=== PATIENT | male | born 1945 | race Caucasian/White ===

== ENCOUNTER 2025-08-22 07:22 | Outpatient (REF) | payer SELFPAY ==
--- OUTSIDE RECORDS SUMMARY | 2025-08-13 17:17 | XMS_ITS | Encounter Summary ---
Author Organization [facility] Address [address] [place] [id number] Care Team Providers Care Qualifications Examiner Name Role Phone Unknown Primary Care Provider [phone] Dat Vargas MD Primary Care Provider [phone] Reason for Visit * Reason Comments Hip Pain Abnormal Test Result * Auth/Cert (Routine) Specialty Diagnoses / Procedures Referred By Luz Elena t Referred To Contact Diagnoses Closed right hip fracture, initial encounter (HCC) Trauma Procedures N/A Referral ID Status Reason Start Date Expiration Date Visits Re quested Visits Authorized [id number] 1 1 Encounter Details Date Type Department Care Team (Latest Contact Info) Description 08/13/2025 5:17 PM EST - 08/21/2025 4:01 PM EST Hospital Encounter [facility] [address] [place] [address] Ivonne Terry DO [address] [place] [address] Mariann Pérez MD [address] [place] [id number] Ryan Valdes MD [address] [place] [address] Jess Garza MD [address] [place] [address] Marcio Amin MD [address] [place] [id number] 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 Never 08/14/2025 Q2: How many drinks containi ng alcohol do you have on a typical day when you are drinking? Patient does not drink Q3: How often do you have si x or more drinks on one occasion? Never 08/14/2025 Overall Financial Resource Strain (CARDIA) Answe r Date Recorded How hard is it for you to pa y for the very basics like food, housing, medical care, and heating? Patient unable to answer 08/15/2025 Hunger Vital Sign Answer Date Recorded Within the past 12 months, y ou worried that your food would run out before you got the money to buy more. Never true 08/16/20 25 Within the past 12 months, t he food you bought just didn't last and you didn't have money to get more. Never true 08/16/2025 PRAPARE - Transportation Answer Date Re corded In the past 12 months, has l ack of transportation kept you from medical appointments or from getting medications? No 08/04 In the past 12 months, has l ack of transportation kept you from meetings, work, or from getting things needed for daily living? No 08/16/2025 Housing Stability Vital Sign Answer Gian e Recorded In the last 12 months, was t here a time when you were not able to pay the mortgage or rent on time? No 08/16/2025 In the past 12 months, how m any times have you moved where you were living? 0 08/16/2025 At any time in the past 12 m [place], were you homeless or living in a mcc (including now)? No 08/16/2025 [facility] Utilities Answer Date Recorded In the past 12 months has th e electric, gas, oil, or water company threatened to shut off services in your home? No 08/16/2025 Sex and Gender Information Value Date Recorded Sex Assigned at Male 08/13/2025 5:24 PM EST Legal Sex Male 2:39 PM EST Gender Identity Male 08/13/2025 5:24 PM EST Sexual Orientation Heterosexual (straight) 08/13 8:31 PM EST documented as of this encounter Last Filed Vital Signs Vital Sign Reading Time Taken Comments Blood Pressure 122/56 08/21/2025 1:28 PM EST Pulse 95 08/21/2025 1:28 PM EST Temperature 37.5 C (99.5 F) 08/21/2025 1:28 PM EST Respiratory Rate 16 08/21/2025 1:28 PM EST Oxygen Saturation 94% 08/21/2025 1:28 PM EST Inhaled Oxygen Concentration - - Weight 87.5 kg (192 lb 14.4 oz) 08/14/2025 6:28 PM EST Height 177.8 cm (5' 10 ) 08/14/2025 6:28 PM EST Body Mass Index 27.68 08/14/2025 6:28 PM EST documented in this encounter Functional Status * AUDIT-C Score Answer Date of Assessment Author 0 08/14/2025 6:32 PM EST Kash William RN * Question Answer Date of Assessment Author AUDIT-C Total Score - Male 0 08/14/2025 6:32 PM Kash Rich RN Q1: How often do you have a drink containing alcohol? Never 08/14/2025 6:32 PM Kash Rich RN Q2: How many drinks containing alcohol do you have on a typical day when you are drinking? Patient does not drink 08/14/2025 6:32 PM Kash Rich RN Q3: How often do you have six or more drinks on one occasion? 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 Allergies[1] Admission Date: 08/13/2025 Admitting Provider: Mariann Pérez MD Discharge Provider: Marcio Amin MD Discharge Date: 08/20/2025 Primary Care Physician at Discharge: Dat Vargas MD OUTPATIENT TEAM Patient Care Team: Dat Vargas MD as PCP - General (Family Medicine) PRIMARY DISCHARGE DIAGNOSIS Primary Discharge Diagnosis Principal Problem: 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) (POA: Yes) Active Problems: Atrial fibrillation POA: Yes DISCHARGE DISPOSITION SNF Code Status Procedures Full code . MEDICATIONS AT TIME OF ADMISSION Current Outpatient Medications Medication Instructions ALPRAZolam (XANAX) 1 mg, Oral, 2 times daily PRN amitriptyline (ELAVIL) 25 mg, Oral, Nightly amphetamine-dextroamphetamine (ADDERALL) 20 MG tablet 20 mg, Oral, 3 times daily PRN atorvastatin (LIPITOR) 40 mg, Oral, Daily B Complex-C (vitamin b complex-vitamin C) tablet 1 tablet, Daily cholecalciferol (CHOLECALCIFEROL) 1,000 Units, Daily fentaNYL (DURAGESIC) 75 mcg/hr patch Place 1 patch on the skin every third day (72 hrs). oxyCODONE (ROXICODONE) 30 mg, Oral, Every 4 hours PRN Xarelto 20 mg, Daily with dinner DISCHARGE MEDICATIONS ( Includes Changes Made During Current Admission) Discharge Medications New Medications Sig methocarbamol 500 MG tablet Commonly known as: ROBAXIN Take 1 tablet (500 mg total) by mouth nightly as needed for muscle spasms. multivitamin with minerals Tabs tablet Start taking on: August 21, 2025 Take 1 tablet by mouth daily. polyethylene glycol 17 g packet Commonly known as: miraLAx Take 1 packet (17 g total) by mouth daily. senna-docusate 8.6-50 MG Commonly known as: SENNA-S Take 2 tablets by mouth nightly. Xarelto 20 MG tablet Generic drug: rivaroxaban Take 1 tablet (20 mg total) by mouth every evening with dinner. Modified Medications Sig cholecalciferol 25 MCG (1000 UT) tablet Commonly known as: CHOLECALCIFEROL Start taking on: August 21, 2025 What changed: how much to take Take 2 tablets (2,000 Units total) by mouth daily. Medications To Continue Sig ALPRAZolam 1 MG tablet Commonly known as: XANAX Take 1 tablet (1 mg total) by mouth 2 (two) times a day as needed for anxiety. amitriptyline 25 MG tablet Commonly known as: ELAVIL Take 1 tablet (25 mg total) by mouth nightly. amphetamine-dextroamphetamine 20 MG tablet Commonly known as: ADDERALL Take 1 tablet (20 mg total) by mouth 3 (three) times a day as needed. atorvastatin 40 MG tablet Commonly known as: LIPITOR Take 1 tablet (40 mg total) by mouth daily. fentaNYL 75 mcg/hr patch Commonly known as: DURAGESIC Place 1 patch on the skin every third day (72 hrs). oxyCODONE 30 MG immediate release tablet Commonly known as: ROXICODONE Take 1 tablet (30 mg total) by mouth every 4 (four) hours as needed (pain). vitamin b complex-vitamin C tablet Take 1 tablet by mouth daily. DISCHARGE INSTRUCTIONS No discharge procedures on file. FOLLOW UP No future appointments. ACTIVE ISSUES FOR FOLLOW UP Outpatient follow-up with orthopedics in 2 weeks PENDING TEST RESULTS Pending Labs Order Current Status Fungal Culture (non-blood) Preliminary result Mycobacteria Culture (includes Acid Fast Smear) Preliminary result Tissue Culture (aerobic, anaerobic + Gram stain) Preliminary result DISCHARGE DAY NOTE Patient was seen and examined by me on the date of discharge. Discharge day Exam Physical Exam Vitals reviewed. Constitutional: Appearance: Normal appearance. HENT: Head: Normocephalic and atraumatic. Cardiovascular: Rate and Rhythm: Normal rate and regular rhythm. Heart sounds: No murmur heard. Pulmonary: Effort: Pulmonary effort is normal. No respiratory distress. Breath sounds: Normal breath sounds. No wheezing or rales. Abdominal: Palpations: Abdomen is soft. Skin: General: Skin is warm and dry. Neurological: General: No focal deficit present. Mental Status: She is alert and oriented to person, place, and time. I spoke with the patient regarding the discharge plan. The discharge plan was discussed with the case management and the nursing staff. Patient verbalized understanding of the discharge and was agreeable for the discharge plan. 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 He is also supposedly on Xarelto 20 mg daily for afib but apparently last took it few months ago. Also has anxiety on Amitryptiline, Xanax. Also has ADD on Adderall and hyperlipidemia on Atorvastatin. Also has h/o aortic aneurysm, MGUS. He was sent from [facility] after he presented there due to falls. The exact circumstances ofthe fall are unclear but pt denies any chest pain, dizziness, syncope, palpitations, dyspnea prior to or after the fall. While at [facility] CT head and neck were negative. He reported significant right hip pain for which he had xray which showed right periprosthetic subtrochanteric hip fracture. He was transferred to . During my evaluation, Courtney reports pain in right hip 06/13. No other symptoms reported. He smokes half pack per day. Denies alcohol or drug use. Hospital Course Mr. Shipman is a 80 y.o. male with PMH of chronic neuropathic pain bilateral lower extremity on chronic fentanyl patch/oxycodone, anxiety, A-fib, ADD, HLD, aortic aneurysm, MGUS presented as a transfer from [facility] for periprosthetic right hip fracture after sustaining a fall. He underwentrevision right [facility] on 08/15. He tolerated procedure with no issues. He was started on Xarelto for DVT prophylaxis and for his history of A-fib. He was started on a multimodal pain medication regimen to help control his symptoms. He was seen by PT and OT who recommended discharge to SNF facility. Discharged stable condition with pain regimen, bowel regimen, home dose of Eliquis for DVT prophylaxis. Outpatient follow-up with orthopedics Dr. Phan in 2 weeks Consults: Orthopedics Procedures: Surgical/Procedural Cases on this Admission Case IDs Date Procedure Surgeon Location Status [id number] 08/15/25 REVISION TOTAL HIP WITH ORIF FEMUR FRACTURE Harpreet Phan MD [facility] OR Comp Diagnostic Studies: XR Chest 1 view-Portable Result Date: 08/14/2025 EXAMINATION: XR CHEST CLINICAL INFORMATION: Preoperative evaluation. COMPARISON: None available. TECHNIQUE: Frontal view of the chest was obtained. FINDINGS: No focal airspace consolidation. No pleural effusion or pneumothorax. No cardiomegaly. Mild posterior curvature of the thoracic spine which may be positional. No acute osseous abnormality. No acute cardiopulmonary findings. CT Femur w/o contrast-Right Result Date: 08/13/2025 EXAMINATION: CT FEMUR WITHOUT IV CONTRAST RIGHT CLINICAL INFORMATION: Right periprosthetic femur fracture COMPARISON: None. TECHNIQUE: Multidetector volumetric imaging of the right lower extremity without the use of contrast. Coronal and sagittal reformats were completed at the independent technologist workstation. DLP: 3406.29 mGy-cm FINDINGS: Status post total right hip arthroplasty, with anatomic alignment of the femoral and acetabular components of the prosthesis. Old fracture of the right acetabulum with periosteal reaction, without surrounding soft tissue edema. Comminuted and displacedacute fracture of the right proximal femur around the prosthesis. 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 Large intramuscular hematoma in the right proximal thigh. No pelvic mass is identified 1. Comminuted and displaced acute periprosthetic fracture of the right proximal femur with large intramuscular hematoma. 2. 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 Superimposed acute fracture cannot be excluded though periosteal reaction is noted in association with nearly the entirety of the visualized pelvic fractures suggesting that findings are subacute-chronic. The fractures involve the anterior and posterior columns of the right hip and superior margin of the acetabulum. This critical result was discussed with Mariann Pérez MD by [Epic chat at 08/13/2025 10:36 PM and it was ascertained that the content and urgency of the report was understood at the time of direct communication. Interpreted by: Torrey Pimentel MD Vegetable Loader Machine Operator I personally reviewed the images and the resident's preliminary report and AGREE with the report as it is now presented (RADPAL1). CT Spine Archive for Reference Only Result Date: 08/13/2025 This study has been auto finalized and does not contain a result. CT Head Archive for Reference Only Result Date: 08/13/2025 This study has been auto finalized and does not contain a result. CR Extremity Right Archive for Reference only Result Date: 08/13/2025 This study has been auto finalized and does not contain a result. Results from last 7 days Lab Units 08/19/25 0522 08/18/25 0634 08/17/25 0546 08/13/25 2312 08/13/25 1743 WHITE BLOOD CELL COUNT Thou/uL 7.5 7.8 9.1 < > 9.0 HEMOGLOBIN g/dL 8.2* 8.2* 8.8* < > 11.5* HEMATOCRIT % 26.3* 25.4* 27.1* < > 36.0* PLATELET COUNT Thou/uL 210 178 173 < > 184 NEUTROS PCT % -- -- -- -- 79.6 LYMPHS PCT % -- -- -- -- 12.0 MONOS PCT % -- -- -- -- 8.0 EOS PCT % -- -- -- -- 0.1 BASOS PCT % -- -- -- -- 0.1 < > = values in this interval not displayed. Results from last 7 days Lab Units 08/18/25 0634 08/17/25 0546 08/16/25 0942 08/14/25 0929 08/14/25 0712 SODIUM mmol/L 135* 137 135* < > 140 POTASSIUM mmol/L 4.3 3.8 4.2 < > 4.5 CHLORIDE mmol/L 102 100 101 < > 106 CO2 mmol/L 26 27 24 < > 25 BUN mg/dL 23* 24* 23* < > 27* CREATININE mg/dL 0.89 0.86 0.85 < > 1.05 CALCIUM mg/dL 8.1* 8.1* 8.2* < > 8.7 GLUCOSE mg/dL 103* 114* 168* < > 88 GLUCOSE, POC -- -- -- < > -- EGFR 87 88 88 < > 72 ALBUMIN g/dL -- -- -- -- 3.5 < > = values in this interval not displayed. No results found for: ALT , AST , GGT , ALKPHOS , BILITOT Results from last 7 days Lab Units 08/15/25 0452 PROTHROMBIN TIME (PT) seconds 13.2 INR 1.1 No results found for: CK , SELMA , TNI , BNP , PROBNP Blood Cultures: Lab Results Component Value Date CULTURE Negative after 4 days 08/15/2025 CULTURE 08/15/2025 No fungi isolated. Culture will be held for two weeks. CULTURE PENDING 08/15/2025 Urine Cultures: No results found for: CRYSUA , HYALNCSTUA , UROBILINOGEN , BILIUA , BLOODUA , CLARITYUA , COLORUA , UACOMMENT , GLUCU , KETONESUA , LEUKOCYTESUA , NITRITEUA , PHUA , PROTEINUA , RBCUA , SPECIMEN , SPECGRAVUA , SQEPIUA , WBCUA C. Difficile: No results found for: CDIFFTOX , NAP1 TIME SPENT FOR DISCHARGE Total time spent for discharge 40 minutes Time was spent in educating the patient, making a comprehensive discharge plan and discussion with the staff regarding the discharge plan, medication reconciliation and discharge summary. Marcio Amin MD 08/20/2025 12:10 PM [1] Allergies Allergen Reactions Prednisone Delirium/Confusion/Psychosis Nsaids GI Intolerance/Nausea/Vomiting documented in this encounter Discharge Instructions * Discharge Instr - Other Orders* Zach Martin MD - 08/15/2025 7:15 PM EST Follow up office appointment: -Follow-up withDr. Harpreet Phan ([phone]) in 10-14 days Call to schedule/verify your appointment date and time. -Follow-up with primary care physician within 2 weeks of discharge Nurse Navigator: -Nurse Navigators are Registered Nurses who provide consistent support through- out your surgical journey. -Nurse Navigator Team is available Monday to Monday from 8am-5pm and can be reached for 3 months after surgery -Call and/or Text: Rina: Cheryl: Lynette Call your surgeon's office if you experience: -Increased pain, redness, or drainage from the incision -Tightness, swelling and pain in calf -Temperature over 101?? F -A fall Call 911 if you experience: -Unusual chest pain -Shortness of breath Activity: -Follow your weight bearing precautions: toe touch weight bearing to RLE, posterior hip precautions -Follow activity recommendations from physical therapy for mobility and your assisted devices (walker, cane, crutches) -Elevate the affected extremity to help with pain and swelling. -Use the incentive spirometer every 2 hours while awake. Wound care/Showering: -Keep splint/bandages clean and dry until your first postoperative/follow-up visit. Do not get bandage or dressings wet. Replace dressings with dry sterile bandages if they become dirty or wet. -Sponge bathing is preferred but you may begin showering 3 days after your surgery. Cover dressing with 2 plastic bags and/or saran wrap when showering, to protect your dressing from getting wet. Good hygiene is very important. -NO baths, hot tubs, or swimming pools until cleared to use them by your surgeon. Medications: -To decrease chance of blood clots, take xarelto until seen by your doctor -Take pain medication as it was prescribed. Call the office between 9am and 3pm during regular business hours for questions/refills. -No driving while taking narcotic pain medications. -To help prevent constipation while taking pain medication; -Take a stool softener and/or laxative -Drink water -Eat a high fiber diet Patient Reported Outcomes: -At specific points in your care plan, you may receive Patient Reported Outcome forms to fill outvia [employer]. These forms help your care team understand your surgical experience and recovery. The better your care team can understand your experience, the better care they can provide to you. -These forms are standardized, which means that patients similar to you are being asked the same questions. -You will receive notifications from [employer] when new forms are available for you to complete. -Expect to see reminders to complete your forms for up to a year after your injury. -This information also helps to improve the quality of care for other patients, who are going through a similar journey. -Your entire care team appreciates your feedback. documented in this encounter Medications at Time of Discharge ALPRAZolam (XANAX) 1 MG tablet Take 1 tablet (1 mg total) by mouth 2 (two) times a day as needed for anxiety. amitriptyline (ELAVIL) 25 MG tablet Take 1 tablet (25 mg total) by mouth nightly. amphetamine-dextr oamphetamine (ADDERALL) 20 MG tablet Take 1 tablet (20 mg total) by mouth 3 (three) times a day as needed. 07/31/2025 08/30/2025 atorvastatin (LIPITOR) 40 MG tablet Take 1 tablet (40 mg total) by mouth daily. 09/30/2024 B Complex-C (vitamin b complex-vitamin C) tablet Take 1 tablet by mouth daily. cholecalciferol (CHOLECALCIFEROL) 25 MCG (1000 UT) tabletIndications :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) Take 2 tablets (2,000 Units total) by mouth daily. 08/21/2025 09/20/2025 fentaNYL (DURAGESIC) 75 mcg/hr patch Place 1 patch on the skin every third day (72 hrs). 07/30/2025 methocarbamol (ROBAXIN) 500 MG tabletIndications :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) Take 1 tablet (500 mg total) by mouth nightly as needed for muscle spasms. 08/20/2025 09/19/2025 multivitamin with minerals Tab tabletIndications :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) Take 1 tablet by mouth daily. 08/21/2025 09/19/2025 oxyCODONE (ROXICODONE) 30 MG immediate release tablet Take 1 tablet (30 mg total) by mouth every 4 (four) hours as needed (pain). 07/30/2025 polyethylene glycol (miraLAx) 17 g packetIndications :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) Take 1 packet (17 g total) by mouth daily. 08/20/2025 09/19/2025 senna-docusate (SENNA-S) 8.6-50 MGIndications:Per iprosthetic fracture 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) Take 2 tablets by mouth nightly. 08/20/2025 09/19/2025 Xarelto 20 MG tablet Take 1 tablet (20 mg total) by mouth every evening with dinner. 12/04/2024 documented as of this encounter Progress Notes * Barb Murry, LINDA - 08/21/2025 4:01 PM EST Images from the original note were not included. Health Social Work Progress Note Date: 08/21/2025 Follow-Up Reason: Adjustment to Diagnosis Support around transition planning, advance care planning Previous Social Work Encounters: See note dated: 08/19/2025 Courtney Shipman is a 80 y.o. male currently admitted for: Closed right hip fracture, initial encounter ([facility]) Procedure(s) (LRB): 08/15/2025 REVISION TOTAL HIP WITH ORIF FEMUR FRACTURE (Right) Assessment & Plan Summary Health Social Work (SW) completed follow-up re: Adjustment to Diagnosis/ support with transition planning and advance care planning. . Courtney was engaged in conversation and good rapport was maintained; he appeared welcoming to visit. Pt appealed his discharge yesterday and discharge upheld. [facility] [place] for STR. Pt expressed being grateful for having provided him a cell phone auto glass worker which he indicates successfully charged his phone. Pt had indicated last visit 08/19 that once phone charged he would be open to providing his family contact information. Today pt declined to provide this information and hedid not recall having indicated he would provide the information. He declines to provide his adult childrens contact information for fear they will be contacted and he is concerned about burden that would put on them as they have their own lives . He is guarded around his housing situation as well. He has been noted to having been residing in a hotel in [place]. He is also guarded around financial info ie source of income. He initially indicated having a healthcare proxy in place and was vague around this. He declined tocomplete a [place] Healthcare Proxy today. Sw wished him well in his transition to SNF in [place]. 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 Pt also has 4 other adult children who are also legal next of kin. He declines to provide further information. Plan 1.Advance Care Planning: Offered opportunity to complete a [place] Healthcare Proxy form- he declined. He declined to provide legal next of kin contact info. Plan: Pt discharged to SNF today, no further intervention indicated by this investigative writer. Plan of Care Reviewed with: Patient Total time spent: 30 min on the date of service reviewing patient records and advance care planning. Objective Objective Mental Status/Cognition Current Mental Status/Cognitive Functioning: Able to Comprehend, Affect Appropriate to Mood, and Alert, Oriented to Person, Place, and Time Affect: Mood-congruent Mood: Congruent to Situation Behaviors: Guarded Judgment/Insight: Judgment/insight appropriate to age and situation Verbal Skills: No Deficits Noted Health Literacy Screen: BRIEF Health Literacy Screen: Adequate (Score= 17-20): Will be able to read and comprehend most patient education materials Reaction to Health Status: Frustrated Understanding of Condition/Tx: Adequate Understanding of Medical Condition Additional Considerations: N/A Suicidal/Homicidal Assessment: Denied Sign: Barb Murry LCSW * Cici Bolanos CM - 08/21/2025 1:08 PM EST 08/21/25 1308 Plan Patient/Family in Agreement with Plan yes Final Discharge Disposition Code 03 - nursing home facility (SNF) Final Case Management Care Plan Note Final Destination: SNF/STR Summary: Patient is medically stable for transition from hospital to [facility]. Patient appealed his discharge yesterday, and case coordination notified by Su patient lost his appeal. [facility] 12 explained/reviewed with the patient, and a signed copy placed in the chart. Patient was offered SNF beds at [facility] & [facility] in [place], [place] & [facility] in [place], [place]. Patient accepts the bed offer at [facility], and patient verbalized (+) okay with his transition from hospital today. Final discharge Transportation and time: Ambulance - booked for 1500 * Luba Cagle, PT - 08/21/2025 11:50 AM EST Physical Therapy Progress Note Precautions/Restrictions: fall, weight bearing, hip arthroplasty: posterior Assessment Summary: Pt met supine in bed. Difficulty making progress with PT. Self limiting behavior, pain, and WB status are limiting his mobility. He was able to stand at the EOB and take 1-2 small steps by the EOB, but unable to transfer. Practiced some therapeutic exercises, however he is able to perform very little AROM on RLE due to weakness. Therapist assistance given to help take him through exercises. He was left supine in bed with bed alarm on and call shelley within reach. RN updated. Patient requires ongoing skilled PT due to deviation from baseline mobility status as a result of acute illness and impairments. The goal of therapy will be to optimize function to minimize risk for future falls and hospital readmissions. Patient is a good rehab candidate and with ability to make functional gains and maximize independence with daily multidisciplinary therapy in conjunction with nursing home services at next level of care. Progress Towards Goals: progress toward functional goals is gradual Outcome Measures: The Activity Measure for Post-Acute Care (AM-PAC) Basic Mobility Inpatient Short Form (6-clicks) margaret standardized measure used to quantify functional deficits in mobility. The total score of the measure ranges from 6-24. A higher score indicates a higher level of independence with functional mobility. Current [facility] Basic Mobility Score: 9 Rehab Plan of Care Continue strengthening, balance, transfer training, gait training, stair training, and motor control activities, to decrease pt's risk of falling and return them to their PLOF. PT Recommendations for Staff: Ax2 stand at EOB with RW, P THP, TTWB RLE PT Frequency during Hospitalization: daily Plan of Care Reviewed With: patient Objective Data/Intervention Bed Mobility Assessment/Intervention: Max/mod Ax2 supine to sit EOB with HOB elevated. OBSTETRIC ANAESTHETIST given tohelp mobilize trunk and assist given at trunk and BLE. VC's for sequencing. Transfers Assessment/Intervention: Mod/ min Ax2 STS from EOB (elevated bed height) with RW. Uses BUE for assistance. VC's for sequencing. VC's to bring RLE underneath COG, good carryover. X3 STS performed. Pt able to take x 1 step to the left and right at EOB. Poor balance. Assist needed to maintain upright standing. Difficulty maintaining TTWB status. Mod Ax2 for this. Max VC's for sequencing and to use BUE with RW to offload weight on RLE Therapeutic Exercise: therapist assistance at RLE for the following; (x10 LAQ BLE, x10 seated hip marches BLE, x10 seated heel slides BLE) Neuromuscular Re-Education Assessment/Intervention: Practiced lifting RLE off of floor, pt unable to execute meaningfully. Poor dynamic standing balance with RW. Activity Tolerance/Endurance Assessment/Intervention: fair tolerance to activity. Agitated to participate in his care Vitals: no signs of VSD Education: Rehab POC, importance of PT, role of PT Subjective Its not going to work I can't do that Flowsheet Data 08/21/25 1150 Physical Therapy Time and Intention PT Follow-Up Visit follow up treatment Mode of Treatment individual therapy;physical therapy Patient Effort fair Symptoms Noted During/After Treatment increased pain General Information Patient Profile Reviewed yes Existing Precautions/Restrictions fall;weight bearing;hip arthroplasty: posterior Pain Additional Documentation Pain Scale: Word Pre/Post-Treatment (Group) Pretreatment Pain Rating (Number Scale) 1/10 Pain Scale: Numbers, During Treatment 7/10 Posttreatment Pain Rating(Number Scale) 3/10 Pain Location- Side Right Pain Location - Orientation generalized Pain Location hip Mobility Extremity Weight-bearing Status right lower extremity Right Lower Extremity (Weight-bearing Status) toe touch weight-bearing (TTWB) Health Promotion Additional Documentation Coping (Group);Plan of Care Review (Group) Coping Observed Emotional State cooperative Verbalized Emotional State acceptance Plan of Care Review Plan of Care Reviewed With patient Safety Safety WDL WDL Safety Factors bed in low position All Alarms alarm(s) activated and audible Progressive Mobility Progressive Mobility Level Achieved Standing [facility] Basic Mobility Turning from your back to your side while in a flat bed without using bedrails? 2 Moving from lying on your back to sitting on the side of a flat bed without using bedrails? 2 Moving to and from a bed to a chair (including wheelchair)? 1 Standing up from a chair using your arms? 2 To walk in a hospital room? 1 Climbing 3-5 steps with a railing? 1 [facility] Basic Mobility Score 9 Therapy Assessment/Plan (PT) PT Recommendations for Staff Ax2 stand at EOB with RW, P THP, TTWB RLE Progress Summary (PT) Progress Toward Functional Goals (PT) progress toward functional goals is gradual Therapy Plan Review/Discharge Plan (PT) Therapy Plan Review (PT) risks/benefits reviewed;care plan/treatment goals reviewed;evaluation/treatment results reviewed;current/potential barriers reviewed;participants voiced agreement with care plan;participants included;patient Sign: Luba Cagle, PT * Aditi Love MD - 08/21/2025 5:26 AM EST Orthopaedic Progress Note Patient Name: Courtney Shipman : 1945 Admit Date: 08/13/2025 Date of Service: 08/21/2025 Hospital Day: 8 A/P 80 y.o. male POD6 R YOKO for ppx fracture. Patient continues to recover well, stood with PT yesterday. Plans for dispo to SNF per primary team. Plan: -Weight bearing status: Flat foot touch down WB RLE, posterior hip precautions -DVT prophylaxis: home Xarelto, PAS/TEDs -PT/OT/OOB -Pain control as needed -Diet: regular -OR cx: NGTD -Appreciate continued care per primary team -Dispo planning S No overnight events, pain is well controlled, no fevers/chills, no chest pain/sob. O Blood pressure 133/67, pulse 62, temperature 99.3 ??F (37.4 ??C), temperature source Tympanic, resp. rate 16, height 1.778 m (5' 10 ), weight 87.5 kg (192 lb 14.4 oz), SpO2 100%. Intake/Output Summary (Last 24 hours) at 08/21/2025 0526 Last data filed at 08/21/2025 0400 Gross per 24 hour Intake 246 ml Output 1150 ml Net -904 ml Exam: GEN: NAD RESP: Non-labored breathing RLE: Dressing clean dry and intact SILT deep peroneal, superficial peroneal, saphenous, and tibial nerves Fires EHL/FHL/TA/GS Toes WWP/BCR Labs: Recent Labs 08/18/25 0634 08/19/25 0522 HCT 25.4* 26.3* HGB 8.2* 8.2* CREAT 0.89 -- Aditi Love 08/21/2025 5:26 AM * Jonas Caldera OT - 08/20/2025 2:26 PM EST 08/20/25 1426 OT Time and Intention OT Visit Type patient declined OT Follow-Up Visit patient declined Mode of Treatment occupational therapy Session Not Performed deferral Comment, Session Not Performed Chart reviewed prior to OT treatment session. Pt met supine in bed reporting 10/10 pain discussing need for rehab. Pt edu on role of OT in acute care setting and importance of participation in therapy to promote progress and healing. Pt reports he has already gotten up and has just got settled. Pt discusses difficulty with being able to move his RLE, edu pt that therapy staff can assist him. Pt deferring session, all needs at bed side and RN updated. * Luba Cagle, PT - 08/20/2025 12:20 PM EST Physical Therapy Progress Note Precautions/Restrictions: fall, hip arthroplasty: posterior, weight bearing Assessment Summary: Pt unable to show significant progress today with PT, possibly due to elevated pain. He was unable to perform SPT with use of RW. Attempted karlee stedy transfer to chair however this was unsuccessful as patient was in too much pain getting down to the height of the chair. Attempts were madeto increase the height of the chair without success. He was left supine in bed with bed alarm on and call shelley within reach. RN updated. Patient requires ongoing skilled PT due to deviation from baseline mobility status as a result of acute illness and impairments. The goal of therapy will be to optimize function to minimize risk for future falls and hospital readmissions. Patient is a good rehab candidate and with ability to make functional gains and maximize independence with daily multidisciplinary therapy in conjunction with nursing home services at next level of care. Progress Towards Goals: progress toward functional goals is fair Outcome Measures: The Activity Measure for Post-Acute Care (AM-PAC) Basic Mobility Inpatient Short Form (6-clicks) margaret standardized measure used to quantify functional deficits in mobility. The total score of the measure ranges from 6-24. A higher score indicates a higher level of independence with functional mobility. Current [facility] Basic Mobility Score: 9 Rehab Plan of Care Continue strengthening, balance, transfer training, gait training, stair training, and motor control activities, to decrease pt's risk of falling and return them to their PLOF. PT Recommendations for Staff: Ax2 stand at EOB, TTWB RLE, P THP PT Frequency during Hospitalization: daily Plan of Care Reviewed With: patient Objective Data/Intervention Bed Mobility Assessment/Intervention: Max Ax2 supine to sit EOB with HOB elevated. VC's for sequencing and for proper hand placement on railing. Transfers Assessment/Intervention: min Ax2 STS from elevated EOB with RW. VC's for BUE placement and to get RLE underneath him up in standing. Fair carryover. Unable to take steps at EOB with max VC's. Able to shower enclosure installer karlee Stedy with min Ax2. However unable to sit into chair due to height of the chair causing increased hip pain in patient. Therapeutic Exercise: x10 LAQ RLE Neuromuscular Re-Education Assessment/Intervention: poor standing balance with RW. Activity Tolerance/Endurance Assessment/Intervention: fair/poor tolerance to activity. Vitals: no signs of VSD Education: importance of mobility. Subjective Its too low Flowsheet Data 08/20/25 1220 Physical Therapy Time and Intention PT Follow-Up Visit follow up treatment Mode of Treatment individual therapy;physical therapy Patient Effort fair Symptoms Noted During/After Treatment increased pain General Information Patient Profile Reviewed yes Existing Precautions/Restrictions fall;hip arthroplasty: posterior;weight bearing Pain Additional Documentation Pain Scale: Word Pre/Post-Treatment (Group) Pretreatment Pain Rating (Number Scale) 2/10 Pain Scale: Numbers, During Treatment 7/10 Posttreatment Pain Rating(Number Scale) 5/10 Pain Location- Side Right Pain Location - Orientation generalized Pain Location hip Mobility Extremity Weight-bearing Status right lower extremity Right Lower Extremity (Weight-bearing Status) toe touch weight-bearing (TTWB) Health Promotion Additional Documentation Coping (Group);Plan of Care Review (Group) Coping Observed Emotional State cooperative Verbalized Emotional State acceptance Plan of Care Review Plan of Care Reviewed With patient Safety Safety WDL WDL Safety Factors bed in low position All Alarms alarm(s) activated and audible Progressive Mobility Progressive Mobility Level Achieved Standing [facility] Basic Mobility Turning from your back to your side while in a flat bed without using bedrails? 2 Moving from lying on your back to sitting on the side of a flat bed without using bedrails? 2 Moving to and from a bed to a chair (including wheelchair)? 1 Standing up from a chair using your arms? 2 To walk in a hospital room? 1 Climbing 3-5 steps with a railing? 1 [facility] Basic Mobility Score 9 Therapy Assessment/Plan (PT) PT Recommendations for Staff Ax2 stand at EOB, TTWB RLE, P THP Progress Summary (PT) Progress Toward Functional Goals (PT) progress toward functional goals is fair Therapy Plan Review/Discharge Plan (PT) Therapy Plan Review (PT) evaluation/treatment results reviewed;care plan/treatment goals reviewed;risks/benefits reviewed;current/potential barriers reviewed;participants voiced agreement with care plan;participants included;patient Sign: Luba Cagle, PT * Aditi Love MD - 08/20/2025 5:49 AM EST Orthopaedic Progress Note Patient Name: Courtney Shipman : 1945 Admit Date: 08/13/2025 Date of Service: 08/20/2025 Hospital Day: 7 A/P 80 y.o. male POD5 from revision R YOKO for ppx fracture. Patient continues to recover well from surgery. Able to stand with OT using walker yesterday. Ongoing dispo planning per case management and primary team due to complex social history. Plan: -Weight bearing status: Flat foot touch down WB RLE, posterior hip precautions -DVT prophylaxis: home Xarelto, PAS/TEDs -PT/OT/OOB -Pain control as needed -Diet: regular -OR cx: NGTD -Appreciate continued care per primary team -Dispo planning S No overnight events, pain is well controlled, no fevers/chills, no chest pain/sob. O Blood pressure 128/69, pulse 60, temperature 97.6 ??F (36.4 ??C), temperature source Tympanic, resp. rate 16, height 1.778 m (5' 10 ), weight 87.5 kg (192 lb 14.4 oz), SpO2 100%. Intake/Output Summary (Last 24 hours) at 08/20/2025 0535 Last data filed at 08/20/2025 0124 Gross per 24 hour Intake 130 ml Output 300 ml Net -170 ml Exam: GEN: NAD RESP: Non-labored breathing RLE: Dressing clean dry and intact SILT deep peroneal, superficial peroneal, saphenous, and tibial nerves Fires EHL/FHL/TA/GS Toes WWP/BCR Labs: Recent Labs 08/18/25 0634 08/19/25 0522 HCT 25.4* 26.3* HGB 8.2* 8.2* CREAT 0.89 -- Aditi Love 08/20/2025 5:51 AM * Harpreet Phan MD - 08/19/2025 6:25 PM EST Postoperative day 4 after complex revision right total hip arthroplasty for periprosthetic fracture. He is seen at [facility] in his room 424. He was pleasant comfortable with minimal pain complaints. He complained that his leg is weak and he is unable to walk. His vitals are stable. He is alert but somewhat disoriented. He has tangential thinking and difficulty keeping his story line. Dressings are clean and dry of the right thigh. He was able to dorsi andplantarflex his foot and ankle. Imaging postoperative x-rays were reviewed. They identified the reconstruction to remain in good position and alignment. Assessment: Postoperative day 4 following revision and ORIF of the right proximal periprosthetic femur fracture. I attempted to review his history with him again today. He has tangential stories and I cannot keepup with his history. He notes that he lives in [place] but then elsewhere. He is in [place] for no understandable reason. I cannot determine who he has local and why he is in this area. He states he has 5 sons but I cannot understand where they are located. He seems to be a placement problem as he does not seem to have a defined home. Plan: Flatfoot touchdown weightbearing right lower extremity. Protect from hip abduction. He would likely require rehab placement. Follow-up in the office in 2 weeks for standard checkup. * Jess Garza MD - 08/19/2025 5:00 PM EST Progress Note Hospital Day: 7, Admit Date: 08/13/2025 Assessment and plan: Ms. Shipman is a 80 y.o. male with PMH of chronic neuropathic pain bilateral lower extremity on chronic fentanyl patch/oxycodone, anxiety, A-fib, ADD, HLD, aortic aneurysm, MGUS presented as a transfer from [facility] for periprosthetic right hip fracture after sustaining a fall. Assessment & Plan Closed right hip fracture, initial encounter ([facility]) Periprosthetic fracture around internal prosthetic right hip joint ([facility]) S/p right YOKO on 08/15. He tolerated procedure with no issues. Orthopedic surgery team following Continue Xarelto for DVT prophylaxis PT/OT continue Dilaudid 0.3 mg every 4 hours as needed for pain Continue oxycodone 30 mg every 4 hours as needed for pain Continue Robaxin as needed for muscle spasms. Continue fentanyl patch every 72 hours. Will follow-up with Ortho as outpatient. Chronic disease A-fib: Heart rate have been controlled. Per chart review, he reports that he has been off anticoagulation. Per the last note from PCP, he should be on anticoagulation. Continue Xarelto 20 mg nightly anxiety: Continue Xanax and amitriptyline Hyperlipidemia: Continue atorvastatin Peripheral neuropathy Continue fentanyl patch Continue amitriptyline 25 mg nightly I have updated the Patient and addressed their concerns. Barriers to patient transition/ medical necessity requiring for disposition planning. Patient is medically ready for discharge. I contacted [facility] and requested initiating the process to transfer patient back to [facility]. Quality metrics: # Telemetry: Active Telemetry Order Indication - Other, Please Specify Nerve Block Continue Telemetry?: Yes Cardiac (Non-Rhythm Related) # Diet: Diet Regular # Code status: Full Code # Kay catheter: No Active Urethral Catheter (Kay) Order # Central lines: # Expected Date of Discharge: 08/19/2025 {Click to update NATALIIA: [id number]} VTE Time Out IMPROVE SCORE: 2 (08/13/2025 6:48 PM) Interpretation - High Risk Chemical Prophylaxis rivaroxaban (XARELTO) tablet 20 mg Oral Daily with dinner Chemical VTE prophylaxis NOT ordered. Click here to order if appropriate Chemical Prophylaxis Contraindication: None - I will place appropriate order Heparin Sodium (Porcine), Heparin Sodium (Porcine), Rivaroxaban 20 mg Last dose 08/18/2025 5:12 PM Mechanical Prophylaxis Subjective: Chief complaint Chief Complaint Patient presents with Hip Pain Abnormal Test Result Patient is being seen for acute medical problems and follow-up for chronic medical issues as mentioned in the assessment and plan above. # Event overnight: No acute events reported Ms. Shipman was seen earlier today. He had had an uneventful night. He is saying that he does not feel ready to be discharged because he is not able to ambulate. I did extremity him that he has to goto rehab in order to receive intensive PT and improve his mobility. He was insistent about staying in the hospital to receive further care. Objective: Last 3 Filed Values 08/18/25 2325 08/19/25 0650 08/19/25 1357 BP: (!) 125/58 124/59 113/65 Pulse: 70 90 (!) 59 Resp: 16 16 Temp: 97.8 ??F (36.6 ??C) (!) 96.1 ??F (35.6 ??C) 97.2 ??F (36.2 ??C) TempSrc: Tympanic Tympanic Tympanic SpO2: 97% 97% 97% SOFA Scores 08/18/25 0600 08/18/25 1800 08/19/25 0600 SOFA Score : 0 0 3 SpO2 Min: 97 % Max: 97 % O2 Device: room air (none) Flow (L/min) (Oxygen Therapy): 2 Weight: on admission: 87.5 kg (192 lb 14.4 oz), (08/14/2025 6:28 PM) Recent: 87.5 kg (192 lb 14.4 oz), (08/14/2025 6:28 PM) Last Documented Bowel Movement - 08/19/25 (08/19/25 1017) Intake/Output Summary (Last 24 hours) at 08/19/2025 1700 Last data filed at 08/19/2025 1344 Gross per 24 hour Intake 120 ml Output 300 ml Net -180 ml Physical Exam Constitutional - alert. Head - normocephalic. Eyes - PERRL. Nose - appears normal. Neck - supple. Cardiovascular - normal rate. normal heart sounds. Pulmonary - breath sounds present bilaterally. no wheezing and no crackles. Abdominal - soft. Musculoskeletal - Joint tenderness (right hip). Skin - warm. Neurological - alert and oriented x 4. Scheduled medications 08/19/2025 5:00 PM As needed medications: amitriptyline, 25 mg, Oral, Nightly atorvastatin, 40 mg, Oral, Daily calcium citrate, 950 mg, Oral, BID with meals cholecalciferol, 2,000 Units, Oral, Daily fentaNYL, 1 patch, Transdermal, Q72H rivaroxaban, 20 mg, Oral, Daily with dinner senna-docusate, 2 tablet, Oral, Nightly ALPRAZolam amphetamine-dextroamphetamine bisacodyl HYDROmorphone methocarbamol naloxone oxyCODONE polyethylene glycol Current infusions: lactated ringers, 100 mL/hr Diagnostic studies: I have reviewed the labs and ordered new labs if needed. Recent Labs 08/17/25 0546 08/18/25 0634 08/19/25 0522 WBC 9.1 7.8 7.5 HGB 8.8* 8.2* 8.2* HCT 27.1* 25.4* 26.3* PLT 173 178 210 Recent Labs 08/17/25 0546 08/18/25 0634 NA 137 135* K 3.8 4.3 CO2 27 26 CL 100 102 BUN 24* 23* CREAT 0.86 0.89 CALCIUM 8.1* 8.1* No results for input(s): PT , PTT , INR in the last 72 hours. No results for input(s): SARSCOV2 , INFLAV , INFLBV in the last 72 hours. Blood Culture Results Since Admission No results found for this visit on 08/13/25. Urine Culture Results Since Admission No results found for this visit on 08/13/25. Imaging Studies: No images to review. Jess Garza MD * Surendra Paulino RN - 08/19/2025 3:49 PM EST 08/19/25 1549 Discharge Coordination/Tasks Status PASRR Completed Yes ([id number]) Level of Care Completed No Follow Up Needed? Cert box 2 * Luba Cagle, PT - 08/19/2025 1:32 PM EST Physical Therapy Progress Note Precautions/Restrictions: fall, hip arthroplasty: posterior, weight bearing Assessment Summary: Pt shows gradual progress with PT as demonstrated by ability to take 1- 2 side steps at EOB. He was unable to perform a transfer to chair due to impaired balance, strength, and tolerance to activity. He is able to maintain his TTWB on RLE. He would benefit from attempting a karlee stedy transfer to chair. Attempted to perform therapeutic exercises and more transfer attempts, however patientdeclined, due to reasons that were difficult to understand. He was left supine in bed with bed alarm on and call shelley within reach. RN updated. Progress Towards Goals: progress toward functional goals is fair Outcome Measures: The Activity Measure for Post-Acute Care (AM-PAC) Basic Mobility Inpatient Short Form (6-clicks) margaret standardized measure used to quantify functional deficits in mobility. The total score of the measure ranges from 6-24. A higher score indicates a higher level of independence with functional mobility. Current [facility] Basic Mobility Score: 9 Rehab Plan of Care Continue strengthening, balance, transfer training, gait training, stair training, and motor control activities, to decrease pt's risk of falling and return them to their PLOF. PT Recommendations for Staff: Ax2 to stand at EOB with RW, TTWB RLE, P THP PT Frequency during Hospitalization: daily Plan of Care Reviewed With: patient Objective Data/Intervention Bed Mobility Assessment/Intervention: Max Ax2 supine to sit EOB with HOB elevated. VC's for sequencing with fair carryover. Assist given at trunk and BLE. Transfers Assessment/Intervention: Mod Ax2 STS from EOB with RW. Uses BUE for assistance. VC's for hand placement and sequencing. X3 STS performed. Able to take 1 side step to left and right. Unable to pursue transfer to chair with RW due to inability to pivot. Max VC's given with poor carryover. Attempted x 2. Neuromuscular Re-Education Assessment/Intervention: able to stand at EOB for about 2 minutes while being cleaned for hygiene purposes. Activity Tolerance/Endurance Assessment/Intervention: fair/poor tolerance to activity. Vitals: no signs of VSD Education: rehab POC, TTWB on RLE, P THP, importance of mobilizing, role of PT/OT Subjective That's it. I am done. Flowsheet Data 08/19/25 1332 Physical Therapy Time and Intention PT Follow-Up Visit follow up treatment Mode of Treatment co-treatment;physical therapy Patient Effort fair Symptoms Noted During/After Treatment increased pain General Information Patient Profile Reviewed yes Existing Precautions/Restrictions fall;hip arthroplasty: posterior;weight bearing Pain Additional Documentation Pain Scale: Word Pre/Post-Treatment (Group) Pretreatment Pain Rating (Number Scale) 5/10 Pain Scale: Numbers, During Treatment 9/10 Posttreatment Pain Rating(Number Scale) 6/10 Pain Location- Side Right Pain Location - Orientation generalized Pain Location hip Cognition Cognitive Status WFL Affect/Mental Status (Cognition) agitated Mobility Extremity Weight-bearing Status right lower extremity Right Lower Extremity (Weight-bearing Status) toe touch weight-bearing (TTWB) Health Promotion Additional Documentation Coping (Group);Plan of Care Review (Group) Coping Observed Emotional State cooperative Verbalized Emotional State acceptance Plan of Care Review Plan of Care Reviewed With patient Safety Safety WDL WDL Safety Factors bed in low position All Alarms alarm(s) activated and audible Progressive Mobility Progressive Mobility Level Achieved Standing [facility] Basic Mobility Turning from your back to your side while in a flat bed without using bedrails? 2 Moving from lying on your back to sitting on the side of a flat bed without using bedrails? 2 Moving to and from a bed to a chair (including wheelchair)? 1 Standing up from a chair using your arms? 2 To walk in a hospital room? 1 Climbing 3-5 steps with a railing? 1 [facility] Basic Mobility Score 9 Therapy Assessment/Plan (PT) PT Recommendations for Staff Ax2 to stand at EOB with RW, TTWB RLE, P THP Progress Summary (PT) Progress Toward Functional Goals (PT) progress toward functional goals is fair Therapy Plan Review/Discharge Plan (PT) Therapy Plan Review (PT) evaluation/treatment results reviewed;care plan/treatment goals reviewed;risks/benefits reviewed;current/potential barriers reviewed;participants voiced agreement with care plan;participants included;patient Sign: Luba Cagle, PT * Jonas Caldera OT - 08/19/2025 1:23 PM EST Occupational Therapy Progress Note Assessment & Progress Summary: Pt met supine in bed agreeable to participate in OT treatment session. Pt continues to function below baseline with presence of TTWB RLE and posterior THPs resulting in decreased functional independence with ADLs, IADLs and functional mobility. Pt was edu on 3/3 posterior THPs and weight bearing status. Pt adamantly against progressing therapy past standing during today's session. Pt declines all ADLs seated EOB. Therapist utilized therapeutic use of self in order to improve motivationto participate in skilled services and address coping strategies for daily functioning in ADLs and IADL tasks. During session pt participated in bed mobility and STS transfers with assist of 2 and RW. At end of session pt left resting comfortably supine in bed with lunch set up all needs met, bed alarm set, call shelley within reach and RN updated. Progress Towards Goals: progress toward functional goals is gradual Outcome Measures: The Activity Measure for Post-Acute Care (AM-PAC) Daily Activity Inpatient Short Form (6-clicks) margaret standardized measure used to quantify deficits in self- care. The total score of the measure ranges from 6-24. A higher score indicates a higher level of independence with self-care tasks. Current [facility] Daily Activity Score: 17 Precautions/Restrictions: fall, weight bearing, hip arthroplasty: posterior (WBAT RLE) Rehab Plan of Care OT will continue to follow while inpatient in order to maximize independence via ADL engagement, & functional mobility. Encouraged mobilization with rehab and nursing teams daily. Progress towards OOB to chair for all meals and continued edu on precautions/address AE needs. Pt is currently below baseline and would benefit from continued skilled occupational therapy services during hospital admission. Patient is a good rehab candidate, with ability to make functional gains and maximize independence with daily multidisciplinary therapy in conjunction with nursing home services at next level of care. -OT Recommendations for Staff: A x 2 standing with RW, TTWB RLE, posterior THPs -OT Frequency during Hospitalization: 2-3 times/wk -Progressive Mobility Level: Level 3 -Plan of Care Reviewed With: evaluation/treatment results reviewed, participants voiced agreement with care plan, participants included, patient, current/potential barriers reviewed, risks/benefits reviewed, care plan/treatment goals reviewed Education: OT role, POC, and recommendations Treatment Interventions/Objective Data Interventions to Optimize ADL Performance Toileting: urinal at bed side, in standing position pt requires maxA for toilet hygiene unable to coordinate standing balance with self-hygiene maintaining TTWB Transfers and Functional Mobility: STS modA x 2 with RW, height of bed elevated and cues for safe positioning Cognition: WFL, increased time for processing thoughts/carryover demands, quickly frustrated Neuromuscular Re-education: sitting EOB pt requires cues for safe hand placement of BUE and BLE to optimize sitting balance, pt benefits from holding of bed rail. Pt provided with cues for upright posture and deep breathing while sitting EOB. STS modA x 2 with RW, cues provided for safe upright posture and distribution of weight to maintain balance and TTWB RLE. Pt able to stand with RW maintaining balance for under a minute with A x 2, despite encouragement pt quickly requesting to sit. Pt demonstrates decreased standing balance tolerance over the next two standing attempts. Endurance/Activity Tolerance: Limited by pain/fatigue. Pt participates in session on RA. Subjective That's it. I am done. Flowsheet Data 08/19/25 1323 OT Time and Intention OT Follow-Up Visit follow up treatment Mode of Treatment occupational therapy Patient Effort good Symptoms Noted During/After Treatment increased pain;fatigue General Information Patient Profile Reviewed yes Onset of Illness/Injury or Date of Surgery 08/13/25 Referring Physician Kayla Patient/Family/Caregiver Comments/Observations That's it. I am done. General Observations of Patient Pt met supine in bed, agreeable to participate in OT treatment session Pertinent History of Current Functional Problem POD4 rev R YOKO for ppx fracture Existing Precautions/Restrictions fall;weight bearing;hip arthroplasty: posterior (WBAT RLE) Pain Additional Documentation Pain Scale: FACES Pre/Post-Treatment (Group) Pain: FACES Scale, Pretreatment 2-->hurts little bit Pain: FACES Scale, During-Treatment 6-->hurts even more Posttreatment Pain Rating (FACES Scale) 6-->hurts even more Pain Location hip Cognition Cognitive Status WFL Comment, Cognition difficulty with explaining details of his circumstances Activity Tolerance / Endurance Activity Tolerance / Endurance pt denies dizziness. Fatigue noted Coping Observed Emotional State cooperative Verbalized Emotional State acceptance Trust Relationship/Rapport care explained;empathic listening provided;questions answered;reassurance provided;thoughts/feelings acknowledged;questions encouraged;emotional support provided;choices provided Family/Support Persons patient Involvement in Care supportive of patient;participating in care Family/Support System Care self-care encouraged;support provided Safety Safety Factors bed in low position;call light in reach;ID band on;wheels locked All Alarms alarm(s) activated and audible Safety Precautions limb precautions maintained Enhanced Safety Measures bed alarm set Infection Prevention environmental surveillance performed;equipment surfaces disinfected;hand hygiene promoted;personal protective equipment utilized;single patient room provided;rest/sleep promoted Progressive Mobility Progressive Mobility Level Achieved Standing [facility] Daily Activity Putting on and taking off Lower Body Clothing? 1 Bathing (including washing/rinsing/drying)? 2 Toileting (includes using toilet, bedpan, or urinal)? 2 Putting on and taking off upper body clothing? 4 Taking care of personal grooming such as brushing teeth? 4 Eating meals? 4 [facility] Daily Activity Score 17 Progress Summary (OT) Progress Toward Functional Goals (OT) progress toward functional goals is gradual Barriers to Overall Progress (OT) pain, activity tolerance, strength, posterior THPs Therapy Plan Review/Discharge Plan (OT) Therapy Plan Review (OT) evaluation/treatment results reviewed;participants voiced agreement with care plan;participants included;patient;current/potential barriers reviewed;risks/benefits reviewed;care plan/treatment goals reviewed OT Recommendations for Staff A x 2 standing with RW, TTWB RLE, posterior THPs Sign: Jonas Caldera OT * Aditi Love MD - 08/19/2025 5:33 AM EST Orthopaedic Progress Note Patient Name: Courtney Shipman : 1945 Admit Date: 08/13/2025 Date of Service: 08/19/2025 Hospital Day: 6 A/P 80 y.o. male POD4 rev R YOKO for ppx fracture. He is recovering well, pending dispo to SNF per primary team. Pain is well controlled. He continues to require PT/OT for ongoing mobilization work. Plan: -Weight bearing status: TTWB RLE, posterior hip precautions -DVT prophylaxis: home Xarelto, PAS/TEDs -PT/OT/OOB -Pain control as needed -Diet: regular -OR cx: NGTD -Appreciate continued care per primary team S No overnight events, pain is well controlled, no fevers/chills, no chest pain/sob. O Blood pressure (!) 125/58, pulse 70, temperature 97.8 ??F (36.6 ??C), temperature source Tympanic, resp. rate 16, height 1.778 m (5' 10 ), weight 87.5 kg (192 lb 14.4 oz), SpO2 97%. Intake/Output Summary (Last 24 hours) at 08/19/2025 0533 Last data filed at 08/19/2025 0026 Gross per 24 hour Intake 363 ml Output 725 ml Net -362 ml Exam: GEN: NAD RESP: Non-labored breathing RLE: Dressing clean dry and intact SILT deep peroneal, superficial peroneal, saphenous, and tibial nerves Fires EHL/FHL/TA/GS Toes WWP/BCR Labs: Recent Labs 08/18/25 0634 HCT 25.4* HGB 8.2* CREAT 0.89 Aditi Love 08/19/2025 5:33 AM * Luba Cagle, PT - 08/18/2025 5:34 PM EST Attempted to see patient for PT, he deferred due to wanting to have dinner first. * Luba Cagle, PT - 08/18/2025 11:43 AM EST Pt declined PT at this time citing that he just worked with OT and it was terrible due to pain. Would like some time before he tries again. * Jess Garza MD - 08/18/2025 11:37 AM EST Progress Note Hospital Day: 6, Admit Date: 08/13/2025 Assessment and plan: Ms. Shipman is a 80 y.o. male with PMH of chronic neuropathic pain bilateral lower extremity on chronic fentanyl patch/oxycodone, anxiety, A-fib, ADD, HLD, aortic aneurysm, MGUS presented as a transfer from [facility] for periprosthetic right hip fracture after sustaining a fall. Assessment & Plan Closed right hip fracture, initial encounter ([facility]) 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) S/p right YOKO on 08/15. He tolerated procedure with no issues. Orthopedic surgery team following Continue Xarelto for DVT prophylaxis PT/OT continue Dilaudid 0.3 mg every 4 hours as needed for pain Continue oxycodone 30 mg every 4 hours as needed for pain Continue Robaxin as needed for muscle spasms. Continue fentanyl patch every 72 hours. Will follow-up with Ortho as outpatient. Chronic disease A-fib: Heart rate have been controlled. Per chart review, he reports that he has been off anticoagulation. Per the last note from PCP, he should be on anticoagulation. Continue Xarelto 20 mg nightly anxiety: Continue Xanax and amitriptyline Hyperlipidemia: Continue atorvastatin Peripheral neuropathy Continue fentanyl patch Continue amitriptyline 25 mg nightly I have updated the Patient and addressed their concerns. Barriers to patient transition/ medical necessity requiring for symptomatic management and disposition planning. Quality metrics: # Telemetry: Active Telemetry Order Indication - Other, Please Specify Nerve Block Continue Telemetry?: Yes Cardiac (Non-Rhythm Related) # Diet: Diet Regular # Code status: Full Code # Kay catheter: No Active Urethral Catheter (Kay) Order # Central lines: # Expected Date of Discharge: 08/19/2025 {Click to update NATALIIA: [id number]} VTE Time Out IMPROVE SCORE: 2 (08/13/2025 6:48 PM) Interpretation - High Risk Chemical Prophylaxis rivaroxaban (XARELTO) tablet 20 mg Oral Daily with dinner Chemical VTE prophylaxis NOT ordered. Click here to order if appropriate Chemical Prophylaxis Contraindication: None - I will place appropriate order Heparin Sodium (Porcine), Heparin Sodium (Porcine), Heparin Sodium (Porcine) 5000 Units Last dose 08/16/2025 9:59 AM Rivaroxaban 20 mg Last dose 08/17/2025 6:20 PM Mechanical Prophylaxis Subjective: Chief complaint Chief Complaint Patient presents with Hip Pain Abnormal Test Result Patient is being seen for acute medical problems and follow-up for chronic medical issues as mentioned in the assessment and plan above. # Event overnight: No acute events reported Ms. Shipman was seen earlier today. He had an uneventful night. He is concerned about his mobility and ability to maintain balance. He does complain of bilateral lower extremity pain and surgical site discomfort. Objective: Last 3 Filed Values 08/17/25 1310 08/17/25 2300 08/18/25 0544 BP: 133/71 120/65 128/70 Pulse: 82 81 60 Resp: Temp: 99.8 ??F (37.7 ??C) 98.8 ??F (37.1 ??C) 97.6 ??F (36.4 ??C) TempSrc: Tympanic Tympanic Tympanic SpO2: 95% 97% 98% SOFA Scores 08/17/25 0601 08/17/25 1800 08/18/25 0600 SOFA Score : 0 0 0 SpO2 Min: 95 % Max: 98 % O2 Device: room air (none) Flow (L/min) (Oxygen Therapy): 2 Weight: on admission: 87.5 kg (192 lb 14.4 oz), (08/14/2025 6:28 PM) Recent: 87.5 kg (192 lb 14.4 oz), (08/14/2025 6:28 PM) Last Documented Bowel Movement - 08/13/25 (08/18/25 0817) Intake/Output Summary (Last 24 hours) at 08/18/2025 1138 Last data filed at 08/18/2025 0817 Gross per 24 hour Intake 366 ml Output 1225 ml Net -859 ml Physical Exam Constitutional - alert. Head - normocephalic. Eyes - PERRL. Nose - appears normal. Neck - supple. Cardiovascular - normal rate. normal heart sounds. Pulmonary - breath sounds present bilaterally. no wheezing and no crackles. Abdominal - soft. Musculoskeletal - Joint tenderness (right hip). Skin - warm. Neurological - alert and oriented x 4. Scheduled medications 08/18/2025 11:38 AM As needed medications: amitriptyline, 25 mg, Oral, Nightly calcium citrate, 950 mg, Oral, BID with meals cholecalciferol, 2,000 Units, Oral, Daily fentaNYL, 1 patch, Transdermal, Q72H lactulose, 10 g, Oral, Once rivaroxaban, 20 mg, Oral, Daily with dinner senna-docusate, 2 tablet, Oral, Nightly ALPRAZolam amphetamine-dextroamphetamine bisacodyl HYDROmorphone methocarbamol naloxone oxyCODONE polyethylene glycol Current infusions: lactated ringers, 100 mL/hr Diagnostic studies: I have reviewed the labs and ordered new labs if needed. Recent Labs 08/15/25 1912 08/16/25 0942 08/17/25 0546 08/18/25 0634 WBC -- 8.3 9.1 7.8 HGB 10.6* 8.7* 8.8* 8.2* HCT 33.2* 27.2* 27.1* 25.4* PLT -- 167 173 178 Recent Labs 08/16/25 0942 08/17/25 0546 08/18/25 0634 NA 135* 137 135* K 4.2 3.8 4.3 CO2 24 27 26 CL 101 100 102 BUN 23* 24* 23* CREAT 0.85 0.86 0.89 CALCIUM 8.2* 8.1* 8.1* MG 2.0 -- -- No results for input(s): PT , PTT , INR in the last 72 hours. No results for input(s): SARSCOV2 , INFLAV , INFLBV in the last 72 hours. Blood Culture Results Since Admission No results found for this visit on 08/13/25. Urine Culture Results Since Admission No results found for this visit on 08/13/25. Imaging Studies: No images to review. Jess Garza MD * ARCHANA Ceron - 08/18/2025 10:30 AM EST Occupational Therapy Progress Note Assessment & Progress Summary: pt continues to report (B) LE pain due to long standing neuropathy, as well as c/o acute pain from (R)YOKO revision. Pt requiring (A)x2 with bed mobility with increased time and effort. Able to recall 1/3 THP and was able to recall WB'ing status. Attempts made for sit<>stand to RW however unable to fully stand upright due to pain and decreased ability to maintain TTWB'ing (R)LE. Patient is a good rehab candidate, with ability to make functional gains and maximize independence with daily multidisciplinary therapy in conjunction with nursing home services at next level of care. Progress Towards Goals: progress toward functional goals is gradual Outcome Measures: The Activity Measure for Post-Acute Care (AM-PAC) Daily Activity Inpatient Short Form (6-clicks) margaret standardized measure used to quantify deficits in self- care. The total score of the measure ranges from 6-24. A higher score indicates a higher level of independence with self-care tasks. Current [facility] Daily Activity Score: 16 Precautions/Restrictions: fall, hip arthroplasty: posterior (TTWB'ing) Rehab Plan of Care Continue with skilled OT services while in house to maximize pt's best ability to function. Provide opportunities for participation in self care tasks. Encourage sitting EOB with staff 2-3x per day to assist in increasing sitting tolerance and activity tolerance. Offer ice pack for pain mgmt Pt to mobilize with nursing staff outside of OT treatment times to improve activity tolerance and functional mobility. Specifically, transfers to commode and/or chair multiple times/day to avoid deconditioning due to hospitalization. -OT Recommendations for Staff: TTWB'ing/posterior THP (R)LE. (A)x2 to EOB/standing RW level. -OT Frequency during Hospitalization: 2-3 times/wk -Progressive Mobility Level: Level 3 -Plan of Care Reviewed With: care plan/treatment goals reviewed, risks/benefits reviewed, current/potential barriers reviewed, participants voiced agreement with care plan, participants included, patient Education: OT role, POC, and recommendations Treatment Interventions/Objective Data Interventions to Optimize ADL Performance Grooming: set up seated Toileting: max(A)x2 bed level. Transfers and Functional Mobility: max(A)x2 supine to sit with HOB elevated, use of bed rails and increased time and effort. Mod(A)x2 sit to supine. Min(A)x1 laterally scooting to (R) while seated EOB with assist to manage (R)LE to maintain WB'ing restrictions. Sit<>stand to RW with mod(A)x2 however pt unable to fully stand upright and maintain TTWBing on (R)LE. Therapeutic Activity: dynamic sitting balance while EOB to increase activity tolerance. Neuromuscular Re-education: Fair dynamic sitting balance. Fair+ static sitting balance. Poor attempts at static standing balance. Endurance/Activity Tolerance: fair Subjective I know what I need to do and I don't want to argue with anyone about my pain mgmt but I know what has helped me in the past Flowsheet Data 08/18/25 1030 OT Time and Intention OT Follow-Up Visit follow up treatment Mode of Treatment occupational therapy Patient Effort adequate Symptoms Noted During/After Treatment increased pain General Information Patient Profile Reviewed yes Patient/Family/Caregiver Comments/Observations I know what I need to do and I don't want to argue with anyone about my pain mgmt but I know what has helped me in the past General Observations of Patient pt met supine in bed Pertinent History of Current Functional Problem POD#3 revision (R)YOKO Existing Precautions/Restrictions fall;hip arthroplasty: posterior (TTWB'ing) Pain Pretreatment Pain Rating (Number Scale) 5/10 Pain Scale: Numbers, During Treatment 9/10 Posttreatment Pain Rating(Number Scale) 6/10 Pain Location- Side Right Pain Location hip Cognition Cognitive Status intact Coping Observed Emotional State pleasant Safety Safety WDL WDL Safety Factors call light in reach;ID band on;wheels locked All Alarms alarm(s) activated and audible Progressive Mobility Progressive Mobility Level Achieved Standing [facility] Daily Activity Putting on and taking off Lower Body Clothing? 1 Bathing (including washing/rinsing/drying)? 2 Toileting (includes using toilet, bedpan, or urinal)? 2 Putting on and taking off upper body clothing? 4 Taking care of personal grooming such as brushing teeth? 3 Eating meals? 4 [facility] Daily Activity Score 16 Progress Summary (OT) Progress Toward Functional Goals (OT) progress toward functional goals is gradual Barriers to Overall Progress (OT) pain mgmt, balance, activity tolerance, strength Therapy Plan Review/Discharge Plan (OT) Therapy Plan Review (OT) care plan/treatment goals reviewed;risks/benefits reviewed;current/potential barriers reviewed;participants voiced agreement with care plan;participants included;patient OT Recommendations for Staff TTWB'ing/posterior THP (R)LE. (A)x2 to EOB/standing RW level. Sign: ARCHANA Ceron * Suzan Guerrero RN - 08/18/2025 10:10 AM ESTSumismaely: Nurse Navigator note Total Joint Nurse Navigator Rounding Note Met with patient post operatively practicing social distancing. Introduced self to patient and explained Elective Nurse Navigator role and transition of care from Trauma Nurse Navigator. Patient's interaction with nurse navigator today: Receptive Assessment Pain: Patient reports pain is Fair . Patient's Experience: Patient reports a good experience. Mobilization: Patient reports working with physical therapy Plan of Care Plan of care reviewed with patient at 1010. Patient plans to transition once cleared by care team. Interventions Reviewed importance of abidance of mobility precautions provided to patient by PT/OT. Education:Discussed with patient, multimodal pain management, importance of hydration and nutritionin recovery, ways to prevent constipation, and use of incentive spirometer (with teach back by patient) with stated understanding by patient. Patient reminded to call surgeon???s office to schedule post-operative apt if not already completed. Advised patient surgeon???s contact information will also print out on AVS. If transitioning HOME: Patient informed to be expecting a call from nurse navigator within 24-72 hours after transitioning from hospital to discuss progress and/or any concerns. Patient's questions and concerns addressed. Anything needing further assistance was brought to the attention of patient's care team, none at this time. Patient provided with Nurse Navigator Stop Light Handout with direct contact information. Advised Nurse Navigators contact information will also print out on AVS. Informed nurse navigator can be contacted with any questions or concerns throughout inpatient stay and during the recovery process. * Aditi Love MD - 08/18/2025 5:14 AM EST Orthopaedic Progress Note Patient Name: Courtney Shipman : 1945 Admit Date: 08/13/2025 Date of Service: 08/18/2025 Hospital Day: 5 A/P 80 y.o. male POD3 from revision R YOKO, recovering well from surgery. Has been to EOB with PT, continues to progress with TTWB and posterior precautions. Dispo planning ongoing per primary team. Plan: -Weight bearing status: TTWB RLE, posterior hip precautions -DVT prophylaxis: Resume home Xarelto, PAS/TEDs -PT/OT/OOB -Pain control as needed -Diet: regular -OR cx: NGTD -Appreciate continued care per primary team S No overnight events, pain is well controlled, no fevers/chills, no chest pain/sob. O Blood pressure 120/65, pulse 81, temperature 98.8 ??F (37.1 ??C), temperature source Tympanic, resp. rate 18, height 1.778 m (5' 10 ), weight 87.5 kg (192 lb 14.4 oz), SpO2 97%. Intake/Output Summary (Last 24 hours) at 08/18/2025 0514 Last data filed at 08/17/2025 2300 Gross per 24 hour Intake 246 ml Output 1200 ml Net -954 ml Exam: GEN: NAD RESP: Non-labored breathing RLE: Dressing clean dry and intact SILT deep peroneal, superficial peroneal, saphenous, and tibial nerves Fires EHL/FHL/TA/GS Toes WWP/BCR Labs: Recent Labs 08/17/25 0546 HCT 27.1* HGB 8.8* CREAT 0.86 Aditi Love 08/18/2025 5:14 AM * Jess Garza MD - 08/17/2025 11:30 AM EST Progress Note Hospital Day: 5, Admit Date: 08/13/2025 Assessment and plan: Ms. Shipman is a 80 y.o. male with PMH of chronic neuropathic pain bilateral lower extremity on chronic fentanyl patch/oxycodone, anxiety, A-fib, ADD, HLD, aortic aneurysm, MGUS presented as a transfer from [facility] for periprosthetic right hip fracture after sustaining a fall. Assessment & Plan Closed right hip fracture, initial encounter (HCC) 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) S/p right YOKO on 08/15. He tolerated procedure with no issues. Orthopedic surgery team following Continue Xarelto for DVT prophylaxis PT/OT continue Dilaudid 0.3 mg every 4 hours as needed for pain Continue oxycodone 30 mg every 4 hours as needed for pain Continue Robaxin as needed for muscle spasms. Chronic disease A-fib: Heart rate have been controlled. Per chart review, he reports that he has been off anticoagulation. Per the last note from PCP, he should be on anticoagulation. Continue Xarelto 20 mg nightly anxiety: Continue Xanax and amitriptyline Peripheral neuropathy Continue fentanyl patch Continue amitriptyline 25 mg nightly I have updated the Patient and addressed their concerns. Barriers to patient transition/ medical necessity requiring continued inpatient stay for right YOKO Quality metrics: # Telemetry: Active Telemetry Order Indication - Other, Please Specify Nerve Block Continue Telemetry?: Yes Cardiac (Non-Rhythm Related) # Diet: Diet Regular # Code status: Full Code # Kay catheter: No Active Urethral Catheter (Kay) Order # Central lines: # Expected Date of Discharge: 08/18/2025 {Click to update NATALIIA: [id number]} VTE Time Out IMPROVE SCORE: 2 (08/13/2025 6:48 PM) Interpretation - High Risk Chemical Prophylaxis rivaroxaban (XARELTO) tablet 20 mg Oral Daily with dinner Chemical VTE prophylaxis NOT ordered. Click here to order if appropriate Chemical Prophylaxis Contraindication: None - I will place appropriate order Heparin Sodium (Porcine), Heparin Sodium (Porcine) 5000 Units Last dose 08/14/2025 11:04 PM Heparin Sodium (Porcine) 5000 Units Last dose 08/16/2025 9:59 AM Rivaroxaban 20 mg Last dose 08/16/2025 5:49 PM Mechanical Prophylaxis Subjective: Chief complaint Chief Complaint Patient presents with Hip Pain Abnormal Test Result Patient is being seen for acute medical problems and follow-up for chronic medical issues as mentioned in the assessment and plan above. # Event overnight: No acute events reported Ms. Shipman was seen earlier today. Continues to experience bilateral lower extremity pain secondary to his neuropathy. He also reports occasions of left hip pain. When being asked what pain is bothering him more, he could not really tell. He denies any chest pain or shortness of breath, abdominal pain, diarrhea or constipation or symptoms. Objective: Last 3 Filed Values 08/16/25 1006 08/16/25 1428 08/17/25 0545 BP: 114/61 124/69 (!) 127/56 Pulse: 90 67 (!) 50 Resp: 16 16 16 Temp: 97.3 ??F (36.3 ??C) 97.6 ??F (36.4 ??C) 99.8 ??F (37.7 ??C) TempSrc: Tympanic Tympanic Tympanic SpO2: 98% 100% 94% SOFA Scores 08/16/25 0601 08/16/25 1800 08/17/25 0601 SOFA Score : 0 0 0 SpO2 Min: 94 % Max: 100 % O2 Device: room air (none) Flow (L/min) (Oxygen Therapy): 2 Weight: on admission: 87.5 kg (192 lb 14.4 oz), (08/14/2025 6:28 PM) Recent: 87.5 kg (192 lb 14.4 oz), (08/14/2025 6:28 PM) Last Documented Bowel Movement - 08/13/25 (08/16/25 2115) Intake/Output Summary (Last 24 hours) at 08/17/2025 1130 Last data filed at 08/17/2025 1035 Gross per 24 hour Intake 2123 ml Output 900 ml Net 1223 ml Physical Exam Constitutional - alert. Head - normocephalic. Eyes - PERRL. Nose - appears normal. Neck - supple. Cardiovascular - normal rate. normal heart sounds. Pulmonary - breath sounds present bilaterally. no wheezing and no crackles. Abdominal - soft. Musculoskeletal - Joint tenderness (right hip). Skin - warm. Neurological - alert and oriented x 4. Scheduled medications 08/17/2025 11:30 AM As needed medications: amitriptyline, 25 mg, Oral, Nightly calcium citrate, 950 mg, Oral, BID with meals cholecalciferol, 2,000 Units, Oral, Daily fentaNYL, 1 patch, Transdermal, Q72H rivaroxaban, 20 mg, Oral, Daily with dinner senna-docusate, 2 tablet, Oral, Nightly ALPRAZolam amphetamine-dextroamphetamine HYDROmorphone methocarbamol naloxone oxyCODONE polyethylene glycol Current infusions: lactated ringers, 100 mL/hr Diagnostic studies: I have reviewed the labs and ordered new labs if needed. Recent Labs 08/15/25 0452 08/15/25 1912 08/16/25 0942 08/17/25 0546 WBC 6.9 -- 8.3 9.1 HGB 10.1* 10.6* 8.7* 8.8* HCT 31.2* 33.2* 27.2* 27.1* PLT 162 -- 167 173 Recent Labs 08/15/25 0452 08/16/25 0942 08/17/25 0546 NA 138 135* 137 K 3.7 4.2 3.8 CO2 24 27 CL 103 101 100 BUN 25* 23* 24* CREAT 1.02 0.85 0.86 CALCIUM 8.3* 8.2* 8.1* MG -- 2.0 -- Recent Labs 08/15/25 0452 INR 1.1 No results for input(s): SARSCOV2 , INFLAV , INFLBV in the last 72 hours. Blood Culture Results Since Admission No results found for this visit on 08/13/25. Urine Culture Results Since Admission No results found for this visit on 08/13/25. Imaging Studies: No images to review. Jess Garza MD * Zach Martin MD - 08/17/2025 1:06 AM EST Orthopaedic Progress Note Patient: Courtney Shipman Age: 80 y.o. Sex: male Assessment & Plan Umberto is a 80 y.o. male POD# 2 s/p revision right total hip arthroplasty. Doing well. Plan for patient to continue mobilizing with PT and dispo planning. -weight bearing status: TTWB RLE, posterior hip precautions -DVT prophylaxis: Resume home Xarelto, PAS/TEDs -PT/OT/OOB -Pain control as needed -Diet: regular -elevate right lower extremity -Appreciate continued care per primary team Subjective No acute events overnight. Pain is moderately controlled on current regimen. Denies fevers, chills,shortness of breath, or chest pain. Objective Vitals: 08/16/25 1428 BP: 124/69 Pulse: 67 Resp: 16 Temp: 97.6 ??F (36.4 ??C) SpO2: 100% Weight: Height: Intake/Output Summary (Last 24 hours) at 08/17/2025 0106 Last data filed at 08/16/2025 2115 Gross per 24 hour Intake 2253 ml Output 600 ml Net 1653 ml Physical Exam: Gen: well appearing, no acute distress Pulm: breathing comfortably, no increased work of breathing RLE: Dressing clean dry and intact SILT deep peroneal, superficial peroneal, saphenous and tibial nerves Grossly fires GS/Soleus, FHL, EHL, TA Toes WWP, good cap refill Labs: Recent Labs 08/15/25 0452 08/15/25 1912 08/16/25 0942 HCT 31.2* < > 27.2* HGB 10.1* < > 8.7* INR 1.1 -- -- CREAT 1.02 -- 0.85 < > = values in this interval not displayed. Signed: Zach Martin MD 1:06 AM * Jess Garza MD - 08/16/2025 1:35 PM EST Progress Note Hospital Day: 4, Admit Date: 08/13/2025 Assessment and plan: Ms. Shipman is a 80 y.o. male with PMH of chronic neuropathic pain bilateral lower extremity on chronic fentanyl patch/oxycodone, anxiety, A-fib, ADD, HLD, aortic aneurysm, MGUS presented as a transfer from [facility] for periprosthetic right hip fracture after sustaining a fall. Assessment & Plan Closed right hip fracture, initial encounter ([facility]) 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) S/p right YOKO on 08/15. He tolerated procedure with no issues. Orthopedic surgery team following He received subcutaneous heparin x 1 this morning. Will start Xarelto tonight PT/OT Chronic disease A-fib: Heart rate have been controlled. Per chart review, he reports that he has been off anticoagulation. Per the last note from PCP, he should be on anticoagulation. Will resume Xarelto 20 mg nightly. Anxiety: Continue Xanax and amitriptyline I have updated the Patient and addressed their concerns. Barriers to patient transition/ medical necessity requiring continued inpatient stay for right YOKO Quality metrics: # Telemetry: Active Telemetry Order Indication - Other, Please Specify Nerve Block Continue Telemetry?: Yes Cardiac (Non-Rhythm Related) # Diet: Diet Regular # Code status: Full Code # Kay catheter: No Active Urethral Catheter (Kay) Order # Central lines: # Expected Date of Discharge: 08/18/2025 {Click to update NATALIIA: [id number]} VTE Time Out IMPROVE SCORE: 2 (08/13/2025 6:48 PM) Interpretation - High Risk Chemical Prophylaxis rivaroxaban (XARELTO) tablet 20 mg Oral Daily with dinner Chemical VTE prophylaxis NOT ordered. Click here to order if appropriate Chemical Prophylaxis Contraindication: None - I will place appropriate order Heparin Sodium (Porcine) 5000 Units Last dose 08/13/2025 10:52 PM Heparin Sodium (Porcine) 5000 Units Last dose 08/14/2025 11:04 PM Heparin Sodium (Porcine) 5000 Units Last dose 08/16/2025 9:59 AM Mechanical Prophylaxis Subjective: Chief complaint Chief Complaint Patient presents with Hip Pain Abnormal Test Result Patient is being seen for acute medical problems and follow-up for chronic medical issues as mentioned in the assessment and plan above. # Event overnight: No acute events reported Ms. Shipman was seen earlier today. He had an uneventful night. He reports bilateral lower extremity pain secondary to neuropathy. He also reports surgical site pain. Objective: Last 3 Filed Values 08/16/25 0100 08/16/25 0500 08/16/25 1006 BP: 132/68 (!) 140/72 114/61 Pulse: 68 60 90 Resp: 15 16 16 Temp: (!) 95.1 ??F (35.1 ??C) (!) 96.3 ??F (35.7 ??C) 97.3 ??F (36.3 ??C) TempSrc: Tympanic Tympanic Tympanic SpO2: 97% 92% 98% SOFA Scores 08/15/25 0600 08/15/25 1800 08/16/25 0601 SOFA Score : 0 0 0 SpO2 Min: 63 % Max: 100 % O2 Device: room air (none) Flow (L/min) (Oxygen Therapy): 2 Weight: on admission: 87.5 kg (192 lb 14.4 oz), (08/14/2025 6:28 PM) Recent: 87.5 kg (192 lb 14.4 oz), (08/14/2025 6:28 PM) Last Documented Bowel Movement - 08/13/25 (08/16/25 0810) Intake/Output Summary (Last 24 hours) at 08/16/2025 1335 Last data filed at 08/16/2025 1006 Gross per 24 hour Intake 2520 ml Output 950 ml Net 1570 ml Physical Exam Constitutional - alert. Head - normocephalic. Eyes - PERRL. Nose - appears normal. Neck - supple. Cardiovascular - normal rate. normal heart sounds. Pulmonary - breath sounds present bilaterally. no wheezing and no crackles. Abdominal - soft. Musculoskeletal - Joint tenderness (right hip). Skin - warm. Neurological - alert and oriented x 4. Scheduled medications 08/16/2025 1:35 PM As needed medications: amitriptyline, 25 mg, Oral, Nightly calcium citrate, 950 mg, Oral, BID with meals cholecalciferol, 2,000 Units, Oral, Daily fentaNYL, 1 patch, Transdermal, Q72H rivaroxaban, 20 mg, Oral, Daily with dinner senna-docusate, 2 tablet, Oral, Nightly ALPRAZolam amphetamine-dextroamphetamine naloxone oxyCODONE polyethylene glycol Current infusions: lactated ringers, 100 mL/hr Diagnostic studies: I have reviewed the labs and ordered new labs if needed. Recent Labs 08/13/25 1743 08/13/25 2312 08/14/25 0712 08/15/25 0452 08/15/25 1912 08/16/25 0942 WBC 9.0 -- 8.2 6.9 -- 8.3 HGB 11.5* 10.8* 10.4* 10.1* 10.6* 8.7* HCT 36.0* 33.1* 32.2* 31.2* 33.2* 27.2* PLT 184 -- 166 162 -- 167 Recent Labs 08/13/25 1743 08/14/25 0712 08/15/25 0452 08/16/25 0942 NA 139 140 138 135* K 4.5 4.5 3.7 4.2 CO2 23 25 25 24 CL 105 106 103 101 BUN 24* 27* 25* 23* CREAT 0.87 1.05 1.02 0.85 CALCIUM 8.7 8.7 8.3* 8.2* MG -- 2.2 -- 2.0 PHOS -- 3.1 -- -- ALBUMIN -- 3.5 -- -- Recent Labs 08/13/25 1743 08/14/25 0712 08/15/25 0452 INR 1.2 1.3 1.1 No results for input(s): SARSCOV2 , INFLAV , INFLBV in the last 72 hours. Blood Culture Results Since Admission No results found for this visit on 08/13/25. Urine Culture Results Since Admission No results found for this visit on 08/13/25. Imaging Studies: No images to review. 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 Sex: male Assessment & Plan Umberto is a 80 y.o. male POD# 1 s/p a revision right total hip arthroplasty. Doing well. Plan to work with PT/OT regarding mobilization --Weight Bearing: TTWB RLE, posterior hip precautions --DVT prophylaxis: SQH POD1 vs restart home Xarelto per primary team, SCDs ordered --Kay placed in OR, remove Post op Day 1 --Pain/Nausea control --Advance diet as tolerated --Ancef for 24 hours post op (q8 hours) -- PT/OT POD#1 []OR cultures --HV drain x1 removed incidentally upon arrival to PACU Subjective No acute events overnight. Pain is well controlled on current regimen. Denies fevers, chills, shortness of breath, or chest pain. Objective Vitals: 08/16/25 0500 BP: (!) 140/72 Pulse: 60 Resp: 16 Temp: (!) 96.3 ??F (35.7 ??C) SpO2: 92% Weight: Height: Intake/Output Summary (Last 24 hours) at 08/16/2025 0958 Last data filed at 08/16/2025 0051 Gross per 24 hour Intake 1910 ml Output 1200 ml Net 710 ml Physical Exam: Gen: well appearing, no acute distress Pulm: breathing comfortably, no increased work of breathing RLE: Appearance: Dressing clean/dry/intact. SILT SP, DP, tibial, saphenous nerves Intact EHL/FHL/TA/GS Toes warm and well perfused; brisk capillary refill toes Labs: Recent Labs 08/15/25 0452 08/15/25 1912 HCT 31.2* 33.2* HGB 10.1* 10.6* INR 1.1 -- CREAT 1.02 -- Signed: Marcelino Romero MD 9:58 AM * Aditi Love MD - 08/15/2025 7:02 PM EST Orthopedic Surgery Post-Op Check Patient: Courtney Shipman Age: 80 y.o. Sex: male Surgery Date: 08/13/2025 - 08/15/2025 Surgeon: Harpreet Phan MD Procedure(s): Procedure(s): REVISION TOTAL HIP WITH ORIF FEMUR FRACTURE Assessment & Plan Assessment: Patient is a 80 y.o. male * Day of Surgery * s/p revision right total hip arthroplasty. Patient is recovering well from surgery. Plan(s): --Weight Bearing: TTWB RLE, posterior hip precautions --DVT prophylaxis: SQH POD1 vs restart home Xarelto per primary team, SCDs ordered --Kay placed in OR, remove Post op Day 1 --Pain/Nausea control --Advance diet as tolerated --Ancef for 24 hours post op (q8 hours) --PACU x-rays -- PT/OT POD#1 []OR cultures --HV drain x1 removed incidentally upon arrival to PACU -- IV tranexamic acid 4 hours post op ordered x 1 dose Subjective Recovery from anesthesia was uneventful. Since surgery, pain is well controlled under current regimen. Denies fever, chills, chest pain, or shortness of breath. Objective Last Vitals: Temp Last 24 hrs: Temp Min: 97.1 ??F (36.2 ??C) Max: 97.9 ??F (36.6 ??C), Last temp: 97.5 ??F (36.4??C) (Tympanic) Pulse:92, BP:120/63, Resp:18, SpO2:96 % Diet: Diet NPO; Meds I/O: I/O last 3 completed shifts: In: 1406 [I.V.:1406] Out: 1525 [Urine:1275; Blood:250] Physical Exam: General: NAD, resting comfortably in bed Lungs: unlabored breathing Extremities: Right Lower Extremity: Dressing: Clean dry and intact Grossly fires EHL, FHL, TA, GS Sensation intact light touch over SP, DP, tibial nerve distribution Brisk capillary refill Perioperative Labs: No results found for this or any previous visit (from the past 12 hours). Imaging: PACU XR AP pelvis pending Other Diagnostic Data: none Signed: Aditi Love MD 08/15/2025 7:02 PM * Harpreet Phan MD - 08/15/2025 6:17 PM EST I was asked to consult and help treat this patient for right periprosthetic fracture around a totalhip arthroplasty. He is an 80-year-old male. He is a poor historian and has difficulty with explaining details of hiscircumstances. He seems to live alone with no family around. He states that he has had frequent falls recently due to bilateral neuropathy. He has a history of right total hip arthroplasty approximately 2018 performed at the [facility] [place]. Otherwise no data is available. It is not clear when he fell but he states he had a number of falls and most recently was having difficulty with mobility and therefore was brought to the hospital. He was identified to have a periprosthetic fracture around a right total hip arthroplasty. He was admitted to the hospital under the medicine service and we are asked to consult and treat. He has pain around the thigh. He has pain with attempted mobility. He was unable to walk and mobilize. However he then states that he had pain and now has no pain. However with examination he does have pain. He has a flight of ideas and has difficulty completing the history. His past medical history medications allergies surgical history social history been reviewed recordin the chart. Examination: Vitals: 08/15/25 1430 BP: 120/63 Pulse: 92 Resp: 18 Temp: SpO2: 96% Weight: Height: He is fairly alert oriented and appeared comfortable. He was in no apparent distress. He was alert and oriented to person place and time but not exactly the reason of his admission. Right thigh exhibits mild ecchymosis. He has tenderness about the thigh. He has pain with attempted range of motion. Otherwise intact distal motor sensorivascular exam. He has a disheveled appearance. Imaging: X-rays of the right hip performed in the emergency department identified a periprosthetic fracture of the right proximal femur around a total hip arthroplasty with displacement of the greater and lesser trochanters and subsidence of the femoral stem. There is notable osteopenia and a Enloe C femur with thin femoral cortices. A CT scan echoed the above-noted findings with displaced fracture fragments of the proximal femur around the total hip arthroplasty and subsidence of the implant. Assessment: [place] B2 fracture of the right proximal femur around a total hip arthroplasty with loosening and subsidence of the implant. We discussed the fact that he has a periprosthetic fracture. Although he was alert and oriented he had some difficulty understanding the extent of the injury. We discussed treatment options includingoperative versus nonoperative. He is unable to walk. Therefore we felt that proceeding with surgical intervention would be appropriate. I discussed the procedure which would involve revision of the femoral component and open reduction internal fixation of the proximal femur fracture fragments. The procedure and risks were reviewed with the patient in detail including but not limited to development of infection, neurologic or vascular injury, DVT, PE, heart attack, stroke, , leg length discrepancies, periprosthetic fractures, dislocations, need for further surgery. He confirmed he understood and wished to proceed and completed consent form to proceed with the surgery. Plan: He was prepared and optimized to proceed with open reduction internal fixation of right proximal femur fracture with revision of the right femoral component of the total hip arthroplasty. * Jonas Alejandra RN - 08/15/2025 5:25 PM EST 08/15/25 1700 General Information Admission Type inpatient Reason for Consult discharge planning Initial Information Source of Information health record Stated Reason for Admission femur fx Designated Caregiver for Discharge Coordination Do You Have a Designated Caregiver for Discharge? 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 Current Living Arrangements home;hotel/motel Primary Care Provided by self Family Caregiver if Needed child(starla), adult Relationship/Environment Primary Source of Support/Comfort child(starla) Primary Roles/Responsibilities retired Resource/Environmental Concerns Resource/Environmental Concerns none Transportation Concerns none Disability/Function Difficulty Concentrating, Remembering or Making Decisions no Communication Difficulty no Eating/Swallowing Difficulty no Walking or Climbing Stairs Difficulty yes Mobility Management amb w/ RW Dressing/Bathing Difficulty no Difficulty Managing Errands Independently no Equipment Currently Used at Home walker, rolling Functional Status, IADL Medications independent Meal Preparation independent Housekeeping independent Laundry independent Shopping independent Financial Resource Strain How hard is it for you to pay for the very basics like food, housing, medical care, and heating? PtUnable Do you have any concerns about your current source of income or benefits No Living Arrangement Living arrangement: Alone;Children Type of residence: Private residence (vs Hotel) Housing Stability In the last 12 months, was there a time when you were not able to pay the mortgage or rent on time?Pt Unable At any time in the past 12 months, were you homeless or living in a mcc (including now)? Pt Unable Food Insecurity Within the past 12 months, you worried that your food would run out before you got the money to buymore. Pt Unable Within the past 12 months, the food you bought just didn't last and you didn't have money to get more. Pt Unable Transportation Needs In the past 12 months, has lack of transportation kept you from medical appointments or from getting medications? Pt Unable In the past 12 months, has lack of transportation kept you from meetings, work, or from getting things needed for daily living? Pt Unable Utilities In the past 12 months has the electric, gas, oil, or water [email or web address] threatened to shut off services in your home? Pt Unable Interpersonal Safety Within the last year, have you been humiliated or emotionally abused in other ways by anyone? Patient unable to answer Within the last year, have you been kicked, hit, slapped, or otherwise physically hurt by anyone? 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 Shipman is a 80 y.o. male with PMH of chronic neuropathic pain bilateral lower extremity on chronic fentanyl patch/oxycodone, anxiety, A-fib, ADD, HLD, aortic aneurysm, MGUS presented as a transfer from [facility] for periprosthetic right hip fracture after sustaining a fall. Assessment & Plan Closed right hip fracture, initial encounter (HCC) 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) Orthopedic surgery team following Plan for right YOKO today Will keep patient n.p.o. Perioperative Risk Scores ? Global - METS 4 or more. ASA Class: 2, Clinical Frailty Scale (CFS): (!) 5 (!) mildly frail ? Cardiac - RCRI: 0, RCRI risk: 0.5 %, Pérez RUDOLPH risk (%): 0.4 ? Pulmonary - ELEVATED Pulmonary Risk STOPBANG - 2 ? MISC - AUDIT-C Total Score - Male: 0 Chronic disease A-fib: Rates have been controlled. He is off anticoagulation. Anxiety: Continue Xanax and amitriptyline I have updated the Patient and addressed their concerns. Barriers to patient transition/ medical necessity requiring continued inpatient stay for right YOKO Quality metrics: # Telemetry: Active Telemetry Order Indication - Other, Please Specify Nerve Block Continue Telemetry?: Yes Cardiac (Non-Rhythm Related) # Diet: Diet NPO; Meds # Code status: Full Code # Kay catheter: No Active Urethral Catheter (Kay) Order # Central lines: # Expected Date of Discharge: 08/18/2025 {Click to update NATALIIA: [id number]} VTE Time Out IMPROVE SCORE: 2 (08/13/2025 6:48 PM) Interpretation - High Risk Chemical Prophylaxis Chemical VTE prophylaxis NOT ordered. Click here to order if appropriate Chemical Prophylaxis Contraindication: None - I will place appropriate order Heparin Sodium (Porcine) 5000 Units Last dose 08/13/2025 10:52 PM Heparin Sodium (Porcine) 5000 Units Last dose 08/14/2025 11:04 PM Mechanical Prophylaxis SCDs are ordered - Bilateral (Knee High) Anti-infectives (From admission, onward) Start Dose/Rate Route Frequency Ordered Stop 08/15/25 1230 ceFAZolin (ANCEF) 2 g in 20 mL SWFI syringe (premix) 2 g over 3 Minutes Intravenous Once 08/15/25 1216 08/16/25 0029 08/15/25 1230 ceFAZolin (ANCEF) 2 g in 20 mL SWFI syringe (premix) 2 g over 3 Minutes Intravenous Once 08/15/25 1216 08/16/25 0029 08/15/25 1230 vancomycin (VANCOCIN) 1.5 g in sodium chloride (NS) 0.9 % 250 mL IVPB-WTD 1.5 g 166.7 mL/hr over 90 Minutes Intravenous Once 08/15/25 1216 08/16/25 0029 Subjective: Chief complaint Chief Complaint Patient presents with Hip Pain Abnormal Test Result Patient is being seen for acute medical problems and follow-up for chronic medical issues as mentioned in the assessment and plan above. # Event overnight: No acute events reported Ms. Shipman was seen earlier today. she continues to experience right hip pain. She denies any chest pain, shortness of breath, abdominal pain, diarrhea or constipation or symptoms. Objective: Last 3 Filed Values 08/14/25 2316 08/15/25 0600 08/15/25 1214 BP: 127/74 135/66 131/60 Pulse: 62 79 66 Resp: 14 16 18 Temp: 97.9 ??F (36.6 ??C) 97.1 ??F (36.2 ??C) 97.5 ??F (36.4 ??C) TempSrc: Tympanic Tympanic Tympanic SpO2: 100% 98% 100% SOFA Scores 08/14/25 0600 08/14/25 1800 08/15/25 06 SOFA Score : 0 0 0 SpO2 Min: 96 % Max: 100 % O2 Device: room air (none) Weight: on admission: 87.5 kg (192 lb 14.4 oz), (08/14/2025 6:28 PM) Recent: 87.5 kg (192 lb 14.4 oz), (08/14/2025 6:28 PM) Last Documented Bowel Movement - 08/13/25 (08/15/25 0741) Intake/Output Summary (Last 24 hours) at 08/15/2025 1240 Last data filed at 08/15/2025 1213 Gross per 24 hour Intake 3 ml Output 775 ml Net -772 ml Physical Exam Constitutional - alert. Head - normocephalic. Eyes - PERRL. Nose - appears normal. Neck - supple. Cardiovascular - normal rate. normal heart sounds. Pulmonary - breath sounds present bilaterally. no wheezing and no crackles. Abdominal - soft. Musculoskeletal - Joint tenderness (right hip). Skin - warm. Neurological - alert and oriented x 4. Scheduled medications 08/15/2025 12:40 PM As needed medications: [Transfer Hold] amitriptyline, 25 mg, Oral, Nightly ceFAZolin pre-operative dosing, 2 g, Intravenous, Once ceFAZolin pre-operative dosing, 2 g, Intravenous, Once chlorhexidine, 15 mL, Mouth/Throat, Once [Transfer Hold] fentaNYL, 1 patch, Transdermal, Q72H povidone-iodine, , Nasal, Once vancomycin, 1.5 g, Intravenous, Once ALPRAZolam [Transfer Hold] amphetamine-dextroamphetamine [Transfer Hold] oxyCODONE Current infusions: Diagnostic studies: I have reviewed the labs and ordered new labs if needed. Recent Labs 08/13/25 1743 08/13/25 2312 08/14/25 0712 08/15/25 0452 WBC 9.0 -- 8.2 6.9 HGB 11.5* 10.8* 10.4* 10.1* HCT 36.0* 33.1* 32.2* 31.2* PLT 184 -- 166 162 Recent Labs 08/13/25 1743 08/14/25 0712 08/15/25 0452 NA 139 140 138 K 4.5 4.5 3.7 CO2 23 25 25 CL 105 106 103 BUN 24* 27* 25* CREAT 0.87 1.05 1.02 CALCIUM 8.7 8.7 8.3* MG -- 2.2 -- PHOS -- 3.1 -- ALBUMIN -- 3.5 -- Recent Labs 08/13/25 1743 08/14/25 0712 08/15/25 0452 INR 1.2 1.3 1.1 No results for input(s): SARSCOV2 , INFLAV , INFLBV in the last 72 hours. Blood Culture Results Since Admission No results found for this visit on 08/13/25. Urine Culture Results Since Admission No results found for this visit on 08/13/25. Imaging Studies: No images to review. Jess Garza MD * Lynette Youssef RN - 08/15/2025 11:45 AM ESTSummary: Nurse Navigator note Initial Ortho Trauma Nurse Navigator Rounding Note Met with patient. Introduced self and explained nurse navigator role. Patient is alert and oriented. Patient's interaction with nurse navigator today: Gave feedback appropriately, Accepted feedback appropriately, Able to relate, Receptive, and Demonstrated understanding Assessment Pain: Patient reports pain is Fair and Additional comments: Courtney wanted to make sure we knew about his neuropathy at baseline which causes a considerable amount of pain and that he's adapted to pain meds over the last decade or so. Patient Experience/Hospitality Screening: Patient reports no concerns with his care. Patient's concerns validated and emotional support provided Demographic Screening: Medical insurance - Medicare Global Compensation Manager involvement - No. Worker's compensation - No Disposition planning - TBD Plan of Care Plan of care reviewed with patient at 1145. Phase of Care: Patient is scheduled for surgery today. Confirmed patient has remained NPO. Preoperative patient teaching provided, including: Information about the perioperative environment. Advising patient anesthesiologist will meet with patient in pre op area for further education and consent. Patient advised if nerve block is administered, upon return to their room from the PACU, it is important to inform floor nurse when they start to get sensation back (pins and needles) in orderto prevent severe pain. Importance of deep breathing and coughing post operatively with incentive spirometer. Mobility and weightbearing restrictions will be provided and reviewed with patient upon return to their room from the PACU Periop staff will identify along with patient a contact center representative to provide updates. Interventions Discussed the importance of using the incentive spirometer to keep lungs expanded and prevent post-op pneumonia. Patient informed to be expecting a call from nurse navigator [facility] 24-[facility] to discuss progress and/or any concerns. Confirmed patient contact information. Patient's questions and concerns addressed. * Zach Martin MD - 08/15/2025 5:37 AM EST Orthopaedic Progress Note Patient: Courtney Shipman Age: 80 y.o. Sex: male Assessment & Plan Umberto is a 80 y.o. male who presented with right periprosthetic hip fracture. Plan to take patient to operating room today with Dr. Phan. Please keep NPO. -weight bearing status: NWB RLE -DVT prophylaxis: DVT ppx held for OR -PT/OOB -pain control prn -Diet: NPO - Appreciate ongoing care per primary See preoperative checklist from Mckenzie Mcgrath Subjective No acute events overnight. Pain is well controlled on current regimen. Denies fevers, chills, shortness of breath, or chest pain. Objective Vitals: 08/14/25 2316 BP: 127/74 Pulse: 62 Resp: 14 Temp: 97.9 ??F (36.6 ??C) SpO2: 100% Weight: Height: Intake/Output Summary (Last 24 hours) at 08/15/2025 0617 Last data filed at 08/15/2025 0400 Gross per 24 hour Intake 3 ml Output 525 ml Net -522 ml Physical Exam: Gen: well appearing, no acute distress Pulm: breathing comfortably, no increased work of breathing RLE: SILT deep peroneal, superficial peroneal, saphenous and tibial nerves Grossly fires GS/Soleus, FHL, EHL, TA Toes WWP, good cap refill Labs: Recent Labs 08/15/25 0452 HCT 31.2* HGB 10.1* INR 1.1 CREAT 1.02 Signed: Zach Martin MD 6:17 AM * Ryan Medel MD - 08/14/2025 4:43 PM EST Progress Note Hospital Day: 2, Admit Date: 08/13/2025 Assessment and plan: Ms. Shipman is a 80 y.o. male with PMH of chronic neuropathic pain bilateral lower extremity on chronic fentanyl patch/oxycodone, anxiety, A-fib, ADD, HLD, aortic aneurysm, MGUS presented as a transfer from [facility] for periprosthetic right hip fracture after sustaining a fall. Assessment & Plan Closed right hip fracture, initial encounter (HCC) 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) Management as per orthopedics. Plan for right YOKO on 08/15. N.p.o. past midnight. Continue pain management with fentanyl patch, home dose oxycodone as needed. Chronic disease A-fib: Patient stopped taking Xarelto 5 months back. Rate controlled. Consider adding rate control prior to discharge. Anxiety: Continue amitriptyline, Xanax. I have updated the Patient and addressed their concerns. Barriers to patient transition/ medical necessity requiring continued inpatient stay: Pending or on08/15. Quality metrics: # Telemetry: No Active Telemetry Order # Diet: Diet Regular Diet NPO; Meds # Code status: Full Code # Kay catheter: No Active Urethral Catheter (Kay) Order # Central lines: # Expected Date of Discharge: 08/18/2025 {Click to update NATALIIA: [id number]} VTE Time Out IMPROVE SCORE: 2 (08/13/2025 6:48 PM) Interpretation - High Risk Chemical Prophylaxis heparin (porcine) 5000 unit/mL injection 5,000 Units Subcutaneous Every 8 hours scheduled Heparin Sodium (Porcine) 5000 Units Last dose 08/13/2025 10:52 PM Heparin Sodium (Porcine) 5000 Units Last dose 08/14/2025 4:04 PM Mechanical Prophylaxis SCDs are ordered - Bilateral (Knee High) Subjective: Chief complaint Chief Complaint Patient presents with Hip Pain Abnormal Test Result Patient is being seen for acute medical problems and follow-up for chronic medical issues as mentioned in the assessment and plan above. # Event overnight: No acute events reported Ms. Shipman was seen earlier today. she reported feeling right hip pain. Objective: Last 3 Filed Values 08/14/25 0942 08/14/25 1145 08/14/25 1420 BP: 127/76 132/64 116/60 Pulse: (!) 107 95 87 Resp: 20 20 20 Temp: 98.6 ??F (37 ??C) 97.6 ??F (36.4 ??C) 98.1 ??F (36.7 ??C) TempSrc: Tympanic Tympanic Tympanic SpO2: 97% 96% 99% SOFA Scores 08/14/25 0600 SOFA Score : 0 SpO2 Min: 95 % Max: 99 % O2 Device: room air (none) Weight: on admission: Recent: Last Documented Bowel Movement - No intake or output data in the 24 hours ending 08/14/25 1643 Physical Exam Constitutional - alert. ill appearing. Nose - appears normal. Cardiovascular - normal rate. Pulmonary - breath sounds present bilaterally. no wheezing and no crackles. Abdominal - soft. Musculoskeletal - Joint tenderness. Skin - warm. Scheduled medications 08/14/2025 4:43 PM As needed medications: amitriptyline, 25 mg, Oral, Nightly fentaNYL, 1 patch, Transdermal, Q72H heparin (porcine), 5,000 Units, Subcutaneous, Q8H YEISON ALPRAZolam amphetamine-dextroamphetamine oxyCODONE Current infusions: Diagnostic studies: I have reviewed the labs and ordered new labs if needed. Recent Labs 08/13/25 1743 08/13/25 2312 08/14/25 0712 WBC 9.0 -- 8.2 HGB 11.5* 10.8* 10.4* HCT 36.0* 33.1* 32.2* PLT 184 -- 166 Recent Labs 08/13/25 1743 08/14/25 0712 NA 139 140 K 4.5 4.5 CO2 23 25 CL 105 106 BUN 24* 27* CREAT 0.87 1.05 CALCIUM 8.7 8.7 MG -- 2.2 PHOS -- 3.1 ALBUMIN -- 3.5 Recent Labs 08/13/25 1743 08/14/25 0712 INR 1.2 1.3 No results for input(s): SARSCOV2 , INFLAV , INFLBV in the last 72 hours. Blood Culture Results Since Admission No results found for this visit on 08/13/25. Urine Culture Results Since Admission No results found for this visit on 08/13/25. Imaging Studies: No images to review. Ryan Medel MD * Meaghan Kate PA-C - 08/14/2025 12:41 PM EST Pre-op Checklist: Procedure: Revision L YOKO Date of Surgery: 08/14/25 [x]NPO at midnight/IV fluids while NPO [x]Anticoagulation: had one dose if SubQ Heparin on 08/13/25 /PAS [x]Morning labs ordered (4AM CBC, BMP,INR) complete [x]Type & screen/ 2 units RBC on hold [x]Nutrition labs (Prealbumin, albumin, transferrin, Vit D): resulted [x]OR booked: case request and [facility] OR lockstitch front maker notified [x]Abx production supervisor trainee to OR (2g ancef) [x]Pre-Op Noes to Toes: ordered [x]Imaging Complete: Yes [x]CXR: complete [x]EKG: complete [x]MRSA: negative [x]Pre op Block recommendation: ordered [x]Consent: signed and in office [x]Clearance Status: Yes [x] VTE risk assessment complete: Yes, High risk. * Jessie Wilson PT - 08/14/2025 8:00 AM EST Physical Therapy Contact Note Chart reviewed prior to attempted PT IE. Patient is inappropriate for PT eval, Tentative OR 08/14 for revision R YOKO. Will follow up post op. Sign: Jessie Wilson PT * Fran Lehman MD - 08/14/2025 5:09 AM EST Orthopaedic Progress Note Patient: Courtney Shipman Age: 80 y.o. Sex: male Assessment & Plan Umebrto is a 80 y.o. male s/p ground-level fall with a right periprosthetic fracture. He states thetotal hip was performed in [address] Bright at [facility] in [place], direct anterior approach. He has been vitally stable with normal heart rates. Seen by medicine overnight, he is elevated risk but no further cardiac workup is needed. Is unclear when he last took Xarelto, patient states that it was many months ago from his most recent hospitalization less than a month ago, he was discharged on Xarelto. Will presume that his most recent Xarelto dose was 12/9 PM given his presentation tothe ER on 12/10 AM. He is alert, oriented x4 in ER, consented for likley surgery today vs. Tomorrow. Implants: Bucklin Trident 62 mm shell, 36mm poly, Accolade II SO size 11 stem, 36 head. Will discuss with joint team regarding best time for fixation -weight bearing status: Nonweightbearing right lower extremity -DVT prophylaxis: Subcu heparin held after 2 AM -PT/OOB -Diet: Diet NPO; Meds Subjective No acute events overnight. Objective Vitals: 08/14/25 0308 BP: 139/69 Pulse: 94 Resp: 18 Temp: 97.2 ??F (36.2 ??C) SpO2: 99% No intake or output data in the 24 hours ending 08/14/25 0510 Physical Exam: Gen: well appearing, no acute distress Pulm: breathing comfortably, no increased work of breathing RLE: SILT deep peroneal, superficial peroneal, saphenous and tibial nerves Grossly fires GS/Soleus, FHL, EHL, TA Toes WWP, good cap refill Labs: Recent Labs 08/13/25 1743 08/13/25 2312 HCT 36.0* 33.1* HGB 11.5* 10.8* INR 1.2 -- CREAT 0.87 -- Signed: Fran Lehman MD 5:10 AM * Shi Holman RN - 08/14/2025 12:35 AM EST *Star documented in this encounter H&P Notes * Mariann Pérez MD - 08/13/2025 6:53 PM EST HOSPITAL MEDICINE ADMISSION HISTORY & PHYSICAL Admit Date: 08/13/2025 5:17 PM Patient's Primary Care Physician: No primary care provider on file. Principal Problem: Closed right hip fracture, initial encounter ([facility]) (POA: Yes) Resolved Problems: ASSESSMENT & PLAN Assessment/Plan by Problem: Right periprosthetic subtrochanteric hip fracture: Orthopedics consulted. Suspect pt will need surgery. I have ordered Fentanyl patch and Oxycodone at his home dose of 30 mg every 6 hours prn. 2. Afib: Pt is supposedly on Xarelto but stated that he last took it 5 months ago. We will obviously hold any anticoagulation for now in anticipation for OR. EKG is showing mildly elevated HR which Isuspect is related to pt being in pain from fracture. Will try to optimize pain control but if HR remains elevated despite pain control then will likely need to add rate control therapy. 3. Anxiety: Pt is supposedly on Amitryptiline, Xanax which I will order. Telemetry: IMPROVE SCORE: Immobilization: 1--> Immobilization Age > 60 yrs: 1--> Age > 60 years IMPROVE SCORE: 2 DVT PPX: SCDs Courtney denies any h/o heart disease. Denies ever having had any cardiac events or interventions. I do see he has afib. I also do not see any records from any Content Editor. Courtney denies any active cardiac symptoms including chest pain, palpitations, dizziness. He is a smoker and denies any dyspnea, cough, wheezing. Perioperative Risk Scores ? Global - METS 4 or more. ASA Class: 2, Clinical Frailty Scale (CFS): (!) 5 (!) mildly frail ? Cardiac - RCRI: 0, RCRI risk: 0.5 %, Pérez RUDOLPH risk (%): 0.4 ? Pulmonary - ELEVATED Pulmonary Risk STOPBANG - 2 SUBJECTIVE Chief Complaint: Right hip pain after fall History of Present Illness: Courtney is an 80 y/o male with h/o chronic neuropathic pain in lower extremities on chronic fentanyl patch and prn Oxycodone. He is also supposedly on Xarelto 20 mg daily for afib but apparently last took it few months ago. Also has anxiety on Amitryptiline, Xanax. Also has ADD on Adderall and hyperlipidemia on Atorvastatin. Also has h/o aortic aneurysm, MGUS. He was sent from [facility] after he presented there due to falls. The exact circumstances ofthe fall are unclear but pt denies any chest pain, dizziness, syncope, palpitations, dyspnea prior to or after the fall. While at [facility] CT head and neck were negative. He reported significant right hip pain for which he had xray which showed right periprosthetic subtrochanteric hip fracture. He was transferred to . During my evaluation, Courtney reports pain in right hip 06/13. No other symptoms reported. He smokes half pack per day. Denies alcohol or drug use. Review of Systems Constitutional: Negative for fever. Cardiovascular: Negative for chest pain and leg swelling. Respiratory: Negative for cough and shortness of breath. Musculoskeletal: Positive for falls and joint pain. Right hip pain Gastrointestinal: Negative for bloating, abdominal pain, nausea and vomiting. Neurological: Positive for paresthesias. Chronic neuropathic pain in b/l LE Psychiatric/Behavioral: Negative for altered mental status. OBJECTIVE Past History No past medical history on file. No past surgical history on file. No family history on file. Social History Tobacco Use Smoking status: Not on file Smokeless tobacco: Not on file Substance Use Topics Alcohol use: Not on file Allergies Allergies[1] Prior to Admission medications Not on File Physical Exam Patient Vitals for the past 8 hrs: BP Temp Temp src Pulse Resp SpO2 08/13/25 1715 120/80 97 ??F (36.1 ??C) Tympanic 88 18 95 % No intake or output data in the 24 hours ending 08/13/25 1853 Physical Exam Constitutional: General: He is not in acute distress. Comments: Pleasant male in no distress, does appear in discomfort from right hip pain HENT: Head: Normocephalic. Cardiovascular: Rate and Rhythm: Normal rate and regular rhythm. Heart sounds: No murmur heard. Pulmonary: Effort: No respiratory distress. Breath sounds: No rales. Abdominal: General: Bowel sounds are normal. There is no distension. Palpations: Abdomen is soft. Tenderness: There is no abdominal tenderness. Musculoskeletal: Cervical back: Neck supple. Right lower leg: No edema. Left lower leg: No edema. Comments: Right LE: extended and externally rotated Neurological: General: No focal deficit present. Mental Status: He is alert and oriented to person, place, and time. Mental status is at baseline. Cranial Nerves: No cranial nerve deficit. Psychiatric: Mood and Affect: Mood normal. ECG: afib with RVR Relevant data reviewed No results found for this or any previous visit (from the past 24 hours). Imaging Studies CT Spine Archive for Reference Only Result Date: 08/13/2025 This study has been auto finalized and does not contain a result. CT Head Archive for Reference Only Result Date: 08/13/2025 This study has been auto finalized and does not contain a result. CR Extremity Right Archive for Reference only Result Date: 08/13/2025 This study has been auto finalized and does not contain a result. Sign Mariann Pérez MD 08/13/2025 6:53 PM [1] No Known Allergies documented in this encounter Consult Notes * Kalpana Coronel RD - 08/19/2025 6:49 PM ESTAssociated Order(s): IP CONSULT TO NUTRITION SERVICES [facility] Nutrition Note Visit Type: initial assessment Reason for Dietitian Visit: consult. Reason for Admission: Closed right hip fracture, initial encounter ([facility]) Pertinent Medical History: History reviewed. No pertinent past medical history. Past Surgical History: Procedure Laterality Date REVISION TOTAL HIP Right 08/15/2025 Procedure: REVISION TOTAL HIP WITH ORIF FEMUR FRACTURE; Surgeon: Harpreet Phan MD; Location: [facility]; Service: Joint; Laterality: Right; Social History[1] Nutrition Diagnosis: Intake: Increased nutrient needs (specify) (energy/protein) related to increasedm etabolic demand for healing as evidenced by periprosthetic right hip fracture after sustaining a fall. S/p YOKO on 08/15. Diagnosis Status: New Interventions/Recommendations: Food & Nutrient Delivery: 1. Continue Regular diet 2. Add ONS: Ensure Max protein BID 3. Monitor PO intake, document in flowsheets 4. Trend weight 5. Provide daily MVI w/ minerals 6. Continue vitamin D supplement. > per ASPEN guidelines Vitamin D deficiency is typically treated with 50,000 units vitamin D once per week for 8 weeks. > dose is then lowered to ~1000 units/day for several months. Nutrition Education/Counseling: N/A Coordination of Nutrition Care: ONS ordered MVI w/ minerals pended Nutrition Plan for Discharge/Transfer: To be determined. Nutrition Assessment: An 80 yo male admitted with periprosthetic right hip fracture after sustaining a fall. S/p YOKO on 08/15. Attempted to meet with pt twice but unsuccessfully, pt receiving care. Per EMR PO intake 25-100% since admission when documented. Recommend adding ONS to promote PO intake and help with healing. Typical Food & Fluid Intake: Unable to obtain. Factors Affecting Nutritional Intake: appetite Food Related Allergies: NKFA Cultural/Ethnic Preferences: None noted/reported. Food Insecurity Concerns: Never true Weight: Wt Readings from Last 5 Encounters: 08/14/25 87.5 kg (192 lb 14.4 oz) Weights (last 10 days) Date/Time Weight 08/14/25 1828 87.5 kg (192 lb 14.4 oz) Body mass index is 27.68 kg/m??. Nutrition Physical Findings: Physical Appearance: (room air) Muscle Wasting: Unable to assess Adipose Wasting: Unable to assess Gastrointestinal: (Lbm 08/19) Skin: edema (Incision to R hip, abrasion to R knee; 1+ to R hip) Wound Documentation Reviewed: yes Labs: 08/18/25 06:34 Sodium: 135 (L) Potassium: 4.3 Chloride: 102 CO2, POC: 26 Anion Gap: 7 BUN: 23(H) Creatinine: 0.89 Bun / Creat Ratio: 26 (H) Glucose: 103 (H) Calcium: 8.1 (L) eGFR: 87, vit D 19(L) Diagnostics: reviewed Medications: cholecalciferol 2000 units/day Estimated Daily Energy and Protein Needs: Energy Needs: 2188 Kcals/day (25 Kcals/kg) based on 87.5 kg (192 lb 14.4 oz) Protein Needs: 105 - 131 gm, (1.2 - 1.5g/kg) based on 87.5 kg (192 lb 14.4 oz) Fluids: 2188ml based on NOZZLE OPERATOR Method (or per MD) Current Diet: Diet Regular Intake Compared to Estimated Needs: Energy Intake: not meeting needs (PO intake 25-100%) x 6 days Protein Intake: not meeting needs x 6 days Fluid Intake: (refer to I/Os) Educational Needs Assessment: Assessed patient's learning needs. Barriers to Education: None noted at this time. Monitoring & Evaluation: Goals to be Achieved by Next Assessment: PO intake greater than 75% of meals, snacks and ONS Monitoring/Evaluation: RD/DTR will monitor and evaluate nutrition plan of care and provide additional interventions and recommendations based on nutrition/clinical status. Sign: Kalpana Coronel RD 08/19/2025 7:04 PM [1] Social History Tobacco Use Smoking status: Every Day Current packs/day: 0.25 Types: Cigarettes Passive exposure: Current Substance Use Topics Alcohol use: Never * Barb Murry LCSW - 08/19/2025 2:44 PM ESTAssociated Order(s): IP CONSULT TO SOCIAL WORK Images from the original note were not included. Health Social Work Biopsychosocial Assessment Date: 08/19/2025 Referred by: Case Coordination Reason for Referral: Adjustment to Diagnosis/ concern about social issues/ support around transition planning.. Previous Social Work Encounters: see note 08/13/2025 Courtney Shipman is a 80 y.o. male currently admitted for: Closed right hip fracture, initial encounter (HCC) Procedure(s) (LRB): 08/15/2025 REVISION TOTAL HIP WITH ORIF FEMUR FRACTURE (Right) Assessment & Plan Summary son Tobin's number [phone] does not work Courtney Shipman was referred to Social Work (SW) for Adjustment to Diagnosis/ concern about social issues, support around transition planning. Pt was transferred to [facility] for Ortho care from [facility] in [place]. . Courtney was engaged in conversation and appeared welcoming, open, and receptive to intervention.He shared having sustained his hip fracture due to his walker breaking causing him to fall. He shared making sure to protect his head when he fell and was unable to avoid the hip injury. He respondedwell to support and education on transition planning process. Pt shared that having 2 falls and b eing transferred from [place] to [place] has been overwhelming. He voiced feeling satisfied with the care in [facility]. He voiced being agreeable to SNF referrals for STR. He voiced top choice for a rehab is [facility] and Social Services Analyst aware. He shared some of his psychosocial history-. 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 He shared having grown up in [place], an has lived in [place] and also [place] in past. He states he is currentlysingle An opportunity for clarifying questions was provided where she denied any at this time.He was encouraged to seek this investigative writer out should additional questions/concerns arise during continuum of care. Interventions/Plan 1.Adjustment to Diagnosis: Processed adjustment reactions Provided brief supportive therapy Provided validation of feelings and experience.. Provided non anxious presence. 2.Advance Care Planning: Assessed patients current understanding of Advance Directives and purpose of documents LAR - Tobin Shipman Legal next of kin are his 5 children who live out [place], [place], [place] and [place]. SW provided him a auto glass worker for his iphone as he needs to phone charged to provide his adultchildren's contact info. 3.Pt needed support around transition planning. : Provided support and education around transition planning process and explored his understanding and concerns. SW collaboration with Case Coordination. Plan: SW will continue to remain available as needed along continuum of care Frequency of Visits: Routine follow-up Plan of Care Reviewed with: Patient Total time spent: 90 min on the date of service reviewing patient records, advance care planning, counseling , collaborating with other providers, documenting said information in electronic medical record, and [id number] visit. Subjective Individual Goals: Process psychosocial stressors and health related distress Worries/Concerns: health issue, physical recovery. Strengths: Expressive of Emotions, Expressive of Needs, Humor, and Self-Reliant Objective Objective Mental Status Exam: Current Mental Status/Cognitive Functioning: Able to Comprehend, Affect Appropriate to Mood, Alert,Oriented to Person, Place, and Time, Immediate, Recent and Remote Memory Intact, and Normal Mood, Behavior, Speech, Dress, Motor activity, and Thought Processes Affect: Mood-congruent Mood: Congruent to Situation Behaviors: Appropriate to Situation, cooperative Thought Content/Process: Organized Judgment/Insight: Judgment/insight appropriate to age and situation Verbal Skills: No Deficits Noted Health Literacy Assessment: BRIEF Health Literacy Screen: Adequate (Score= 17-20): Will be able to read and comprehend most patient education materials Reaction to Health Status: Adjusting Understanding of Condition/Tx: Adequate Understanding of Medical Condition Additional Considerations: N/A Suicidal/Homicidal Assessment: Denied Medical History Principal Problem: Closed right hip fracture, initial encounter (HCC) (POA: Yes) Active Problems: 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 Psychosocial History Subjective Demographic Information Preferred Language: Malawian Service Providers/Agencies None noted Advance Directive Advance Directives:Advance Directives Does Patient Have Advance Directives?: no Patient Has No Advance Directives: (pt has not yet decided to complete advance directives. 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 Pt also has 4 other adult children. 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 Social History Relationship status:Single Children: Yes (5 adult children) Living Arrangements: hotel Does the patient have any environmental/safety concerns?: No [facility] Quality of support systems?: pt has adult children who live in [place], [place] and [place]. He indicates staying in contact with his children - he is hesitant to ask them for any assistance as theyhave their own lives . Patient provides care for: Self Employment/Finances/Insurance Financial Source: pt guarded around this topic Employment: Retired History: No Financial Concerns: none voiced. He is guarded around finances. Is FMLA an available benefit for the patient/family?: Not Applicable Insurance Source: [place] and [place] [employer] Mental Health History Mental Health Conditions: Per Chart Review pt has history of ADD/ Anxiety. Mental Health Symptoms: None Current Mental Health Treatment: Medication Substance Use History Substances Used: distant history of alcohol use A note to patients: The above note is a summary used to inform our assessment and treatment recommendations. For reasons of privacy and briefness, this note does not attempt to highlight all topics discussed during the visit. In documenting, we may use certain medical or psychiatric terms or abbreviations that have been agreed upon by the medical community. These terms/abbreviations may have different meanings when used here than how you may be used to seeing them. Some information is being carried over from prior records for informational purposes only, and is only being cited to ensure the safety and quality of your care is not compromised. If you have any questions or concerns about thisnote, please discuss with me. Sign: Barb Murry LCSW * Meaghan Mansfield LCSW - 08/13/2025 9:26 PM ESTAssociated Order(s): IP CONSULT TO SOCIAL WORK Images from the original note were not included. Health Social Work Brief Note Date: 08/13/2025 Referred by: Provider/RUCHI Reason for Referral: next of kin Courtney Shipman is a 80 y.o. male currently admitted for: Closed right hip fracture, initial encounter (HCC) Assessment & Plan Social Work Interventions Introduced self and services Summary Courtney Shipman was referred to Health Social Work (SW) by for need to get the information of legal next of kin, veronika Rudd's number [phone] does not work . SW introduced self and role. Uponassessment, Courtney presented irritable and dismissive. SW attempted to ask patient how he was feeling and he endorsed not feeling well and is requesting to get out of the hallway and into a room. SW validated patient's feelings and concerns. SW explained purpose for visit as his son Tobin's number is out of service. Patient stated his son is currently moving from [place] to [place] and he does not have his phone to get his number.SW attempted to inquire about any other family or emergency contacts he would like to add and patient refused to answer and did not wish to engage in further conversation with SW at this time. Given this, SW will follow-up when they are able to meaningfully participate in assessment. Sign: Meaghan Mansfield LCSW * Mckenzie Mcgrath PA-C - 08/13/2025 7:04 PM ESTAssociated Order(s): IP CONSULT TO ORTHOPEDIC SURGERY Orthopedic Surgery Consult Note Date of Consult: 08/13/2025 Physician Requesting Consult: Dr. Terry Consulting Orthopedic Physician: Dr. Grewal Reason for Consultation: Right periprosthetic femur fracture *Patient evaluated at 1845* [place] Classification: B2 Assessment & Plan Assessment 80 y.o. male with R [place] B periprosthetic femur fracture s/p fall yesterday Plan -CT R femur pending -Bedrest for now; NWB RLE -Multimodal pain control -VTE ppx: SQH (hold after 0200); PAS -Tentative OR 08/14 for revision R YOKO pending discussion with arthroplasty team Subjective Chief Complaint Right hip pain History of Present Illness Courtney is an 80-year-old male with past medical history of atrial fibrillation not currently on anticoagulation, chronic pain on fentanyl patch and oxycodone, peripheral neuropathy, and osteoarthritiswho presents to the ED as a transfer from [facility] for periprosthetic right hipfracture after sustaining a fall yesterday. Patient is a poor historian and is unable to provide details surrounding the fall. At outside hospital he was found to have the above-mentioned injury and was subsequently transferred for further orthopedic management. He currently reports severe right hip pain that is exacerbated by movement. Denies pain elsewhere. Denies paresthesias aside from baseline peripheral neuropathy. He states that he ambulates with the occasional use of a walker. He reports a history of taking Xarelto however he has not taken it in several months. 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 He states the total hip was performed in [address] Bright at [facility] in [place]. He states his total knee replacementwas done over 60 years ago (question accuracy). Review of Systems 10-point review of systems obtained and is negative unless otherwise mentioned in HPI. Objective No past medical history on file. No past surgical history on file. Allergies[1] No family history on file. Social History[2] Medications Please refer to electronic medication list Prior to Admission Medications: Prescriptions Prior to Admission[3] Medication/MAR Report: Medications Scheduled Medication Ordered Dose/Rate, Route, Frequency Last Action fentaNYL (DURAGESIC) 75 mcg/hr patch 1 patch 1 patch, TD, Q72H Ordered PRN Medication Ordered Dose/Rate, Route, Frequency Last Action oxyCODONE (ROXICODONE) immediate release tablet 30 mg 30 mg, PO, Q6H PRN Ordered Physical Exam Vitals: 08/13/25 1715 BP: 120/80 BP Location: Left arm Patient Position: Sitting Pulse: 88 Resp: 18 Temp: 97 ??F (36.1 ??C) TempSrc: Tympanic SpO2: 95% General: Nontoxic-appearing elderly male lying in hospital stretcher in no acute distress. A/Ox3 however he appears intermittently confused with certain aspects of medical history. Neck: Supple. Chest: Equal chest excursion bilaterally. Unlabored breathing. Musculoskeletal: RLE- No significant shortening or rotation as compared to contralateral lower extremity. Pain with any movement of the hip. No tenderness to palpation of the distal femur, knee, tibia/fibula, or ankle. Intact EHL/FHL/GS/TA. SILT DP/SP/T. Compartments soft and compressible. Neurologic: CN II-XII grossly intact. No focal deficits. Vascular: Extremities warm and well-perfused. Calves soft and nontender. DP/PT pulses 1+. Skin: Warm and dry throughout. No lesions, lacerations, or abrasions about the right lower extremity. No rash. Relevant data reviewed: White Blood Cell Count Date Value Ref Range Status 08/13/2025 9.0 4.0 - 11.0 Thou/uL Final Hemoglobin Date Value Ref Range Status 08/13/2025 11.5 (L) 13.0 - 17.7 g/dL Final Hematocrit Date Value Ref Range Status 08/13/2025 36.0 (L) 39.0 - 54.0 % Final Platelet Count Date Value Ref Range Status 08/13/2025 184 150 - 450 Thou/uL Final No results found for: NA , K , CL , CO2 , BUN , CREAT , GLUC Lab Results Component Value Date LABPROT 13.4 08/13/2025 INR 1.2 08/13/2025 Imaging Studies: X-rays of the pelvis and right femur from outside hospital reveal displaced right [place] B periprosthetic proximal femur fracture about the stem of total hip arthroplasty. No obvious hardware loosening or subsidence. No dislocation. Sign: Mckenzie Mcgrath PA-C 08/13/2025 7:04 PM [1] No Known Allergies [2] [3] (Not in a hospital admission) Cosigned by Ed Grewal MD at 08/14/2025 11:28 AM EST documented in this encounter ED Notes * Brittany Collier RN - 08/14/2025 5:17 PM EST Patient is resting comfortably on the HB. Appears in NAD. Breathing with ease on RA. Denies acute complaints att. Plan for OR tomorrow. Brittany Collier RN 08/14/25 [id number] * Brittany Collier RN - 08/14/2025 5:15 PM EST S Situation Courtney Shipman is a 80 y.o. male with a chief complaint of Hip Pain and Abnormal Test Result Courtney Shipman is being admitted with an admitting diagnosis of: 1. 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 Fall . B Background Stated Reason for Visit: Patient presents as xfer from [facility] - Had 2 recent ground-level trip and falls. +HS, -LOC. @ OSH found to have R periprostetic sub-torchanteric hip fracture. CT head and neck negative. + CMS. GCS 15. No acute distress. A Assessment Neuro/Cognitive Assessment: Cognitive/Neuro/Behavioral WDL: WDL Level of Consciousness: alert Arousal Level: opens eyes spontaneously Orientation: oriented x 4 Speech: clear, spontaneous, logical Mood/Behavior: calm, cooperative, behavior appropriate to situation Skin Assessment: Skin WDL: .WDL except Skin Color/Characteristics: pale Skin Moisture: dry, flaky Cardiac Rhythm: Focused Assessment:To HHED post fall. Found to have hip fx. Patient is resting comfortably on the HB. Appears in NAD. A&Ox4. Breathing with ease on RA. RR even and unlabored. Denies CP, SOB, PATRICIA, N/V, N/T, abd pain att. C/o 10/14 R hip pain. Denies need for intervention att. Plan for OR. Isolation: No active isolations Critical labs: n/a Recent Labs 08/14/25 0929 GLUC 101* Type of Diabetes:N/A Insulin Pump:N/A Insulin Therapy (fast-acting):N/A Insulin Therapy (long-acting):N/A Interventions performed: pain control R Recommendation Special Needs or Precautions: fall risk Pending tests or interventions: n/a Brittany Collier RN 08/14/2025 5:15 PM Phone number: [phone] Brittany Collier RN 08/14/25 1716 * Brittany Collier RN - 08/14/2025 3:22 PM EST Patient is resting comfortably on the HB. Appears in NAD. Breathing with ease on RA. Denies acute complaints att. Plan for OR tomorrow. Brittany Collier RN 08/14/25 1522 * Brittany Collire RN - 08/14/2025 1:42 PM EST Patient is resting comfortably on the HB. Appears in NAD. Breathing with ease on RA. C/o 8/10 R hippain, see recent MAR admin. Plan for OR today. Brittany Collier RN 08/14/25 1342 * Brittany Collier RN - 08/14/2025 10:32 AM EST Patient is resting comfortably on the HB. Appears in NAD. Breathing with ease on RA. Denies acute complaints att. Plan for OR today. Brittany Collier RN 08/14/25 1032 * Brittany Collier RN - 08/14/2025 8:20 AM EST Patient is resting comfortably on the HB. Appears in NAD. A&Ox4. Breathing with ease on RA. RR even and unlabored. Denies CP, SOB, PATRICIA, N/V, N/T, abd pain att. C/o 2/10 R hip pain. Denies need forintervention att. Plan for OR. Brittany Collier RN 08/14/25 0822 * Brittany Collier RN - 08/14/2025 7:11 AM EST I have acknowledged/accepted the hand off of care for this patient. Brittany Collier RN 08/14/25 0739 * Myriam Mclean RN - 08/14/2025 7:10 AM EST Report given to Brittany YAN and care transferred at this time. Myriam Mclean RN 08/14/25 0710 * Myriam Mclean RN - 08/14/2025 6:08 AM EST Pt resting on bed in NAD. VS as documented. Respirations even and unlabored on room air. MRSA swab sent to lab. Endorsing right hip pain. Plan for admit, OR today. Bed low and locked, safety maintained, care ongoing. Myriam Mclean RN 08/14/25 0609 * Myriam Mclean RN - 08/14/2025 3:11 AM EST Pt resting on bed in NAD. VS as documented. Medicated per MAR for pain. Respirations even and unlabored on room air. Plan for admit, OR. Bed low and locked, safety maintained, care ongoing. Myriam Mclean RN 08/14/25 0312 * Myriam Mclean RN - 08/14/2025 2:40 AM EST I have acknowledged/accepted the hand off of care for this patient. Myriam Mclean RN 08/14/25 0240 * Suzan Nam RN - 08/13/2025 10:17 PM EST Report given to Shi YAN and care transferred at this time. Suzan Nam RN 08/13/25 2217 * Ivonne Terry DO - 08/13/2025 5:47 PM EST Patient Name: Courtney Shipman Arrival time: 08/13/2025 5:17 PM Chief Complaint: Chief Complaint Patient presents with Hip Pain Abnormal Test Result HPI: Courtney Shipman is a 80 y.o. male with no significant past medical history who presents today for right hip pain. Patient has reportedly had multiple falls at home. He was seen at [facility] with a recent fall yesterday with positive head strike without LOC. He had a negative CT of thehead and cervical spine but found to have a right periprosthetic subtrochanteric hip fracture. He was sent to [facility] for further evaluation. Patient has no other complaints at this time besides right hip pain. He denies recent fever, chest pain, shortness of breath, syncope, abdominal pain. Past Medical History: has no past medical history on file. Surgical History: has no past surgical history on file. Family History: No family history on file. Allergies has no known allergies. Medications: Prior to Admission medications Not on File Review of Systems - Negative except pertinent positives listed in in HPI. BP 120/80 (BP Location: Left arm, Patient Position: Sitting) Pulse 88 Temp 97 ??F (36.1 ??C) (Tympanic) Resp 18 SpO2 95% Vital signs reviewed. Physical Exam Constitutional: General: He is not in acute distress. Appearance: Normal appearance. HENT: Head: Normocephalic and atraumatic. Nose: Nose normal. Eyes: Pupils: Pupils are equal, round, and reactive to light. Cardiovascular: Rate and Rhythm: Normal rate and regular rhythm. Pulmonary: Effort: Pulmonary effort is normal. No respiratory distress. Breath sounds: Normal breath sounds. Abdominal: General: There is no distension. Palpations: Abdomen is soft. Musculoskeletal: General: No swelling. Cervical back: Normal range of motion. Right hip: Deformity, tenderness and bony tenderness present. Decreased range of motion. Decreased strength. Right lower leg: No edema. Left lower leg: No edema. Skin: General: Skin is warm and dry. Neurological: General: No focal deficit present. Mental Status: He is alert and oriented to person, place, and time. Mental status is at baseline. Psychiatric: Mood and Affect: Mood normal. MDM: Courtney Shipman is a 80 y.o. male with no significant past medical history who presents today for right hip pain. Patient has reportedly had multiple falls at home. He was seen at [facility] with a recent fall yesterday with positive head strike without LOC. He had a negative CT of thehead and cervical spine but found to have a right periprosthetic subtrochanteric hip fracture. He was sent to [facility] for further evaluation. Patient has no other complaints at this time besides right hip pain. He denies recent fever, chest pain, shortness of breath, syncope, abdominal pain. Vital signs stable, he is afebrile and chronically ill but nontoxic-appearing. He is unable to lifthis right leg secondary to pain. He is of tenderness along the right hip. Is alert and oriented andhas no neurologic deficits. Consulted orthopedics for evaluation for operative management. Will plan for medicine admission for restratification prior to operative repair. Patient stable for admission. Differential diagnosis can include but is not limited to hip fracture, hip dislocation, intracranial hemorrhage, skull fracture, electrolyte abnormality -I reviewed any nursing notes, vital signs, available home medication lists, and other history or pertinent diagnostic tests available. -Specific return precautions were verbally given to the patient/caregiver. Consideration was given as to whether patient would require admission or observation post ED visit. ED Updates: Course in the ED:Tolerating PO fluids, No Sxs, Physical Exam Normal Interventions listed above in 'ED Updates'. Procedures Work up: I independently reviewed all of the patient's EKG's, labs, and imaging. Interpretations of pertinent results are below: Medications - No data to display Labs Reviewed COMPLETE BLOOD COUNT, WITH DIFFERENTIAL BASIC METABOLIC PANEL PROTIME-INR TYPE AND SCREEN ABO CONFIRMATION [facility] Archive for reference only (Results Pending) Clinical Impressions: 1. 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 Fall Disposition: Admitted Ivonne Terry DO Emergency Medicine Attending [facility] Ivonne Terry DO 08/13/25 1749 * MALENA Marquez - 08/13/2025 5:17 PM EST History Courtney Shipman is a 80 y.o. male transfer from [facility]. Fall yesterday onto right side complaining of right hip discomfort. Imaging at [facility] shows a right periprosthetic subtrochanteric hip fracture. CT head cervical spine without contrast unremarkable. I have reviewed the patients medications, allergies, past medical history, social history and family history as documented. No past medical history on file. No past surgical history on file. Social History[1] No family history on file. Review of Systems: Otherwise negative unless noted in HPI Physical Vitals: 08/13/25 1715 BP: 120/80 Pulse: 88 Resp: 18 Temp: 97 ??F (36.1 ??C) SpO2: 95% Vital signs reviewed. Constitutional: Well-appearing, in no apparent distress. Non toxic appearing. Head: Atraumatic Eyes: Conjunctivae Clear, No Icterus. Ear, Nose, Mouth, Throat: Grossly normal inspection. Normal voice, handling secretions normally. Neck: Supple, no meningismus, No cervical lymphadenopathy. Cardiovascular: Normal S1, S2. No MRG. Respiratory: Breath sounds clear and equal bilaterally, no wheezes, rales, or rhonchi. Gastrointestinal: Soft,non tender and non distended. No rebound or guarding Back: No CVAT. No midline tenderness Musculoskeletal: Right hip tender to palpation. Right DP pulse intact. Distal sensation cap refill intact. Skin: Normal for age and race, grossly normal temperature and turgor. No acute rash. Neurologic: Alert and appropriate, no apparent acute deficits. Normal gait Psychiatric: Mood and manner are appropriate. Grooming and personal hygiene are appropriate. ED Course Medical Decision Making: Patient transferred for right periprosthetic hip fracture. Disc brought [facility] library to be uploaded. Orthopedics texted for consult. 5:57 PM Medicine TT for admission. 6:52 PM Bed request placed. MDM: Number and Complexity of Problems Addressed Co-Morbidities Present Affecting Care During Encounter: Hypercholesterolemia and Arrythmia Amount and Complexity of Data Records reviewed from external provider, facility, or healthcare organization: Paperwork reviewed from [facility] History obtained from other source -see HPI for details: Medical Records Independent Interpretation of Diagnostic study by ED clinician: Radiology and Laboratory Test Discussion with Other Healthcare Provider: Orthopedics, Medicine Risk of Complications and/or Morbidity or Mortality of Patient Management Critical Care 1. 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 Fall Labs Reviewed COMPLETE BLOOD COUNT, WITH DIFFERENTIAL BASIC METABOLIC PANEL PROTIME-INR TYPE AND SCREEN ABO CONFIRMATION [facility] Archive for reference only (Results Pending) 08/13/2025 [1] MALENA Marquez 08/13/251851 Cosigned by Ivonne Terry DO at 08/13/2025 7:03 PM EST Associated attestation - Ivonne Terry DO - 08/13/2025 7:03 PM EST I personally saw the patient and performed a substantive portion of the visit including all aspectsof the medical decision-making. I reviewed the AP's or resident's findings, supervised the management of the patient, made/approved the management plan and take responsibility for the patient management. Further, I agree with the controlled substance prescriptions(s) and/or order(s) as written by the AP, if any. My note reflects my personal findings on my history and exam. documented in this encounter Miscellaneous Notes * Plan of Care - Santos Bourgeois RN - 08/21/2025 4:01 PM EST Problem: Adult Inpatient Plan of Care Goal: Plan of Care Review 08/21/20251952 by Santos Bourgeois RN Outcome: Progressing Flowsheets (Taken 08/21/20251952) Plan of Care Reviewed With: patient Progress: improving Outcome Evaluation: pt's pain managed well today, VSS, voiding with no issues, pt discharged to SNF, IV removed, report called in, pt left unit at 15:55 via ambulance * Plan of Care - Sandie Ugalde RN - 08/21/2025 12:55 AM EST Problem: Adult Inpatient Plan of Care Goal: Plan of Care Review Outcome: Progressing Flowsheets (Taken 08/21/20253) Plan of Care Reviewed With: patient Progress: no change Outcome Evaluation: Pt is AOx4, forgetful. Dilaudid for pain. Ax2 RW to stand EOB, FFTDWB RLE. Pt is voiding without difficulty. LBM 08/20/25. See flowsheet for assessment. Plan of care is ongoing. * Plan of Care - Miroslava Feldman RN - 08/20/2025 4:29 PM EST Alert and oriented x 4, vitals stable, on room air. Tolerating diet. Denies cp/sob/nvd. Pain controlled with current regimen. Patient appealed discharge; appeal process in progress. See flowsheets and MAR for additional information. Questions answered, Plan for care ongoing Miroslava Feldman 08/20/2025 4:29 PM * Plan of Care - Cici Bolanos CM - 08/20/2025 1:02 PM EST Problem: Adult Inpatient Plan of Care Goal: Readiness for Transition of Care Intervention: Mutually Develop Transition Plan Flowsheets Taken 08/16/2025 1102 by Justo Orlando PT Equipment Currently Used at Home: walker, rolling Taken 08/15/2025 1700 by Jonas Alejandra RN Anticipated Changes Related to Illness: inability to care for self Outpatient/Agency/Support Group Needs: nursing home facility Discharge Facility/Level of Care Needs: nursing facility, skilled Readmission Within the Last 30 Days: current reason for admission unrelated to previous admission Transportation Anticipated: health plan transportation Transportation Concerns: none Concerns to be Addressed: discharge planning Patient/Family Anticipates Transition to: (TBD) -- Offered/Gave Vendor List: yes Patient is POD#5 s/p revision R-YOKO for [facility]. Patient is medically ready for transition from hospital. Plan is for the patient to transition to SNF for ANGELA. CC met with the patient this morning. Patient notified he has no bed offers from facilities in [place], but he does have bed offersfrom various SNFs in [place]. Patient has Medicare and [place] Medicaid. There is a concern for OOP expenses if/when patient reaches his co pay days. Patient is medically ready for transition from hospital to SNF for ANGELA. Patient [facility]. Patient declines to select a bed at this time. No additional choice to [facility] facilities provided. Patient inquiring about returning to a hotel in [place] with 27/03 care. CC discussed barriers to a safe transition from hospital to a hotel with patient. Patient cannot afford OOP help, and CC explained insurance will cover intermittent skilled servicesonly. Patient reports [place], and he alternates staying with his sons. Patient reports he was in [place] with one son for approximately the last year. Patient returned to [place] to see his medical providers, and he had planned a short visit only. Patient stated he does not feel medically ready to discharge from hospital. Patient was presented with the [facility] yesterday. Patient called [facility] & appealed his discharge this afternoon. Detailed Notice of Discharge provided to the patient. Patient re-referred to [facility]. Cici Bolanos 08/20/2025 1:02 PM * Plan of Care - Vicky Padron RN - 08/20/2025 5:17 AM EST Outcome Evaluation: Patient alert and oriented x4, denies CP/SOB. Patient's incision dressing clean/dry and intact. Pain controlled with scheduled medications (see MAR). Patient assist x 2. Patient tolerating a regular diet. Patient voiding without issue. Fall prevention interventions maintained. Call shelley within reach. All questions encouraged and answered, Patient verbalized understanding. Patient ordered for PO xarelto DVT prophylaxis. Vicky Padron 08/20/2025 5:17 AM * Plan of Care - Senait Serna RN - 08/19/2025 6:45 PM EST Problem: Adult Inpatient Plan of Care Goal: Plan of Care Review Outcome: Progressing Flowsheets (Taken 08/19/2025 1843) Plan of Care Reviewed With: patient Progress: no change Outcome Evaluation: Pt alert and oriented( forgetfull at times), denies cp ,sob, VSS, hip dressing CDI, mike Po, voiding in urinal, BM after suppository, pain controled with current pain med regiment,plan for Dc to SNF- placement pending. Plan of Care Reviewed With: patient Progress: no change Outcome Evaluation: Pt alert and oriented( forgetfull at times), denies cp ,sob, VSS, hip dressing CDI, mike Po, voiding in urinal, BM after suppository, pain controled with current pain med regiment,plan for Dc to SNF- placement pending. Senait Serna 08/19/2025 6:45 PM * Hospital Course - Jess Garza MD - 08/19/2025 5:05 PM EST Ms. Shipman is a 80 y.o. male with PMH of chronic neuropathic pain bilateral lower extremity on chronic fentanyl patch/oxycodone, anxiety, A-fib, ADD, HLD, aortic aneurysm, MGUS presented as a transfer from [facility] for periprosthetic right hip fracture after sustaining a fall. He underwentright YOKO on 08/15. He tolerated procedure with no issues. He was started on Xarelto for DVT prophylaxis and for his history of A-fib. He was started on a multimodal pain medication regimen to help control his symptoms. Patient continued bilateral lower extremity pain to experience which is chronicto him given history of neuropathy. He was deemed stable for discharge on 08/19 but the patient wasinsisting that he is not medically ready because he was unable to ambulate. * Assessment & Plan Note - Jess Garza MD - 08/19/2025 5:02 PM EST Associated Problem(s): Closed right hip fracture, initial encounter (HCC) S/p right YOKO on 08/15. He tolerated procedure with no issues. Orthopedic surgery team following Continue Xarelto for DVT prophylaxis PT/OT continue Dilaudid 0.3 mg every 4 hours as needed for pain Continue oxycodone 30 mg every 4 hours as needed for pain Continue Robaxin as needed for muscle spasms. Continue fentanyl patch every 72 hours. Will follow-up with Ortho as outpatient. 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 He tolerated procedure with no issues. Orthopedic surgery team following Continue Xarelto for DVT prophylaxis PT/OT continue Dilaudid 0.3 mg every 4 hours as needed for pain Continue oxycodone 30 mg every 4 hours as needed for pain Continue Robaxin as needed for muscle spasms. Continue fentanyl patch every 72 hours. Will follow-up with Ortho as outpatient. * Assessment & Plan Note - Jess Garza MD - 08/19/2025 5:02 PM EST Associated Problem(s): Chronic disease A-fib: Heart rate have been controlled. Per chart review, he reports that he has been off anticoagulation. Per the last note from PCP, he should be on anticoagulation. Continue Xarelto 20 mg nightly anxiety: Continue Xanax and amitriptyline Hyperlipidemia: Continue atorvastatin * Assessment & Plan Note - Jess Garza MD - 08/19/2025 5:02 PM EST Associated Problem(s): Peripheral neuropathy Continue fentanyl patch Continue amitriptyline 25 mg nightly * Plan of Care - Katrin Engel RN - 08/19/2025 3:16 PM EST Ongoing Case Management Care Plan Note Summary: Met with patient multiple times though out the day to discuss d'c planning[place] [place] [facility] [place]. Patient was refusing to provide additional facility preferences, presented him with IMM and explained appeal process, but he kept changing conversation to different topics, copy of IMM left with patient, but he did not sign. SW consult placed. Patient came from [facility], and he would like to return to [facility], provider made aware he can call #[phone] option 1 to intiate transfer back to [facility]. SW into see patient and he was more agreeable to placing SNF referrals. [facility] wide referrals placed and all SNF's within 25 miles of [place] to see if able to obtain bed offer, patient agreed. Left VM for admissions at [facility] in [facility] to see if able to accept, awaiting response. Patient declined to let this investigative writer call family to discuss d'c planning and he has no contacts on file. Reports his adult children live out [place]. Informed patient that coordinator will f/u to discuss any bed offers. At this time plan if for rtn to [facility] vs. SNF. Case Coordination will continue to follow. Katrin Engel 08/19/2025 3:16 PM * Plan of Care - Jayda Solano RN - 08/19/2025 2:20 AM EST Progress: no change Outcome Evaluation: Patient sleepy is easily aroused. Right hip dressing intact. TruVie boots on for protection. Patient taking oxy 30 for pain with good effect. He voids in urinal without issues. Cotinue to monitor. Jayda Solano 08/19/2025 2:20 AM * Plan of Care - Dm Tiwari RN - 08/18/2025 4:53 PM EST Problem: Adult Inpatient Plan of Care Goal: Plan of Care Review 08/18/20251652 by Dm Tiwari RN Outcome: Progressing Pt A&Ox4. Denies chest pain, SOB, N/V. VSS. Dressing CDI. Medicated PO analgesics and scheduledmeds. Ax2 standing w/ RW. Voiding no issues. Last BM 08/13, lactulose given per MD, pending effect.Safety maintained. Plan of care ongoing. Dm Tiwari 08/18/2025 * Plan of Care - Mary Carmen Yen RN - 08/18/2025 3:28 PM EST Initial Osteoporosis Nurse Navigator Rounding Note Met with patient. Introduced self to patient and explained nurse navigator role. Reviewed Osteoporosis education with patient. Pamphlet was provided with more information for reference. Patient verbalized understanding. Patient resides out of [facility], in [place]. Recommended patient to follow up with PCP for OP eval/management. Patient's questions and concerns addressed. Patient provided with NN business card with direct contact information and informed nurse navigatorcan be contacted with any questions or concerns throughout inpatient stay and during the recovery process. Mary Carmen Yen 08/18/2025 3:28 PM * Assessment & Plan Note - Jess Garza MD - 08/18/2025 11:40 AM EST Associated Problem(s): Closed right hip fracture, initial encounter ([facility]) S/p right YOKO on 08/15. He tolerated procedure with no issues. Orthopedic surgery team following Continue Xarelto for DVT prophylaxis PT/OT continue Dilaudid 0.3 mg every 4 hours as needed for pain Continue oxycodone 30 mg every 4 hours as needed for pain Continue Robaxin as needed for muscle spasms. Continue fentanyl patch every 72 hours. Will follow-up with Ortho as outpatient. 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 He tolerated procedure with no issues. Orthopedic surgery team following Continue Xarelto for DVT prophylaxis PT/OT continue Dilaudid 0.3 mg every 4 hours as needed for pain Continue oxycodone 30 mg every 4 hours as needed for pain Continue Robaxin as needed for muscle spasms. Continue fentanyl patch every 72 hours. Will follow-up with Ortho as outpatient. * Assessment & Plan Note - Jess Garza MD - 08/18/2025 11:40 AM EST Associated Problem(s): Chronic disease A-fib: Heart rate have been controlled. Per chart review, he reports that he has been off anticoagulation. Per the last note from PCP, he should be on anticoagulation. Continue Xarelto 20 mg nightly anxiety: Continue Xanax and amitriptyline Hyperlipidemia: Continue atorvastatin * Assessment & Plan Note - Jess Garza MD - 08/18/2025 11:40 AM EST Associated Problem(s): Peripheral neuropathy Continue fentanyl patch Continue amitriptyline 25 mg nightly * Plan of Care - Meenakshi Vasquez RN - 08/18/2025 1:46 AM EST Problem: Adult Inpatient Plan of Care Goal: Plan of Care Review Outcome: Progressing Flowsheets (Taken 08/18/2025 0146) Progress: improving Outcome Evaluation: A/O, pain control with oxycodone. Right hip dsg is c/d/i, +pedal. OOB with walker and 1 assist. Tolerating diet, pt voiding, incontinence at times. Denies sob and cp, VSS. Plan ongoing Meenakshi Vasquez 08/18/2025 1:46 AM * Plan of Care - Kathleen Kevin RN - 08/17/2025 6:37 PM EST Problem: Adult Inpatient Plan of Care Goal: Plan of Care Review Outcome: Progressing Flowsheets (Taken 08/17/2025 1837) Plan of Care Reviewed With: patient Progress: improving Outcome Evaluation: Pt Aox4. POD #2 revision R total hip. Denies n/v, Chest pain/SOB. Baseline neuropathy present. Dsg cdi. Pain controlled with prn oxy and breakthrough IV dilaudid. Tolerating regular diet. Voiding no issues using urinal. VSS on RA. Ax2 turning in bed, TTWB RLE. Safety precautionsmaintained, call shelley within reach, plan of care ongoing. Kathleen Kevin 08/17/2025 6:37 PM * Assessment & Plan Note - Jess Garza MD - 08/17/2025 11:34 AM EST Associated Problem(s): Closed right hip fracture, initial encounter (HCC) S/p right YOKO on 08/15. He tolerated procedure with no issues. Orthopedic surgery team following Continue Xarelto for DVT prophylaxis PT/OT continue Dilaudid 0.3 mg every 4 hours as needed for pain Continue oxycodone 30 mg every 4 hours as needed for pain Continue Robaxin as needed for muscle spasms. * Assessment & Plan Note - Jess Garza MD - 08/17/2025 11:34 AM EST Associated Problem(s): 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) S/p right YOKO on 08/15. He tolerated procedure with no issues. Orthopedic surgery team following Continue Xarelto for DVT prophylaxis PT/OT continue Dilaudid 0.3 mg every 4 hours as needed for pain Continue oxycodone 30 mg every 4 hours as needed for pain Continue Robaxin as needed for muscle spasms. * Assessment & Plan Note - Jess Garza MD - 08/17/2025 11:34 AM EST Associated Problem(s): Chronic disease A-fib: Heart rate have been controlled. Per chart review, he reports that he has been off anticoagulation. Per the last note from PCP, he should be on anticoagulation. Continue Xarelto 20 mg nightly anxiety: Continue Xanax and amitriptyline * Assessment & Plan Note - Jess Garza MD - 08/17/2025 11:34 AM EST Associated Problem(s): Peripheral neuropathy Continue fentanyl patch Continue amitriptyline 25 mg nightly * Plan of Care - Meenakshi Vasquez RN - 08/17/2025 3:42 AM EST Plan of Care Reviewed With: patient Progress: improving Outcome Evaluation: A/O but forgetful at times. Pain control with PO oxycodone and IV dilaudid for breakthrough. Right hip dsg is c/d/i, +pedal. Repositions with 2 assist. Tolerating diet, pt voiding, incontinent at times. Denies sob and cp, VSS. Meenakshi Vasquez 08/17/2025 3:42 AM * Plan of Care - Kathleen Kevin RN - 08/16/2025 7:02 PM EST Problem: Adult Inpatient Plan of Care Goal: Plan of Care Review Outcome: Progressing Flowsheets (Taken 08/16/2025 1901) Plan of Care Reviewed With: patient Progress: improving Outcome Evaluation: Pt Aox4, can be forgetful. POD #1 revision R total hip. Denies n/v, Chest pain/SOB. Baseline neuropathy present. Silver dsg reinforced with tape. Pt stated that oxy 30 was not helping 10/10 hip pain, IV dilaudid given with good effect. Tolerating regular diet. Voiding no issues,PVRs completed. VSS on RA. Ax2 EOB with PT. Safety precautions maintained, call shelley within reach, plan of care ongoing. Kathleen Kevin 08/16/2025 7:02 PM * Assessment & Plan Note - Jess Garza MD - 08/16/2025 1:38 PM EST Associated Problem(s): Closed right hip fracture, initial encounter (HCC) S/p right YOKO on 08/15. He tolerated procedure with no issues. Orthopedic surgery team following He received subcutaneous heparin x 1 this morning. Will start Xarelto tonight PT/OT * Assessment & Plan Note - Jess Garza MD - 08/16/2025 1:38 PM EST Associated Problem(s): 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) S/p right YOKO on 08/15. He tolerated procedure with no issues. Orthopedic surgery team following He received subcutaneous heparin x 1 this morning. Will start Xarelto tonight PT/OT * Assessment & Plan Note - Jess Garza MD - 08/16/2025 1:38 PM EST Associated Problem(s): Chronic disease A-fib: Heart rate have been controlled. Per chart review, he reports that he has been off anticoagulation. Per the last note from PCP, he should be on anticoagulation. Will resume Xarelto 20 mg nightly. Anxiety: Continue Xanax and amitriptyline * Plan of Care - Yandel Madsen CM - 08/16/2025 1:13 PM EST Problem: Adult Inpatient Plan of Care Goal: Readiness for Transition of Care Outcome: Progressing Ongoing Case Management Care Plan Note Summary: 80 yo s/p repair of hip fx. Plan d/c to SNF once stable. SNF referral made as per flowsheet. CC to follow. Recommendation: SNF once stable. Bed offer pending. Yandel Madsen 08/16/2025 1:13 PM * Rehab Therapy Consults - Justo Orlando PT - 08/16/2025 11:02 AM EST Physical Therapy Initial Evaluation Current Diagnosis and Pertinent Medical History: Courtney Shipman is a 80 y.o. male admitted with REVISION TOTAL HIP WITH ORIF FEMUR FRACTURE (Right: Hip) Precautions/Restrictions: fall, weight bearing, hip arthroplasty: posterior Previous Level Of Function/Home Environment Home Environment: Living Arrangements: hotel/motel People In Home: alone Prior Level Of Function: Household Mobility: independent, uses device or equipment Community Mobility: independent, uses device or equipment Equipment Used at Home: walker, rolling Assessment & Plan Assessment: Pt received supine in bed and agreeable to PT eval session. Pt tolerated skilled PT session without adverse effect. Pt was educated on TTWB on R LE and R hip posterior precautions. Pt hasdifficulty maintaining TTWB on R LE and requires cues to maintain hip precautions. Pt requires redirections as pt get easily distracted and has has disorganized thoughts. Per PT assessment performed today pt exhibits difficulty in bed mobility, transfers, ambulation and stair negotiation with dec standing balance. Pt requires Ax2 to stand up on EOB. Unable to ambulate as of this time d/t weaknessand unable to maintain WB restriction on R LE. Pt will benefit from skilled inpatient PT to address mentioned functional impairments to meet maximum functional potential and independence to improve mobility. Pt was transferred back to bed at end of session with phone and call shelley within reach, bedalarm, and SCD in place and all needs met. RN updated. If transitioning to home, patient will require 24/7 assistance, Ax2 to stand up on EOB. Bed level mobility, ambulance transport and home services. Rehab Plan of Care: Cont skilled PT interventions daily to address the impairments mentioned above. Patient requires ongoing skilled PT due to deviation from baseline mobility status as a result of acute illness and impairments. The goal of therapy will be to optimize function to minimize risk for future falls and hospital readmissions. Patient is a good rehab candidate and with ability to make functional gains and maximize independence with daily multidisciplinary therapy in conjunction with nursing home services at next level of care. 1. PT Recommendations for Staff: Ax2 to stand up using RW. TTWB R LE. R hip posterior precautions. 2. PT Frequency during Hospitalization: daily 3. Plan of Care Reviewed With: patient Outcome Measures The Activity Measure for Post-Acute Care (AM-PAC) Basic Mobility Inpatient Short Form (6-clicks) margaret standardized measure used to quantify functional deficits in mobility. The total score of the measure ranges from 6-24. A higher score indicates a higher level of independence with functional mobility. Baseline [facility] Basic Mobility Score: 24 Current [facility] Basic Mobility Score: 9 Objective Data ROM: R LE ROM are limited d/t pain. Hip precautions maintained. L LE ROM are WFL MMT: R LE MMT grossly graded as 3/5 . Hip precautions were maintained. L LE MMT grossly graded as 4+ to 5/5. Sensation: B LE sensation are intact to light touch. Bed Mobility: Supine<>sit: mod A x2. Pt was educated on proper hand placement and body mechanics to inc level of independence. Dec carry over noted. Pt will benefit for continuous training to show 100% carry over and to inc level of independence. Transfers: Sit<>stand: mod A x2 using RW. Pt has difficulty maintaining TTWB on R LE even with constant verbal and tactile cues. Pt will benefit for continuous training to show 100% carry over and to inc level of independence. Gait/Stairs: Unable of this time. Balance: static sitting- Good dynamic sitting- Good static standing;- Fair- with RW and Ax2 dynamic standing- Unable Activity Tolerance: Good for eval. Patient performed all activity on room air. Education: Role of PT, purpose of evaluation, POC, current presentation and discharge plan Subjective I have 5 sons, in 5 [place] states on the [facility]. Past Medical/Surgery History No past medical history on file. No past surgical history on file. Flowsheet Data 08/16/25 1102 Physical Therapy Time and Intention PT Visit Type initial evaluation Mode of Treatment co-treatment;physical therapy;occupational therapy Patient Effort good Symptoms Noted During/After Treatment increased pain General Information Patient Profile Reviewed yes Onset of Illness/Injury or Date of Surgery 08/13/25 Referring Physician Kayla General Observations of Patient (Ptmet supine in bed) Pertinent History of Current Functional Problem REVISION TOTAL HIP WITH ORIF FEMUR FRACTURE (Right:Hip) Existing Precautions/Restrictions fall;weight bearing;hip arthroplasty: posterior Previous Level of Function/Home Environm Bed Mobility, Previous Functional Level independent Transfers, Previous Functional Level independent;uses device or equipment Household Ambulation, Previous Functional Level independent;uses device or equipment Community Ambulation, Previous Functional Level independent;uses device or equipment Living Environment Current Living Arrangements hotel/motel People in Home alone Primary Care Provided by self Home Use of Assistive/Adaptive Equipment Equipment Currently Used at Home walker, rolling Pain Additional Documentation Pain Scale: Numbers Pre/Post-Treatment (Group) Pretreatment Pain Rating (Number Scale) 10/10 Pain Scale: Numbers, During Treatment 10/10 Posttreatment Pain Rating(Number Scale) 10/10 Pre/Posttreatment Pain Comment (Numbers Scale) R LE Cognition Affect/Mental Status (Cognition) WFL Orientation Status (Cognition) oriented x 3 Follows Commands (Cognition) WFL Cognitive Function (Cognition) WFL Comment, Cognition Disorganized thoughts, requires redirections. Mobility Right Lower Extremity (Weight-bearing Status) toe touch weight-bearing (TTWB) Coping Observed Emotional State cooperative;anxious Verbalized Emotional State acceptance;hopefulness Trust Relationship/Rapport care explained;choices provided Family/Support Persons patient Involvement in Care participating in care Family/Support System Care self-care encouraged Safety Safety WDL WDL Safety Factors wheels locked;upper side rails raised x 2;ID band on;call light in reach;bed in low position All Alarms alarm(s) activated and audible Safety Precautions limb precautions maintained Enhanced Safety Measures bed alarm set Progressive Mobility Progressive Mobility Level Achieved Standing [facility] Basic Mobility Turning from your back to your side while in a flat bed without using bedrails? 2 Moving from lying on your back to sitting on the side of a flat bed without using bedrails? 2 Moving to and from a bed to a chair (including wheelchair)? 1 Standing up from a chair using your arms? 2 To walk in a hospital room? 1 Climbing 3-5 steps with a railing? 1 [facility] Basic Mobility Score 9 Therapy Assessment/Plan (PT) Patient/Family Therapy Goals Statement (PT) To go home Functional Level at Time of Evaluation (PT) Standing PT Diagnosis (PT) Difficulty in bed mob, transfers, ambulation and stair negotiation. Rehab Potential (PT) good Criteria for Skilled Interventions Met (PT) yes;meets criteria;skilled treatment is necessary Therapy Frequency (PT) daily PT Recommendations for Staff Ax2 to stand up using RW. TTWB R LE. R hip posterior precautions. Predicted Duration of Therapy Intervention (PT) LOS Planned Therapy Interventions (PT) balance training;bed mobility training;gait training;stair training;strengthening;transfer training Problem List (PT) problems related to;mobility Activity Limitations Related to Problem List (PT) unable to ambulate safely;unable to transfer safely PT Evaluation Complexity Clinical Presentation (PT Evaluation Complexity) stable Overall Complexity (PT Evaluation Complexity) moderate complexity Therapy Plan Review/Discharge Plan (PT) Therapy Plan Review (PT) evaluation/treatment results reviewed;care plan/treatment goals reviewed;risks/benefits reviewed;current/potential barriers reviewed;participants voiced agreement with care plan;participants included;patient Anticipated Equipment Needs at Discharge (PT) (Pt owns RW) Physical Therapy Goals Bed Mobility Goal Selection (PT) bed mobility, PT goal 1 Transfer Goal Selection (PT) transfer, PT goal 1 Gait Training Goal Selection (PT) gait training, PT goal 1 Bed Mobility Goal 1 (PT) Activity/Assistive Device (Bed Mobility Goal 1, PT) bed mobility activities, all;rolling to left;rolling to right;sit to supine;supine to sit Monroe Level/Cues Needed (Bed Mobility Goal 1, PT) supervision required Time Frame (Bed Mobility Goal 1, PT) 1 week Progress/Outcomes (Bed Mobility Goal 1, PT) good progress toward goal Transfer Goal 1 (PT) Activity/Assistive Device (Transfer Goal 1, PT) transfers, all;iao-xf-jmkyi/fiuok-sz-hcn;wyx-sk-keuyp/lblxb-ji-yih;walker, rolling [place] Level/Cues Needed (Transfer Goal 1, PT) supervision required Time Frame (Transfer Goal 1, PT) 1 week Progress/Outcome (Transfer Goal 1, PT) good progress toward goal Gait Training Goal 1 (PT) Activity/Assistive Device (Gait Training Goal 1, PT) gait (walking locomotion);assistive device use;walker, rolling Monroe Level (Gait Training Goal 1, PT) supervision required Distance (Gait Training Goal 1, PT) 100 Time Frame (Gait Training Goal 1, PT) 1 week Progress/Outcome (Gait Training Goal 1, PT) good progress toward goal Sign: Justo Orlando, PT * Rehab Therapy Consults - Jonas Caldera OT - 08/16/2025 10:59 AM EST Occupational Therapy Initial Evaluation Current Diagnosis and Pertinent Medical History: Courtney Shipman is a 80 y.o. male admitted s/p revision right total hip arthroplasty. Precautions/Restrictions: fall, weight bearing, hip arthroplasty: posterior Occupational Profile/Previous Level Of Function Occupational History/Life Experiences: retired, independent with ADLs with use of RW Environmental Supports and Barriers: pt reports having 5 sons, not available for assistance Equipment Currently Used at Home: walker, rolling Patient Goals: to go home BADL: independent IADL: independent Transfers: independent, uses device or equipment Household Mobility: independent, uses device or equipment Assessment & Plan Assessment: Pt met supine in bed agreeable to participate in OT initial evaluation. During evaluation pt appears to be poor historian and has difficulty with explaining details of his circumstances. Pt requires increased processing time required. Pt states 10/10 pain throughout evaluation, able to communicate appearing comfortable. Pt noted with mangled incision bandage - edu on to pick at surgical incision - RN updated. Pt is currently functioning below baseline with impaired activity tolerance, presence of posterior hip precautions resulting in decreased functional independence with ADLs, IADLs and functional mobility. Pt was edu on 3/3 posterior THPs and TTWB RLE status. During session, pt completed LB dressing with AE, functional mobility and bed mobility. Recommending use of hip kit.Pt left supine in bed resting comfortably with all needs met, bed alarm set, call shelley within reachand RN updated. Handout provided for review. Rehab Plan of Care: OT will continue to follow while inpatient in order to maximize independence via ADL engagement, & functional mobility. Encouraged mobilization with rehab and nursing teams daily. OOB to chair for all meals and continued edu on precautions/address AE needs. Pt is currently below baseline and would benefit from continued skilled occupational therapy services during hospitaladmission. Patient is a good rehab candidate, with ability to make functional gains and maximize independence with daily multidisciplinary therapy in conjunction with nursing home services at next level of care. -OT Recommendations for Staff: A x 2 standing with RW, TTWB RLE, posterior THPs -OT Frequency during Hospitalization: 2-3 times/wk -Plan of Care Reviewed With: evaluation/treatment results reviewed, current/potential barriers reviewed, participants voiced agreement with care plan, participants included, patient, risks/benefits reviewed, care plan/treatment goals reviewed Outcome Measures The Activity Measure for Post-Acute Care (AM-PAC) Daily Activity Inpatient Short Form (6-clicks) margaret standardized measure used to quantify deficits in self- care. The total score of the measure ranges from 6-24. A higher score indicates a higher level of independence with self-care tasks. Baseline [facility] Daily Activity Score: 23 Current [facility] Daily Activity Score: 18 Objective Data Cognitive Status: Affect: cooperative, frustrated Orientation: oriented x 4 Command Following: pt requires increased processing time and simple commands Communication: pt able to communicate needs, difficulty explaining at time at times rambling on tangents - cues to redirect to specific question asked Cognitive Function: Memory/recall: pt edu on 3/3 posterior THPs and TTWB - no carryover Safety Awareness: fair participating in bed mobility Insight: impaired insight into condition Activities of Daily Living: Feeding: set up assistance Bathing: Pt was edu to complete a seated sponge bath until cleared by MD to shower. Pt was also eduon benefit of long handled sponge and use of shower chair to increase ease of task completion/functional independence. UB Dressing: pt requires Suman for don/doff of hospital gown LB Dressing: pt requires maxA for LB dressing, edu on use of hip kit to complete LB dressing maintaining hip precautions Toileting: urinal at bed side, recommending bed level toileting at this time Functional Mobility: Bed Mobility: supine to/from EOB modA x 2 with HOB elevated, use of bed rail and increased time Transfers: STS modA x 2 with use of RW and height of bed elevated Functional Ambulation: unable Sensory Systems: Vision: pt wears glasses Hearing: appears WFL Somatosensory: pt notes N/T in RLE ROM: BUE WFL Strength: BUE WFL Coordination: poor sitting EOB to complete LB dressing with assistance Balance: good sitting EOB, poor standing with RW Activity Tolerance: Good; Patient performed all activity on RA. Education: Role of OT, safety with functional mobility, ADLs, AE, TTWB RLE, posterior THPs, purposeof evaluation and POC. Subjective I have 5 sons, in 5 [place] states on the [facility]. Past Medical/Surgery History No past medical history on file. No past surgical history on file. Flowsheet Data 08/16/25 1059 OT Time and Intention OT Visit Type initial evaluation Mode of Treatment occupational therapy Patient Effort good Symptoms Noted During/After Treatment increased pain General Information Patient Profile Reviewed yes Onset of Illness/Injury or Date of Surgery 08/13/25 Referring Physician Kayla Patient/Family/Caregiver Comments/Observations I have 5 sons, in 5 different states on the [facility]. General Observations of Patient Pt met supine in bed, agreeable to participate in OT initial evaluation Pertinent History of Current Functional Problem s/p revision right total hip arthroplasty. Existing Precautions/Restrictions fall;weight bearing;hip arthroplasty: posterior (posterior THPs) Previous Level of Function/Home Environm Bathing, Previous Functional Level independent Grooming, Previous Functional Level independent Dressing, Previous Functional Level independent Eating/Feeding, Previous Functional Level independent Toileting, Previous Functional Level independent BADLs, Previous Functional Level independent IADLs, Previous Functional Level independent Bed Mobility, Previous Functional Level independent Transfers, Previous Functional Level uses device or equipment Household Ambulation, Previous Functional Level uses device or equipment Stairs, Previous Functional Level uses device or equipment Community Ambulation, Previous Functional Level uses device or equipment Living Environment Current Living Arrangements home;hotel/motel People in Home alone Primary Care Provided by self Home Use of Assistive/Adaptive Equipment Equipment Currently Used at Home walker, rolling Occupational Profile Reason for Services/Referral (Occupational Profile) s/p RLE surgery Occupational History/Life Experiences (Occupational Profile) retired, independent with ADLs with use of RW Performance Patterns (Occupational Profile) pt enjoys traveling Environmental Supports and Barriers (Occupational Profile) pt reports having 5 sons, not available for assistance Patient Goals (Occupational Profile) to go home Pain Additional Documentation Pain Scale: Numbers Pre/Post-Treatment (Group) Pretreatment Pain Rating (Number Scale) 10/10 Pain Scale: Numbers, During Treatment 10/10 Pain Location- Side Right Pain Location hip Cognition Cognitive Status WFL Comment, Cognition difficulty with explaining details of his circumstances Activity Tolerance / Endurance Activity Tolerance / Endurance pt denies dizziness, SOB, fatigue Coping Observed Emotional State frustrated;cooperative Verbalized Emotional State acceptance Trust Relationship/Rapport care explained;choices provided;questions answered;questions encouraged;reassurance provided;thoughts/feelings acknowledged;empathic listening provided;emotional support provided Family/Support Persons patient Involvement in Care supportive of patient;participating in care Family/Support System Care self-care encouraged;support provided Safety Safety Factors bed in low position;call light in reach;ID band on;wheels locked All Alarms alarm(s) activated and audible Safety Precautions limb precautions maintained Enhanced Safety Measures bed alarm set Infection Prevention environmental surveillance performed;equipment surfaces disinfected;hand hygiene promoted;rest/sleep promoted;personal protective equipment utilized;single patient room provided Progressive Mobility Progressive Mobility Level Achieved Standing [facility] Daily Activity Putting on and taking off Lower Body Clothing? 2 Bathing (including washing/rinsing/drying)? 2 Toileting (includes using toilet, bedpan, or urinal)? 2 Putting on and taking off upper body clothing? 4 Taking care of personal grooming such as brushing teeth? 4 Eating meals? 4 [facility] Daily Activity Score 18 Therapy Assessment/Plan (OT) Patient/Family Therapy Goal Statement (OT) to increase independence Rehab Potential (OT) good Criteria for Skilled Therapeutic Interventions Met (OT) yes Therapy Frequency (OT) 2-3 times/wk Predicted Duration of Therapy Intervention (OT) LOS Planned Therapy Interventions (OT) adaptive equipment training;activity tolerance training;BADL retraining;functional balance retraining;manual therapy/joint mobilization;IADL retraining;neuromuscular control/coordination retraining;occupation/activity based interventions;passive ROM/stretching;radha ent/caregiver education/training;ROM/therapeutic exercise;strengthening exercise;transfer/mobility retraining Evaluation Complexity (OT) Review Occupational Profile/Medical/Therapy History Complexity brief/low complexity Assessment, Occupational Performance/Identification of Deficit Complexity 1-3 performance deficits Clinical Decision Making Complexity (OT) problem focused assessment/low complexity Overall Complexity of Evaluation (OT) low complexity Therapy Plan Review/Discharge Plan (OT) Therapy Plan Review (OT) evaluation/treatment results reviewed;current/potential barriers reviewed;participants voiced agreement with care plan;participants included;patient;risks/benefits reviewed;care plan/treatment goals reviewed OT Recommendations for Staff A x 2 standing with RW, TTWB RLE, posterior THPs OT Goals Bed Mobility Goal Selection (OT) bed mobility, OT goal 1 Bathing Goal Selection (OT) bathing, OT goal 1 Dressing Goal Selection (OT) dressing, OT goal 1 Bed Mobility Goal 1 (OT) Activity/Assistive Device (Bed Mobility Goal 1, OT) bed mobility activities, all [place] Level/Cues Needed (Bed Mobility Goal 1, OT) minimum assist (75% or more patient effort) Time Frame (Bed Mobility Goal 1, OT) 2 weeks Bathing Goal 1 (OT) Activity/Device (Bathing Goal 1, OT) bathing skills, all Monroe Level/Cues Needed (Bathing Goal 1, OT) minimum assist (75% or more patient effort) Time Frame (Bathing Goal 1, OT) 2 weeks Dressing Goal 1 (OT) Activity/Device (Dressing Goal 1, OT) lower body dressing Monroe/Cues Needed (Dressing Goal 1, OT) modified independence Time Frame (Dressing Goal 1, OT) 2 weeks Sign: Jonas Caldera OT * Plan of Care - Meenakshi Vasquez RN - 08/16/2025 3:44 AM EST Plan of Care Reviewed With: patient Progress: improving Outcome Evaluation: A/O, forgetful at times. Pain control with 30mg oxycodone, this is a home dose for pt. Right hip dsg is c/d/i, +pedal. Repostions with assistance. Tolerating diet. Kay removed at 22:00 per order, DTV. Denies sob and cp, VSS. Plan ongoing Meenakshi Vasquez 08/16/2025 3:44 AM * Plan of Care - Jonas Alejandra RN - 08/15/2025 5:25 PM EST Problem: Adult Inpatient Plan of Care Goal: Readiness for Transition of Care Outcome: Progressing Intervention: Mutually Develop Transition Plan Flowsheets (Taken 08/15/2025 1700) Anticipated Changes Related to Illness: inability to care for self Equipment Currently Used at Home: walker, rolling Outpatient/Agency/Support Group Needs: nursing home facility Discharge Facility/Level of Care Needs: nursing facility, skilled Readmission Within the Last 30 Days: current reason for admission unrelated to previous admission Transportation Anticipated: health plan transportation Transportation Concerns: none Concerns to be Addressed: discharge planning Patient/Family Anticipates Transition to: (TBD) -- Offered/Gave Vendor List: yes Initial Case Management Care Plan Note Assessment completed with patient and/or patient's premium service representative, medical record review and discussion with clinical team. CC met with the patient using social distancing. Provided a Case Coordination packet with contact information, CC pamphlet and Your Next Step: Care Outside the Hospital brochure to the patient and/or patient premium service representative. Initial CC documentation completed via chart review- patient off unit to OR Summary: 80yo male admitted as a transfer from [facility] with a right periprosthetic fracture. Per chart, patient admitted to [facility] 07/12 with a nondisplaced right acetabular fracture. Patient transitioned home but needed to go back to ED for impaired mobility and pain. He transitioned again from [facility] this time to SNF- [facility] Per chart, appears as though patient has discharged from SNF and returned to community. Patients home address found to be [address] [place] [address]. Also noted that patient is staying at [facility] [place] as he is selling his home in [place]. Also noted that patient stays with his 5 sons . Chart review also indicated patient ambulates MOD I with a rolling walker baseline. Patient off unit to OR today for surgical fixation. Discharge TBD pending post-op clinical clearance, post-op mobility and needs. SNF placement Anticipated transition plan: SNF likely Caregiver/responsible person supports: sons? PCP: radha Vargas MD Anticipated transportation: tbd Referrals made: None Barriers to discharge: OR, post-op clinical clearance, post-op mobility, placement Expected Date of Discharge 08/18/2025 Jonas Alejandra RN 08/15/2025 5:25 PM * Op Note - Harpreet Phan MD - 08/15/2025 3:50 PM EST Images from the original note were not included. [facility] AT [address] [id number] OPERATIVE REPORT Patient Name: Courtney Shipman Date of : 1945 Date of Procedure: 08/15/2025 Surgeons and Role: * Harpreet Phan MD - Primary * Aditi Love MD - Resident - Assisting * Kris Lema PA-C - Physician Display Coordinator Pre-op Diagnosis: Osteoarthritis Right hip Post-op Diagnosis: Osteoarthritis Right hip Details of Procedure Procedure(s) (LRB): REVISION TOTAL HIP WITH ORIF FEMUR FRACTURE (Right) Surgeon: Harpreet Phan MD Display Coordinator: Surgeons and Role: * Harpreet Phan MD - Primary * Aditi Love MD - Resident - Assisting * Kris Lema PA-C - Physician Display Coordinator, Anesthesia: Anesthesiologist: Prateek Gutierrez MD; Danny Heard MD FORENSIC TECHNICIAN: Elio Reyes CRNA - general Implants: * No implants in log * Indications: The patient presents with frequent falls and right hip pain with inability to walk. X-rays identified a periprosthetic fracture of the proximal right femur around a total hip arthroplasty with subsidence and fracture fragment displacement. Open reduction internal fixation with revision of the femoral component was proposed for treatment of this [place] B2 fracture. The procedure and risks reviewed the patient in detail including but not limited to development of infection, neurologic or vascular injury, DVT, PE, heart attack, stroke, , likely discrepancies, dislocations, periprostheticfractures, need for further surgery, failure loosening or subsidence. He understood their inherent risks. He completed the consent forms to proceed. He was admitted to the hospital, optimized for surgery and prepared for surgery the following day. I was asked to assist in treatment of this fracture. The procedure and postoperative recovery expectations were reviewed with the patient in the office.The procedure was explained including that an artificial joint would be implanted to replace their arthritic joint. The joint replacement components would be made of artificial parts composed of metallic material such as titanium, cobalt chrome, and or Oxinium, as well as ceramic and/or cross-linked polyethylene plastics. Implants would be attached via cementless or cemented technique based on the patient's bone quality and would be modified intraoperatively as needed. Description of Procedure: The patient was received in the Pre-operative holding area prior to the procedure. The correct side was identified, confirmed with the patient, and marked for surgery accordingly. The patient confirmed that they wished to proceed with the operation. The patient received a SHANE regional anesthetic block by the block team. The patient was brought to the operating room and prepared for surgery. general anesthesia was induced by the anesthesiologist. The patient was positioned lateral decubitus, bony prominences confirmed well padded and protected.a thorough trauma scrub was performed of the left leg and then the leg sterilly prepped and draped free. A time out was called and correct site confirmed based on WHO protocols. Intravenous Ancef antibiotic was administered with tranexamic acid. A posterior lateral approach was performed and carried down through skin, adipose, and fascia. Hematoma was encountered and he had edematous and hemorrhagic tissues from contusion around the thigh. The short external rotators and piriformis were identified and released off the greater trochanteric i nsertion. A posterior capsulotomy was performed. The tendons and capsule were tagged with #2 Ethibond and Vicryl suture for retraction and later repair. The hip joint was entered and the implants were identified. Although there was hemosiderin laden tissues the amount of hematoma in the hip joint was underwhelming. The incision was extended distally to facilitate exposure of the lateral femoral bone and fracture. The posterior lateral edge of vastus lateralis fascia was incised and the vastus lateralis muscles were swept anteriorly. The perforators were identified and coagulated. The lateral femoral bone was exposed. The fracture was identified. It was a comminuted fracture with 1 large proximal segment which was in a malunited position with a number of small comminuted fragments around the fracture site. Although there was movement between the implant and bone it was somewhat difficultto manipulate and the fracture seem to have occurred a few weeks ago with interval healing. It healed in a malunited position. The amount of movement of fracture fragments gave the impression that this may have been a fracture that was sustained a number of weeks ago and then repeat falls resulted in him coming to the hospital and identified to have the fracture at a delayed state. The femoral component was subsided and malpositioned. There was movement between the proximal trochanteric fragment and the implant although there was still some bony ingrowth into the implant ingrowth surface. Thehip was dislocated and the implant evaluated further. It is felt to be subsided, malpositioned, andpartially loose and therefore it was extracted. The Lisandra extractor was required to remove it as it had maintained some areas of bony ingrowth. Once the implant was removed the fracture was reevaluated. He could be manipulated and we manipulated with a Ritchie elevator to attempt to move and better reduce the fracture fragment positioning. 2 Accord cerclage cables were positioned around the distal segment as proximal and to act as prophylactic cables to avoid propagation of the fracture along the femur. With the cerclage cables also holding some of the fracture fragments together revision of the femoral component was initiated. The Meredith revision system was used. The femoral canal was reamed sequentially up until a 21 mm reamer. Hehad thin cortices but good distal initial press-fit stability with the reamer was achieved. A trialimplant was inserted with the 70 mm body. The hip was reduced. Intraoperative x-rays were performedto confirm fit fill and positioning. Satisfied with the provisional construct the hip was dislocated. The trial implants were removed. The 21 mm x 190 stem was inserted and rested in the distal femurwith good initial press-fit stability. The 70 mm body was selected, inserted on the Matute taper andlocking screw inserted and torqued. The various head lengths were trialed and the -6 was felt to beoptimal as he was likely short for some time and the hip was overall tight to reduce. Satisfied with the -6 the head was applied to the cleaned and dried trunnion. The hip was reduced and taken through stability check. Remained fairly tight and stable and flexion internal rotation and extension external rotation. Reduction of fixation of the fracture fragments was improved with a claw plate. The 8 hole Accord trochanteric claw plate was selected. It was applied to posterolateral femur. Additional cerclage cables were passed around femur and through the cable plate. This allowed for further reduction of the fracture fragments to the plate and improvement of the overall reduction. However there remained comminution at the fracture sites. The initial provisional cables were removed to allow for better application of the cable plate. Numerous cables were passed proximal and distal to the fracture fragmentto entrap the trochanter and affixed to the distal femur. Excellent stability was appreciated. Satisfied with the construct with thorough lavage with dilute Betadine solution and sterile saline solution was performed. The short external rotators were repaired to the trochanteric insertion through the hardware. The vastus lateralis fascia was repaired with Vicryl suture and closing over top of the plate. The fascia gianna repaired with Vicryl and STRATAFIX suture. A Hemovac drain was placed to the thigh. The skin was closed in layers with Vicryl Monocryl and Dermabond. Sterile Mepilex dressing complete the procedure. The patient was brought to the Post-Anesthetic Recovery Unit. They will be toe- touch weight-bearingand placed on individualized DVT prophylaxis. Operative Findings: Eburnated [id number] osteoarthritis of the hip. Acute on chronic fracture issuspected as he had some degree of bony healing of the malunited fracture fragments yet did have hematoma around the thigh and hemosiderin to suggest that he had fractured likely within the past number of weeks failing to come in for treatment and then continued to have repeat falls and identified to have this injury during this admission. The PA as Bread Dumper was intrinsically and medically necessary throughout this procedure, specifically assisting with at least the following: the surgical exposure, positioning and holding the extremity or other tools required for safe visualization of the anatomic field, assisting with surgical instruments or other devices indispensable to the accomplishment of the procedure, facilitating the necessary efficiencies to provide optimal surgical care throughout the procedure, and assisting with wound closure, bandaging, and patient transition from the operating room to the PACU. These various services cannot be performed by the orthopedic attending surgeon alone. The PA service assistant plays a vital role in the safe performance of this surgical procedure, without whom this procedure would not have been as safe nor as efficient . Total Fluids: See anesthesia records Estimated Blood Loss: * No values recorded between 08/15/2025 3:50 PM and 08/15/2025 6:24 PM * Blood Transfusion: None Specimens: Order Name Source Comment Collection Info Order Time TISSUE CULTURE (AEROBIC, ANAEROBIC + GRAM STAIN) Hip, right Collected By: Harpreet Phan MD 08/15/2025 6:18 PM Release to Patient Immediate FUNGAL CULTURE (NON-BLOOD) Hip, right Collected By: Harpreet Phan MD 08/15/2025 6:18 PM Release to Patient Immediate MYCOBACTERIA CULTURE (INCLUDES ACID FAST SMEAR) Hip, right Collected By: Harpreet Phan MD 08/15/2025 6:18 PM Release to Patient Immediate Disposition: Stable to PACU Signed: Harpreet Phan MD Date: 08/15/2025 Cc: MD Mariposa Black MD * Brief Op Note - Aditi Love MD - 08/15/2025 3:50 PM EST Patient Name: Courtney Shipman Date of : 1945 Date of Service: 08/15/2025 Time: 6:59 PM Attending: Sylvester Combs Op Note Patient: Courtney Shipman Date: 08/13/2025 - 08/15/2025 Pre-op Diagnosis: 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) [M97.01XA] Post-op Diagnosis: Same Procedure: Revision R YOKO Attending: Sylvester Fluids: See anesthesia report Estimated Blood Loss: 250 mL Drains: Hvx1 not sewn Anesthesia: general Findings: Please see dictated operative report. Specimens: Order Name Source Comment Collection Info Order Time TISSUE CULTURE (AEROBIC, ANAEROBIC + GRAM STAIN) Hip, right Collected By: Harpreet Phan MD 08/15/2025 6:18 PM Release to Patient Immediate FUNGAL CULTURE (NON-BLOOD) Hip, right Collected By: Harpreet Phan MD 08/15/2025 6:18 PM Release to Patient Immediate MYCOBACTERIA CULTURE (INCLUDES ACID FAST SMEAR) Hip, right Collected By: Harpreet Phan MD 08/15/2025 6:18 PM Release to Patient Immediate HEMOGLOBIN AND HEMATOCRIT Blood 08/15/2025 6:28 PM Release to Patient Immediate Patient's condition: Stable to PACU Complications: * No complications entered in OR log * Implants: Implant Name Type Inv. Item Serial No. Hand Straightener Lot No. [id number] No. Used Action [id number] CABLE ORTHOPEDIC COCR 2MM 75MM TROCH CLAMP ACCORD - [id number] Wire [id number] CABLE ORTHOPEDIC COCR 2MM 75MM TROCH CLAMP ACCORD [employer] - DIV S [id number] Right 1 Implanted [id number] CABLE ORTHOPEDIC COCR 2MM 75MM TROCH CLAMP ACCORD - [id number] Wire [id number] CABLE ORTHOPEDIC COCR 2MM 75MM TROCH CLAMP ACCORD [employer] - DIV S [id number] Right 1 Implanted [id number] CABLE ORTHOPEDIC COCR 2MM 75MM TROCH CLAMP ACCORD - [id number] Wire [id number] CABLE ORTHOPEDIC COCR 2MM 75MM TROCH CLAMP ACCORD [employer] - DIV S [id number] Right 1 Implanted [id number] STEM FEMORAL 190MM 21MM REVISION MDLR MEREDITH STS TI TAPER HIP - [id number] Joint Prosthesis [id number] STEM FEMORAL 190MM 21MM REVISION MDLR MEREDITH STS TI TAPER HIP DIDI BIOMET SPINE - DIV OF Z [id number] Right 1 Implanted [id number] BODY CONE 70MM MEREDITH A HIGH OFFSET HIP FEMORAL TI MDLR - [id number] Joint Prosthesis [id number] BODY CONE 70MM MEREDITH A HIGH OFFSET HIP FEMORAL TI MDLR DIDI BIOMET SPINE - DIV OF Z [id number] 1 Implanted 650-1057 HEAD FEMORAL 36MM HIP BLX D OPTION G7 STERL - [id number] Joint Prosthesis 650-1057 HEAD FEMORAL 36MM HIP BLX D OPTION G7 STERL DIDI BIOMET SPINE - DIV OF Z [id number] Right 1 Implanted 650-1064 SLEEVE CENTERING G7 -6MM OFFSET TAPER HIP TI TYPE 1 BLX D - [id number] Joint Prosthesis 650-1064 SLEEVE CENTERING G7 -6MM OFFSET TAPER HIP TI TYPE 1 BLX D IDDI BIOMET SPINE - DIV OF Z [id number] Right 1 Implanted [id number] CABLE ORTHOPEDIC COCR 2MM 75MM HIP CLAMP ACCORD - [id number] Wire [id number] CABLE ORTHOPEDIC COCR 2MM 75MM HIP CLAMP ACCORD [employer] - DIV S [id number] Right 1 Implanted [id number] CABLE ORTHOPEDIC COCR 2MM 75MM HIP CLAMP ACCORD - [id number] Wire [id number] CABLE ORTHOPEDIC COCR 2MM 75MM HIP CLAMP ACCORD [employer] - DIV S [id number] Right 1 Implanted [id number] CABLE ORTHOPEDIC COCR 2MM 75MM HIP CLAMP ACCORD - [id number] Wire [id number] CABLE ORTHOPEDIC COCR 2MM 75MM HIP CLAMP ACCORD [employer] DIV S [id number] Right 1 Implanted [id number] CONDITIONING MACHINE OPERATOR CABLE 195MM ACCORD STD TROCH COCR 8 CABLE - [id number] Wire [id number] CONDITIONING MACHINE OPERATOR CABLE 195MMACCORD STD TROCH COCR 8 CABLE [employer] DIV S [id number] Right 1 Implanted [id number] CABLE ORTHOPEDIC COCR 2MM 75MM HIP CLAMP ACCORD - [id number] Wire [id number] CABLE ORTHOPEDIC COCR 2MM 75MM HIP CLAMP ACCORD [employer] - DIV S [id number] Right 1 Implanted [id number] CABLE ORTHOPEDIC COCR 2MM 75MM HIP CLAMP ACCORD - [id number] Wire [id number] CABLE ORTHOPEDIC COCR 2MM 75MM HIP CLAMP ACCORD [employer] - DIV S [id number] Right 1 Implanted [id number] CABLE ORTHOPEDIC COCR 2MM 75MM HIP CLAMP ACCORD - [id number] Wire [id number] CABLE ORTHOPEDIC COCR 2MM 75MM HIP CLAMP ALBA [employer] - DIV S [id number] Right 1 Implanted Post-Operative Plan --Weight Bearing: TTWB RLE --DVT prophylaxis: Restart home Xarelto POD1, SCDs ordered --Kay placed in OR, remove Post op Day 1 --Pain/Nausea control --Advance diet as tolerated --Ancef for 24 hours post op (q8 hours) --PACU x-rays - PT/OT POD#1 - IV tranexamic acid 4 hours post op ordered x 1 dose Electronically Signed: Aditi Love MD 08/15/2025 6:59 PM Cosigned by Harpreet Phan MD at 08/19/2025 5:39 PM EST * Plan of Care - Kash William RN - 08/15/2025 1:15 PM EST Plan of Care Reviewed With: patient Progress: improving Outcome Evaluation: Pt A&Ox4, denies any CP, SOB, N/V, dizziness. Limb elevated per pt tolerance. Pain well managed with oxycodone 30mg. Voiding well, LBM 1210. Bedrest until surgery. NPO since midnight, CHG bath completed. Truvue boots in place. Limb, fall, skin precautions maintained. Alarmsset, call shelley within reach, bed in lowest position. Pt transported to the OR for surgery. See flowsheet for full assessment. POC ongoing Kash William 08/15/2025 1:15 PM * Assessment & Plan Note - Jess Garza MD - 08/15/2025 12:43 PM EST Associated Problem(s): Closed right hip fracture, initial encounter (HCC) Orthopedic surgery team following Plan for right YOKO today Will keep patient n.p.o. Perioperative Risk Scores ? Global - METS 4 or more. ASA Class: 2, Clinical Frailty Scale (CFS): (!) 5 (!) mildly frail ? Cardiac - RCRI: 0, RCRI risk: 0.5 %, Pérez RUDOLPH risk (%): 0.4 ? Pulmonary - ELEVATED Pulmonary Risk STOPBANG - 2 ? 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 Perioperative Risk Scores ? Global - METS 4 or more. ASA Class: 2, Clinical Frailty Scale (CFS): (!) 5 (!) mildly frail ? Cardiac - RCRI: 0, RCRI risk: 0.5 %, Pérez RUDOLPH risk (%): 0.4 ? Pulmonary - ELEVATED Pulmonary Risk STOPBANG - 2 ? [facility] [place] AUDIT-C Total Score - Male: 0 * Assessment & Plan Note - Jess Garza MD - 08/15/2025 12:43 PM EST Associated Problem(s): Chronic disease A-fib: Rates have been controlled. He is off anticoagulation. Anxiety: Continue Xanax and amitriptyline * Plan of Care - Nadine Keller RN - 08/15/2025 4:43 AM EST Plan of Care Reviewed With: patient Progress: improving Outcome Evaluation: Pt alert/oriented X4. Afebrile VSS NPO maintained for OR. Pain managed with current regimen. Voiding in urinal. Incontinent at times. Fall/skin/safety precautions maintained. Planof care ongoing. See flowsheet for assessment. Nadine Keller 08/15/2025 4:43 AM * Plan of Care - Kash Wililam RN - 08/14/2025 9:18 PM EST Plan of Care Reviewed With: patient Progress: improving Outcome Evaluation: Pt A&Ox4, denies any CP, SOB, N/V, dizziness. Limb elevated per pt tolerance. Pain well managed. Pt incontinent in bed when arrived to unit, all linens changed, CHG bath completed, SCD's applied, truvue boots applied. LBM 08/13. Tolerating regular diet well. All admission questions completed. Nutrition consult ordered. Limb, fall precautions maintained. Alarms set, call shelley within reach, bed in lowest position. See flowsheet for full assessment. POC ongoing Kash William 08/14/2025 9:18 PM * Assessment & Plan Note - Ryan Medel MD - 08/14/2025 4:55 PM EST Associated Problem(s): Closed right hip fracture, initial encounter (HCC) Management as per orthopedics. Plan for right YOKO on 08/15. N.p.o. past midnight. Continue pain management with fentanyl patch, home dose oxycodone as needed. 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 Plan for right YOKO on 08/15. N.p.o. past midnight. Continue pain management with fentanyl patch, home dose oxycodone as needed. * Assessment & Plan Note - Ryan Medel MD - 08/14/2025 4:55 PM EST Associated Problem(s): Chronic disease A-fib: Patient stopped taking Xarelto 5 months back. Rate controlled. Consider adding rate control prior to discharge. Anxiety: Continue amitriptyline, Xanax. * Plan of Care - Mckenzie Mcgrath PA-C - 08/14/2025 2:11 PM EST Orthopedic Surgery Surgery postponed to tomorrow 08/15 due to high OR case volume. Primary team and RN updated. Diet and SQH ordered. 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) [x]Pre-Op Noes to Toes: ordered [x]Imaging Complete: yes [x]CXR: complete [x]EKG: complete [x]MRSA: negative on 08/14/25 [x]Pre op Block recommendation: yes, consult to anesthesia ordered [x]Consent: signed and in office [x]Clearance Status: medicine preoperative risk stratification obtained [x]TXA screening negative; OK for tranexamic acid preop Mckenzie Mcgrath PA-C documented in this encounter Plan of Treatment Pending Results Name Type Priority Associated Diagnoses Date /Time Fungal Culture (non-blood) Microbiology Routine 08/15/2025 4:00 PM EST Mycobacteria Culture (includes Acid Fast Smear) Microbiology Routine 08/15/2025 4:00 PM EST Scheduled Orders Name Type Priority Associated Diagnoses Orde r Schedule US Guided Anesthesia Procedure Imaging Routine One time imaging One time imaging for 1 Occurrences starting 08/15/2025 until 08/15/2025 US Guided Anesthesia Procedure Imaging Routine One time imaging One time imaging for 1 Occurrences starting 08/15/2025 until 08/15/2025 documented as of this encounter Procedures Procedure Name Priority Date/Time Associated Diagnosis Comments COMPLETE BLOOD COUNT, WITHOUT DIFFERENTIAL Routine 08/19/2025 5:22 AM EST COMPLETE BLOOD COUNT, WITHOUT DIFFERENTIAL Routine 08/18/2025 6:34 AM EST BASIC METABOLIC PANEL Routine 08/18/2025 6:34 AM EST COMPLETE BLOOD COUNT, WITHOUT DIFFERENTIAL Routine 08/17/2025 5:46 AM EST BASIC METABOLIC PANEL Routine 08/17/2025 5:46 AM EST COMPLETE BLOOD COUNT, WITHOUT DIFFERENTIAL Routine 08/16/2025 9:42 AM EST MAGNESIUM Routine 08/16/2025 9:42 AM EST BASIC METABOLIC PANEL Routine 08/16/2025 9:42 AM EST XR HIP W PELVIS 2 OR 3 VIEWS-RIGHT STAT 08/15/2025 8:03 PM EST HEMOGLOBIN AND HEMATOCRIT Routine 08/15/2025 7:12 PM EST XR FEMUR 1 VIEW-RIGHT Routine 08/15/2025 5:07 PM EST MYCOBACTERIA CULTURE (INCLUDES ACID FAST SMEAR) Routine 08/15/2025 4:00 PM EST FUNGAL CULTURE (NON-BLOOD) Routine 08/15/2025 4:00 PM EST TISSUE CULTURE (AEROBIC, ANAEROBIC + GRAM STAIN) Routine 08/15/2025 4:00 PM EST REVISION TOTAL HIP 08/15/2025 2: 33 PM EST 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) Special Needs DIDI MEREDITH PROTIME-INR Routine 08/15/2025 4:52 AM EST COMPLETE BLOOD COUNT, WITHOUT DIFFERENTIAL Routine 08/15/2025 4:52 AM EST BASIC METABOLIC PANEL Routine 08/15/2025 4:52 AM EST TYPE AND SCREEN Routine 08/15/2025 4:44 AM EST PREPARE RBC'S Routine 08/14/2025 12:46 PM EST POCT GLUCOSE, FINGERSTICK (CHARGE) Routine 08/14/2025 9:29 AM EST VITAMIN D, 25-HYDROXY STAT 08/14/2025 7:12 AM EST ERYTHROCYTE SEDIMENTATION RATE (ESR) STAT 08/14/2025 7:12 AM EST PROTIME-INR STAT 08/14/2025 7:12 AM EST COMPLETE BLOOD COUNT, WITHOUT DIFFERENTIAL STAT 08/14/2025 7:12 AM EST C-REACTIVE PROTEIN STAT 08/14/2025 7: 12 AM EST TRANSFERRIN STAT 08/14/2025 7:12 AM EST PREALBUMIN STAT 08/14/2025 7:12 AM EST PHOSPHORUS STAT 08/14/2025 7:12 AM EST PTH, INTACT STAT 08/14/2025 7:12 AM EST MAGNESIUM STAT 08/14/2025 7:12 AM EST ALBUMIN STAT 08/14/2025 7:12 AM EST BASIC METABOLIC PANEL STAT 08/14/2025 7:12 AM EST NASAL MRSA SCREEN, PCR STAT 08/14/2025 5:10 AM EST HEMOGLOBIN AND HEMATOCRIT STAT 08/13/2025 11:12 PM EST NASAL MRSA SCREEN, PCR STAT 08/13/2025 11:[address] FEMUR W/O CONTRAST-RIGHT STAT 08/13/2025 10:05 PM EST XR CHEST 1 VIEW-PORTABLE Routine 08/13/2025 8:01 PM EST ECG 12-LEAD STAT 08/13/2025 7:01 PM EST IRON AND TOTAL IRON BINDING CAPACITY STAT 08/13/2025 5:43 PM EST COMPLETE BLOOD COUNT, WITH DIFFERENTIAL STAT 08/13/2025 5:43 PM EST PROTIME-INR STAT 08/13/2025 5:43 PM EST TYPE AND SCREEN STAT 08/13/2025 5:43 PM EST TSH, HIGHLY SENSITIVE STAT 08/13/2025 5:43 PM EST FERRITIN STAT 08/13/2025 5:43 PM EST VITAMIN B12 STAT 08/13/2025 5:43 PM EST BASIC METABOLIC PANEL STAT 08/13/2025 5:43 PM EST documented in this encounter Results * (ABNORMAL) COMPLETE BLOOD COUNT, WITHOUT DIFFERENTIAL (08/19/2025 5:22 AM EST) [facility] White Blood Cell Count 7.5 4.0 - 11.0 Thou/uL 08/19/2025 6:31 AM [facility] Platelet Count 210 150 - 450 Thou/uL 08/19/2025 6:31 AM [facility] Hemoglobin 8.2(L) 13.0 - 17.7 g/dL 08/19/2025 6:31 AM [facility] Hematocrit 26.3(L) 39.0 - 54.0 % 08/19/2025 6:31 AM [facility] Red Blood Cell Count 2.66(L) 4.50 - 6.20 Mil/uL 08/19/2025 6:31 AM [facility] MCV 99 80 - 100 fL 08/19/2025 6:31 AM [facility] MCH 30.8 27.0 - 31.0 pg 08/19/2025 6:31 AM [facility] MCHC 31.2 30.0 - 36.0 g/dL 08/19/2025 6:31 AM [facility] RDW 12.4 11.5 - 14.5 % 08/19/2025 6:31 AM [facility] MPV 11.9 7.5 - 12.5 fL 08/19/2025 6:31 AM [facility] Blood Blood specimen / Unknown 08/19/2025 5:22 AM EST 08/19/2025 6:18 AM EST Jess Garza MD LAB BLOOD ORDERABLES Final Re sult Performing Organization Address City/[facility]/[place] [address], [place] [address] * (ABNORMAL) COMPLETE BLOOD COUNT, WITHOUT DIFFERENTIAL (08/18/2025 6:34 AM EST) White Blood Cell Count 7.8 4.0 - 11.0 Thou/uL 08/18/2025 6:56 AM [facility] Platelet Count 178 150 - 450 Thou/uL 08/18/2025 6:56 AM [facility] Hemoglobin 8.2(L) 13.0 - 17.7 g/dL 08/18/2025 6:56 AM [facility] Hematocrit 25.4(L) 39.0 - 54.0 % 08/18/2025 6:56 AM [facility] Red Blood Cell Count 2.60(L) 4.50 - 6.20 Mil/uL 08/18/2025 6:56 AM [facility] MCV 98 80 - 100 fL 08/18/2025 6:56 AM [facility] MCH 31.5(H) 27.0 - 31.0 pg 08/18/2025 6:56 AM [facility] MCHC 32.3 30.0 - 36.0 g/dL 08/18/2025 6:56 AM [facility] RDW 12.3 11.5 - 14.5 % 08/18/2025 6:56 AM [facility] MPV 11.2 7.5 - 12.5 fL 08/18/2025 6:56 AM [facility] Blood Blood specimen / Unknown 08/18/2025 6:34 AM EST 08/18/2025 6:48 AM EST Jess Garza MD LAB BLOOD [place]AB[place] [address], [address] [address] * (ABNORMAL) Basic Metabolic Panel (08/18/2025 6:34 AM EST) Glucose 103(H) 65 - 99 mg/dL 08/18/2025 7:13 AM [facility] Comment:Fasting: <100 mg/dL, Non-Fasting: <200 mg/dL (ADA 2004) Blood Urea Nitrogen (BUN) 23(H) 8 - 21 mg/dL 08/18/2025 7:13 AM [facility] Creatinine 0.89 0.50 - 1.30 mg/dL 08/18/2025 7:13 AM [facility] eGFR 87 >59 08/18/2025 7:13 AM [facility] Comment:CKD-EPI (2020) in mL /min/1.73 sq meters. Sodium 135(L) 136 - 145 mmol/L 08/18/2025 7:13 AM [facility] Potassium 4.3 3.4 - 5.3 mmol/L 08/18/2025 7:13 AM [facility] Chloride 102 98 - 107 mmol/L 08/18/2025 7:13 AM [facility] CO2 26 22 - 33 mmol/L 08/18/2025 7:13 AM [facility] Anion Gap 7 7 - 17 08/18/2025 7:13 AM [facility] Calcium 8.1(L) 8.7 - 10.5 mg/dL 08/18/2025 7:13 AM [facility] BUN/Creatinine Ratio 26(H) 10.0 - 25.0 Ratio 08/18/2025 7:13 AM [facility] Blood Blood specimen / Unknown 08/18/2025 6:34 AM EST 08/18/2025 6:48 AM EST Jess Garza MD LAB BLOOD ORDERABLES Final Re sult [address] [address], [address] [address] * (ABNORMAL) COMPLETE BLOOD COUNT, WITHOUT DIFFERENTIAL (08/17/2025 5:46 AM EST) Pathologist [facility] White Blood Cell Count 9.1 4.0 - 11.0 Thou/uL 08/17/2025 7:31 AM [facility] Platelet Count 173 150 - 450 Thou/uL 08/17/2025 7:31 AM [facility] Hemoglobin 8.8(L) 13.0 - 17.7 g/dL 08/17/2025 7:31 AM [facility] Hematocrit 27.1(L) 39.0 - 54.0 % 08/17/2025 7:31 AM [facility] Red Blood Cell Count 2.80(L) 4.50 - 6.20 Mil/uL 08/17/2025 7:31 AM [facility] MCV 97 80 - 100 fL 08/17/2025 7:31 AM [facility] MCH 31.4(H) 27.0 - 31.0 pg 08/17/2025 7:31 AM [facility] MCHC 32.5 30.0 - 36.0 g/dL 08/17/2025 7:31 AM [facility] RDW 12.4 11.5 - 14.5 % 08/17/2025 7:31 AM [facility] MPV 12.1 7.5 - 12.5 fL 08/17/2025 7:31 AM [facility] Blood Blood specimen / Unknown 08/17/2025 5:46 AM EST 08/17/2025 7:16 AM EST Jess Garza MD LAB BLOOD ORDERABLES [place] [address], [place] [address] * (ABNORMAL) Basic Metabolic Panel (08/17/2025 5:46 AM EST) [facility] Glucose 114(H) 65 - 99 mg/dL 08/17/2025 8:06 AM [facility] Comment:Fasting: <100 mg/dL, Non-Fasting: <200 mg/dL (ADA 2005) Blood Urea Nitrogen (BUN) 24(H) 8 - 21 mg/dL 08/17/2025 8:06 AM [facility] Creatinine 0.86 0.50 - 1.30 mg/dL 08/17/2025 8:06 AM [facility] eGFR 88 >59 08/17/2025 8:06 AM [facility] Comment:CKD-EPI (2020) in mL /min/1.73 sq meters. Sodium 137 136 - 145 mmol/L 08/17/2025 8:06 AM [facility] Potassium 3.8 3.4 - 5.3 mmol/L 08/17/2025 8:06 AM [facility] Chloride 100 98 - 107 mmol/L 08/17/2025 8:06 AM [facility] CO2 27 22 - 33 mmol/L 08/17/2025 8:06 AM [facility] Anion Gap 10 7 - 17 08/17/2025 8:06 AM [facility] Calcium 8.1(L) 8.7 - 10.5 mg/dL 08/17/2025 8:06 AM [facility] BUN/Creatinine Ratio 28(H) 10.0 - 25.0 Ratio 08/17/2025 8:06 AM [facility] Blood Blood specimen / Unknown 08/17/2025 5:46 AM EST 08/17/2025 7:16 AM EST us Jess Garza MD LAB BLOOD ORDERABLES Final Re sult Performing Organization Address [facility]/ZIP Co de Phone Number [address] [address], [address] [address] * Magnesium (08/16/2025 9:42 AM EST) Magnesium 2.0 1.6 - 2.7 mg/dL 08/16/2025 10:39 AM [facility] Blood Blood specimen / Unknown 08/16/2025 9:42 AM EST 08/16/2025 10:05 AM EST us Jess Garza MD LAB BLOOD ORDERABLES Final Re sult [address] [address], [facility] [address] [place] [address] * (ABNORMAL) COMPLETE BLOOD COUNT, WITHOUT DIFFERENTIAL (08/16/2025 9:42 AM EST) White Blood Cell Count 8.3 4.0 - 11.0 Thou/uL 08/16/2025 10:24 AM [facility] Platelet Count 167 150 - 450 Thou/uL 08/16/2025 10:24 AM [facility] Hemoglobin 8.7(L) 13.0 - 17.7 g/dL 08/16/2025 10:24 AM [facility] Hematocrit 27.2(L) 39.0 - 54.0 % 08/16/2025 10:24 AM [facility] Red Blood Cell Count 2.83(L) 4.50 - 6.20 Mil/uL 08/16/2025 10:24 AM [facility] MCV 96 80 - 100 fL 08/16/2025 10:24 AM [facility] MCH 30.7 27.0 - 31.0 pg 08/16/2025 10:24 AM [facility] MCHC 32.0 30.0 - 36.0 g/dL 08/16/2025 10:24 AM [facility] RDW 12.0 11.5 - 14.5 % 08/16/2025 10:24 AM [facility] MPV 12.3 7.5 - 12.5 fL 08/16/2025 10:24 AM [facility] Blood Blood specimen / Unknown 08/16/2025 9:42 AM EST 08/16/2025 10:05 AM EST us Jess Garza MD LAB BLOOD ORDERABLES Final Re sult [address] [address], [address] [address] * (ABNORMAL) Basic Metabolic Panel (08/16/2025 9:42 AM EST) Pathologist [facility] Glucose 168(H) 65 - 99 mg/dL 08/16/2025 10:39 AM [facility] Comment:Fasting: <100 mg/dL, Non-Fasting: <200 mg/dL (ADA 2005) Blood Urea Nitrogen (BUN) 23(H) 8 - 21 mg/dL 08/16/2025 10:39 AM [facility] Creatinine 0.85 0.50 - 1.30 mg/dL 08/16/2025 10:39 AM [facility] eGFR 88 >59 08/16/2025 10:39 AM [facility] Comment:CKD-EPI (2020) in mL /min/1.73 sq meters. Sodium 135(L) 136 - 145 mmol/L 08/16/2025 10:39 AM [facility] Potassium 4.2 3.4 - 5.3 mmol/L 08/16/2025 10:39 AM [facility] Chloride 101 98 - 107 mmol/L 08/16/2025 10:39 AM [facility] CO2 24 22 - 33 mmol/L 08/16/2025 10:39 AM [facility] Anion Gap 10 7 - 17 08/16/2025 10:39 AM [facility] Calcium 8.2(L) 8.7 - 10.5 mg/dL 08/16/2025 10:39 AM [facility] BUN/Creatinine Ratio 27(H) 10.0 - 25.0 Ratio 08/16/2025 10:39 AM [facility] Blood Blood specimen / Unknown 08/16/2025 9:42 AM EST 08/16/2025 10:05 AM EST us Jess Garza MD LAB BLOOD ORDERABLES Final Re sult [address] [address], [address] [address] * XR Hip w pelvis 2 or 3 views-Right (08/15/2025 8:03 PM EST) Anatomical Region Laterality Modality Hip Right Computed Radiogr aphy 08/15/2025 7:41 PM EST Impressions 08/15/2025 10:47 PM EST 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 Interpreted by: Oma Montesinos MD Vegetable Loader Machine Operator I personally reviewed the images and the resident's preliminary report and AGREE with the report as it is now presented ([id number]). Narrative 08/15/2025 10:47 PM EST Examination: XR PELVIS XR HIP, RIGHT CLINICAL HISTORY: post op revision total hip, please include entire prosthesis COMPARISON: CT femur radiograph 08/13/2025 TECHNIQUE: An AP portable view of the lower pelvis was obtained. FINDINGS: Revision total right hip arthroplasty without acute hardware or osseous fracture. Redemonstrated subacute/chronic fracture of the right acetabulum. No perihardware lucency. Air within the joint and subcutaneous tissues, consistent with recent surgery. No abnormal soft tissue calcification. Procedure Note Ba Farfan MD - 08/15/2025 Examination: XR PELVIS XR HIP, RIGHT CLINICAL HISTORY: post op revision total hip, please include entire prosthesis COMPARISON: CT femur radiograph 08/13/2025 TECHNIQUE: An AP portable view of the lower pelvis was obtained. FINDINGS: Revision total right hip arthroplasty without acute hardware or osseous fracture. Redemonstrated subacute/chronic fracture of the right acetabulum. No perihardware lucency. Air within the joint and subcutaneous tissues, consistent with recent surgery. No abnormal soft tissue calcification. 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 Interpreted by: Oma Montesinos MD [employer] I personally reviewed the images and the resident's preliminary report and AGREE with the report as it is now presented ([id number]). Harpreet Phan MD IMG DIAGNOSTIC IMAGING ORDERABL ES Final Result * (ABNORMAL) HEMOGLOBIN AND HEMATOCRIT - Post op (08/15/2025 7:12 PM EST) Hematocrit 33.2(L) 39.0 - 54.0 % 08/15/2025 7:37 PM EST [facility] Hemoglobin 10.6(L) 13.0 - 17.7 g/dL 08/15/2025 7:37 PM EST [facility] Blood Blood specimen / Unknown 08/15/2025 7:12 PM EST 08/15/2025 7:27 PM EST Danny Heard MD LAB BLOOD ORDERABLES Final R esult Performing Organization Address City/[facility]/ZIP Co de Phone Number [address] [address], [address] [address] * XR Femur 1 view-Right (08/15/2025 5:07 PM EST) Anatomical Region Laterality Modality Leg Right Computed Radiogr aphy 08/15/2025 4:37 PM EST Impressions 08/18/2025 9:14 AM EST Images performed during operative procedure. Narrative 08/18/2025 9:14 AM EST EXAMINATION: XR FEMUR, RIGHT CLINICAL INFORMATION: RIGHT HIP REVISION COMPARISON: None available. TECHNIQUE: 2 intraoperative x-rays were performed showing a femoral prosthesis present. Acetabular cup is also noted. The positioning appears good. Wires are seen overlying the greater trochanter region. Procedure Note Danny Bonilla MD - 08/18/2025 EXAMINATION: XR FEMUR, RIGHT CLINICAL INFORMATION: RIGHT HIP REVISION COMPARISON: None available. TECHNIQUE: 2 intraoperative x-rays were performed showing a femoral prosthesis present. Acetabular cup is also noted. The positioning appears good. Wires are seen overlying the greater trochanter region. IMPRESSION: Images performed during operative procedure. Jess Garza MD IMG DIAGNOSTIC IMAGING ORDERA BLES Final Result * Tissue Culture (aerobic, anaerobic + Gram stain) (08/15/2025 4:00 PM EST) Gram stain suggestive of Few neutrophils Red blood cells No organisms seen 08/16/2025 7:49 AM EST [facility] Culture No aerobes and anaerobes isolated after 5 days 08/21/2025 9:06 AM EST [facility] Bone with Tissue Excisional biopsy of joint structure of hip / Unknown 08/15/2025 4:00 PM EST Harpreet Phan MD MICROBIOLOGY - GENERAL ORDERABL ES Final Result [facility] [address] [place] [address], [place] * Protime-INR (Routine) (08/15/2025 4:52 AM EST) Anticoagulant NO ANTI COAGULANT MEDS 08/14/2025 8:00 PM [facility] Prothrombin Time (PT) 13.2 10.0 - 13.5 seconds 08/15/2025 5:27 AM [facility] INR 1.1 08/15/2025 5:27 AM [facility] Comment:INR Therapeutic Rang es: Standard dose anticoagulant 2.0 to 3.0, High dose anticoagulant 2.5-3.5. Blood Blood specimen / Unknown 08/15/2025 4:52 AM EST 08/15/2025 5:08 AM EST Mckenzie Mcgrath PA-C LAB BLOOD [place]AB[place] [address], [place] [address] * (ABNORMAL) Basic Metabolic Panel (STAT) (08/15/2025 4:52 AM EST) Glucose 101(H) 65 - 99 mg/dL 08/15/2025 5:27 AM [facility] Comment:Fasting: <100 mg/dL, Non-Fasting: <200 mg/dL (ADA 2005) Blood Urea Nitrogen (BUN) 25(H) 8 - 21 mg/dL 08/15/2025 5:27 AM [facility] Creatinine 1.02 0.50 - 1.30 mg/dL 08/15/2025 5:27 AM [facility] eGFR 74 >59 08/15/2025 5:27 AM [facility] Comment:CKD-EPI (2020) in mL /min/1.73 sq meters. Sodium 138 136 - 145 mmol/L 08/15/2025 5:27 AM [facility] Potassium 3.7 3.4 - 5.3 mmol/L 08/15/2025 5:27 AM [facility] Chloride 103 98 - 107 mmol/L 08/15/2025 5:27 AM [facility] CO2 25 22 - 33 mmol/L 08/15/2025 5:27 AM [facility] Anion Gap 10 7 - 17 08/15/2025 5:27 AM [facility] Calcium 8.3(L) 8.7 - 10.5 mg/dL 08/15/2025 5:27 AM [facility] BUN/Creatinine Ratio 25 10.0 - 25.0 Ratio 08/15/2025 5:27 AM [facility] Blood Blood specimen / Unknown 08/15/2025 4:52 AM EST 08/15/2025 5:08 AM EST us Mckenzie Mcgrath PA-C LAB BLOOD [place] [address], [place] [address] * (ABNORMAL) Complete Blood Count WITHOUT Differential - STAT (08/15/2025 4:52 AM EST) White Blood Cell Count 6.9 4.0 - 11.0 Thou/uL 08/15/2025 5:13 AM [facility] Platelet Count 162 150 - 450 Thou/uL 08/15/2025 5:13 AM [facility] Hemoglobin 10.1(L) 13.0 - 17.7 g/dL 08/15/2025 5:13 AM [facility] Hematocrit 31.2(L) 39.0 - 54.0 % 08/15/2025 5:13 AM [facility] Red Blood Cell Count 3.28(L) 4.50 - 6.20 Mil/uL 08/15/2025 5:13 AM [facility] MCV 95 80 - 100 fL 08/15/2025 5:13 AM [facility] MCH 30.8 27.0 - 31.0 pg 08/15/2025 5:13 AM [facility] MCHC 32.4 30.0 - 36.0 g/dL 08/15/2025 5:13 AM [facility] RDW 12.1 11.5 - 14.5 % 08/15/2025 5:13 AM [facility] MPV 11.2 7.5 - 12.5 fL 08/15/2025 5:13 AM [facility] Blood Blood specimen / Unknown 08/15/2025 4:52 AM EST 08/15/2025 5:08 AM EST Mckenzie Mcgrath PA-C LAB BLOOD ORDERABLES Final R esult Performing Organization Address [facility] [place] [address], [place] [address] * Type and Screen (08/15/2025 4:44 AM EST) ABO/Rh A POSITIVE 08/15/2025 6:11 AM [facility] Antibody Screen NEGATIVE 6:11 AM [facility] Specimen Expiration 08/18/2025 08/15/2025 6:11 AM [facility] Blood Blood specimen / Unknown 08/15/2025 4:44 AM EST 08/15/2025 5:15 AM EST Richard Stewart MD BLOOD BANK TEST ORDERABLES Fin al Result Performing Organization Address [facility] [place] [address], [place] [address] * Prepare RBC's:Prepare in: Units; Number of Units: 2; Transfusion Indications: Hemoglobin greater than 7 gm/dl or HCT greater than 21% but Acute blood loss greater than 500 ml and symptoms not corrected by volume (08/14/2025 12:46 PM EST) Units Ordered 2 08/14/2025 12:46 PM [facility] 08/14/2025 12:4 6 PM EST 08/14/2025 1:11 PM EST Meaghan GYU-C BLOOD BANK PRODUCT ORDERABLES Fi nal Result Performing Organization Address [facility] Co de Phone Number [address] [place] [address], [facility] [address] [place] [address] * (ABNORMAL) POCT Glucose, Fingerstick (08/14/2025 9:29 AM EST) POC Glucose 101(H) 65 - 99 mg/dL 08/14/2025 9:30 AM EST Blood specimen / Unknown 08/14/2025 9:29 AM EST 08/14/2025 9:30 AM EST Ivonne Terry DO POINT OF CARE TEST ORDERABLES Final Result HOSPITAL LAB See Below * (ABNORMAL) PROTIME-INR (08/14/2025 7:12 AM EST) Pathologist [facility] Anticoagulant OTHER AGENT OR UNKNOWN 08/14/2025 5:10 AM [facility] Prothrombin Time (PT) 14.7(H) 10.0 - 13.5 seconds 08/14/2025 8:09 AM [facility] INR 1.3 08/14/2025 8:09 AM [facility] Comment:INR Therapeutic Rang es: Standard dose anticoagulant 2.0 to 3.0, High dose anticoagulant 2.5-3.5. Blood Blood specimen / Unknown 08/14/2025 7:12 AM EST 08/14/2025 7:44 AM EST Richard Stewart MD LAB BLOOD ORDERABLES Final Res ult [address] [address], [address] [address] * Phosphorus (Routine) (08/14/2025 7:12 AM EST) Pathologist [facility] Phosphorus 3.1 2.7 - 4.5 mg/dL 08/14/2025 8:23 AM [facility] Blood Blood specimen / Unknown 08/14/2025 7:12 AM EST 08/14/2025 7:44 AM EST us Mckenzie Mcgrath PA-C LAB BLOOD ORDERABLES Final R esult Performing Organization Address City/[facility]/[place] [address], [place] [address] * Magnesium (AM) (08/14/2025 7:12 AM EST) Magnesium 2.2 1.6 - 2.7 mg/dL 08/14/2025 8:23 AM [facility] Blood Blood specimen / Unknown 08/14/2025 7:12 AM EST 08/14/2025 7:44 AM EST us Mckenzie Mcgrath PA-C LAB BLOOD ORDERABLES Final R esult Performing Organization Address [facility] [place] [address], [place] [address] * PTH, Intact (08/14/2025 7:12 AM EST) PTH, Intact 45 15 - 65 pg/mL 08/14/2025 8:25 AM [facility] Comment:Please note the lowe r report range has changed from <2 pg/mL to <6 pg/mL. Blood Blood specimen / Unknown 08/14/2025 7:12 AM EST 08/14/2025 7:43 AM EST us Mckenzie Mcgrath PA-C LAB BLOOD ORDERABLES Final R esult Performing Organization Address City/[facility] Co de Phone Number [address] [address], [address] [address] * (ABNORMAL) TRANSFERRIN (08/14/2025 7:12 AM EST) Transferrin 173(L) 200 - 360 mg/dL 08/14/2025 8:23 AM [facility] Blood Blood specimen / Unknown 08/14/2025 7:12 AM EST 08/14/2025 7:44 AM EST us Mckenzie Mcgrath PA-C LAB BLOOD ORDERABLES Final R esult Performing Organization Address City/[facility]/[place] [address], [address] [address] * (ABNORMAL) Prealbumin (08/14/2025 7:12 AM EST) Prealbumin 13(L) 20 - 40 mg/dL 08/14/2025 8:23 AM EST [facility] Blood Blood specimen / Unknown 08/14/2025 7:12 AM EST 08/14/2025 7:44 AM EST us Mckenzie Mcgrath PA-C LAB BLOOD ORDERABLES Final R esult Performing Organization Address City/[facility] [place] [address], [address] [address] * Albumin (08/14/2025 7:12 AM EST) Albumin 3.5 3.4 - 4.8 g/dL 08/14/2025 8:23 AM EST [facility] Blood Blood specimen / Unknown 08/14/2025 7:12 AM EST 08/14/2025 7:44 AM EST us Mckenzie Mcgrath PA-C LAB BLOOD ORDERABLES Final R esult Performing Organization Address City/[facility]/[place] [address], [address] [address] * (ABNORMAL) VITAMIN D, 25-HYDROXY (08/14/2025 7:12 AM EST) Vitamin D, 25-Hydroxy 19(L) 30 - 100 ng/mL 08/14/2025 8:37 AM [facility] Blood Blood specimen / Unknown 08/14/2025 7:12 AM EST 08/14/2025 7:43 AM EST us Mckenzie Mcgrath PA-C LAB BLOOD ORDERABLES Final R esult Performing Organization Address City/[facility]/[place] [address], [address] [address] * (ABNORMAL) C-Reactive Protein (08/14/2025 7:12 AM EST) C-Reactive Protein 3.00(H) 0 - 0.49 mg/dL 08/14/2025 8:23 AM EST [facility] Blood Blood specimen / Unknown 08/14/2025 7:12 AM EST 08/14/2025 7:44 AM EST us Mckenzie Mcgrath PA-C LAB BLOOD ORDERABLES Final R esult Performing Organization Address [facility]/[place] [address], [address] [address] * Erythrocyte Sedimentation Rate (ESR) (08/14/2025 7:12 AM EST) Erythrocyte Sediment Rate (ESR) 7 <20 MM/HR 08/14/2025 8:08 AM [facility] Blood Blood specimen / Unknown 08/14/2025 7:12 AM EST 08/14/2025 7:44 AM EST us Mckenzie Mcgrath PA-C LAB BLOOD ORDERABLES Final R esult Performing Organization Address City/[facility]/[place] [address], [address] [address] * (ABNORMAL) Basic Metabolic Panel (STAT) (08/14/2025 7:12 AM EST) Glucose 88 65 - 99 mg/dL 08/14/2025 8:23 AM EST [facility] Comment:Fasting: <100 mg/dL, Non-Fasting: <200 mg/dL (ADA 2005) Blood Urea Nitrogen (BUN) 27(H) 8 - 21 mg/dL 08/14/2025 8:23 AM [facility] Creatinine 1.05 0.50 - 1.30 mg/dL 08/14/2025 8:23 AM [facility] eGFR 72 >59 08/14/2025 8:23 AM [facility] Comment:CKD-EPI (2020) in mL /min/1.73 sq meters. Sodium 140 136 - 145 mmol/L 08/14/2025 8:23 AM [facility] Potassium 4.5 3.4 - 5.3 mmol/L 08/14/2025 8:23 AM [facility] Chloride 106 98 - 107 mmol/L 08/14/2025 8:23 AM [facility] CO2 25 22 - 33 mmol/L 08/14/2025 8:23 AM [facility] Anion Gap 9 7 - 17 08/14/2025 8:23 AM [facility] Calcium 8.7 8.7 - 10.5 mg/dL 08/14/2025 8:23 AM [facility] BUN/Creatinine Ratio 26(H) 10.0 - 25.0 Ratio 08/14/2025 8:23 AM [facility] Blood Blood specimen / Unknown 08/14/2025 7:12 AM EST 08/14/2025 7:44 AM EST us Mckenzie Mcgrath PA-C LAB BLOOD [place] [address], [place] [address] * (ABNORMAL) Complete Blood Count WITHOUT Differential - STAT (08/14/2025 7:12 AM EST) White Blood Cell Count 8.2 4.0 - 11.0 Thou/uL 08/14/2025 7:59 AM [facility] Platelet Count 166 150 - 450 Thou/uL 08/14/2025 7:59 AM [facility] Hemoglobin 10.4(L) 13.0 - 17.7 g/dL 08/14/2025 7:59 AM [facility] Hematocrit 32.2(L) 39.0 - 54.0 % 08/14/2025 7:59 AM [facility] Red Blood Cell Count 3.36(L) 4.50 - 6.20 Mil/uL 08/14/2025 7:59 AM [facility] MCV 96 80 - 100 fL 08/14/2025 7:59 AM [facility] MCH 31.0 27.0 - 31.0 pg 08/14/2025 7:59 AM [facility] MCHC 32.3 30.0 - 36.0 g/dL 08/14/2025 7:59 AM [facility] RDW 12.1 11.5 - 14.5 % 08/14/2025 7:59 AM [facility] MPV 11.8 7.5 - 12.5 fL 08/14/2025 7:59 AM [facility] Blood Blood specimen / Unknown 08/14/2025 7:12 AM EST 08/14/2025 7:44 AM EST Mckenzie Mcgrath PA-C LAB BLOOD ORDERABLES Final R esult Performing Organization Address City/[facility]/[place] [address], [place] [address] * Nasal MRSA Screen, PCR (08/14/2025 5:10 AM EST) MRSA Result Not Detected Not Detected 7:55 AM [facility] Comment:Performed by the Xpe rt MRSA NxG Assay Swab, Anterior Nares Specimen from nose / Unknown 08/14/2025 5:10 AM EST 08/14/2025 5:34 AM EST Richard Stewart MD MICROBIOLOGY - GENERAL ORDERAB LES Final Result Performing Organization Address City/[facility] [place] [address], [place] [address] * (ABNORMAL) Hemoglobin and Hematocrit (08/13/2025 11:12 PM EST) Pathologist [facility] Hematocrit 33.1(L) 39.0 - 54.0 % 08/13/2025 11:41 PM EST [facility] Hemoglobin 10.8(L) 13.0 - 17.7 g/dL 08/13/2025 11:41 PM EST [facility] Blood Blood specimen / Unknown 08/13/2025 11:12 PM EST 08/13/2025 11:32 PM EST Mariann Pérez MD LAB BLOOD ORDERABLES Final Resul t Performing Organization Address City/[facility]/[place] [address], [place] [address] * Nasal MRSA Screen, PCR (08/13/2025 11:01 PM EST) Pathologist [facility] MRSA Result Not Detected Not Detected 12:53 AM [facility] Comment:Performed by the Xpe rt MRSA NxG Assay Swab, Anterior Nares Specimen from nose / Unknown 08/13/2025 11:01 PM EST 08/13/2025 11:35 PM EST Mckenzie Mcgrath PA-C MICROBIOLOGY - GENERAL ORDER KATIE Final Result Performing Organization Address City/[facility] [place] [address], [place] [address] * CT Femur w/o contrast-Right (08/13/2025 10:05 PM EST) Anatomical Region Laterality Modality Leg Right Computed Tomogra phy 08/13/2025 9:36 PM EST Impressions 08/13/2025 11:11 PM EST 1. Comminuted and displaced acute periprosthetic fracture of the right proximal femur with large intramuscular hematoma. 2. 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 Superimposed acute fracture cannot be excluded though periosteal reaction is noted in association with nearly the entirety of the visualized pelvic fractures suggesting that findings are subacute-chronic. The fractures involve the anterior and posterior columns of the right hip and superior margin of the acetabulum. This critical result was discussed with Mariann Pérez MD by [Epic chat at 08/13/2025 10:36 PM and it was ascertained that the content and urgency of the report was understood at the time of direct communication. Interpreted by: Torrey Pimentel MD Vegetable Loader Machine Operator I personally reviewed the images and the resident's preliminary report and AGREE with the report as it is now presented ([id number]). Narrative 08/13/2025 11:11 PM EST EXAMINATION: CT FEMUR WITHOUT IV CONTRAST RIGHT CLINICAL INFORMATION: Right periprosthetic femur fracture COMPARISON: None. TECHNIQUE: Multidetector volumetric imaging of the right lower extremity without the use of contrast. Coronal and sagittal reformats were completed at the independent technologist workstation. DLP: 3406.29 mGy-cm FINDINGS: Status post total right hip arthroplasty, with anatomic alignment of the femoral and acetabular components of the prosthesis. Old fracture of the right acetabulum with periosteal reaction, without surrounding soft tissue edema. Comminuted and displaced acute fracture of the right proximal femur around the prosthesis. 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 Large intramuscular hematoma in the right proximal thigh. No pelvic mass is identified Procedure Note Ba Farfan MD - 08/13/2025 EXAMINATION: CT FEMUR WITHOUT IV CONTRAST RIGHT CLINICAL INFORMATION: Right periprosthetic femur fracture COMPARISON: None. TECHNIQUE: Multidetector volumetric imaging of the right lower extremity without the use of contrast. Coronal and sagittal reformats were completed at the independent technologist workstation. DLP: 3406.29 mGy-cm FINDINGS: Status post total right hip arthroplasty, with anatomic alignment of the femoral and acetabular components of the prosthesis. Old fracture of the right acetabulum with periosteal reaction, without surrounding soft tissue edema. Comminuted and displaced acute fracture of the right proximal femur around the prosthesis. 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 Large intramuscular hematoma in the right proximal thigh. No pelvic mass is identified IMPRESSION: 1. Comminuted and displaced acute periprosthetic fracture of the right proximal femur with large intramuscular hematoma. 2. 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 Superimposed acute fracture cannot be excluded though periosteal reaction is noted in association with nearly the entirety of the visualized pelvic fractures suggesting that findings are subacute-chronic. The fractures involve the anterior and posterior columns of the right hip and superior margin of the acetabulum. This critical result was discussed with Mariann Pérez MD by [Epic chat at 08/13/2025 10:36 PM and it was ascertained that the content and urgency of the report was understood at the time of direct communication. Interpreted by: Torrey Pimentel MD Vegetable Loader Machine Operator I personally reviewed the images and the resident's preliminary report and AGREE with the report as it is now presented ([email or web address]). us Mckenzie Mcgrath PA-C IMBasilio CT ORDERABLES Final Resu lt * XR Chest 1 view-Portable (08/13/2025 8:01 PM EST) Anatomical Region Laterality Modality Chest Computed Radiogr aphy 08/13/2025 7:51 PM EST Impressions 08/14/2025 10:14 AM EST No acute cardiopulmonary findings. Narrative 08/14/2025 10:14 AM EST EXAMINATION: XR CHEST CLINICAL INFORMATION: Preoperative evaluation. COMPARISON: None available. TECHNIQUE: Frontal view of the chest was obtained. FINDINGS: No focal airspace consolidation. No pleural effusion or pneumothorax. No cardiomegaly. Mild posterior curvature of the thoracic spine which may be positional. No acute osseous abnormality. Procedure Note Jose Barrett MD - 08/14/2025 EXAMINATION: XR CHEST CLINICAL INFORMATION: Preoperative evaluation. COMPARISON: None available. TECHNIQUE: Frontal view of the chest was obtained. FINDINGS: No focal airspace consolidation. No pleural effusion or pneumothorax. No cardiomegaly. Mild posterior curvature of the thoracic spine which may be positional. No acute osseous abnormality. IMPRESSION: No acute cardiopulmonary findings. us Mckenzie Mcgrath PA-C [employer] DIAGNOSTIC IMAGING ORDER KATIE Final Result * ECG 12 lead (STAT) (08/13/2025 7:01 PM EST) Ventricular rate 104 BPM EKG [facility] QRS duration 88 ms EKG [facility] Q-T interval 364 ms EKG [facility] QTC calculation (Bazett) 479 ms EKG [facility] R axis 2 degrees EKG [facility] T axis -29 degrees EKG [facility] 08/13/2025 7:01 PM EST Narrative EKG [facility] - 08/13/2025 7:26 PM EST Atrial fibrillation with rapid ventricular response Nonspecific ST and T wave abnormality Abnormal ECG No previous ECGs available Confirmed by MD Whipple Ahmed ([id number]) on 08/13/2025 7:26:13 PM Procedure Note Elisha Whipple MD - 08/13/2025 Atrial fibrillation with rapid ventricular response Nonspecific ST and T wave abnormality Abnormal ECG No previous ECGs available Confirmed by MD Whipple Ahmed ([id number]) on 08/13/2025 7:26:13 PM Mariann Pérez MD ECG ORDERABLES Final Result Performing Organization Address City/[facility]/ZIP Co de Phone Number [facility] * VITAMIN B12 (08/13/2025 5:43 PM EST) Vitamin B12 752 243 - 894 pg/mL 08/13/2025 8:26 PM EST [facility] 08/13/2025 5:43 PM EST 08/13/2025 7:01 PM EST Jose GUY LAB BLOOD ORDERABLES Final Re sult [address] [address], [place] [address] [address] * TSH, HIGHLY SENSITIVE (08/13/2025 5:43 PM EST) TSH, Highly Sensitive 2.40 0.27 - 4.20 mIU/L 08/13/2025 8:18 PM EST [facility] 08/13/2025 5:43 PM EST 08/13/2025 7:01 PM EST Jose GUY LAB BLOOD ORDERABLES Final Re sult [address] [address], [address] [address] * (ABNORMAL) Iron and Total Iron Binding Capacity (08/13/2025 5:43 PM EST) Iron 29(L) 53 - 167 ug/dL 08/13/2025 8:18 PM [facility] UIBC 179 112 - 346 ug/dL 08/13/2025 8:18 PM [facility] Total Iron Binding Capacity 208 100 - 400 ug/dL 08/13/2025 8:18 PM [facility] Iron Sat 14(L) 20 - 50 % 08/13/2025 8:18 PM EST [facility] 08/13/2025 5:43 PM EST 08/13/2025 7:01 PM EST Jose GUY LAB BLOOD ORDERABLES Final Re sult [address] [address], [address] [address] * FERRITIN (08/13/2025 5:43 PM EST) Ferritin 253 30 - 400 ug/L 08/13/2025 8:18 PM [facility] 08/13/2025 5:43 PM EST 08/13/2025 7:01 PM EST Jose GUY LAB BLOOD ORDERABLES Final Re sult [address] [address], [address] [address] * Protime-INR (08/13/2025 5:43 PM EST) Anticoagulant NO ANTI COAGULANT MEDS 08/13/2025 5:27 PM [facility] Prothrombin Time (PT) 13.4 10.0 - 13.5 seconds 08/13/2025 7:23 PM [facility] INR 1.2 08/13/2025 7:23 PM [facility] Comment:INR Therapeutic Rang es: Standard dose anticoagulant 2.0 to 3.0, High dose anticoagulant 2.5-3.5. Blood Blood specimen / Unknown 08/13/2025 5:43 PM EST 08/13/2025 7:01 PM EST Jose GUY LAB BLOOD ORDERABLES [place] [address], [place] [address] * Type and Screen (08/13/2025 5:43 PM EST) ABO/Rh A POSITIVE 08/13/2025 8:59 PM [facility] Antibody Screen NEGATIVE 8:59 PM [facility] Specimen Expiration 08/16/2025 08/13/2025 8:59 PM [facility] Unit Number [id number] 08/14/2025 1:08 PM [facility] Blood Component Type LEUKOREDUCED RED CELLS 08/14/2025 1:08 PM [facility] Unit Division 00 08/14/2025 1:08 PM [facility] Unit Status REL FROM ALLOC 8:56 PM [facility] Transfusion Status OK TO TRANSFUSE 08/14/2025 1:08 PM [facility] Crossmatch Result COMPATIBLE 08/14/2025 1:08 PM [facility] Unit Number [id number] 08/14/2025 1:08 PM [facility] Blood Component Type LEUKOREDUCED RED CELLS 08/14/2025 1:08 PM [facility] Unit Division 00 08/14/2025 1:08 PM [facility] Unit Status REL FROM ALLOC 8:56 PM [facility] Transfusion Status OK TO TRANSFUSE 08/14/2025 1:08 PM [facility] Crossmatch Result COMPATIBLE 08/14/2025 1:08 PM [facility] Blood Blood specimen / Unknown 08/13/2025 5:43 PM EST 08/13/2025 7:48 PM EST Comment:Blood us Jose GUY BLOOD BANK TEST ORDERABLES Fi nal Result HOSPITAL LAB See Below [facility] [address] [place] [address] * (ABNORMAL) Basic Metabolic Panel (08/13/2025 5:43 PM EST) Glucose 113(H) 65 - 99 mg/dL 08/13/2025 7:37 PM [facility] Comment:Fasting: <100 mg/dL, Non-Fasting: <200 mg/dL (ADA 2004) Blood Urea Nitrogen (BUN) 24(H) 8 - 21 mg/dL 08/13/2025 7:37 PM [facility] Creatinine 0.87 0.50 - 1.30 mg/dL 08/13/2025 7:37 PM [facility] eGFR 87 >59 08/13/2025 7:37 PM [facility] Comment:CKD-EPI (2020) in mL /min/1.73 sq meters. Sodium 139 136 - 145 mmol/L 08/13/2025 7:37 PM [facility] Potassium 4.5 3.4 - 5.3 mmol/L 08/13/2025 7:37 PM [facility] Chloride 105 98 - 107 mmol/L 08/13/2025 7:37 PM [facility] CO2 23 22 - 33 mmol/L 08/13/2025 7:37 PM [facility] Anion Gap 11 7 - 17 08/13/2025 7:37 PM [facility] Calcium 8.7 8.7 - 10.5 mg/dL 08/13/2025 7:37 PM [facility] BUN/Creatinine Ratio 28(H) 10.0 - 25.0 Ratio 08/13/2025 7:37 PM [facility] Blood Blood specimen / Unknown 08/13/2025 5:43 PM EST 08/13/2025 7:01 PM EST us Jose GUY LAB BLOOD ORDERABLES Final Re sult [facility] [address] [place] [address], [facility] [address] [place] [address] * (ABNORMAL) Complete Blood Count, with Differential (08/13/2025 5:43 PM EST) White Blood Cell Count 9.0 4.0 - 11.0 Thou/uL 08/13/2025 7:12 PM [facility] Platelet Count 184 150 - 450 Thou/uL 08/13/2025 7:12 PM [facility] Hemoglobin 11.5(L) 13.0 - 17.7 g/dL 08/13/2025 7:12 PM [facility] Hematocrit 36.0(L) 39.0 - 54.0 % 08/13/2025 7:12 PM [facility] Red Blood Cell Count 3.68(L) 4.50 - 6.20 Mil/uL 08/13/2025 7:12 PM [facility] MCV 98 80 - 100 fL 08/13/2025 7:12 PM [facility] MCH 31.3(H) 27.0 - 31.0 pg 08/13/2025 7:12 PM [facility] MCHC 31.9 30.0 - 36.0 g/dL 08/13/2025 7:12 PM [facility] RDW 12.0 11.5 - 14.5 % 08/13/2025 7:12 PM [facility] MPV 11.5 7.5 - 12.5 fL 08/13/2025 7:12 PM [facility] Neutrophils Auto 79.6 % 08/13/20 7:12 PM [facility] Immature Granulocytes 0.2 % 08/13/2025 7:12 PM [facility] Lymphocytes Auto 12.0 % 08/13/20 7:12 PM [facility] Monocytes Auto 8.0 % 08/13/2025 7:12 PM [facility] Eosinophils Auto 0.1 % 08/13/20 7:12 PM [facility] Basophils Auto 0.1 % 08/13/2025 7:12 PM [facility] Abs Neutrophils Auto 7.13 2.00 - 7.50 Thou/uL 08/13/2025 7:12 PM [facility] Abs Immature Granulocytes 0.02 0.00 - 0.10 Thou/uL 08/13/2025 7:12 PM [facility] Abs Lymphocytes Auto 1.08(L) 1.50 - 4.50 Thou/uL 08/13/2025 7:12 PM [facility] Abs Monocytes Auto 0.72 0.20 - 1.50 Thou/uL 08/13/2025 7:12 PM [facility] Abs Eosinophils Auto 0.01 0.00 - 0.70 Thou/uL 08/13/2025 7:12 PM [facility] Abs Basophils Auto 0.01 0.00 - 0.20 Thou/uL 08/13/2025 7:12 PM [facility] Blood Blood specimen / Unknown 08/13/2025 5:43 PM EST 08/13/2025 7:01 PM EST Jose GUY LAB BLOOD ORDERABLES [place] [address], [place] [address] documented in this encounter Visit Diagnoses Diagnosis Closed right hip fracture, initial encounter (HCC)- Primary 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) Fall Unspecified fall 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) Chronic disease Other ill-defined conditions Peripheral neuropathy Unspecified hereditary and idiopathic peripheral neuropathy documented in this encounter Admitting Diagnoses Diagnosis Closed right hip fracture, initial encounter (HCC) 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) documented in this encounter Administered Medications Inactive Administered Medications - up to 1 most recent administrations Medication Order MAR Action Action Date Dose Rate Site ALPRAZolam (XANAX) tablet 1 mg 1 mg, Oral, Every 12 hours PRN, anxiety, Starting on Mon08/13/25 at 1913 Given 08/21/2025 1:02 PM EST 1 mg amitriptyline (ELAVIL) tablet 25 mg 25 mg, Oral, Nightly, First dose on Mon08/13/25 at 2152 Given 08/20/2025 7:52 PM EST 25 mg atorvastatin (LIPITOR) tablet 40 mg 40 mg, Oral, Daily, First dose on Mon08/18/25 at 1200 Given 08/21/2025 9:00 AM EST 40 mg bisacodyl (DULCOLAX) suppository 10 mg 10 mg, Rectal, Daily PRN, constipation, Starting on Mon08/18/25 at 1137 Given 08/19/2025 8:56 AM EST 10 mg calcium citrate (CALCITRATE) tablet 950 mg 950 mg, Oral, 2 times daily with meals, First dose on Mon08/16/25 at 0800, Calcium Citrate 950 mg = Elemental Calcium 200 mg Given 08/21/2025 8:59 AM EST 950 mg ceFAZolin (ANCEF) 1 g in sodium chloride-MBP (NS) 100 mL IVPB 1 g, Intravenous, Administer over 30 Minutes, Every 8 hours, First dose on Mon08/15/25 at 2030, For 2 doses, All antimicrobials used at [facility] require an indication. Please complete the following documentation. Surgical Prophylaxis New Bag 08/16/2025 8:26 AM EST 1 g 200 mL/hr chlorhexidine (PERIDEX) 0.12 % oral solution 15 mL 15 mL, Mouth/Throat, Once, On Mon08/15/25 at 1230, For 1 dose, Pre-op, Rinse and brush Given 08/15/2025 12:28 PM EST 15 mL chlorhexidine gluconate 2 % wipes Topical, Once, On Mon08/14/25 at 1900, For 1 dose, Pre-op, Apply to torso (front, back, sides), neck, arms, legs, and buttocks Given 08/14/2025 6:47 PM EST 1 each chlorhexidine gluconate 2 % wipes Topical, Once, On Mon08/14/25 at 2100, For 1 dose, Pre-op, Apply to torso (front, back, sides), neck, arms, legs, and buttocks Given 08/14/2025 6:30 PM EST 1 each cholecalciferol tablet 2,000 Units 2,000 Units, Oral, Daily, First dose on Mon08/15/25 at 2030, Note: Cholecalciferol 1,000 units = 25 mcg Given 08/21/2025 9:00 AM EST 2,000 Units fentaNYL (DURAGESIC) 75 mcg/hr patch 1 patch 1 patch, Transdermal, Administer over 72 Hours, Every 72 hours, First dose on Mon08/13/25 at 1856, For 7 days, At each handoff, use MAR action Handoff and document the Patch Integrity Check together followed by dual signature per [facility] policy. Higher temperatures may increase medication absorption. Do not use damaged, cut or leaking patches. Apply to nonirritated and nonirradiated skin, such as chest, back, flank, or upper arm. Do not shave skin; hair at application site should be clipped., All potent long acting opioid patients require type of therapy. Continuation of therapy Patch Applied 08/19/2025 11:40 PM EST 1 patch Left Shoulder heparin (porcine) 5000 unit/mL injection 5,000 Units 5,000 Units, Subcutaneous, Once, On Mon08/13/25 at 2138, For 1 dose, For subcutaneous use the injection sites should be rotated (usually left and right portions of the abdomen, above iliac crest). Given 08/13/2025 10:52 PM EST 5,000 Units Abdominal Tissue heparin (porcine) 5000 unit/mL injection 5,000 Units 5,000 Units, Subcutaneous, Every 8 hours scheduled, First dose on Lesley 08/14/25 at 1459, For 2 doses, For subcutaneous use the injection sites should be rotated (usually left and right portions of the abdomen, above iliac crest). Given 08/14/2025 11:04 PM EST 5,000 Units Abdominal Tissue heparin (porcine) 5000 unit/mL injection 5,000 Units 5,000 Units, Subcutaneous, Once, On 08/16/25 at 0900, For 1 dose, For subcutaneous use the injection sites should be rotated (usually left and right portions of the abdomen, above iliac crest). Given 08/16/2025 9:59 AM EST 5,000 Units Abdominal Tissue HYDROmorphone (DILAUDID) injection 0.3 mg 0.3 mg, Intravenous, Every 4 hours PRN, severe to excruciating pain 7-10, Starting on 08/16/25 at 1507, For 7 days, Breakthrough pain For IV Push, administer over 2 to 3 minutes. Given 08/17/2025 3:17 PM EST 0.3 mg HYDROmorphone (DILAUDID) tablet 2 mg 2 mg, Oral, Every 4 hours PRN, moderate to moderately severe pain 4-6, severe to excruciating pain 7-10, Starting on Mon08/20/25 at 0810, For 7 days Given 08/20/2025 11:24 AM EST 2 mg HYDROmorphone (DILAUDID) tablet 4 mg 4 mg, Oral, Every 4 hours PRN, moderate to moderately severe pain 4-6, Starting on Mon08/20/25 at 1515, For 7 days HYDROmorphone (DILAUDID) tablet 6 mg 6 mg, Oral, Every 6 hours PRN, severe to excruciating pain 7-10, Starting on Mon08/20/25 at 1515, For 7 days Given 08/21/2025 3:14 PM EST 6 mg lactulose (ENULOSE) 10 gm/15 mL solution 10 g 10 g, Oral, Once, On Mon08/18/25 at 1200, For 1 dose Given 08/18/2025 12:00 PM EST 10 g methocarbamol (ROBAXIN) tablet 500 mg 500 mg, Oral, Once, On Mon08/16/25 at 0000, For 1 dose Given 08/15/2025 11:44 PM EST 500 mg methocarbamol (ROBAXIN) tablet 500 mg 500 mg, Oral, Nightly PRN, muscle spasms, Starting on Mon08/16/25 at 2103 Given 08/20/2025 7:52 PM EST 500 mg methocarbamol (ROBAXIN) tablet 500 mg 500 mg, Oral, Once, On Mon08/18/25 at 1500, For 1 dose Given 08/18/2025 3:18 PM EST 500 mg multivitamin with minerals tablet 1 tablet 1 tablet, Oral, Daily, First dose on Mon08/20/25 at 0900, For 30 days Given 08/21/2025 9:00 AM EST 1 tablet naloxone (NARCAN) 0.4 mg/mL injection 0.4 mg 0.4 mg, Intravenous, Every 5 min PRN, opioid reversal, respiratory depression, Starting on Mon08/15/25 at 2026, If respiratory rate is less than 8 breaths/minute or patient is difficult to arouse. Stop all narcotics and contact provider. oxyCODONE (ROXICODONE) immediate release tablet 30 mg 30 mg, Oral, Every 4 hours PRN, severe to excruciating pain 7-10, moderate to moderately severe pain 4-6, Starting on Mon08/13/25 at 2150, For 7 days Given 08/19/2025 11:44 PM EST 30 mg oxyCODONE (ROXICODONE) immediate release tablet 5 mg 5 mg, Oral, Every 3 hours PRN, moderate to moderately severe pain 4-6, Starting on Mon08/15/25 at 1848, For 7 days, PACU (only), Use when patient is tolerating PO Given 08/15/2025 7:58 PM EST 5 mg polyethylene glycol (miraLAx) packet 17 g 17 g, Oral, Daily PRN, constipation, Starting on Mon08/15/25 at 2057, Stir and dissolve in 4-8 oz of fluids. Given 08/17/2025 1:38 PM EST 17 g povidone-iodine (BETADINE) 5 % nasal swab kit Nasal, Once, On Mon08/15/25 at 1230, For 1 dose, Pre-op, Two swabs per nostril, 15 seconds each Given 08/15/2025 12:29 PM EST 4 mL rivaroxaban (XARELTO) tablet 20 mg 20 mg, Oral, Daily with dinner, First dose on Mon08/16/25 at 1700, Administer doses greater than or equal to 15 mg/day with food. Tablets may be crushed and mixed with applesauce. Tablets may be crushed and suspended in 50 mL of water and administered via an NG tube or gastric feeding tube. Doses of 15 mg or 20 mg should immediately be followed by enteral feeding. Avoid administering rivaroxaban post-pyloric., Indication for Anticoagulation: Atrial Fibrillation, VTE prophylaxis Given 08/20/2025 6:21 PM EST 20 mg senna-docusate (SENNA-S) 8.6-50 MG tablet 2 tablet 2 tablet, Oral, Nightly, First dose on Mon08/15/25 at 2100 Given 08/19/2025 11:44 PM EST 2 tablets sodium chloride (NS) 0.9 % infusion - ADS Override Pull Starting on Mon08/16/25 at 0044, For 1 dose, Meenakshi Vasquez: [email or web address] override New Bag 08/16/2025 12:55 AM EST 250 mL tranexamic acid (CYKLOKAPRON) 1,000 mg in sodium chloride-MBP (NS) 100 mL IVPB-MBP 1,000 mg, Intravenous, at 600 mL/hr, Once, On Lesley 08/14/25 at 1414, For 1 dose Given 08/14/2025 2:47 PM EST 1,000 mg 600 mL/hr tranexamic acid (CYLKAPRON) IVPB 1000 mg in 100 mL NaCl PREMIX 1,000 mg, Intravenous, Once, On Mon08/15/25 at 1930, For 1 dose, PACU to Post-Op, Administer 4 hours after Intra-Op dose New Bag 08/15/2025 7:59 PM EST 1,000 mg vancomycin (VANCOCIN) 1.5 g in sodium chloride (NS) 0.9 % 250 mL IVPB-WTD 1.5 g, Intravenous, Administer over 90 Minutes, Once, On Mon08/15/25 at 1230, For 1 dose, Pre-op, All antimicrobials used at [facility] require an indication. Please complete the following documentation. Surgical Prophylaxis New Bag 08/15/2025 12:29 PM EST 1.5 g 166.7 mL/hr documented in this encounter Active and Recently Administered Medications Times are shown in EST. Scheduled Medication Order 08/19/2025 08/20/2025 08/21/2025 amitriptyline (ELAVIL) tablet 25 mg 25 mg, Oral, Nightly, First dose on Mon08/13/25 at 2152 2343 (Given - Provider: Vicky Padron RN) 1952 (Given - Provider: Sandie Ugalde RN) atorvastatin (LIPITOR) tablet 40 mg 40 mg, Oral, Daily, First dose on 08/18/25 at 1200 0856 (Given - Provider: Senait Serna RN) 0938 (Given - Provider: Miroslava Feldman RN) 0900 (Given - Provider: Santos Bourgeois RN) calcium citrate (CALCITRATE) tablet 950 mg 950 mg, Oral, 2 times daily with meals, First dose on 08/16/25 at 0800, Calcium Citrate 950 mg = Elemental Calcium 200 mg 0856 (Given - Provider: Senait Serna RN)1725 (Given - Provider: Senait Serna RN) 0938 (Given - Provider: Miroslava Feldman, YURIY)1821 (Given - Provider: Miroslava Feldman, YURIY) 0859 (Given - Provider: Santos Bourgeois, YURIY) cholecalciferol tablet 2,000 Units 2,000 Units, Oral, Daily, First dose on Mon08/15/25 at 2030, Note: Cholecalciferol 1,000 units = 25 mcg 0856 (Given - Provider: Senait Serna RN) 0938 (Given - Provider: Miroslava Feldman, YURIY) 0900 (Given - Provider: Santos Bourgeois, YURIY) fentaNYL (DURAGESIC) 75 mcg/hr patch 1 patch 1 patch, Transdermal, Administer over 72 Hours, Every 72 hours, First dose on Mon08/13/25 at 1856, For 7 days, At each handoff, use MAR action Handoff and document the Patch Integrity Check together followed by dual signature per [facility] policy. Higher temperatures may increase medication absorption. Do not use damaged, cut or leaking patches. Apply to nonirritated and nonirradiated skin, such as chest, back, flank, or upper arm. Do not shave skin; hair at application site should be clipped., All potent long acting opioid patients require type of therapy. Continuation of therapy 2340 (Patch Applied - Provider: Vicky Padron RN) 0741 (Handoff - Provider: Miroslava Feldman RN) 0753 (Handoff - Provider: Sandie Ugalde RN)1601 (Due: Patch Removed - Provider: Automatic Discharge Provider - Comment: Time automatically adjusted from order being discontinued) multivitamin with minerals tablet 1 tablet 1 tablet, Oral, Daily, First dose on Mon08/20/25 at 0900, For 30 days 0938 (Given - Provider: Miroslava Feldman RN) 0900 (Given - Provider: Santos Bourgeois RN) rivaroxaban (XARELTO) tablet 20 mg 20 mg, Oral, Daily with dinner, First dose on Mon08/16/25 at 1700, Administer doses greater than or equal to 15 mg/day with food. Tablets may be crushed and mixed with applesauce. Tablets may be crushed and suspended in 50 mL of water and administered via an NG tube or gastric feeding tube. Doses of 15 mg or 20 mg should immediately be followed by enteral feeding. Avoid administering rivaroxaban post-pyloric., Indication for Anticoagulation: Atrial Fibrillation, VTE prophylaxis 1725 (Given - Provider: Senait Serna RN) 1821 (Given - Provider: Miroslava Feldman, YURIY) senna-docusate (SENNA-S) 8.6-50 MG tablet 2 tablet 2 tablet, Oral, Nightly, First dose on Mon08/15/25 at 2100 2344 (Given - Provider: Vicky Padron, YURIY) 1952 (Not Given - Provider: Sandie Ugalde RN - Reason: Patient/family refused) PRN Medication Order 08/19/2025 08/20/2025 08/21/2025 ALPRAZolam (XANAX) tablet 1 mg 1 mg, Oral, Every 12 hours PRN, anxiety, Starting on Mon08/13/25 at 1913 2346 (Given - Provider: Vicky Padron RN) 1124 (Given - Provider: Miroslava Feldman, YURIY)1958 (Return to Cabinet - Provider: Sandie Ugalde RN)2338 (Given - Provider: Sandie Ugalde RN) 1302 (Given - Provider: Santos Bourgeois RN) bisacodyl (DULCOLAX) suppository 10 mg 10 mg, Rectal, Daily PRN, constipation, Starting on Mon08/18/25 at 1137 0856 (Given - Provider: Senait Serna RN) HYDROmorphone (DILAUDID) tablet 2 mg (CANCELED) 2 mg, Oral, Every 4 hours PRN, moderate to moderately severe pain 4-6, severe to excruciating pain 7-10, Starting on Mon08/20/25 at 0810, For 7 days 1124 (Given - Provider: Miroslava Feldman, YURIY) HYDROmorphone (DILAUDID) tablet 4 mg 4 mg, Oral, Every 4 hours PRN, moderate to moderately severe pain 4-6, Starting on Mon08/20/25 at 1515, For 7 days HYDROmorphone (DILAUDID) tablet 6 mg 6 mg, Oral, Every 6 hours PRN, severe to excruciating pain 7-10, Starting on Mon08/20/25 at 1515, For 7 days 1820 (Given - Provider: Miroslava Feldman, RN) 0151 (Given - Provider: Sandie Ugalde, RN)0900 (Given - Provider: Santos Bourgeois, YURIY)1514 (Given - Provider: Santos Bourgeois RN) methocarbamol (ROBAXIN) tablet 500 mg 500 mg, Oral, Nightly PRN, muscle spasms, Starting on Mon08/16/25 at 2103 2343 (Given - Provider: Vicky Padron, YURIY) 1124 (Given - Provider: Miroslava Feldman, YURIY)1952 (Given - Provider: Sandie Ugalde RN) 0905 (Not Given - Provider: Santos Bourgeois RN - Reason: Dose held per order parameters) naloxone (NARCAN) 0.4 mg/mL injection 0.4 mg 0.4 mg, Intravenous, Every 5 min PRN, opioid reversal, respiratory depression, Starting on Mon08/15/25 at 2026, If respiratory rate is less than 8 breaths/minute or patient is difficult to arouse. Stop all narcotics and contact provider. oxyCODONE (ROXICODONE) immediate release tablet 30 mg () 30 mg, Oral, Every 4 hours PRN, severe to excruciating pain 7-10, moderate to moderately severe pain 4-6, Starting on Mon08/13/25 at 2150, For 7 days 0135 (Given - Provider: Jayda Solano RN)0649 (Given - Provider: Jayda Solano RN)1245 (Given - Provider: Senait Serna, YURIY)1938 (Given - Provider: Senait Serna RN)2344 (Given - Provider: Vicky Padron, YURIY) polyethylene glycol (miraLAx) packet 17 g 17 g, Oral, Daily PRN, constipation, Starting on Mon08/15/25 at 2057, Stir and dissolve in 4-8 oz of fluids. documented in this encounter Care Teams Qualifications Examiner Relationship Specialty Start Date End Date Unknown Unknow Provider Address PCP - General 08/13/25 08/14/25 Dat Vargas MD [address] [place] [address] PCP - General Family Medicine 08/15/25 documented as of this encounter
--- OUTSIDE RECORDS SUMMARY | 2025-08-22 07:24 | XMS_ITS | Encounter Summary ---
Author Organization [facility] Address [address] [place] [phone] Phone Care Team Providers Care Surgery Assistant Name Role Phone Dat Vargas MD Unavailable [phone] Dat Vargas MD Unavailable [phone] Delmar Berrios MD Unavailable [phone] Dat Vargas MD Primary Care Provider [phone] Sherry Bai OT Unavailable [phone] Encounter Details Date Type Department Care Team (Late st Contact Info) Description 04/30/2024 Procedure Pass [address] [place] [address] Social History Tobacco Use Types Packs/Day Years Used Date Smoking Tobacco: Every Day Cigarettes 0.5 60 Smokeless Tobacco: Never Comments:since HS Alcohol Use Standard Drinks/Week Comments Never 0 (1 standard drink = 0.6 oz pur e alcohol) Education Answer Date Recorded Are you interested in more education? Not on jessi e 12/29/2022 Are you concerned about learning? Not on file 12/29/2022 No 12/29/2022 No 12/29/2022 Digital Access Answer Date Recorded No 01/30/2023 No 01/30/2023 Reliable internet access at home? Not on file 01/30/2023 Device with a working camera? 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 Not on file Not on file Not on file documented as of this encounter Plan of Treatment Not on file documented as of this encounter Visit Diagnoses Not on filedocumented in this encounter Additional Health Concerns Assessment Noted Time PHQ-2 Depression Total Score: 0 07/22/20 11:39 AM EST documented as of this encounter Care Teams Surgery Assistant Relationship Specialty Start Date End Date Dat Vargas MD [address] [place] [id number] PCP - General Internal Medicine 08/25/17 Dat Vargas MD [address] [place] [address] Insurance Assigned Provider 12/09/23 Dat Vargas MD [address] [place] [id number] Historical LMR Provider 06/20/17 Delmar Berrios MD [address] [place] [address] Historical LMR Provider 06/20/17 Sherry Bai, OT [address] [place] [address] Transitions Test DesignerMold Sander Therapy 07/14/25 07/15/25 documented as of this encounter Additional Source Comments The information contained in this document represents components of the legal health record. It is not the complete legal health record.[facility]
--- OUTSIDE RECORDS SUMMARY | 2025-08-22 07:24 | XMS_ITS | Encounter Summary ---
Author Organization [facility] Address [address] [place] [address] Drive [address] [place] [address] Phone Care Team Providers Care Stone Polisher Hand Name Role Phone Dat Vargas MD Unavailable [phone] Dat Vargas MD Unavailable [phone] Delmar Berrios MD Unavailable [phone] Delmar Patel MD Unavailable [phone] Dat Vargas MD Primary Care Provider Geovany Escobar OT Unavailable [phone] Geovany Escobar OT Unavailable [phone] Sherry Bai OT Unavailable [phone] Encounter Details Date Type Department Care Team (Late st Contact Info) Description 03/10/2021 Procedure Pass [facility] Ct Scan - [address] [address] Social History Tobacco Use Types Packs/Day Years Used Date Smoking Tobacco: Every Day Cigarettes 0.5 60 Smokeless Tobacco: Never Comments:since HS Sex and Gender Information Value Date Recorded [...] Noted Time PHQ-2 Depression Total Score: 0 10/04/19 20 10:59 AM EST documented as of this encounter Care Teams Stone Polisher Hand Relationship Specialty Start Date End Date Dat Vargas MD [address] [place] [address] [email or web address] PCP - General Internal Medicine 08/25/17 Dat Vargas MD [address] [place] [address] [email or web address] Insurance Assigned Provider 12/09/23 Dat Vargas MD [address] [place] [address] [email or web address] Historical LMR Provider 06/20/17 Delmar Berrios MD [address] [place] [address] [email or web address] Historical LMR Provider 06/20/17 Delmar Patel MD [address] [place] [address] Historical LMR Provider 06/20/17 Geovany Escobar, OT [address] [place] [address] [email or web address] Music Theory ProfessorPersonal Property Assessor Therapy 03/11/21 03/14/21 Geovany Escobar, OT [address] [place] [address] [email or web address] Music Theory ProfessorPersonal Property Assessor Therapy 03/12/21 03/12/21 Sherry Bai, OT [address] [place] [address] [email or web address] Transitions Music Theory ProfessorPersonal Property Assessor Therapy 07/14/25 07/15/25 documented as of this encounter Additional Source Comments The information contained in this document represents components of the legal health record. It is not the complete legal health record.[facility]
--- OUTSIDE RECORDS SUMMARY | 2025-08-22 07:24 | XMS_ITS | Encounter Summary ---
Author Organization [facility] Address [address] [place] [address] Drive [address] [place] [address] Phone Care Team Providers Care Fighter Pilot Name Role Phone Dat Vargas MD Unavailable [phone] Dat Vargas MD Unavailable [phone] Delmar Berrios MD Unavailable [phone] Delmar Patel MD Unavailable [phone] Dat Vargas MD Primary Care Provider Geovany Escobar OT Unavailable [phone] Geovany Escobar OT Unavailable [phone] Sherry Bai OT Unavailable [phone] Encounter Details Date Type Department Care Team (Late st Contact Info) Description 03/10/2021 Procedure Pass [facility], Ct Scan - [address] [address] Social History Tobacco Use Types Packs/Day Years [...] documented as of this encounter Care Teams Fighter Pilot Relationship Specialty Start Date End Date Dat Vargas MD [address] [place] [phone] [email or web address] PCP - General Internal Medicine 08/25/17 Dat Vargas MD [address] [place] [address] [email or web address] Insurance Assigned Provider 12/09/23 Dat Vargas MD [address] [place] [phone] [email or web address] Historical LMR Provider 06/20/17 Delmar Berrios MD [address] [place] [address] [email or web address] Historical LMR Provider 06/20/17 Delmar Patel MD [address] [place] [phone] Historical LMR Provider 06/20/17 Geovany Esocbar, OT [address] [place] [address] [email or web address] Transitions Plumbing And Heating MechanicSingle Needle Tufting Machine Operator Therapy 03/11/21 03/14/21 Geovany Escobar, OT [address] [place] [address] [email or web address] Transitions Plumbing And Heating MechanicSingle Needle Tufting Machine Operator Therapy 03/12/21 03/12/21 Sherry Bai, OT [address] [place] [address] [email or web address] Transitions Plumbing And Heating MechanicSingle Needle Tufting Machine Operator Therapy 07/14/25 07/15/25 documented as of this encounter Additional Source Comments The information contained in this document represents components of the legal health record. It is not the complete legal health record.[facility]
--- OUTSIDE RECORDS SUMMARY | 2025-08-22 07:25 | XMS_ITS | Encounter Summary ---
Author Organization [facility] Address [address] [place] [phone] Phone Care Team Providers Care Feeder Associate Name Role Phone Dat Vargas MD Unavailable [phone] Dat Vargas MD Unavailable [phone] Delmar Berrios MD Unavailable [phone] Dat Vargas MD Primary Care Provider Sherry Bai OT Unavailable [phone] Encounter Details Date Type Department Care Team (Late st Contact Info) Description 07/12/2025 Procedure Pass [facility], Ct Scan - [address] [address] Social History Tobacco Use Types Packs/Day Years Used Date Smoking Tobacco: Every Day Cigarettes 0.5 60 Smokeless Tobacco: Never Comments:since HS; smokes so me days average 5-10 cigarettes QD-noted 05/29/24 Alcohol Use Standard Drinks/Week Comments Never 0 (1 standard drink = 0.6 oz pur e alcohol) Education Answer Date Recorded Are you interested in more education? Not on jessi e 12/29/2022 Are you concerned about learning? Not on file 12/29/2022 No 12/29/2022 No 12/29/2022 Food Answer Date Recorded Within the past 6 months we worried whether our food would run out before we got money to buy more. Never True 07/12/2025 Within the past 6 months the food we bought just didn't last and we didn't have enough money to get more. Never True Residential Stability Answer Date Recor ded What is your housing situation today? I am stayi ng with others 07/12/2025 How many times have you move d in the past 12 months? One time 07/12/2025 Paying for Meds Answer Date Recorded Do you have trouble paying for medicines? No 07/12/2025 Paying Utility Bills Answer Date Record ed Do you have trouble paying your heating or elect ricity bill? No 07/12/2025 Transportation Answer Date Recorded Has the lack of transportati on kept you from medical appointments or from getting medications? No 07/12/2025 Digital Access Answer Date Recorded No 07/12/2025 Yes 07/12/2025 Do you have reliable internet access at home? Ye s 07/12/2025 Do you have a device (e.g., phone, tablet, computer) with a working camera? Yes 07/12/2025 Intimate Partner Violence Answer Date R ecorded Are you denied basic needs s uch as food, clothing, or medical care? No 07/12/2025 In the past 12 months have y ou been in a relationship with a person who hurts, threatens, or tries to control you? No 07/12/2025 Are you denied basic needs s uch as food, clothing, or medical care? No 07/12/2025 In the past 12 months have y ou been in a relationship with a person who hurts, threatens, or tries to control you? No 07/12/2025 Sex and Gender Information Value Date Recorded [...] Time PHQ-2 Depression Total Score: 0 07/22/20 22 11:39 AM EST documented as of this encounter Care Teams Feeder Associate Relationship Specialty Start Date End Date Dat Vargas MD [address] [place] [phone] PCP - General Internal Medicine 08/25/17 Dat Vargas MD [address] [place] [phone] Insurance Assigned Provider 12/09/23 Dat Vargas MD [address] [place] [phone] Historical LMR Provider 06/20/17 Delmar Berrios MD [address] [place] [address] Historical LMR Provider 06/20/17 Sherry Bai, OT [address] [place] [phone] Transitions Glaze CarrierCut Off Sawyer Therapy 07/14/25 07/15/25 documented as of this encounter Additional Source Comments The information contained in this document represents components of the legal health record. It is not the complete legal health record.[facility]
--- OUTSIDE RECORDS SUMMARY | 2025-08-22 07:25 | XMS_ITS | Encounter Summary ---
Author Organization [facility] Address [address] [place] [address] Phone Care Team Providers Care Display Specialist Name Role Phone Dat Vargas MD Unavailable [phone] Dat Vargas MD Unavailable [phone] Delmar Berrios MD Unavailable [phone] Dat Vagras MD Primary Care Provider Reason for Visit * Reason Onset Date Comments Appointment 08/15/2025 Encounter Details Date Type Department Care Team (Late st Contact Info) Description 08/15/2025 Telephone [facility] [address] [place] [phone] Augusta Higgins [address] [place] [address] [email or web address] Appointment Social History Tobacco Use Types Packs/Day Years [...] as food, clothing, or medical care? No 08/13/2025 In the past 12 months have y ou been in a relationship with a person who hurts, threatens, or tries to control you? No 08/13/2025 Are you denied basic needs s uch as food, clothing, or medical care? No 08/13/2025 In the past 12 months have y ou been in a relationship with a person who hurts, threatens, or tries to control you? No 08/13/2025 Sex and Gender Information Value Date Recorded [...] documented as of this encounter Care Teams Display Specialist Relationship Specialty Start Date End Date Dat Vargas MD [address] [place] [address] PCP - General Internal Medicine 08/25/17 Dat Vargas MD [address] [place] [address] Insurance Assigned Provider 12/09/23 Dat Vargas MD [address] [place] [address] Historical LMR Provider 06/20/17 Delmar Berrios MD [address] [place] [phone] Historical LMR Provider 06/20/17 documented as of this encounter Additional Source Comments The information contained in this document represents components of the legal health record. It is not the complete legal health record.[facility]
--- OUTSIDE RECORDS SUMMARY | 2025-08-22 07:25 | XMS_ITS | Encounter Summary ---
Author Organization [facility] Address [address] [place] [address] Phone Care Team Providers Care Rocket Scientist Name Role Phone Dat Vargas MD Unavailable [phone] Dat Vargas MD Unavailable [phone] Delmar Berrios MD Unavailable [phone] Dat Vargas MD Primary Care Provider Encounter Details Date Type Department Care Team (Late st Contact Info) Description 08/13/2025 Procedure Pass [facility], Ct Scan - [address] [phone] Social History Tobacco Use Types Packs/Day Years [...] documented as of this encounter Care Teams Rocket Scientist Relationship Specialty Start Date End Date Dat Vargas MD [address] [place] [address], [address] [place] [address] [email or web address] PCP - General Internal Medicine 08/25/17 Dat Vargas MD [address] [place] [phone] Insurance Assigned Provider 12/09/23 Dat Vargas MD [address] [place] [address] Historical LMR Provider 06/20/17 Delmar Berrios MD [address] [place] [address] Historical LMR Provider 06/20/17 documented as of this encounter Additional Source Comments The information contained in this document represents components of the legal health record. It is not the complete legal health record.[facility]
--- OUTSIDE RECORDS SUMMARY | 2025-08-22 07:25 | XMS_ITS | Clinical Summary ---
Author Organization [facility] Address [address] [place] [address] [place] [id number] Phone Care Team Providers Care Equipment Maintenance Superintendent Name Role Phone Dat Vargas MD Unavailable [phone] Dat Vargas MD Unavailable [phone] Delmar Berrios MD Unavailable [phone] Dat Vargas MD Primary Care Provider Allergies Active Allergy Reactions Criticality Noted Date Comments Nsaids (Non-Steroidal Anti-Inflammatory Drug) Other (See Comments) 07/24/2017 stomach irritation Prednisone Other (See Comments) 12/01/2017 Psychiatric effects Medications atorvastatin (LIPITOR) 40 MG tabletIndications :Hyperlipidemia, unspecified hyperlipidemia type,Atherosclero sis of aorta TAKE 1 TABLET BY MOUTH EVERY DAY 90 tablet 3 025 Active rivaroxaban (XARELTO) 20 mg TabIndications:At rial fibrillation, unspecified type TAKE 1 TABLET BY MOUTH EVERY DAY WITH DINNER 90 tablet 3 025 Active amitriptyline (ELAVIL) 25 MG tabletIndications :Insomnia, unspecified type Take 1 tablet (25 mg total) by mouth nightly at bedtime. 90 tablet 3 025 Active fentaNYL (DURAGESIC) 75 mcg/hrIndications :Neuropathy,Other chronic pain Place 1 patch onto the skin every third day. ChronicPain-May request partial fill 10 patch 025 2024 Active oxyCODONE 30 MG immediate release tabletIndications :Neuropathy,Other chronic pain Take 1 tablet (30 mg total) by mouth every 4 (four) hours as needed for pain (specific location in comments). May request partial fill 180 tablet Active ALPRAZolam (XANAX) 1 MG tabletIndications :Insomnia, unspecified type Take 1 tablet (1 mg total) by mouth 2 (two) times a day as needed for anxiety. 60 tablet 2 Active dextroamphetamine -amphetamine (ADDERALL) 20 mg Tab tabletIndications :Attention deficit hyperactivity disorder (ADHD), unspecified ADHD type Take 1 tablet (20 mg total) by mouth 3 (three) times a day as needed (ADHD). 90 tablet 2024 Active oxyCODONE 30 MG immediate release tabletIndications :Neuropathy,Other chronic pain Take 1 tablet (30 mg total) by mouth every 4 (four) hours as needed for pain (specific location in comments). May request partial fill 180 tablet 2024 Discontinued(R eorder) lanolin-mineral oil (EUCERIN ORIGINAL) Lotn Apply topically daily. 59 mL 2024 Discontinued senna (SENOKOT) 8.6 mg tablet Take 2 tablets by mouth nightly at bedtime for 7 days. 14 tablet 2024 Discontinued polyethylene glycol (MIRALAX) 17 gram packet Take 17 g by mouth daily for 7 days. 7 packet 2024 Discontinued dextroamphetamine -amphetamine (ADDERALL) 20 mg Tab tabletIndications :attention-defici t hyperactivity disorder Take 1 tablet (20 mg total) by mouth 3 (three) times a day as needed (ADHD). Indications: attention deficit disorder with hyperactivity 6 tablet 2024 Discontinued ALPRAZolam (XANAX) 1 MG tabletIndications :Insomnia, unspecified type Take 1 tablet (1 mg total) by mouth 2 (two) times a day as needed for anxiety. 60 tablet 2 2024 Discontinued(R eorder) fentaNYL (DURAGESIC) 75 mcg/hrIndications :Neuropathy,Other chronic pain Place 1 patch onto the skin every third day. ChronicPain-May request partial fill 10 patch 025 2024 Discontinued(R eorder) dextroamphetamine -amphetamine (ADDERALL) 20 mg Tab tabletIndications :Attention deficit hyperactivity disorder (ADHD), unspecified ADHD type Take 1 tablet (20 mg total) by mouth 3 (three) times a day as needed (ADHD). 90 tablet 025 2024 Discontinued(R eorder) Active Problems Problem Noted Date Diagnosed Date Pelvis fracture, right, closed, initial encounte r 07/12/2025 Assessment & Plan (07/14/2025 8:09 AM EST): 3 weeks of right thigh, hip pain. This is following mechanical fall landing on his bottom, in setting of osteopenia. CT pelvis shows nondisplaced right acetabular fracture. ED provider discussed with orthopedics who recommend weightbearing as tolerated. CT head, cervical spine unrevealing. Noted to have osteopenia and severe degenerative changes. Pain in right hip, thigh remains. Comes and goes, when it is present it is always graded 10 out of 10. Reports pain is manageable, able to stand currently on his own without assistance. Walks with walker. Motivated to go to rehab and recover. - PT/OT consulted; anticipate rehab -Pain management with home fentanyl patch, home oxycodone 30 mg every 4 as needed Scheduled Tylenol 975 3 times daily, ice, lidocaine patch MiraLAX, senna order prophylaxis; move bowels 07/14 -Ambulate as tolerated -Vitamin D within normal limits -Fall precautions -Follow-up with orthopedics 2 weeks following discharge Assessment & Plan (07/13/2025 8:46 AM EST): 3 weeks of right thigh, hip pain. This is following mechanical fall landing on his bottom, in setting of osteopenia. CT pelvis shows nondisplaced right acetabular fracture. ED provider discussed with orthopedics who recommend weightbearing as tolerated. CT head, cervical spine unrevealing. Noted to have osteopenia and severe degenerative changes. Pain in right hip, thigh remains. Comes and goes, when it is present it is always graded 10 out of 10. Reports pain is manageable, able to stand currently on his own without assistance. Walks with walker. Motivated to go to rehab and recover. Initially reluctant to take Tylenol as he reports doctors told him in the past nothing [id number] works, though with education is agreeable to take this. - PT/OT consulted; anticipate rehab -Pain management with home fentanyl patch, home oxycodone 30 mg every 4 as needed Scheduled Tylenol 975 3 times daily, ice, lidocaine patch ' MiraLAX, senna order prophylaxis -Ambulate as tolerated -Vitamin D within normal limits -Fall precautions Assessment & Plan (07/12/2025 3:28 PM EST): 3 weeks of right thigh, hip pain. This is following mechanical fall landing on his bottom, in setting of osteopenia. CT pelvis shows nondisplaced right acetabular fracture. ED provider discussed with orthopedics who recommend weightbearing as tolerated. CT head, cervical spine unrevealing. Noted to have osteopenia and severe degenerative changes. - PT/OT consulted; anticipate rehab -Pain management with home fentanyl patch, home oxycodone 30 mg every 4 as needed Scheduled Tylenol 975 3 times daily, ice, lidocaine patch ' MiraLAX, senna order prophylaxis -Ambulate as tolerated -Follow-up vitamin D, pending -Fall precautions Poor hygiene 07/12/2025 Assessment & Plan (07/14/2025 8:09 AM EST): Appears with poor overall hygiene. Currently residing in a hotel, for the last few weeks. He is originally from [place] though frequently relocating around the country where family is located. He is uncertain where he is going to next, possibly in the [facility] somewhere. - Social work consult -Lotion for his legs Assessment & Plan (07/13/2025 11:56 AM EST): Appears with poor overall hygiene. Currently residing in a hotel, for the last few weeks. He is originally from [place] though frequently relocating around the country where family is located. He is uncertain where he is going to next, possibly in the [facility] somewhere. - Social work consult -Lotion for his legs Assessment & Plan (07/12/2025 3:28 PM EST): Appears with poor overall hygiene. Currently residing in a hotel, supposedly from [place] and traveling here to maintain connection with his PCP. He also reports may be relocating to another state in the [facility] closer to family. - Social work consult -Lotion for his legs Secondary hypercoagulable state 01/27/2025 Assessment & Plan (01/27/2025 10:50 AM EDT): He remains on Eliquis. Orders: CBC; Future Trigger ring finger of right hand 09/15/2024 Assessment & Plan (05/14/2025 8:56 PM EDT): This improved with no intervention. Assessment & Plan (09/15/2024 5:40 PM EST): We discussed management of this would include steroid injections. Referral to orthopedics placed. Orders: Ambulatory referral to [facility]ed [facility] Right ear pain 01/25/2024 Assessment & Plan (02/05/2024 12:58 PM EDT): There has been some improvement in the ear. We discussed use of Afrin before flying to help prevent barotrauma. I would not recommend oral Sudafed given his atrial fibrillation. Assessment & Plan (01/26/2024 6:38 PM EDT): No evidence of current inner or outer ear infection. Pain is actually just anterior to the ear, most likely a sequela of recent episode of shingles. Some dark blood noted on right TM, does report some increased discomfort related to plane travel several weeks ago so suspect some element of barotrauma although TM itself appears intact at present. Open wound of toe 10/01/2023 Assessment & Plan (01/16/2024 10:04 PM EDT): Will refer him to wound care for management of his toe. He did not seek emergency care as was recommended in the past. Assessment & Plan (10/01/2023 2:12 PM EST): This has been present for several months and he has noted that it is not healing. I am concerned for possible infection and for possible osteomyelitis and sent him for x-ray today. 1052: Call from radiology. Maverick Matthew. Concern for osteomyelitis. Distal phalanx looks eroded. I recommended to Aurelio (Amol) that he should get this evaluated in the emergency department today. He is not sure that he would be able to make it today. I discussed with him concern for untreated infection including risk of needing surgery and amputation. He expressed understanding of this. Other chronic pain 04/16/2023 Assessment & Plan (08/01/2025 11:10 PM EST): He remains on fentanyl and oxycodone for pain. Orders: fentaNYL (DURAGESIC) 75 mcg/hr; Place 1 patch onto the skin every third day. ChronicPain-May request partial fill oxyCODONE 30 MG immediate release tablet; Take 1 tablet (30 mg total) by mouth every 4 (four) hours as needed for pain (specific location in comments). May request partial fill Assessment & Plan (06/28/2025 11:03 PM EDT): As above. Orders: oxyCODONE 30 MG immediate release tablet; Take 1 tablet (30 mg total) by mouth every 4 (four) hours as needed for pain (specific location in comments). May request partial fill fentaNYL (DURAGESIC) 75 mcg/hr; Place 1 patch onto the skin every third day. ChronicPain-May request partial fill Assessment & Plan (09/15/2024 5:40 PM EST): He is getting ready to travel out of state. He has arranged for his chronic pain medications to be picked up and mailed to him. Assessment & Plan (06/01/2024 10:41 PM EDT): He received a partial fill of his oxycodone due to shortages. He will be due a week sooner than expected due to this. Rx sent to fill when he is due on June 07. Assessment & Plan (01/16/2024 10:06 PM EDT): He remains on fentanyl and oxycodone. Will continue. Assessment & Plan (04/16/2023 10:17 PM EDT): He continues on fentanyl and oxycodone for pain management. Iliac artery aneurysm, bilateral 01/09/2019 Sacroiliitis, not elsewhere classified 9 Status post right hip replacement 12/16/2017 Atherosclerosis of aorta 09/19/2017 Assessment & Plan (02/24/2025 8:16 PM EDT): His LDL is at goal <50. Continue atorvastatin. Assessment & Plan (10/01/2023 1:12 PM EST): We discussed the reason for use of atorvastatin. Will resume. Assessment & Plan (07/27/2022 6:29 PM EST): Continue atorvastatin. Atrial fibrillation 09/19/2017 Assessment & Plan (07/14/2025 8:09 AM EST): - Continues on Xarelto Assessment & Plan (07/13/2025 8:46 AM EST): - Continues on Xarelto Assessment & Plan (07/12/2025 3:28 PM EST): - Continues on Xarelto Assessment & Plan (06/28/2025 11:03 PM EDT): Stable on Eliquis. Assessment & Plan (02/24/2025 8:16 PM EDT): He remains on Eliquis. His heart rate remains in the normal range. Assessment & Plan (01/27/2025 10:50 AM EDT): He has not required any rate control medication. Assessment & Plan (09/15/2024 5:40 PM EST): Stable. Assessment & Plan (05/02/2024 9:35 PM EDT): Stable. Assessment & Plan (10/01/2023 1:13 PM EST): This has been stable. Assessment & Plan (04/16/2023 10:14 PM EDT): He continues on Xarelto. Assessment & Plan (07/27/2022 6:29 PM EST): He has not required rate control to date. We discussed that his heart rate was a little elevated today but then this came back down. We discussed that if he continues to have increased HR, will need to start metoprolol. Assessment & Plan (03/10/2021 8:53 PM EDT): Continue with Xarelto. Attention deficit hyperactivity disorder (ADHD) 09/19/2017 Assessment & Plan (08/01/2025 11:10 PM EST): He is stable on Adderall. Assessment & Plan (06/28/2025 11:03 PM EDT): He is stable on Adderall. Orders: dextroamphetamine-amphetamine (ADDERALL) 20 mg Tab tablet; Take 1 tablet (20 mg total) by mouth 3 (three) times a day. Assessment & Plan (02/24/2025 8:16 PM EDT): He continues on Adderall. Assessment & Plan (05/02/2024 9:36 PM EDT): Continue Adderall. Assessment & Plan (01/16/2024 10:04 PM EDT): Continue Adderall. Assessment & Plan (12/03/2021 10:36 PM EDT): Continue Adderall. Hyperlipidemia 09/19/2017 Assessment & Plan (07/14/2025 8:09 AM EST): Smokes 6 cigarettes daily for over 30 years as well. Declines nicotine replacement therapy. - Continues on atorvastatin -Smoking cessation encouraged - Cardiac diet Assessment & Plan (07/13/2025 11:45 AM EST): Smokes 6 cigarettes daily for over 30 years as well. Declines nicotine replacement therapy. - Continues on atorvastatin -Smoking cessation encouraged - Cardiac diet Assessment & Plan (07/12/2025 3:28 PM EST): Smokes 6 packs of cigarettes daily for over 30 years as well. Declines nicotine replacement therapy. - Continues on atorvastatin -Smoking cessation encouraged - Cardiac diet Assessment & Plan (01/27/2025 10:50 AM EDT): Continue atorvastatin. Orders: Comprehensive metabolic panel; Future Assessment & Plan (10/01/2023 1:13 PM EST): Continue atorvastatin. Assessment & Plan (04/16/2023 10:15 PM EDT): Will get updated lipid panel. Assessment & Plan (07/27/2022 6:27 PM EST): Continue atorvastatin. Lipid panel ordered. Assessment & Plan (03/10/2021 8:53 PM EDT): Continue with atorvastatin. Insomnia 09/19/2017 Assessment & Plan (07/14/2025 8:09 AM EST): - Continue with amitriptyline nightly Assessment & Plan (07/13/2025 8:46 AM EST): - Continue with amitriptyline nightly Assessment & Plan (07/12/2025 3:28 PM EST): - Continue with amitriptyline nightly Assessment & Plan (06/28/2025 11:03 PM EDT): Orders: ALPRAZolam (XANAX) 1 MG tablet; Take 1 tablet (1 mg total) by mouth 2 (two) times a day as needed for anxiety. Assessment & Plan (01/27/2025 10:50 AM EDT): Will try increasing amitriptyline to try and improve sleep and perhaps improve his neuropathic pain. Orders: amitriptyline (ELAVIL) 25 MG tablet; Take 1 tablet (25 mg total) by mouth nightly at bedtime. Assessment & Plan (09/15/2024 5:40 PM EST): Alprazolam refill sent today. Orders: ALPRAZolam (XANAX) 1 MG tablet; Take 1 tablet (1 mg total) by mouth 2 (two) times a day as needed. Assessment & Plan (06/01/2024 10:42 PM EDT): He continues to use alprazolam. Will monitor. Assessment & Plan (01/16/2024 10:03 PM EDT): He does not find diazepam helpful. Alprazolam refilled. Assessment & Plan (10/01/2023 1:25 PM EST): Will do trial of amitriptyline for sleep. Assessment & Plan (12/03/2021 10:35 PM EDT): Continue alprazolam as needed. MGUS (monoclonal gammopathy of unknown significa nce) 09/19/2017 Neuropathy 09/19/2017 Assessment & Plan (08/01/2025 11:10 PM EST): This is stable. Orders: fentaNYL (DURAGESIC) 75 mcg/hr; Place 1 patch onto the skin every third day. ChronicPain-May request partial fill oxyCODONE 30 MG immediate release tablet; Take 1 tablet (30 mg total) by mouth every 4 (four) hours as needed for pain (specific location in comments). May request partial fill Assessment & Plan (07/14/2025 8:09 AM EST): Chronic neuropathy, reported to have failed nonnarcotic regimen. Also with chronic lower back pain. He is prescribed oxycodone 30 mg Q4 as needed, fentanyl patch in outpatient setting. He is also prescribed Xanax as needed for anxiety. Appears he is also prescribed Adderall though reports he seldom uses this. Medications confirmed in [facility]. - Holding Adderall for now -Pain medications as stated above -Ultimately should be tapered off fentanyl, oxycodone with PCP with his age Assessment & Plan (07/13/2025 8:46 AM EST): Chronic neuropathy, reported to have failed nonnarcotic regimen. Also with chronic lower back pain. He is prescribed oxycodone 30 mg Q4 as needed, fentanyl patch in outpatient setting. He is also prescribed Xanax as needed for anxiety. Appears he is also prescribed Adderall though reports he seldom uses this. Medications confirmed in [facility]. - Holding Adderall for now -Pain medications as stated above -Ultimately should be tapered off fentanyl, oxycodone with PCP with his age Assessment & Plan (07/12/2025 3:28 PM EST): Chronic neuropathy, reported to have failed nonnarcotic regimen. Also with chronic lower back pain. He is prescribed oxycodone 30 mg Q4 as needed, fentanyl patch in outpatient setting. He is also prescribed Xanax as needed for anxiety. Appears he is also prescribed Adderall though reports he seldom uses this. Medications confirmed in [facility]. - Holding Adderall for now -Pain medications as stated above -Ultimately should be tapered off fentanyl, oxycodone with PCP with his age Assessment & Plan (06/28/2025 11:03 PM EDT): He was recently traveling and his medications were in his checked luggage which did not make it back with him. We discussed giving him a few days of oxycodone until his luggage is returned. He did have fentanyl patches that he is able to karena. Orders: oxyCODONE 30 MG immediate release tablet; Take 1 tablet (30 mg total) by mouth every 4 (four) hours as needed for pain (specific location in comments). May request partial fill fentaNYL (DURAGESIC) 75 mcg/hr; Place 1 patch onto the skin every third day. ChronicPain-May request partial fill Assessment & Plan (05/14/2025 8:56 PM EDT): This is ongoing. He continues on oxycodone Assessment & Plan (02/24/2025 8:16 PM EDT): He is aware that there is no cure for his neuropathy. He continues on fentanyl and oxycodone or pain control. Assessment & Plan (01/27/2025 10:50 AM EDT): He continues to have difficulty with his lower extremities and pain which contributes to difficulty walking. This causes further joint pain and disability. We discussed use of a walker for stability but he reports that he had more difficulty with a walker than with a cane. When he was in [place], he sought evaluation after some falls. They discussed different pain medication. We discussed requesting a consult to discuss medications as he has been on fentanyl and oxycodone for over 10 years. Referral to [facility] placed. Orders: Comprehensive metabolic panel; Future [facility] Pain Management Assessment & Plan (06/01/2024 10:47 PM EDT): There are areas noted on the MRI which could contribute to his neuropathic pain. Will see if injections help to relieve his pain. Assessment & Plan (05/02/2024 9:36 PM EDT): This is ongoing. He manages the pain with oxycodone and fentanyl. Assessment & Plan (01/16/2024 10:03 PM EDT): This is ongoing. This is a contributor to his toe wound as he has decreased sensation in the feet and can be unaware of toe rubbing and other injuries. Assessment & Plan (10/01/2023 1:51 PM EST): His neuropathy is a contributor to the wound on his toe. As his feeling is impaired, this leads him vulnerable to injury. He would also be less aware of injury from footwear. Assessment & Plan (04/16/2023 10:16 PM EDT): His neuropathy is worsening. Previous evaluation of this did not reveal a cause. Will continue to monitor. He does not drive and he is now using a cane for ambulation. Assessment & Plan (12/03/2021 10:34 PM EDT): Continue current regimen. He is upset that the pharmacy did not have enough of a stock to give him the full amount of his oxycodone. He has done well on his current regimen with no evidence of misuse or diversion. Assessment & Plan (11/27/2021 4:59 PM EDT): We discussed his pain control. He does admit that this pain control is not perfect but will continue with no changes. Primary osteoarthritis of right hip 07/25/2017 Overview (09/19/2017): Overview: Added automatically from request for surgery [id number] Chronic lower back pain Overview (03/21/2018): neuropathy Assessment & Plan (05/14/2025 8:56 PM EDT): As above. Assessment & Plan (02/24/2025 8:16 PM EDT): His recent flare of back pain when in [place] was triggered after trying to lift a case off the floor and falling. His pain has improved. Assessment & Plan (01/27/2025 10:50 AM EDT): As above. Orders: [facility] Pain Management Assessment & Plan (06/01/2024 10:23 PM EDT): We reviewed his MRI. We reviewed the changes noted since his previous MRI. Would recommend a trial of injections to reduce pain. Referral placed. Assessment & Plan (05/02/2024 9:39 PM EDT): His mobility is worsening. We discussed getting an MRI to look for progression of his known disc disease. Assessment & Plan (10/01/2023 2:02 PM EST): He is having more back pain. He wonders if he could switch off alprazolam to diazepam for more benefit of a muscle relaxer. Will give this a trial. Resolved Problems Problem Noted Date Diagnosed Date Resolved Date Shingles 01/26/2024 05/02/2024 Assessment & Plan (02/05/2024 1:06 PM EDT): No rash at this time. Assessment & Plan (01/26/2024 6:36 PM EDT): The patient's symptoms suggest a diagnosis of shingles, which is likely causing nerve pain. The condition should improve over time, although in rare instances, it may persist. The patient's recent air travel could have exacerbated the inflammation due to the shingles, contributing to the current discomfort. The eardrum appears to be in the process of healing, with no signs of infection, but there is evidence of irritation and residual blood. The eardrum is intact, with a recently healed or healing area visible. The patient's neuropathy may also be a factor in the facial nerve pain. A prescription for lidocaine 5 percent cream will be provided for use as needed to alleviate the pain. The patient can apply this up to every 4 hours. It is recommended that the patient keep the ear dry for the next few weeks to facilitate healing. The patient may continue to take his regular pain medication as usual. If the lidocaine cream does not provide relief, the patient is advised to discontinue its use. Should the pain persist, alternative medications can be considered in consultation with myself or his PCP Dr. Vargas. Multiple closed fractures of ribs of left side 03/10/2021 10/01/2023 Assessment & Plan (03/11/2021 5:59 PM EDT): We will continue with fentanyl and oral oxycodone. Currently using IV Dilaudid. Plan DC IV Dilaudid and convert to oral Dilaudid at equivalent doses so he is on a program he can go to a SNF with. Rhinitis 09/19/2017 03/10/2021 Encounters Date Type Department Care Team Description 08/15/2025 Telephone [facility] [address] [place] [address] Augusta Higgins Appointment 08/13/2025 4:53 AM EST - 08/13/2025 3:38 PM EST Emergency [facility] [address] [place] [id number] Mariposa Doran MD Noone, Caleb J, MD Discharge Disposition: Short Term Hospital 08/13/2025 Procedure [facility], Ct Scan [address] [address] 08/13/2025 Procedure [facility], [address] [address] 07/31/2025 Nurse Triage [facility] Officer Program [facility] [address] [address] Meg Del Real CNP Medication Problem (After hours call ) 07/31/2025 Telephone [facility] [address] [address] Meg Del Real CNP Medication Problem (After hours call ) 07/30/2025 2:30 PM EST [facility] [address] [place] [address] Camila Sandra, CRISTO NON ADMIT HOME HEALTH VISIT 07/30/2025 8:45 AM EST Office Visit [address] [place] [address] Dat Vargas MD Closed nondisplaced fracture of right acetabulum, unspecified portion of acetabulum, sequela (Primary Dx); Neuropathy; Other chronic pain; Attention deficit hyperactivity disorder (ADHD), unspecified ADHD type; Unhoused person 07/30/[address] [place] [address] Jocelynn Lynn MA Medication Refill 07/23/[address] [place] [address] Dat Vargas MD Medication Refill; Adderall, fentanyl, oxycodone 07/23/2025 Orders Only [facility] [address] [place] [address] Homehealth, Phan Chan MD 07/23/2025 Lab Requisition [facility] Lab Main [address] [place] [id number] Patty Mazariegos, SELENA Peripheral vascular disease, unspecified 07/22/2025 Telephone [facility] [address] [place] [address] Dat Vargas MD TCM Visit 07/22/2025 Telephone [facility] [address] [place] [address] Dat Vargas MD Medication Question (Asking quantity of recent refills) 07/18/2025 Lab Requisition [facility] Lab [address] [address] Patty Mazariegos NP Illness, unspecified 07/16/2025 Lab Requisition [facility] Lab [address] [address] Patty Mazariegos NP Unspecified atrial fibrillation 07/14/2025 2:45 PM EST Home Care Visit [facility] [address] [place] [address] Cecily Raymond, PT NON ADMIT HOME HEALTH VISIT 07/14/2025 Home Care Visit [facility] [address] [place] [address] Cecily Raymond, PT TELEPHONE ENCOUNTER 07/14/2025 Patient Outreach [facility] [address] [place] [id number] Sherry Bai, OT ACO Care Coordination (TCM following) 07/12/2025 11:22 AM EST - 07/15/2025 1:58 PM EST Hospital Encounter [facility] [address] [place] [address] Daul, Alan D, MD Grachev, Sulaiman, Dejon Tolentino MD McCracken, Helena C, DO Russo, Margaret A, MD McKenna-Weiss, Eli, MD Discharge Disposition: Rehab Facility 07/12/2025 Procedure [facility], [address] [address] 07/12/2025 Procedure [facility], [address] [address] 07/12/[address] [address] 07/12/[address] [address] 07/11/2025 Home Care Visit [facility] [address] [place] [phone] Cecily Raymond, PT TELEPHONE ENCOUNTER 07/10/2025 Home Care Visit [facility] [address] [place] [phone] Cecily Raymond, PT TELEPHONE ENCOUNTER 07/09/2025 Orders Only [facility] [address] [place] [phone] Homehealth, Interface MD Rocio 07/08/2025 10:25 AM EST Ancillary Procedure [address] [address] Alan Noble MD 07/08/2025 9:08 AM EST - 07/09/2025 11:11 AM EST Emergency [facility] [address] [place] [id number] Alan Noble MD Cooper, Ann, DO Kanter, Carolyn R, MD Discharge Disposition: Home or Self Care 06/25/2025 8:15 AM EDT Office Visit [facility] [address] [place] [address] Dat Vargas MD Medicare annual wellness visit, subsequent (Primary Dx); Attention deficit hyperactivity disorder (ADHD), unspecified ADHD type; Neuropathy; Other chronic pain; Atrial fibrillation, unspecified type; Insomnia, unspecified type 06/25/2025 Telephone [facility] [address] [place] [address] Dat Vargas MD Medication Problem 06/09/[address] [facility] -[facility] TE[facility] [address] [place] [address] Dat Vargas MD Care Coordination ([facility] Outreach ) 05/28/2025 Refill [facility] [address] [place] [address] Dat Vargas MD Medication Refill; Adderall, fentanyl, oxycodone from Last 3 Months Immunizations Immunization Administration Dates Next Due COVID-19 (Pre-06/26) Pfizer Vaccine, Bivalent 12+ 09/19/2022 COVID-19 (Pre-06/26) Pfizer Vaccine, mRNA, PF 12/23/2020,11/25/2020 INFLUENZA, SPLIT VIRUS, TRIVALENT PF 07/07/2015 Influenza High-Dose Quadriva lent Preservative Free IM 09/01/2022,05/18/2020 Influenza High-Dose Trivalen t Preservative Free IM 05/14/2025,05/29/2024,10/04/2019,05/29,08/23/2017,05/19/2017 Influenza, Unspecified Formulation 07/16/2010 Pneumococcal conjugate PCV13 05/19/2017 Pneumococcal conjugate PCV20 09/01/2022 Pneumococcal polysaccharide PPSV23 08/23/2017, Tdap 10/27/2010 Zoster recombinant 10/19/2022 Social History Tobacco Use Types Packs/Day Years Used Date Smoking Tobacco: Every Day Cigarettes 0.5 60 Smokeless Tobacco: Never Tobacco Cessation:Ready to Q uit: Not Asked; Counseling Given: Not Answered Comments:since HS; smokes some days average 5-10 cigarettes QD-noted 05/29/24 Alcohol [...] file Not on file Not on file Last Filed Vital Signs Vital Sign Reading Time Taken Comments Blood Pressure 116/64 08/13/2025 3:00 PM EST Pulse 91 08/13/2025 1:00 PM EST Temperature 36.8 C (98.2 F) 08/13/2025 10:42 AM EST Respiratory Rate 18 08/13/2025 10:42 AM EST Oxygen Saturation 100% 08/13/2025 3:00 PM EST Inhaled Oxygen Concentration - - Weight 93 kg (205 lb) 07/12/2025 5:00 PM EST Height 190.5 cm (6' 3 ) 07/12/2025 5:00 PM EST Body Mass Index 25.62 07/12/2025 5:00 PM EST Plan of Treatment Health Maintenance Due Date Last Done Comments RSV VACCINE (1 - 1-dose 75+ series) 2020 Adult Td,Tdap Booster 10/27/2020 10/27/2010 LUNG CANCER SCREENING (LDCT Only) 03/10/2022 03/10/2021 ZOSTER VACCINES (2 of 2) 12/14/2022 10/19/2022 DEPRESSION SCREENING 07/22/2023 07/22/2022 COVID-19 VACCINE ( season) 2025 09/19/2022, 12/23/2020, 11/25/2020 CREATININE LEVEL 07/23/2026 07/23/2025, 08/2025, 07/13/2025, Additional history exists SMOKING Hx and SMOKELESS TOBACCO SCREENING 07/30/2026 07/30/2025 PNEUMOCOCCAL VACCINES (50+ years) Completed 09/01/2022, 08/23/2017, 05/19/2017, Additional history exists INFLUENZA VACCINE Completed 05/14/2025, , 09/01/2022, Additional history exists HEPATITIS A VACCINES Aged Out No long er eligible based on patient's age to complete this topic HIB VACCINES Aged Out No longer eligi ble based on patient's age to complete this topic MENINGOCOCCAL VACCINES (ACWY) Aged Out No longer eligible based on patient's age to complete this topic MENINGOCOCCAL VACCINES (B) Aged Out N o longer eligible based on patient's age to complete this topic Medical Devices Not on file Procedures Procedure Name Priority Date/Time Associated Diagnosis Comments XR HIP 2 VW RIGHT PLUS PELVIS Routine 08/13/2025 7:17 AM EST ECG 12-LEAD STAT 08/13/2025 5:[address] CERVICAL SPINE WITHOUT CONTRAST Routine 08/13/2025 5:[address] HEAD WITHOUT CONTRAST Routine 08/13/2025 5:04 AM EST BASIC METABOLIC PANEL (BMP) Today 07/23/2025 6:12 AM EST Peripheral vascular disease, unspecified CBC Today 07/23/2025 6:12 AM EST Peripheral vascular disease, unspecified CBC Today 07/18/2025 4:35 AM EST Illness, unspecified CBC Today 07/16/2025 4:00 AM EST Unspecified atrial fibrillation COMPREHENSIVE METABOLIC PANEL (CMP) Today 07/16/2025 4:00 AM EST Unspecified atrial fibrillation 25-OH VITAMIN D Routine 07/13/2025 5:31 AM EST CBC Routine 07/13/2025 5:31 AM EST BASIC METABOLIC PANEL (BMP) Routine 07/13/2025 5:[address] FEMUR WITHOUT CONTRAST (RIGHT) Routine 07/12/2025 12:[address] PELVIS (BONY PELVIS) WITHOUT CONTRAST Routine 07/12/2025 12:[address] LUMBAR SPINE WITHOUT CONTRAST Routine 07/12/2025 12:[address] HEAD WITHOUT CONTRAST Routine 07/12/2025 12:52 PM EST CBC AND DIFFERENTIAL STAT 07/12/2025 12:11 PM EST CREATINE KINASE (CK) STAT 07/12/2025 12:11 PM EST C-REACTIVE PROTEIN (CRP) STAT 07/12/2025 12:11 PM EST BASIC METABOLIC PANEL (BMP) STAT 07/12/2025 12:11 PM EST CBC AND DIFFERENTIAL STAT 07/12/2025 12:11 PM EST CBC AND DIFFERENTIAL STAT 07/08/2025 1:07 PM EST CREATINE KINASE (CK) STAT 07/08/2025 1:07 PM EST PT-INR STAT 07/08/2025 1:07 PM EST MAGNESIUM STAT 07/08/2025 1:07 PM EST LFTS (HEPATIC PANEL) STAT 07/08/2025 1:07 PM EST BASIC METABOLIC PANEL (BMP) STAT 07/08/2025 1:07 PM EST CBC AND DIFFERENTIAL STAT 07/08/2025 1:07 PM EST XR PELVIS 1-2 VIEW Routine 07/08/2025 11 :17 AM EST XR FEMUR (RIGHT) 2 VIEWS Routine 07/08/2025 11:17 AM EST US BEDSIDE Routine 07/08/2025 10:[address] CHEST WITHOUT CONTRAST Routine 03/10/2021 4:51 PM EDT from Last 3 Months or Most Recently Relevant to Health Maintenance Results * XR HIP 2 VW RIGHT PLUS PELVIS (08/13/2025 7:17 AM EST) 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 Right THR periprosthetic subtrochanteric hip fracture. [facility] Anatomical Region Laterality Modality Hip Right Computed Radiogr aphy 08/13/2025 7:31 AM EST Impressions 08/13/2025 7:35 AM EST No displaced pelvic fracture. Right THR periprosthetic subtrochanteric hip fracture. A clinically significant result was initiated on 08/13/2025 7:34 AM, Message ID [id number]. Narrative 08/13/2025 7:35 AM EST XR HIP 2 VW RIGHT PLUS PELVIS Referring clinician's provided indication for this examination in [facility]: S/P Fall COMPARISON: XR FEMUR 2 OR MORE VIEWS (RIGHT) FINDINGS: Pelvis: No displaced fracture. Intact sacroiliac joints and pubic symphysis. Frontal evaluation of the left hip demonstrates moderate degenerative change in the joint space. Calcified granulomas in the bilateral buttocks. Right hip: Status post right THR with subtrochanteric periprosthetic fracture with approximately 2 cm posterior displacement of the distal fragment. Procedure Note Carlos Bucio MD, MPH - 08/13/2025 XR HIP 2 VW RIGHT PLUS PELVIS Referring clinician's provided indication for this examination in [facility]:S/P Fall COMPARISON: XR FEMUR 2 OR MORE VIEWS (RIGHT) FINDINGS: Pelvis: No displaced fracture. Intact sacroiliac joints and pubicsymphysis. Frontal evaluation of the left hip demonstrates moderatedegenerative change in the joint space. Calcified granulomas in thebilateral buttocks. Right hip: Status post right THR with subtrochanteric periprostheticfracture with approximately 2 cm posterior displacement of the distalfragment. IMPRESSION: No displaced pelvic fracture. Right THR periprosthetic subtrochanteric hipfracture. A clinically significant result was initiated on 08/13/2025 7:34 AM,Message ID [id number]. us Dianan Dong MD IMG XR PELVIS Final Result * ECG 12-LEAD (08/13/2025 5:12 AM EST) Ventricular Rate EKG/MIN 94 BPM [facility] Atrial Rate 394 BPM [facility] QRS Duration 100 ms [facility] QT Interval 374 ms [facility] QTC Interval 467 ms [facility] R Wave [place] -20 degrees [facility] T Wave [place] 52 degrees [facility] 08/13/2025 5:12 AM EST 08/14/2025 9:39 AM EST Narrative [facility] - 08/14/2025 9:39 AM EST Atrial fibrillation Abnormal ECG No previous ECGs available Confirmed by Deuce Mayer ([id number]) on 08/14/2025 9:39:08 AM us Mariposa Doran MD ECG ORDERABLES Final Res ult [facility] * CT CERVICAL SPINE WITHOUT CONTRAST (08/13/2025 5:04 AM EST) Anatomical Region Laterality Modality C-spine Computed Tomogra phy 08/13/2025 5:56 AM EST Impressions 08/13/2025 6:00 AM EST 1. No acute intracranial findings. 2. No acute fracture or traumatic malalignment of the cervical spine. Narrative 08/13/2025 6:[address] CERVICAL SPINE WITHOUT CONTRAST, CT HEAD WITHOUT CONTRAST Referring clinician's provided indication for this examination in Epic: * Neck trauma (Age >= 65y) TECHNIQUE: CTs of the head and cervical spine were performed without intravenous contrast using tailored dose modulation techniques. Images were reconstructed in the axial, coronal, and sagittal planes. COMPARISON: FINDINGS: HEAD: Brain Parenchyma: No midline shift, mass effect, parenchymal hemorrhage, or evidence of acute territorial infarct. Hypodensities in the periventricular white matter, likely a manifestation of chronic small vessel disease. Bifrontal encephalomalacia. Ventricular System and Extra-Axial Spaces: The ventricles and sulci are prominent. No extra-axial fluid collections. Basilar cisterns are patent. No hydrocephalus. Osseous and Extracranial Structures: No calvarial fracture or significant soft tissue hematoma. No significant paranasal sinus disease. Bilateral lens replacements. CERVICAL SPINE: Alignment and Vertebrae: No traumatic malalignment. Vertebral bodies and posterior elements are intact. Discs and Endplates: Multilevel degenerative changes. Other Findings: None. Procedure Note Mumtaz JOANN Gonzalez - 08/13/2025 CT CERVICAL SPINE WITHOUT CONTRAST, CT HEAD WITHOUT CONTRAST Referring clinician's provided indication for this examination in Epic: *Neck trauma (Age >= 65y) TECHNIQUE: CTs of the head and cervical spine were performed withoutintravenous contrast using tailored dose modulation techniques. Imageswere reconstructed in the axial, coronal, and sagittal planes. COMPARISON: FINDINGS: HEAD: Brain Parenchyma: No midline shift, mass effect, parenchymal hemorrhage,or evidence of acute territorial infarct. Hypodensities in theperiventricular white matter, likely a manifestation of chronic smallvessel disease. Bifrontal encephalomalacia. Ventricular System and Extra-Axial Spaces: The ventricles and sulci areprominent. No extra-axial fluid collections. Basilar cisterns are patent.No hydrocephalus. Osseous and Extracranial Structures: No calvarial fracture or significantsoft tissue hematoma. No significant paranasal sinus disease. Bilaterallens replacements. CERVICAL SPINE: Alignment and Vertebrae: No traumatic malalignment. Vertebral bodies andposterior elements are intact. Discs and Endplates: Multilevel degenerative changes. Other Findings: None. IMPRESSION: 1. No acute intracranial findings. 2. No acute fracture or traumatic malalignment of the cervical spine. Dianna Dong MD [facility] XSPECIALTY ORDERABLES Final Result * CT HEAD WITHOUT CONTRAST (08/13/2025 5:04 AM EST) Anatomical Region Laterality Modality Head Computed Tomogra phy 08/13/2025 5:56 AM EST Impressions 08/13/2025 6:00 AM EST 1. No acute intracranial findings. 2. No acute fracture or traumatic malalignment of the cervical spine. Narrative 08/13/2025 6:[address] CERVICAL SPINE WITHOUT CONTRAST, CT HEAD WITHOUT CONTRAST Referring clinician's provided indication for this examination in [facility]: * Neck trauma (Age >= 65y) TECHNIQUE: CTs of the head and cervical spine were performed without intravenous contrast using tailored dose modulation techniques. Images were reconstructed in the axial, coronal, and sagittal planes. COMPARISON: FINDINGS: HEAD: Brain Parenchyma: No midline shift, mass effect, parenchymal hemorrhage, or evidence of acute territorial infarct. Hypodensities in the periventricular white matter, likely a manifestation of chronic small vessel disease. Bifrontal encephalomalacia. Ventricular System and Extra-Axial Spaces: The ventricles and sulci are prominent. No extra-axial fluid collections. Basilar cisterns are patent. No hydrocephalus. Osseous and Extracranial Structures: No calvarial fracture or significant soft tissue hematoma. No significant paranasal sinus disease. Bilateral lens replacements. CERVICAL SPINE: Alignment and Vertebrae: No traumatic malalignment. Vertebral bodies and posterior elements are intact. Discs and Endplates: Multilevel degenerative changes. Other Findings: None. Procedure Note Lisa Pandya MBBS - 08/13/2025 CT CERVICAL SPINE WITHOUT CONTRAST, CT HEAD WITHOUT CONTRAST Referring clinician's provided indication for this examination in [facility]: *Neck trauma (Age >= 65y) TECHNIQUE: CTs of the head and cervical spine were performed withoutintravenous contrast using tailored dose modulation techniques. Imageswere reconstructed in the axial, coronal, and sagittal planes. COMPARISON: FINDINGS: HEAD: Brain Parenchyma: No midline shift, mass effect, parenchymal hemorrhage,or evidence of acute territorial infarct. Hypodensities in theperiventricular white matter, likely a manifestation of chronic smallvessel disease. Bifrontal encephalomalacia. Ventricular System and Extra-Axial Spaces: The ventricles and sulci areprominent. No extra-axial fluid collections. Basilar cisterns are patent.No hydrocephalus. Osseous and Extracranial Structures: No calvarial fracture or significantsoft tissue hematoma. No significant paranasal sinus disease. Bilaterallens replacements. CERVICAL SPINE: Alignment and Vertebrae: No traumatic malalignment. Vertebral bodies andposterior elements are intact. Discs and Endplates: Multilevel degenerative changes. Other Findings: None. IMPRESSION: 1. No acute intracranial findings. 2. No acute fracture or traumatic malalignment of the cervical spine. Dianna Dong MD IMG CT HEAD/NECK Final Resul t * (ABNORMAL) CBC (07/23/2025 6:12 AM EST) Only the most recent of4 resultswithin the time period is included. WBC 4.65 4.00 - 11.00 K/uL 07/23/2025 9:39 AM [facility] RBC 4.10(L) 4.50 - 5.90 M/uL 07/23/2025 9:39 AM [facility] Hemoglobin 12.8(L) 13.5 - 17.5 g/dL 07/23/2025 9:39 AM [facility] Hematocrit 39.9(L) 41.0 - 53.0 % 07/23/2025 9:39 AM [facility] MCV 97.3 80.0 - 100.0 fL 07/23/2025 9:39 AM [facility] MCH 31.2(H) 27.0 - 31.0 pg 07/23/2025 9:39 AM [facility] MCHC 32.1 32.0 - 36.0 g/dL 07/23/2025 9:39 AM [facility] PLT 129(L) 150 - 450 K/uL 07/23/2025 9:39 AM [facility] MPV 12.8(H) 8.4 - 12.0 fL 07/23/2025 9:39 AM [facility] RDW-CV 11.9 11.5 - 14.5 % 07/23/2025 9:39 AM [facility] Absolute NRBC 0.00 <=0.00 K cells/uL 07/23/2025 9:39 AM [facility] NRBC 0.0 <=0.0 /100 WBCs 07/23/2025 9:39 AM [facility] Blood (Blood) 07/23/2025 6:1 2 AM EST 07/23/2025 8:46 AM EST Patty Mazariegos TRANSPORTATION SPECIALIST LAB BLOOD BKR ORDERABLES F inal Result Performing Organization Address City/[facility]/ZIP Co de Phone Number [address] [address] * (ABNORMAL) Basic Metabolic Panel (BMP) (07/23/2025 6:12 AM EST) Only the most recent of4 resultswithin the time period is included. Sodium 140 136 - 145 mmol/L 07/23/2025 10:04 AM [facility] Potassium 4.6 3.4 - 5.1 mmol/L 07/23/2025 10:04 AM [facility] Chloride 103 98 - 107 mmol/L 07/23/2025 10:04 AM [facility] CO2 28 20 - 31 mmol/L 07/23/2025 10:04 AM [facility] Anion Gap 9 3 - 17 mmol/L 07/23/2025 10:04 AM [facility] BUN 23 6 - 23 mg/dL 07/23/2025 10:04 AM [facility] Creatinine 1.00 0.60 - 1.30 mg/dL 07/23/2025 10:04 AM [facility] eGFR 76 >59 mL/min/1.7 3m2 07/23/2025 10:04 AM [facility] Comment:Estimated glomerular filtration rate calculated using the CKD-EPI refit equation. Glucose 79 70 - 99 mg/dL 07/23/2025 10:04 AM [facility] Calcium 8.4(L) 8.5 - 10.5 mg/dL 07/23/2025 10:04 AM [facility] Blood (Blood) 07/23/2025 6:1 2 AM EST 07/23/2025 8:46 AM EST us Patty Mazariegos TRANSPORTATION SPECIALIST LAB BLOOD BKR ORDERABLES F inal Result [address] [address] * Comprehensive Metabolic Panel (CMP) (07/16/2025 4:00 AM EST) Pathologist [facility] Sodium 143 136 - 145 mmol/L 07/16/2025 7:05 AM [facility] Potassium 5.0 3.4 - 5.1 mmol/L 07/16/2025 7:05 AM [facility] Chloride 103 98 - 107 mmol/L 07/16/2025 7:05 AM [facility] CO2 29 20 - 31 mmol/L 07/16/2025 7:05 AM [facility] Anion Gap 11 3 - 17 mmol/L 07/16/2025 7:05 AM [facility] BUN 16 6 - 23 mg/dL 07/16/2025 7:05 AM [facility] Creatinine 0.80 0.60 - 1.30 mg/dL 07/16/2025 7:05 AM [facility] eGFR 89 >59 mL/min/1.7 3m2 07/16/2025 7:05 AM [facility] Comment:Estimated glomerular filtration rate calculated using the CKD-EPI refit equation. Glucose 75 70 - 99 mg/dL 07/16/2025 7:05 AM [facility] Calcium 9.1 8.5 - 10.5 mg/dL 07/16/2025 7:05 AM [facility] AST 16 <40 U/L 07/16/2025 7:05 AM [facility] ALT 5 <50 U/L 07/16/2025 7:05 AM [facility] Alkaline Phosphatase 64 40 - 130 U/L 07/16/2025 7:05 AM [facility] Bilirubin, Total 0.3 0.0 - 1.2 mg/dL 07/16/2025 7:05 AM [facility] Total Protein 7.2 6.4 - 8.3 g/dL 07/16/2025 7:05 AM [facility] Albumin 4.2 3.5 - 5.2 g/dL 07/16/2025 7:05 AM [facility] Globulin 3.0 1.9 - 4.1 g/dL 07/16/2025 7:05 AM [facility] Blood (Blood) 07/16/2025 4:0 0 AM EST 07/16/2025 6:16 AM EST Patty Ricks Delilah TRANSPORTATION SPECIALIST LAB BLOOD BKR ORDERABLES F inal Result Performing Organization Address [facility]/ZIP Co de Phone Number [address] [address] * 25-OH Vitamin D (07/13/2025 5:31 AM EST) 25-OH Vitamin D, Total 24 20 - 50 ng/mL 07/13/2025 6:38 AM EST [facility] Comment: Severe deficiency: <10 ng/mL Mild to moderate deficiency: 10-19 ng/mL Optimum levels: 20-50 ng/mL Increased risk of hypercalciuria: 51-80 ng/mL Possible toxicity: >80 ng/mL Blood (Blood) Venipuncture / Unknown 07/13/2025 5:31 AM EST 07/13/2025 5:54 AM EST Prateek Guido PA-C LAB BLOOD BKR ORDERABLE S Final Result Performing Organization Address [facility]/ZIP Co de Phone Number [address] [address] * CT LUMBAR SPINE WITHOUT CONTRAST (07/12/2025 12:52 PM EST) Anatomical Region Laterality Modality L-spine Computed Tomogra phy 07/12/2025 1:33 PM EST Impressions 07/12/2025 2:10 PM EST 1. Osteopenia. No acute fracture or traumatic malalignment. Severe degenerative changes as described. 2. Infrarenal abdominal aortic aneurysm measuring 3.4 cm. Bilateral common iliac artery ectasia. ATTESTATION: I, Ed Bucio as teaching physician, have reviewed the images for this case and if necessary edited the report originally created by Gio Proctor MD. Narrative 07/12/2025 2:[address] LUMBAR SPINE WITHOUT CONTRAST Referring clinician's provided indication for this examination in Epic: * Low back pain, progressive neurologic deficit TECHNIQUE: Multidetector-row CT of the lumbar spine was performed without intravenous contrast using tailored dose modulation techniques. Images were reconstructed in the axial, coronal, and sagittal planes. COMPARISON: MRI LUMBAR SPINE (NEURO) WITHOUT CONTRAST FINDINGS: LUMBAR SPINE: Alignment and Vertebrae: Osteopenia. Similar exaggeration of the usual lumbar lordosis. Grade 1 retrolisthesis of L1 on L2. No acute fracture. Multilevel facet hypertrophy. Discs and Endplates: Multilevel disc space narrowing and endplate spurring and vacuum phenomenon, greatest from T12 through L3. Soft Tissue: No prevertebral soft tissue thickening. Injection granulomas in the bilateral gluteal regions. Other Findings: Right upper pole renal cyst. Moderate aortoiliac calcific atherosclerosis with infrarenal abdominal aortic aneurysm measuring up to 3.4 cm in bilateral common iliac artery ectasia measuring up to 1.9 cm on the right and 1.6 cm on the left. Remote healed left 11th posterior rib fracture (6:1). Procedure Note Carlos Bucio MD, MPH - 07/12/2025 CT LUMBAR SPINE WITHOUT CONTRAST Referring clinician's provided indication for this examination in Epic: *Low back pain, progressive neurologic deficit TECHNIQUE: Multidetector-row CT of the lumbar spine was performed withoutintravenous contrast using tailored dose modulation techniques. Imageswere reconstructed in the axial, coronal, and sagittal planes. COMPARISON: MRI LUMBAR SPINE (NEURO) WITHOUT CONTRAST FINDINGS: LUMBAR SPINE: Alignment and Vertebrae: Osteopenia. Similar exaggeration of the usuallumbar lordosis. Grade 1 retrolisthesis of L1 on L2. No acute fracture.Multilevel facet hypertrophy. Discs and Endplates: Multilevel disc space narrowing and endplate spurringand vacuum phenomenon, greatest from T12 through L3. Soft Tissue: No prevertebral soft tissue thickening. Injection granulomasin the bilateral gluteal regions. Other Findings: Right upper pole renal cyst. Moderate aortoiliac calcificatherosclerosis with infrarenal abdominal aortic aneurysm measuring up to3.4 cm in bilateral common iliac artery ectasia measuring up to 1.9 cm onthe right and 1.6 cm on the left. Remote healed left 11th posterior ribfracture (6:1). IMPRESSION: 1. Osteopenia. No acute fracture or traumatic malalignment. Severedegenerative changes as described. 2. Infrarenal abdominal aortic aneurysm measuring 3.4 cm. Bilateral commoniliac artery ectasia. ATTESTATION: Ed Hernandez as teaching physician, have reviewed theimages for this case and if necessary edited the report originally createdby Gio Proctor MD. 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 [employer] [facility] Anatomical Region Laterality Modality Thigh Right Computed Tomogra phy 07/12/2025 1:05 PM EST Impressions 07/12/2025 2:02 PM EST Nondisplaced right acetabular fracture as described. A clinically significant result was initiated on 07/12/2025 1:39 PM, Message ID [id number]. ATTESTATION: Ed Hernandez as teaching physician, have reviewed the images for this case and if necessary edited the report originally created by Gio Proctor MD. Narrative 07/12/2025 2:[address] FEMUR WITHOUT CONTRAST (RIGHT), CT PELVIS (BONY PELVIS) WITHOUT CONTRAST Referring clinician's provided indication for this examination in Epic: * Upper leg pain, stress fracture suspected, neg xray TECHNIQUE: Multidetector-row CT of the femur, without intravenous contrast using dose-modulation techniques. Images were reconstructed in the axial, coronal, and sagittal planes. COMPARISON: XR FEMUR 2 OR MORE VIEWS (RIGHT) FINDINGS: Bones and Joints: Nondisplaced fracture extending across the superior acetabulum (4:28, 5:104) and extending to the quadrilateral plate (4:28, 5:131). No other fracture is seen. Right femur and THR are intact. 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 Soft Tissues: No significant soft tissue hematoma. Vascular calcifications. Scattered subcutaneous bilateral gluteal injection granulomas. Nonspecific calcifications in the scrotum. Procedure Note Carlos Bucio MD, MPH - 07/12/2025 CT FEMUR WITHOUT CONTRAST (RIGHT), CT PELVIS (BONY PELVIS) WITHOUTCONTRAST Referring clinician's provided indication for this examination in Epic: *Upper leg pain, stress fracture suspected, neg xray TECHNIQUE: Multidetector-row CT of the femur, without intravenous contrastusing dose-modulation techniques. Images were reconstructed in the axial,coronal, and sagittal planes. COMPARISON: XR FEMUR 2 OR MORE VIEWS (RIGHT) FINDINGS: Bones and Joints: Nondisplaced fracture extending across the superioracetabulum (4:28, 5:104) and extending to the quadrilateral plate (4:28,5:131). No other fracture is seen. Right femur and THR are intact. Severetricompartmental osteoarthritis of the right knee and medial compartmentof the left knee. Soft Tissues: No significant soft tissue hematoma. Vascularcalcifications. Scattered subcutaneous bilateral gluteal injectiongranulomas. Nonspecific calcifications in the scrotum. IMPRESSION: Nondisplaced right acetabular fracture as described. A clinically significant result was initiated on 07/12/2025 1:39 PM,Message ID [id number]. ATTESTATION: I, Ed Bucio as teaching physician, have reviewed theimages for this case and if necessary edited the report originally createdby Gio Proctor MD. 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 [facility] Anatomical Region Laterality Modality Pelvis Computed Tomogra phy 07/12/2025 1:05 PM EST Impressions 07/12/2025 2:02 PM EST Nondisplaced right acetabular fracture as described. A clinically significant result was initiated on 07/12/2025 1:39 PM, Message ID [id number]. ATTESTATION: I, Ed Bucio as teaching physician, have reviewed the images for this case and if necessary edited the report originally created by Gio Proctor MD. Narrative 07/12/2025 2:[address] FEMUR WITHOUT CONTRAST (RIGHT), CT PELVIS (BONY PELVIS) WITHOUT CONTRAST Referring clinician's provided indication for this examination in [facility]: * Upper leg pain, stress fracture suspected, neg xray TECHNIQUE: Multidetector-row CT of the femur, without intravenous contrast using dose-modulation techniques. Images were reconstructed in the axial, coronal, and sagittal planes. COMPARISON: XR FEMUR 2 OR MORE VIEWS (RIGHT) FINDINGS: Bones and Joints: Nondisplaced fracture extending across the superior acetabulum (4:28, 5:104) and extending to the quadrilateral plate (4:28, 5:131). No other fracture is seen. Right femur and THR are intact. 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 Soft Tissues: No significant soft tissue hematoma. Vascular calcifications. Scattered subcutaneous bilateral gluteal injection granulomas. Nonspecific calcifications in the scrotum. Procedure Note Carlos Bucio MD, MPH - 07/12/2025 CT FEMUR WITHOUT CONTRAST (RIGHT), CT PELVIS (BONY PELVIS) WITHOUTCONTRAST Referring clinician's provided indication for this examination in [facility]: *Upper leg pain, stress fracture suspected, neg xray TECHNIQUE: Multidetector-row CT of the femur, without intravenous contrastusing dose-modulation techniques. Images were reconstructed in the axial,coronal, and sagittal planes. COMPARISON: XR FEMUR 2 OR MORE VIEWS (RIGHT) FINDINGS: Bones and Joints: Nondisplaced fracture extending across the superioracetabulum (4:28, 5:104) and extending to the quadrilateral plate (4:28,5:131). No other fracture is seen. Right femur and THR are intact. Severetricompartmental osteoarthritis of the right knee and medial compartmentof the left knee. Soft Tissues: No significant soft tissue hematoma. Vascularcalcifications. Scattered subcutaneous bilateral gluteal injectiongranulomas. Nonspecific calcifications in the scrotum. IMPRESSION: Nondisplaced right acetabular fracture as described. A clinically significant result was initiated on 07/12/2025 1:39 PM,Message ID [id number]. ATTESTATION: Ed Hernandez as teaching physician, have reviewed theimages for this case and if necessary edited the report originally createdby Gio Proctor MD. us Alan Noble MD IMG CT XSPECIALTY ORDERABLES Fi nal Result * CT HEAD WITHOUT CONTRAST (07/12/2025 12:52 PM EST) Anatomical Region Laterality Modality Head Computed Tomogra phy 07/12/2025 12:5 5 PM EST Impressions 07/12/2025 1:53 PM EST No acute intracranial findings. ATTESTATION: Ed Hernandez as teaching physician, have reviewed the images for this case and if necessary edited the report originally created by Gio Proctor MD. Narrative 07/12/2025 1:[address] HEAD WITHOUT CONTRAST Referring clinician's provided indication for this examination in Epic: * Head trauma, minor (Age >= 65y) TECHNIQUE: CT of the head was performed without intravenous contrast using tailored dose modulation techniques. Images were reconstructed in the axial, coronal, and sagittal planes. COMPARISON: None available. FINDINGS: Brain Parenchyma: No midline shift, mass effect, parenchymal hemorrhage, or evidence of acute territorial infarct. Hypodensities in the periventricular white matter, likely a manifestation of chronic small vessel disease. Focal encephalomalacia in the bilateral inferior frontal lobes most likely reflects remote traumatic injury. Ventricular System and Extra-Axial Spaces: The ventricles and sulci are enlarged proportional to involutional change. No extra-axial fluid collections. Basilar cisterns are patent. No hydrocephalus. Osseous and Extracranial Structures: No calvarial fracture or significant soft tissue hematoma. No significant paranasal sinus disease. Bilateral lens replacements. Procedure Note Carlos Bucio MD, MPH - 07/12/2025 CT HEAD WITHOUT CONTRAST Referring clinician's provided indication for this examination in Epic: *Head trauma, minor (Age >= 65y) TECHNIQUE: CT of the head was performed without intravenous contrast usingtailored dose modulation techniques. Images were reconstructed in theaxial, coronal, and sagittal planes. COMPARISON: None available. FINDINGS: Brain Parenchyma: No midline shift, mass effect, parenchymal hemorrhage,or evidence of acute territorial infarct. Hypodensities in theperiventricular white matter, likely a manifestation of chronic smallvessel disease. Focal encephalomalacia in the bilateral inferior frontallobes most likely reflects remote traumatic injury. Ventricular System and Extra-Axial Spaces: The ventricles and sulci areenlarged proportional to involutional change. No extra-axial fluidcollections. Basilar cisterns are patent. No hydrocephalus. Osseous and Extracranial Structures: No calvarial fracture or significantsoft tissue hematoma. No significant paranasal sinus disease. Bilaterallens replacements. IMPRESSION: No acute intracranial findings. ATTESTATION: I, Ed Bucio as teaching physician, have reviewed theimages for this case and if necessary edited the report originally createdby Gio Proctor MD. Alan Noble MD IM CT HEAD/NECK Final Result * (ABNORMAL) CBC and Differential (07/12/2025 12:11 PM EST) Only the most recent of2 resultswithin the time period is included. WBC 6.09 4.00 - 11.00 K/uL 07/12/2025 12:43 PM [facility] RBC 4.46(L) 4.50 - 5.90 M/uL 07/12/2025 12:43 PM [facility] Hemoglobin 14.2 13.5 - 17.5 g/dL 07/12/2025 12:43 PM [facility] Hematocrit 42.7 41.0 - 53.0 % 07/12/2025 12:43 PM [facility] MCV 95.7 80.0 - 100.0 fL 07/12/2025 12:43 PM [facility] MCH 31.8(H) 27.0 - 31.0 pg 07/12/2025 12:43 PM [facility] MCHC 33.3 32.0 - 36.0 g/dL 07/12/2025 12:43 PM [facility] MPV 11.1 8.4 - 12.0 fL 07/12/2025 12:43 PM [facility] RDW-CV 11.8 11.5 - 14.5 % 07/12/2025 12:43 PM [facility] PLT 170 150 - 450 K/uL 07/12/2025 12:43 PM [facility] Neutrophils 67.7 % 07/12/2025 12:43 PM [facility] Lymphocytes 19.9 % 07/12/2025 12:43 PM [facility] Monocytes 7.1 % 07/12/2025 12:43 PM [facility] Eosinophils 4.4 % 07/12/2025 12:43 PM [facility] Basophils 0.7 % 07/12/2025 12:43 PM [facility] Imm Grans 0.2 % 07/12/2025 12:43 PM [facility] NRBC 0.0 <=0.0 /100 WBCs 07/12/2025 12:43 PM [facility] Absolute Neutrophils 4.13 1.92 - 7.60 K/uL 07/12/2025 12:43 PM [facility] Absolute Lymphocytes 1.21 0.72 - 4.10 K/uL 07/12/2025 12:43 PM [facility] Absolute Monocytes 0.43 0.16 - 1.10 K/uL 07/12/2025 12:43 PM [facility] Absolute Eosinophils 0.27 0.00 - 0.50 K/uL 07/12/2025 12:43 PM [facility] Absolute Basophils 0.04 0.00 - 0.15 K/uL 07/12/2025 12:43 PM [facility] Absolute Imm Grans 0.01 0.00 - 0.09 K/uL 07/12/2025 12:43 PM [facility] Absolute NRBC 0.00 <=0.00 K cells/uL 07/12/2025 12:43 PM [facility] Absolute Neutrophils 4.13 1.92 - 7.60 K/uL 07/12/2025 12:43 PM [facility] Comment:Automated cell count . Manual ANC may differ if performed. Diff Type Auto 07/12/2025 12:43 PM [facility] Blood (Blood) Venipuncture / Unknown 07/12/2025 12:11 PM EST 07/12/2025 12:38 PM EST Alan Noble MD LAB BLOOD BKR ORDERABLES Final Result Performing Organization Address [facility]/ZIP Co de Phone Number [address] [id number] * C-Reactive Protein (CRP) (07/12/2025 12:11 PM EST) C Reactive Protein 4.0 <10.0 mg/L 07/12/2025 1:12 PM [facility] Comment:NOTE: This reference range is for the evaluation of inflammation. Order CRP, High Sensitivity for cardiac risk status evaluation. Blood (Blood) Venipuncture / Unknown 07/12/2025 12:11 PM EST 07/12/2025 12:38 PM EST Alan Noble MD LAB BLOOD BKR ORDERABLES Final Result [address] [address] * Creatine Kinase (CK) (07/12/2025 12:11 PM EST) Only the most recent of2 resultswithin the time period is included. Creatine Kinase (CK) 74 39 - 308 U/L 07/12/2025 1:12 PM [facility] Blood (Blood) Venipuncture / Unknown 07/12/2025 12:11 PM EST 07/12/2025 12:38 PM EST us Alan Noble MD LAB BLOOD BKR ORDERABLES Final Result [address] [address] * Hepatic Panel (LFTs) (07/08/2025 1:07 PM EST) AST 16 <40 U/L 07/08/2025 1:53 PM [facility] ALT 12 <50 U/L 07/08/2025 1:53 PM [facility] Alkaline Phosphatase 90 40 - 130 U/L 07/08/2025 1:53 PM [facility] Bilirubin, Total 1.2 0.0 - 1.2 mg/dL 07/08/2025 1:53 PM [facility] Bilirubin, Direct 0.3 0.0 - 0.3 mg/dL 07/08/2025 1:53 PM [facility] Total Protein 7.0 6.4 - 8.3 g/dL 07/08/2025 1:53 PM [facility] Albumin 4.2 3.5 - 5.2 g/dL 07/08/2025 1:53 PM [facility] Globulin 2.8 1.9 - 4.1 g/dL 07/08/2025 1:53 PM [facility] Blood (Blood) Venipuncture / Unknown 07/08/2025 1:07 PM EST 07/08/2025 1:17 PM EST us Alan Noble MD LAB BLOOD BKR ORDERABLES Final Result [address] [address] * (ABNORMAL) PT-INR (07/08/2025 1:07 PM EST) PT 16.3(H) 10.0 - 13.0 sec 07/08/2025 1:28 PM [facility] INR 1.3(H) 0.9 - 1.1 07/08/2025 1:28 PM EST [facility] Comment:Therapeutic Range 2. 0 - 3.5 Blood (Blood) Venipuncture / Unknown 07/08/2025 1:07 PM EST 07/08/2025 1:17 PM EST us Alan Noble MD LAB BLOOD BKR ORDERABLES Final Result Performing Organization Address [facility]/ZIP Co de Phone Number [address] [address] * Magnesium (07/08/2025 1:07 PM EST) Magnesium 2.3 1.7 - 2.6 mg/dL 07/08/2025 1:53 PM EST [facility] Blood (Blood) Venipuncture / Unknown 07/08/2025 1:07 PM EST 07/08/2025 1:17 PM EST us Alan Noble MD LAB BLOOD BKR ORDERABLES Final Result Performing Organization Address [facility] Co de Phone Number [address] [address] * XR PELVIS 1-2 VIEW (07/08/2025 11:17 AM EST) Anatomical Region Laterality Modality Pelvis Computed Radiogr aphy 07/08/2025 12:3 9 PM EST Impressions 07/08/2025 12:43 PM EST 1. No acute displaced fracture in the pelvis or right femur 2. Severe right knee osteoarthritis. 3. Extensive vascular calcifications. Narrative 07/08/2025 12:43 PM EST XR FEMUR 2 OR MORE VIEWS (RIGHT), XR PELVIS 1-2 VIEW Referring clinician's provided indication for this examination in Epic: S/P Fall COMPARISON: None FINDINGS: Pelvis: No acute displaced fracture. The SI joints and pubic symphysis are anatomically aligned. Moderate degenerative changes in the left hip. Right femur: Right total hip prosthesis is anatomically aligned, without hardware complication. No displaced fracture or traumatic malalignment. Severe tricompartmental degenerative changes in the right knee. Transverse lucency along the superior margin of the patella has sclerotic margins, either normal variant or remote nonunited fracture. Extensive vascular calcifications. Procedure Note Evelin Mercedes MD - 07/08/2025 XR FEMUR 2 OR MORE VIEWS (RIGHT), XR PELVIS 1-2 VIEW Referring clinician's provided indication for this examination in Epic:S/P Fall COMPARISON: None FINDINGS: Pelvis: No acute displaced fracture. The SI joints and pubic symphysis areanatomically aligned. Moderate degenerative changes in the left hip. Right femur: Right total hip prosthesis is anatomically aligned, withouthardware complication. No displaced fracture or traumatic malalignment.Severe tricompartmental degenerative changes in the right knee. Transverse lucency along the superior margin of the patella has scleroticmargins, either normal variant or remote nonunited fracture. Extensivevascular calcifications. IMPRESSION: 1. No acute displaced fracture in the pelvis or right femur 2. Severe right knee osteoarthritis. 3. Extensive vascular calcifications. us Alan Noble MD IMG XR PELVIS Final Result * XR FEMUR (RIGHT) 2 VIEWS (07/08/2025 11:17 AM EST) Anatomical Region Laterality Modality Thigh Right Computed Radiogr aphy 07/08/2025 12:3 9 PM EST Impressions 07/08/2025 12:43 PM EST 1. No acute displaced fracture in the pelvis or right femur 2. Severe right knee osteoarthritis. 3. Extensive vascular calcifications. Narrative 07/08/2025 12:43 PM EST XR FEMUR 2 OR MORE VIEWS (RIGHT), XR PELVIS 1-2 VIEW Referring clinician's provided indication for this examination in [facility]: S/P Fall COMPARISON: None FINDINGS: Pelvis: No acute displaced fracture. The SI joints and pubic symphysis are anatomically aligned. Moderate degenerative changes in the left hip. Right femur: Right total hip prosthesis is anatomically aligned, without hardware complication. No displaced fracture or traumatic malalignment. Severe tricompartmental degenerative changes in the right knee. Transverse lucency along the superior margin of the patella has sclerotic margins, either normal variant or remote nonunited fracture. Extensive vascular calcifications. Procedure Note Evelin Mercedes MD - 07/08/2025 XR FEMUR 2 OR MORE VIEWS (RIGHT), XR PELVIS 1-2 VIEW Referring clinician's provided indication for this examination in Epic:S/P Fall COMPARISON: None FINDINGS: Pelvis: No acute displaced fracture. The SI joints and pubic symphysis areanatomically aligned. Moderate degenerative changes in the left hip. Right femur: Right total hip prosthesis is anatomically aligned, withouthardware complication. No displaced fracture or traumatic malalignment.Severe tricompartmental degenerative changes in the right knee. Transverse lucency along the superior margin of the patella has scleroticmargins, either normal variant or remote nonunited fracture. Extensivevascular calcifications. IMPRESSION: 1. No acute displaced fracture in the pelvis or right femur 2. Severe right knee osteoarthritis. 3. Extensive vascular calcifications. Alan Noble MD IMG XR LOWER EXTREMITY Final Re sult * US BEDSIDE (07/08/2025 10:22 AM EST) Anatomical Region Laterality Modality Ultrasound Narrative 07/08/2025 10:22 AM EST Alan Noble MD 07/08/2025 1:00 PM Bedside Ultrasound Date/Time: 07/08/2025 1:00 PM Performed by: Alan Noble MD Authorized by: Alan Noble MD Exam Type: DVT DVT Exam Findings & Impression: Indications: patient with extremity pain DVT Right Proximal: the right common femoral vein was visualized and negative for DVT DVT Right Popliteal: the right popliteal vein was visualized and negative for DVT Overall Impression: negative Images: Images Saved: Yes Accession Number: [id number] Alan Noble MD IMG POINT OF CARE EXAMS Edited Result - Final * CT CHEST WITHOUT CONTRAST (03/10/2021 4:51 PM EDT) Anatomical Region Laterality Modality Chest Computed Tomogra phy 03/10/2021 5:24 PM EDT Impressions 03/10/2021 5:37 PM EDT Nondisplaced to minimally displaced fractures of the posterior left seventh through 11th ribs, all of which are fractured in one location. No pulmonary contusion or pneumothorax. Narrative 03/10/2021 5:[address] CHEST WITHOUT CONTRAST TECHNIQUE: Multidetector CT of the chest was performed without intravenous contrast. COMPARISON: Correlation is made to CT abdomen and pelvis performed on the same day. FINDINGS: Devices/Tubes/Lines: None. Lungs: Normal. No pulmonary nodules or consolidation. The airways are clear. Pleura: Normal. No pleural effusion or pneumothorax. Mediastinum: Atherosclerotic calcifications are seen in the aorta including the origins of the great vessels. Coronary artery calcifications small hiatal hernia.. Lymph Nodes: Normal. No enlarged supraclavicular, axillary, mediastinal, or hilar lymph nodes. Upper Abdomen: Bilateral renal cysts. The remainder of the visualized upper abdomen is normal. Chest Wall: Nondisplaced to minimally displaced fractures of the posterior left seventh through 11th ribs, all of which are fractured in one location. 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 Multilevel degenerative changes in the thoracic spine. Procedure Note uSzan Grewal MD - 03/10/2021 CT CHEST WITHOUT CONTRAST TECHNIQUE: Multidetector CT of the chest was performed without intravenouscontrast. COMPARISON: Correlation is made to CT abdomen and pelvis performed on the day. FINDINGS: Devices/Tubes/Lines: None. Lungs: Normal. No pulmonary nodules or consolidation. The airways areclear. Pleura: Normal. No pleural effusion or pneumothorax. Mediastinum: Atherosclerotic calcifications are seen in the aortaincluding the origins of the great vessels. Coronary artery calcificationssmall hiatal hernia.. Lymph Nodes: Normal. No enlarged supraclavicular, axillary, mediastinal,or hilar lymph nodes. Upper Abdomen: Bilateral renal cysts. The remainder of the visualizedupper abdomen is normal. Chest Wall: Nondisplaced to minimally displaced fractures of the posteriorleft seventh through 11th ribs, all of which are fractured in onelocation. 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 Multilevel degenerative changes in thethoracic spine. IMPRESSION: Nondisplaced to minimally displaced fractures of the posterior leftseventh through 11th ribs, all of which are fractured in one location. Nopulmonary contusion or pneumothorax. [facility] Nancy Cohen MD IMG CT CHEST Sia l Result from Last 3 Months or Most Recently Relevant to Health Maintenance Insurance MEDICARE PART A & B [facility] MEDICARE PART A & B B MEDICARE PART A & B [facility]IC[facility] PART A & B Member Subscriber Plan / Payer (Ef fective 2010-Present) Name:Amol Shipman Member ID:[id number] Relation to Subscriber:Self Name:Amol Shipman Subscriber ID:[id number] Payer ID:[id number] Group ID:Not on file Type:Medicare Address: [facility] [employer] [facility] [employer] [facility] [address] [place] [id number] [facility] B [facility] Advance Directives For more information, please contact: [phone] (9AM - 5PM [facility], Monday-Monday) Documents on File Type Date Recorded Patient Load Out Supervisor Expl anation Healthcare Proxy 08/06/2025 2:31 PM health care proxy Healthcare Proxy 07/16/2025 2:10 PM Healthcare Proxy 07/15/2025 11:58 AM heal thcare proxy * Full Code (Latest Code Status on File) Date Activated Date Inactivated Comments 07/12/2025 3:04 PM Question Answer Comments Code Status Confirmed With: Patient Code Status Communicated To: Inpatient Attending * Full Code Date Activated Date Inactivated Comments 03/10/2021 8:50 PM 07/12/2025 3:04 PM Question Answer Comments Code Status Confirmed With: Patient Care Teams Equipment Maintenance Superintendent Relationship Specialty Start Date End Date Dat Vargas MD [address] [place] [id number] PCP - General Internal Medicine 08/25/17 Dat Vargas MD [address] [place] [id number] Insurance Assigned Provider 12/09/23 Dat Vargas MD [address] [place] [id number] Historical LMR Provider 06/20/17 Delmar Berrios MD [address] [place] [phone] Historical LMR Provider 06/20/17 Additional Source Comments The information contained in this document represents components of the legal health record. It is not the complete legal health record.[facility]
--- OUTSIDE RECORDS SUMMARY | 2025-08-22 07:25 | XMS_ITS | Clinical Summary ---
Author Organization [facility], Located Within [facility] Address [address] [place] [address] Care Team Providers Care Cloth Calender Name Role Phone Dat Vargas MD Primary Care Provider [phone] Allergies Active Allergy Reactions Criticality Noted Date Comments Nsaids GI Intolerance/Nausea/Vomiting Low 08/13 Prednisone Delirium/Confusion/Psychosis Medium 025 Medications ALPRAZolam (XANAX) 1 MG tablet Take 1 tablet (1 mg total) by mouth 2 (two) times a day as needed for anxiety. Active amitriptyline (ELAVIL) 25 MG tablet Take 1 tablet (25 mg total) by mouth nightly. Active amphetamine-dex troamphetamine (ADDERALL) 20 MG tablet Take 1 tablet (20 mg total) by mouth 3 (three) times a day as needed. 5 08/30/20 Active atorvastatin (LIPITOR) 40 MG tablet Take 1 tablet (40 mg total) by mouth daily. Active fentaNYL (DURAGESIC) 75 mcg/hr patch Place 1 patch on the skin every third day (72 hrs). Active oxyCODONE (ROXICODONE) 30 MG immediate release tablet Take 1 tablet (30 mg total) by mouth every 4 (four) hours as needed (pain). Active Xarelto 20 MG tablet Take 1 tablet (20 mg total) by mouth every evening with dinner. Active B Complex-C (vitamin b complex-vitamin C) tablet Take 1 tablet by mouth daily. Active cholecalciferol (CHOLECALCIFERO L) 25 MCG (1000 UT) tabletIndicatio ns:Periprosthet ic fracture 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) Take 2 tablets (2,000 Units total) by mouth daily. 12/18/09/20/19 Active methocarbamol (ROBAXIN) 500 MG tabletIndicatio ns:Periprosthet ic fracture 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) Take 1 tablet (500 mg total) by mouth nightly as needed for muscle spasms. 09/19/19 Active multivitamin with minerals Tab tabletIndicatio ns:Periprosthet ic fracture 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) Take 1 tablet by mouth daily. 09/19/19 Active polyethylene glycol (miraLAx) 17 g packetIndicatio ns:Periprosthet ic fracture 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) Take 1 packet (17 g total) by mouth daily. 09/19/19 Active senna-docusate (SENNA-S) 8.6-50 MGIndications:P eriprosthetic fracture 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) Take 2 tablets by mouth nightly. 09/19/19 Active cholecalciferol (CHOLECALCIFERO L) 25 MCG (1000 UT) tablet Take 1 tablet (1,000 Units total) by mouth daily. 08/21/20 Discontinu ed(Stop Taking at Discharge) Active Problems Problem Noted Date Diagnosed Date Peripheral neuropathy 08/17/2025 Assessment & Plan (08/19/2025 5:02 PM EST): Continue fentanyl patch Continue amitriptyline 25 mg nightly Assessment & Plan (08/18/2025 11:40 AM EST): Continue fentanyl patch Continue amitriptyline 25 mg nightly Assessment & Plan (08/17/2025 11:34 AM EST): Continue fentanyl patch Continue amitriptyline 25 mg nightly Chronic disease 08/14/2025 Assessment & Plan (08/19/2025 5:02 PM EST): A-fib: Heart rate have been controlled. Per chart review, he reports that he has been off anticoagulation. Per the last note from PCP, he should be on anticoagulation. Continue Xarelto 20 mg nightly anxiety: Continue Xanax and amitriptyline Hyperlipidemia: Continue atorvastatin Assessment & Plan (08/18/2025 11:40 AM EST): A-fib: Heart rate have been controlled. Per chart review, he reports that he has been off anticoagulation. Per the last note from PCP, he should be on anticoagulation. Continue Xarelto 20 mg nightly anxiety: Continue Xanax and amitriptyline Hyperlipidemia: Continue atorvastatin Assessment & Plan (08/17/2025 11:34 AM EST): A-fib: Heart rate have been controlled. Per chart review, he reports that he has been off anticoagulation. Per the last note from PCP, he should be on anticoagulation. Continue Xarelto 20 mg nightly anxiety: Continue Xanax and amitriptyline Assessment & Plan (08/16/2025 1:38 PM EST): A-fib: Heart rate have been controlled. Per chart review, he reports that he has been off anticoagulation. Per the last note from PCP, he should be on anticoagulation. Will resume Xarelto 20 mg nightly. Anxiety: Continue Xanax and amitriptyline Assessment & Plan (08/15/2025 12:43 PM EST): A-fib: Rates have been controlled. He is off anticoagulation. Anxiety: Continue Xanax and amitriptyline Assessment & Plan (08/14/2025 4:55 PM EST): A-fib: Patient stopped taking Xarelto 5 months back. Rate controlled. Consider adding rate control prior to discharge. Anxiety: Continue amitriptyline, Xanax. Closed right hip fracture, initial encounter 06/2025 Assessment & Plan (08/19/2025 5:02 PM EST): S/p right YOKO on 08/15. He tolerated procedure with no issues. Orthopedic surgery team following Continue Xarelto for DVT prophylaxis PT/OT continue Dilaudid 0.3 mg every 4 hours as needed for pain Continue oxycodone 30 mg every 4 hours as needed for pain Continue Robaxin as needed for muscle spasms. Continue fentanyl patch every 72 hours. Will follow-up with Ortho as outpatient. Assessment & Plan (08/18/2025 11:40 AM EST): S/p right YOKO on 08/15. He tolerated procedure with no issues. Orthopedic surgery team following Continue Xarelto for DVT prophylaxis PT/OT continue Dilaudid 0.3 mg every 4 hours as needed for pain Continue oxycodone 30 mg every 4 hours as needed for pain Continue Robaxin as needed for muscle spasms. Continue fentanyl patch every 72 hours. Will follow-up with Ortho as outpatient. Assessment & Plan (08/17/2025 11:34 AM EST): S/p right YOKO on 08/15. He tolerated procedure with no issues. Orthopedic surgery team following Continue Xarelto for DVT prophylaxis PT/OT continue Dilaudid 0.3 mg every 4 hours as needed for pain Continue oxycodone 30 mg every 4 hours as needed for pain Continue Robaxin as needed for muscle spasms. Assessment & Plan (08/16/2025 1:38 PM EST): S/p right YOKO on 08/15. He tolerated procedure with no issues. Orthopedic surgery team following He received subcutaneous heparin x 1 this morning. Will start Xarelto tonight PT/OT Assessment & Plan (08/15/2025 12:43 PM EST): Orthopedic surgery team following Plan for right [...] - AUDIT-C Total Score - Male: 0 Assessment & Plan (08/14/2025 4:55 PM EST): Management as per orthopedics. Plan for right YOKO on 08/15. N.p.o. past midnight. Continue pain management with fentanyl patch, home dose oxycodone as needed. Periprosthetic fracture arou nd internal prosthetic right hip joint 08/13/2025 Assessment & Plan (08/19/2025 5:02 PM EST): S/p right YOKO on 08/15. He tolerated procedure with no issues. Orthopedic surgery team following Continue Xarelto for DVT prophylaxis PT/OT continue Dilaudid 0.3 mg every 4 hours as needed for pain Continue oxycodone 30 mg every 4 hours as needed for pain Continue Robaxin as needed for muscle spasms. Continue fentanyl patch every 72 hours. Will follow-up with Ortho as outpatient. Assessment & Plan (08/18/2025 11:40 AM EST): S/p right YOKO on 08/15. He tolerated procedure with no issues. Orthopedic surgery team following Continue Xarelto for DVT prophylaxis PT/OT continue Dilaudid 0.3 mg every 4 hours as needed for pain Continue oxycodone 30 mg every 4 hours as needed for pain Continue Robaxin as needed for muscle spasms. Continue fentanyl patch every 72 hours. Will follow-up with Ortho as outpatient. Assessment & Plan (08/17/2025 11:34 AM EST): S/p right YOKO on 08/15. He tolerated procedure with no issues. Orthopedic surgery team following Continue Xarelto for DVT prophylaxis PT/OT continue Dilaudid 0.3 mg every 4 hours as needed for pain Continue oxycodone 30 mg every 4 hours as needed for pain Continue Robaxin as needed for muscle spasms. Assessment & Plan (08/16/2025 1:38 PM EST): S/p right YOKO on 08/15. He tolerated procedure with no issues. Orthopedic surgery team following He received subcutaneous heparin x 1 this morning. Will start Xarelto tonight PT/OT Assessment & Plan (08/15/2025 12:43 PM EST): Orthopedic surgery team following Plan for right [...] - AUDIT-C Total Score - Male: 0 Assessment & Plan (08/14/2025 4:55 PM EST): Management as per orthopedics. Plan for right YOKO on 08/15. N.p.o. past midnight. Continue pain management with fentanyl patch, home dose oxycodone as needed. Encounters Date Type Department Care Team Description 08/15/2025 2:47 PM EST Anesthesia Event [facility] [address] [id number] Danny Heard MD Clair, Hannah A PA-C 08/15/2025 1:01 PM EST - 08/15/2025 4:44 PM EST Surgery [facility] [address] [phone] Harpreet Phan MD REVISION TOTAL HIP WITH ORIF FEMUR FRACTURE 08/13/2025 5:45 PM EST Ancillary Procedure [facility] [address] [place] [id number] Provider, File Room 08/13/2025 5:40 PM EST Ancillary Procedure [facility] [address] [place] [phone] Provider, File Room 08/13/2025 5:40 PM EST Ancillary Procedure [facility] [address] [place] [phone] Provider, File Room 08/13/2025 5:17 PM EST - 08/21/2025 4:01 PM EST Hospital Encounter [facility] [address] [place] [phone] Ivonne Terry DO Gupta, Ujjwal, MD Sharma Kandel, Rajan, MD Elajami, Mohamad, MD Ramachandran, Rohit, MD 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 No 08/16/2025 [facility] Answer Date Recorded In the past [...] Orientation Heterosexual (straight) 08/13 8:31 PM EST Last Filed Vital Signs Vital Sign Reading [...] Mass Index 27.68 08/14/2025 6:28 PM EST Plan of Treatment Health Maintenance Due Date Last Done Comments Advance Care Planning 1945 DTaP/Tdap/Td Vaccines (1 - Tdap) 1964 Pneumococcal Vaccines 50+ (1 of 2 - PCV) 1964 Zoster (Shingles) Vaccine (1 of 2) 1995 RSV Vaccine 50 years and older and Patients (1 - 1-dose 75+ series) 2020 COVID-19 Vaccine (4 - season) 2025 09/19/2022, 12/23/2020, 11/25/2020 Influenza Vaccine Completed 05/14/2025, , 09/01/2022, Additional history exists Hepatitis B Vaccines Aged Out No long er eligible based on patient's age to complete this topic Medical Devices Implanted Type Area Breaker Hand Device Identifier Shelf Expiration Date Model / Serial / Lot [id number] Stem Femoral 190mm 21mm Revision Mdlr Meredith Sts Ti Taper Hip - [id number] Implanted:Qty : 1 on 08/15/2025 by Harpreet Phan MD at [facility] Joint Prosthesis Right: Hip [employer] [id number] 10/29/2032230391 / / [id number] Body Cone 70mm Meredith A High Offset Hip Femoral Ti Mdlr - [id number] Implanted:Qty : 1 on 08/15/2025 by Harpreet Phan MD at [facility] Joint Prosthesis Right: Hip [employer] [id number] 08/02/2033 [id number] / / [id number] 650-1057 Head Femoral 36mm Hip Blx D Option G7 Sterl - [id number] Implanted:Qty : 1 on 08/15/2025 by Harpreet Phan MD at [facility] Joint Prosthesis Right: Hip [employer] [id number] 11/03/2031 650-1057 / / [id number] 650-1064 Sleeve Centering G7 -6mm Offset Taper Hip Ti Type 1 Blx D - [id number] Implanted:Qty : 1 on 08/15/2025 by Harpreet Phan MD at [facility] Joint Prosthesis Right: Hip [employer] [id number] 01/09/2034 650-1064 / / [id number] Cable Orthopedic Cocr 2mm 75mm Hip Clamp Accord - [id number] Implanted:Qty : 1 on 08/15/2025 by Harpreet Phan MD at [facility] Wire Right: Hip [employer] - DIV S [id number] 10/12/2034 [id number] / / [id number] Cable Orthopedic Cocr 2mm 75mm Hip Clamp Accord - [id number] Implanted:Qty : 1 on 08/15/2025 by Harpreet Phan MD at [facility] Wire Right: Hip [employer] - DIV S [id number] 10/12/2034 [id number] / / [id number] Cable Orthopedic Cocr 2mm 75mm Hip Clamp Accord - [id number] Implanted:Qty : 1 on 08/15/2025 by Harpreet Phan MD at [facility] Wire Right: Hip [employer] - DIV S [id number] 04/06/2035 [id number] / / [id number] Cable Orthopedic Cocr 2mm 75mm Hip Clamp Accord - [id number] Implanted:Qty : 1 on 08/15/2025 by Harpreet Phan MD at [facility] Wire Right: Hip [employer] - DIV S [id number] 10/12/2034 [id number] / / [id number] Cable Orthopedic Cocr 2mm 75mm Hip Clamp Accord - [id number] Implanted:Qty : 1 on 08/15/2025 by Harpreet Phan MD at [facility] Wire Right: Hip [employer] - DIV S [id number] 10/12/2034 [id number] / / [id number] Utility Tender Carding Cable 195mm Accord Std Troch Cocr 8 Cable - [id number] Implanted:Qty : 1 on 08/15/2025 by Harpreet Phan MD at [facility] Wire Right: Hip [employer] - DIV S [id number] 02/09/2034 [id number] / / [id number] Cable Orthopedic Cocr 2mm 75mm Hip Clamp Accord - [id number] Implanted:Qty : 1 on 08/15/2025 by Harpreet Phan MD at [facility] Wire Right: Hip [employer] - DIV S [id number] 10/12/2034 [id number] / / [id number] Cable Orthopedic Cocr 2mm 75mm Troch Clamp Accord - [id number] Implanted:Qty : 1 on 08/16/2025 by Harpreet Phan MD at [facility] Wire Right: Hip [employer] - DIV S 03/10/2035 [id number] / / [id number] Cable Orthopedic Cocr 2mm 75mm Troch Clamp Accord - [id number] Implanted:Qty : 1 on 08/16/2025 by Harpreet Phan MD at [facility] Wire Right: Hip [employer] - DIV S 04/22/2030 [id number] / / [id number] Cable Orthopedic Cocr 2mm 75mm Troch Clamp Accord - [id number] Implanted:Qty : 1 on 08/16/2025 by Harpreet Phan MD at [facility] Wire Right: Hip [employer] - DIV S 12/08/2030 [id number] / / [id number] Procedures Procedure Name Priority Date/Time Associated Diagnosis Comments COMPLETE BLOOD COUNT, WITHOUT DIFFERENTIAL Routine 08/19/2025 5:22 AM EST COMPLETE BLOOD COUNT, WITHOUT DIFFERENTIAL Routine 08/18/2025 6:34 AM EST BASIC METABOLIC PANEL Routine 08/18/2025 6:34 AM EST COMPLETE BLOOD COUNT, WITHOUT DIFFERENTIAL Routine 08/17/2025 5:46 AM EST BASIC METABOLIC PANEL Routine 08/17/2025 5:46 AM EST MAGNESIUM Routine 08/16/2025 9:42 AM EST COMPLETE BLOOD COUNT, WITHOUT DIFFERENTIAL Routine 08/16/2025 9:42 AM EST BASIC METABOLIC PANEL Routine 08/16/2025 9:42 AM EST XR HIP W PELVIS 2 OR 3 VIEWS-RIGHT STAT 08/15/2025 8:03 PM EST HEMOGLOBIN AND HEMATOCRIT Routine 08/15/2025 7:12 PM EST ANES BLOCK - LOWER EXTREMITY Routine 08/15/2025 5:11 PM EST XR FEMUR 1 VIEW-RIGHT Routine 08/15/2025 5:07 PM EST MYCOBACTERIA CULTURE (INCLUDES ACID FAST SMEAR) Routine 08/15/2025 4:00 PM EST FUNGAL CULTURE (NON-BLOOD) Routine 08/15/2025 4:00 PM EST TISSUE CULTURE (AEROBIC, ANAEROBIC + GRAM STAIN) Routine 08/15/2025 4:00 PM EST ANES LINE - PERIPHERAL, SINGLE LUMEN Routine 08/15/2025 3:53 PM EST ANES BLOCK - SPINAL Routine 08/15/2025 3 :49 PM EST REVISION TOTAL HIP 08/15/2025 2: 33 PM EST 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) Special Needs DIDI MEREDITH PROTIME-INR Routine 08/15/2025 4:52 AM EST BASIC METABOLIC PANEL Routine 08/15/2025 4:52 AM EST COMPLETE BLOOD COUNT, WITHOUT DIFFERENTIAL Routine 08/15/2025 4:52 AM EST TYPE AND SCREEN Routine 08/15/2025 4:44 AM EST PREPARE RBC'S Routine 08/14/2025 12:46 PM EST POCT GLUCOSE, FINGERSTICK (CHARGE) Routine 08/14/2025 9:29 AM EST PROTIME-INR STAT 08/14/2025 7:12 AM EST PHOSPHORUS STAT 08/14/2025 7:12 AM EST MAGNESIUM STAT 08/14/2025 7:12 AM EST PTH, INTACT STAT 08/14/2025 7:12 AM EST TRANSFERRIN STAT 08/14/2025 7:12 AM EST PREALBUMIN STAT 08/14/2025 7:12 AM EST ALBUMIN STAT 08/14/2025 7:12 AM EST VITAMIN D, 25-HYDROXY STAT 08/14/2025 7:12 AM EST C-REACTIVE PROTEIN STAT 08/14/2025 7: 12 AM EST ERYTHROCYTE SEDIMENTATION RATE (ESR) STAT 08/14/2025 7:12 AM EST BASIC METABOLIC PANEL STAT 08/14/2025 7:12 AM EST COMPLETE BLOOD COUNT, WITHOUT DIFFERENTIAL STAT 08/14/2025 7:12 AM EST NASAL MRSA SCREEN, PCR STAT 08/14/2025 5:10 AM EST HEMOGLOBIN AND HEMATOCRIT STAT 08/13/2025 11:12 PM EST NASAL MRSA SCREEN, PCR STAT 08/13/2025 11:[address] FEMUR W/O CONTRAST-RIGHT STAT 08/13/2025 10:05 PM EST XR CHEST 1 VIEW-PORTABLE Routine 08/13/2025 8:01 PM EST ECG 12-LEAD STAT 08/13/2025 7:01 PM EST TYPE AND SCREEN STAT 08/13/2025 5:43 PM EST VITAMIN B12 STAT 08/13/2025 5:43 PM EST TSH, HIGHLY SENSITIVE STAT 08/13/2025 5:43 PM EST IRON AND TOTAL IRON BINDING CAPACITY STAT 08/13/2025 5:43 PM EST FERRITIN STAT 08/13/2025 5:43 PM EST PROTIME-INR STAT 08/13/2025 5:43 PM EST BASIC METABOLIC PANEL STAT 08/13/2025 5:43 PM EST COMPLETE BLOOD COUNT, WITH DIFFERENTIAL STAT 08/13/2025 5:[address] SPINE ARCHIVE FOR REFERENCE ONLY Routine 08/13/2025 5:[address] HEAD ARCHIVE FOR REFERENCE ONLY Routine 08/13/2025 5:36 PM EST CR EXTREMITY RIGHT ARCHIVE FOR REFERENCE ONLY Routine 08/13/2025 5:36 PM EST from Last 3 Months Results * (ABNORMAL) COMPLETE BLOOD COUNT, WITHOUT DIFFERENTIAL (08/19/2025 5:22 AM EST) Only the most recent of6 resultswithin the time period is included. Pathologist [facility] White Blood Cell Count 7.5 4.0 - 11.0 Thou/uL 08/19/2025 6:31 AM [facility] Platelet Count 210 150 - 450 Thou/uL 08/19/2025 6:31 AM [facility] Hemoglobin 8.2(L) 13.0 - 17.7 g/dL 08/19/2025 6:31 AM [facility] Hematocrit 26.3(L) 39.0 - 54.0 % 08/19/2025 6:31 AM [facility] Red Blood Cell Count 2.66(L) 4.50 - 6.20 Mil/uL 08/19/2025 6:31 AM [facility] MCV 99 80 - 100 fL 08/19/2025 6:31 AM [facility] MCH 30.8 27.0 - 31.0 pg 08/19/2025 6:31 AM [facility] MCHC 31.2 30.0 - 36.0 g/dL 08/19/2025 6:31 AM [facility] RDW 12.4 11.5 - 14.5 % 08/19/2025 6:31 AM [facility] MPV 11.9 7.5 - 12.5 fL 08/19/2025 6:31 AM [facility] Blood Blood specimen / Unknown 08/19/2025 5:22 AM EST 08/19/2025 6:18 AM EST us Jess Garza MD LAB BLOOD ORDERABLES [place] [address], [place] [address] * (ABNORMAL) Basic Metabolic Panel (08/18/2025 6:34 AM EST) Only the most recent of6 resultswithin the time period is included. [facility] [address] Glucose 103(H) 65 - 99 mg/dL 08/18/2025 7:13 AM [facility] Comment:Fasting: <100 mg/dL, Non-Fasting: <200 mg/dL (ADA 2005) Blood Urea Nitrogen (BUN) 23(H) 8 - 21 mg/dL 08/18/2025 7:13 AM [facility] Creatinine 0.89 0.50 - 1.30 mg/dL 08/18/2025 7:13 AM [facility] eGFR 87 >59 08/18/2025 7:13 AM [facility] Comment:CKD-EPI (2020) in mL /min/1.73 sq meters. Sodium 135(L) 136 - 145 mmol/L 08/18/2025 7:13 AM [facility] Potassium 4.3 3.4 - 5.3 mmol/L 08/18/2025 7:13 AM [facility] Chloride 102 98 - 107 mmol/L 08/18/2025 7:13 AM [facility] CO2 26 22 - 33 mmol/L 08/18/2025 7:13 AM [facility] Anion Gap 7 7 - 17 08/18/2025 7:13 AM [facility] Calcium 8.1(L) 8.7 - 10.5 mg/dL 08/18/2025 7:13 AM [facility] BUN/Creatinine Ratio 26(H) 10.0 - 25.0 Ratio 08/18/2025 7:13 AM [facility] Blood Blood specimen / Unknown 08/18/2025 6:34 AM EST 08/18/2025 6:48 AM EST us Jess Garza MD LAB BLOOD ORDERABLES Final Re sult [address] [address], [address] [address] * Magnesium (08/16/2025 9:42 AM EST) Only the most recent of2 resultswithin the time period is included. Magnesium 2.0 1.6 - 2.7 mg/dL 08/16/2025 10:39 AM EST [facility] Blood Blood specimen / Unknown 08/16/2025 9:42 AM EST 08/16/2025 10:05 AM EST Jess Garza MD LAB BLOOD ORDERABLES Final Re sult [address] [address], [facility] [address] [place] [address] * XR Hip w pelvis 2 or 3 views-Right (08/15/2025 8:03 PM EST) Anatomical Region Laterality Modality Hip Right Computed Radiogr aphy 08/15/2025 7:41 PM EST Impressions 08/15/2025 10:47 PM EST 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 Interpreted by: Oma Montesinos MD Sales Strategy Manager I personally reviewed the images and the [...] acute complication. Interpreted by: Oma Montesinos MD Sales Strategy Manager I personally reviewed the images and the resident's preliminary report and AGREE with the report as it is now presented ([id number]). Harpreet Phan MD IMG DIAGNOSTIC IMAGING ORDERABL ES Final Result * (ABNORMAL) HEMOGLOBIN AND HEMATOCRIT - Post op (08/15/2025 7:12 PM EST) Only the most recent of2 resultswithin the time period is included. Pathologist [facility] [place] Hematocrit 33.2(L) 39.0 - 54.0 % 08/15/2025 7:37 PM EST [facility] Hemoglobin 10.6(L) 13.0 - 17.7 g/dL 08/15/2025 7:37 PM EST [facility] Blood Blood specimen / Unknown 08/15/2025 7:12 PM EST 08/15/2025 7:27 PM EST Danny Heard MD LAB BLOOD ORDERABLES Final R esult Performing Organization Address City/State/[facility] [place] [address], [place] [address] * Block - Lower Extremity (08/15/2025 5:11 PM EST) Pamela Humphreys DO - 08/15/2025 5:11 PM EST Pamela Cope DO 08/15/2025 5:47 PM Anesthesia Procedure Note - Lower Extremity Block Patient Name: Amol Shipman : 1945 Patient location: pre-op Reason for block: post-op pain management Procedure diagnosis: Post-operative pain Procedure Start Time: 08/15/2025 1:27 PM Procedure End Time: 08/15/2025 1:29 PM Performed by: Anesthesiologist Pamela Cope DO Chart Verification ID band applied and present Patient ID verified via arm band, verbally with patient. H&P verified: Yes Pre-op test results in chart Consents confirmed: operative, informed and anesthesia Nursing assessment complete: yes Anesthesia questionnaire complete: yes Antibiotic ordered: not applicable Procedure Verification/TIMEOUT Correct procedure: yes Correct patient position: yes Correct laterality: yes Correct site: yes Site/side marked: yes Sterility reviewed: yes Special equipment or implants: yes Safety precautions discussed with procedural staff: yes Preanesthetic Checklist Monitors and equipment checked Patient pre-procedure mental status: awake The patient was sedated prior to procedure. Patient Sedated: mild. Patient Preprocedure Preparation Skin prep: 2% chlorhexidine-completely dried prior to procedure Hand hygeine performed prior to needle/catheter insertion Sterile barriers in place: Gloves, cap, mask and large sterile sheet Procedure Details Block A: SHANE - single-shot technique Short-bevel needle, 22 g, 80 mm Laterality right Block B: lateral femoral cutaneous nerve - single-shot Short-bevel needle, 22 g, 80 mm Laterality right Technique(s): ultrasound guidance Post-procedure Verification Counts correct: not applicable Specimens labeled correctly: not applicable Equipment problems to be addressed: not applicable Recovery issues: not applicable Outcomes Result: successful block Outcome: block complete Patient tolerated procedure well. Additional Comments: Nerve block requested by surgeon for post-op analgesia. Sterile technique with CHG-alcohol prep allowed to dry. SHANE block: Femoral head identified under ultrasound visualization. Ultrasound probe moved cephalad to identify anterior inferior iliac spine (AIIS) and iliopubic eminence where needle was advanced in plane under continuous visualization. Careful attention was paid to avoid vessels and nerves during advancement of the needle. Local anesthetic deposited lateral and deep to the psoas tendon with appropriate local anesthetic spread medially and along the AIIS. Low pressure, incremental injections performed after frequent negative aspiration. Patient able to communicate throughout and tolerated procedure well. Lateral femoral cutaneous nerve block: USN guided identification of lateral femoral cutaneous nerve superficial to and lateral to sartorius muscle. Needle advanced in plane under continuous visualization with careful attention paid to avoid blood vessels and nerves. Local anesthetic deposited perineural with appropriate local anesthetic spread, no nerve swelling noted, no paresthesias. Low pressure, incremental injections performed after frequent negative aspiration. Patient able to communicate throughout the procedure and tolerated procedure well. us Prateek Gutierrez MD [place] ANESTHESIA Edited Result - Final * XR Femur 1 view-Right (08/15/2025 5:07 [...] No organisms seen 08/16/2025 7:49 AM EST [facility] Culture No aerobes and anaerobes isolated after 5 days 08/21/2025 9:06 AM EST [facility] Bone with Tissue Excisional biopsy of joint structure of hip / Unknown 08/15/2025 4:00 PM EST Harpreet Phan MD MICROBIOLOGY - GENERAL ORDERABL ES Final Result [facility] [address] [place] [address], * ANES LINE - PERIPHERAL, SINGLE LUMEN (08/15/2025 3:53 PM EST) Narrative Prateek Gutierrez MD - 08/15/2025 3:53 PM EST Prateek Gutierrez MD 08/15/2025 3:53 PM Anesthesia Procedure Note - Peripheral IV Placement Patient Name: Amol Shipman : 1945 Patient location: OR Indication(s): surgery Performed by: Anesthesiologist Prateek Gutierrez MD Procedure Preparation Skin prep: skin prepped with alcohol Patient pre-procedure mental status: anesthetized Single lumen nods-pip-novbud catheter system, 18 g, 1 in length, in right hand Insertion attempts: 1 Prateek Gutierrez MD [place] ANESTHESIA Final Result * Block - Spinal (08/15/2025 3:49 PM EST) Narrative Prateek Gutierrez MD - 08/15/2025 3:49 PM EST Prateek Gutierrez MD 08/15/2025 3:52 PM Anesthesia Procedure Note - Spinal Block Patient Name: Amol Shipman : 1945 Patient location: OR Reason for block: primary anesthetic Procedure diagnosis: Anesthesia Spinal Procedure Start Time: 08/15/2025 2:56 PM Spinal Procedure End Time: 08/15/2025 3:14 PM Performed by: Anesthesiologist Prateek Gutierrez MD Chart Verification ID band applied and present Patient ID verified via arm band, verbally with patient. H&P verified: Yes Pre-op test results in chart Consents confirmed: operative and anesthesia Anesthesia questionnaire complete: yes Antibiotic ordered: yes Procedure Verification/TIMEOUT Correct procedure: yes Correct patient position: yes Correct laterality: not applicable Correct site: yes Site/side marked: yes Sterility reviewed: yes Special equipment or implants: not applicable Safety precautions discussed with procedural staff: yes Preanesthetic Checklist monitors and equipment checked. Patient's pre-procedure mental status: awake The patient was sedated prior to procedure. Current level of sedation: no sedation Procedure Preparation Skin prep: 2% chlorhexidine - completely dried prior to procedure Hand hygeine performed prior to needle/catheter insertion Sterile barriers in place: cap, gloves, large sterile sheet and mask Spinal Block Patient position: left lateral decubitus Monitoring: continuous pulse ox and frequent blood pressure checks Approach: midline Level: L3-4 Injection technique: single-shot Needle: Quincke, 22 g, 3.5 in Number of attempts: 3 Post-procedure Verification Counts correct: not applicable Specimens labeled correctly: not applicable Equipment problems to be addressed: not applicable Recovery issues: not applicable Additional Comments: First attempt 25G, difficult finding good track. Second attempt 25g, good feel and CSF came back, unable to aspirate. Decision to switch to quincke on same approach. Again, CSF but unable to adequately aspirate. Good effect from spina, with relief of leg pain. Patient placed on OR table and sedated. Prateek Gutierrez MD [place] ANESTHESIA Edited Result - Final * Protime-INR (Routine) (08/15/2025 4:52 AM EST) Only the most recent of3 resultswithin the time period is included. Anticoagulant NO ANTI COAGULANT MEDS 08/14/2025 8:00 PM [facility] Prothrombin Time (PT) 13.2 10.0 - 13.5 seconds 08/15/2025 5:27 AM [facility] INR 1.1 08/15/2025 5:27 AM [facility] Comment:INR Therapeutic Rang es: Standard dose anticoagulant 2.0 to 3.0, High dose anticoagulant 2.5-3.5. Blood Blood specimen / Unknown 08/15/2025 4:52 AM EST 08/15/2025 5:08 AM EST Mckenzie Mcgrath PA-C LAB BLOOD ORDERABLES Final R esult Performing Organization Address City/[facility]/[place] [address], [place] [address] * Type and Screen (08/15/2025 4:44 AM EST) Only the most recent of2 resultswithin the time period is included. ABO/Rh A POSITIVE 08/15/2025 6:11 AM [facility] Antibody Screen NEGATIVE 6:11 AM [facility] Specimen Expiration 08/18/2025 08/15/2025 6:11 AM [facility] Blood Blood specimen / Unknown 08/15/2025 4:44 AM EST 08/15/2025 5:15 AM EST Richard Stewart MD BLOOD BANK TEST ORDERABLES Fin al Result Performing Organization Address City/[facility]/[place] [address], [place] [address] * Prepare RBC's:Prepare in: Units; Number of Units: 2; Transfusion Indications: Hemoglobin greater than 7 gm/dl or HCT greater than 21% but Acute blood loss greater than 500 ml and symptoms not corrected by volume (08/14/2025 12:46 PM EST) Pathologist [facility] Units Ordered 2 08/14/2025 12:46 PM EST [facility] 08/14/2025 12:4 6 PM EST 08/14/2025 1:11 PM EST Meaghan Kate PA-C BLOOD BANK PRODUCT ORDERABLES Fi nal Result Performing Organization Address [facility] [place] [address], [place] [address] * (ABNORMAL) POCT Glucose, Fingerstick (08/14/2025 9:29 AM EST) Pathologist [facility] POC Glucose 101(H) 65 - 99 mg/dL 08/14/2025 9:30 AM EST Blood specimen / Unknown 08/14/2025 9:29 AM EST 08/14/2025 9:30 AM EST Ivonne Terry DO POINT OF CARE TEST ORDERABLES Final Result [facility]OSPITAL [facility] See Below * (ABNORMAL) VITAMIN D, 25-HYDROXY (08/14/2025 7:12 AM EST) Pathologist [facility] Vitamin D, 25-Hydroxy 19(L) 30 - 100 ng/mL 08/14/2025 8:37 AM EST [facility] Blood Blood specimen / Unknown 08/14/2025 7:12 AM EST 08/14/2025 7:43 AM EST Mckenzie Mcgrath PA-C LAB BLOOD ORDERABLES Final R esult Performing Organization Address City/[facility]/[place] [address], [address] [address] * Erythrocyte Sedimentation Rate (ESR) (08/14/2025 7:12 AM EST) Erythrocyte Sediment Rate (ESR) 7 <20 MM/HR 08/14/2025 8:08 AM [facility] Blood Blood specimen / Unknown 08/14/2025 7:12 AM EST 08/14/2025 7:44 AM EST us Rincon Salvador Mcgrath PA-C LAB BLOOD ORDERABLES Final R esult Performing Organization Address City/[facility]/ZIP Co de Phone Number [address] [address], [address] [address] * (ABNORMAL) C-Reactive Protein (08/14/2025 7:12 AM EST) C-Reactive Protein 3.00(H) 0 - 0.49 mg/dL 08/14/2025 8:23 AM [facility] Blood Blood specimen / Unknown 08/14/2025 7:12 AM EST 08/14/2025 7:44 AM EST us Mckenzie Franco Mcgrath PA-C LAB BLOOD ORDERABLES Final R esult Performing Organization Address City/[facility]/ZIP Co de Phone Number [address] [address], [address] [address] * (ABNORMAL) TRANSFERRIN (08/14/2025 7:12 AM EST) Transferrin 173(L) 200 - 360 mg/dL 08/14/2025 8:23 AM [facility] Blood Blood specimen / Unknown 08/14/2025 7:12 AM EST 08/14/2025 7:44 AM EST us Mckenzie Franco Mcgrath PA-C LAB BLOOD ORDERABLES Final R esult [address] [address], [place] [address] * (ABNORMAL) Prealbumin (08/14/2025 7:12 AM EST) Prealbumin 13(L) 20 - 40 mg/dL 08/14/2025 8:23 AM [facility] Blood Blood specimen / Unknown 08/14/2025 7:12 AM EST 08/14/2025 7:44 AM EST [employer] Mckenzie Franco Mcgrath PA-C LAB BLOOD ORDERABLES Final R esult Performing Organization Address City/[facility]/[place] [address], [place] [address] * Phosphorus (Routine) (08/14/2025 7:12 AM EST) Phosphorus 3.1 2.7 - 4.5 mg/dL 08/14/2025 8:23 AM [facility] Blood Blood specimen / Unknown 08/14/2025 7:12 AM EST 08/14/2025 7:44 AM EST [employer] Mckenzie Franco Mcgrath PA-C LAB BLOOD ORDERABLES Final R esult Performing Organization Address City/[facility]/[place] [address], [place] [address] * PTH, Intact (08/14/2025 7:12 AM EST) PTH, Intact 45 15 - 65 pg/mL 08/14/2025 8:25 AM [facility] Comment:Please note the lowe r report range has changed from <2 pg/mL to <6 pg/mL. Blood Blood specimen / Unknown 08/14/2025 7:12 AM EST 08/14/2025 7:43 AM EST [employer] Mckenzie L Mcgrath PA-C LAB BLOOD ORDERABLES Final R esult Performing Organization Address City/State/[facility] Co de Phone Number [address] [address], [address] [address] * Albumin (08/14/2025 7:12 AM EST) Pathologist [facility] Albumin 3.5 3.4 - 4.8 g/dL 08/14/2025 8:23 AM EST [facility] Blood Blood specimen / Unknown 08/14/2025 7:12 AM EST 08/14/2025 7:44 AM EST Mckenzie Mcgrath PA-C LAB BLOOD ORDERABLES Final R esult Performing Organization Address [facility] Co de Phone Number [address] [address], [address] [address] * Nasal MRSA Screen, PCR (08/14/2025 5:10 AM EST) Only the most recent of2 resultswithin the time period is included. Pathologist [facility] MRSA Result Not Detected Not Detected 7:55 AM EST [facility] Comment:Performed by the Xpe rt MRSA NxG Assay Swab, Anterior Nares Specimen from nose / Unknown 08/14/2025 5:10 AM EST 08/14/2025 5:34 AM EST Richard Stewart MD MICROBIOLOGY - GENERAL ORDERAB LES Final Result Performing Organization Address [facility] [place] [address], [address] [address] * CT Femur w/o contrast-Right (08/13/2025 10:05 [...] direct communication. Interpreted by: Torrey Pimentel MD Sales Strategy Manager I personally reviewed the images and the [...] direct communication. Interpreted by: Torrey Pimentel MD Sales Strategy Manager I personally reviewed the images and the resident's preliminary report and AGREE with the report as it is now presented ([email or web address]). us Mckenzie Salvador Mcgrath PA-C IMG CT ORDERABLES Final Resu lt * XR [...] IMPRESSION: No acute cardiopulmonary findings. us Mckenzie L Mcgrath PA-C IMG DIAGNOSTIC IMAGING ORDER KATIE Final Result * ECG 12 lead (STAT) (08/13/2025 7:01 PM EST) Ventricular rate 104 BPM EKG [facility] QRS duration 88 ms EKG [facility] Q-T interval 364 ms EKG [facility] QTC calculation (Bazett) 479 ms EKG [facility] R axis 2 degrees EKG [facility] T axis -29 degrees EKG [facility] 08/13/2025 7:01 PM EST Narrative EKG [facility] - 08/13/2025 7:26 PM EST Atrial [...] Whipple Ahmed (242) on 08/13/2025 7:26:13 PM us Mariann Pérez MD ECG ORDERABLES Final Result [facility] * (ABNORMAL) Iron and Total Iron Binding Capacity (08/13/2025 5:43 PM EST) Iron 29(L) 53 - 167 ug/dL 08/13/2025 8:18 PM EST [facility] UIBC 179 112 - 346 ug/dL 08/13/2025 8:18 PM [facility] Total Iron Binding Capacity 208 100 - 400 ug/dL 08/13/2025 8:18 PM [facility] Iron Sat 14(L) 20 - 50 % 08/13/2025 8:18 PM EST [facility] 08/13/2025 5:43 PM EST 08/13/2025 7:01 PM EST us Jose GUY LAB BLOOD ORDERABLES Final Re sult [address] [address], [facility] [address] [place] [address] * (ABNORMAL) Complete Blood Count, with Differential (08/13/2025 5:43 PM EST) White Blood Cell Count 9.0 4.0 - 11.0 Thou/uL 08/13/2025 7:12 PM [facility] Platelet Count 184 150 - 450 Thou/uL 08/13/2025 7:12 PM [facility] Hemoglobin 11.5(L) 13.0 - 17.7 g/dL 08/13/2025 7:12 PM [facility] Hematocrit 36.0(L) 39.0 - 54.0 % 08/13/2025 7:12 PM [facility] Red Blood Cell Count 3.68(L) 4.50 - 6.20 Mil/uL 08/13/2025 7:12 PM [facility] MCV 98 80 - 100 fL 08/13/2025 7:12 PM [facility] MCH 31.3(H) 27.0 - 31.0 pg 08/13/2025 7:12 PM [facility] MCHC 31.9 30.0 - 36.0 g/dL 08/13/2025 7:12 PM [facility] RDW 12.0 11.5 - 14.5 % 08/13/2025 7:12 PM [facility] MPV 11.5 7.5 - 12.5 fL 08/13/2025 7:12 PM [facility] Neutrophils Auto 79.6 % 08/13/20 7:12 PM [facility] Immature Granulocytes 0.2 % 08/13/2025 7:12 PM [facility] Lymphocytes Auto 12.0 % 08/13/20 7:12 PM [facility] Monocytes Auto 8.0 % 08/13/2025 7:12 PM [facility] Eosinophils Auto 0.1 % 08/13/20 7:12 PM [facility] Basophils Auto 0.1 % 08/13/2025 7:12 PM [facility] Abs Neutrophils Auto 7.13 2.00 - 7.50 Thou/uL 08/13/2025 7:12 PM [facility] Abs Immature Granulocytes 0.02 0.00 - 0.10 Thou/uL 08/13/2025 7:12 PM [facility] Abs Lymphocytes Auto 1.08(L) 1.50 - 4.50 Thou/uL 08/13/2025 7:12 PM [facility] Abs Monocytes Auto 0.72 0.20 - 1.50 Thou/uL 08/13/2025 7:12 PM [facility] Abs Eosinophils Auto 0.01 0.00 - 0.70 Thou/uL 08/13/2025 7:12 PM [facility] Abs Basophils Auto 0.01 0.00 - 0.20 Thou/uL 08/13/2025 7:12 PM [facility] Blood Blood specimen / Unknown 08/13/2025 5:43 PM EST 08/13/2025 7:01 PM EST Jose Thompson AR LAB BLOOD ORDERABLES Final Re sult Performing Organization Address City/[facility]/[place] [address], [place] [address] * TSH, HIGHLY SENSITIVE (08/13/2025 5:43 PM EST) TSH, Highly Sensitive 2.40 0.27 - 4.20 mIU/L 08/13/2025 8:18 PM [facility] 08/13/2025 5:43 PM EST 08/13/2025 7:01 PM EST Jose Thompson PA LAB BLOOD ORDERABLES [place] [address], [place] [address] * FERRITIN (08/13/2025 5:43 PM EST) Ferritin 253 30 - 400 ug/L 08/13/2025 8:18 PM [facility] 08/13/2025 5:43 PM EST 08/13/2025 7:01 PM EST Jose GUY LAB BLOOD ORDERABLES Final Re sult Performing Organization Address [facility] [place] [address], [place] [address] * VITAMIN B12 (08/13/2025 5:43 PM EST) Vitamin B12 752 243 - 894 pg/mL 08/13/2025 8:26 PM EST [facility] 08/13/2025 5:43 PM EST 08/13/2025 7:01 PM EST Joseernestine GUY LAB BLOOD ORDERABLES Final Re sult Performing Organization Address [facility] [place] [address], [place] [address] * CT Spine Archive for Reference Only (08/13/2025 5:38 PM EST) [facility] - 08/13/2025 5:38 PM EST This study has been auto finalized and does not contain a result. File Room Provider IMG DIGITIZE FILMS Final Resu lt Performing Organization Address [facility] Phone Number QING [phone] * CT Head Archive for Reference Only (08/13/2025 5:36 PM EST) [facility] 08/13/2025 5:36 PM EST This study has been auto finalized and does not contain a result. us File Room Provider IMG DIGITIZE FILMS Final Resu lt Performing Organization Address [facility] Co de Phone Number QING [phone] * CR Extremity Right Archive for Reference only (08/13/2025 5:36 PM EST) [facility] 08/13/2025 5:36 PM EST This study has been auto finalized and does not contain a result. us File Room Provider IMG DIGITIZE FILMS Final Resu lt QING [phone] from Last 3 Months Insurance MEDICARE PART [facility] [employer] [facility] [employer] Advance Directives * Full Code (Latest Code Status on File) Date Activated Date Inactivated Comments 08/15/2025 8:26 PM * Full Code Date Activated Date Inactivated Comments 08/13/2025 6:50 PM 08/15/2025 8:26 PM Care Teams Cloth Calender Relationship Specialty Start Date End Date Dat Vargas MD [address] [place] [address] PCP - General Family Medicine 08/15/25
--- OUTSIDE RECORDS SUMMARY | 2025-08-22 07:25 | XMS_ITS | Encounter Summary ---
Author Organization [facility] Address [address] [place] [address] Phone Care Team Providers Care Commissioning Specialist Name Role Phone Dat Vargas MD Unavailable [phone] Dat Vargas MD Unavailable Delmar Berrios MD Unavailable [phone] Dat Vargas MD Primary Care Provider Encounter Details Date Type Department Care Team (Late st Contact Info) Description 07/16/2025 Lab Requisition [facility] Main [address] [place] [address] Patty Mazariegos, SELENA [address] [place] [address] [email or web address] Unspecified atrial fibrillation Social History Tobacco Use Types Packs/Day Years [...] on file documented as of this encounter Procedures Procedure Name Priority Date/Time Associated Diagnosis Comments COMPREHENSIVE METABOLIC PANEL (CMP) Today 07/16/2025 4:00 AM EST Unspecified atrial fibrillation CBC Today 07/16/2025 4:00 AM EST Unspecified atrial fibrillation documented in this encounter Results * (ABNORMAL) CBC (07/16/2025 4:00 AM EST) WBC 7.06 4.00 - 11.00 K/uL 07/16/2025 8:27 AM [facility] RBC 3.12(L) 4.50 - 5.90 M/uL 07/16/2025 8:27 AM [facility] Hemoglobin 10.2(L) 13.5 - 17.5 g/dL 07/16/2025 8:27 AM [facility] Comment:Called to Estela Mathew at 0824. Hematocrit 31.4(L) 41.0 - 53.0 % 07/16/2025 8:27 AM [facility] MCV 100.6(H) 80.0 - 100.0 fL 07/16/2025 8:27 AM [facility] MCH 32.7(H) 27.0 - 31.0 pg 07/16/2025 8:27 AM [facility] MCHC 32.5 32.0 - 36.0 g/dL 07/16/2025 8:27 AM [facility] PLT 286 150 - 450 K/uL 07/16/2025 8:27 AM [facility] MPV 9.5 8.4 - 12.0 fL 07/16/2025 8:27 AM [facility] RDW-CV 15.9(H) 11.5 - 14.5 % 07/16/2025 8:27 AM [facility] Absolute NRBC 0.00 <=0.00 K cells/uL 07/16/2025 8:27 AM [facility] NRBC 0.0 <=0.0 /100 WBCs 07/16/2025 8:27 AM [facility] Blood (Blood) 07/16/2025 4:0 0 AM EST 07/16/2025 6:16 AM EST us Patty Mazariegos CHIEF YEOMAN LAB BLOOD BKR ORDERABLES F inal Result [facility] [address] [place] [address] * Comprehensive Metabolic Panel (CMP) (07/16/2025 4:00 AM EST) Sodium 143 136 - 145 mmol/L 07/16/2025 7:05 AM [facility] Potassium 5.0 3.4 - 5.1 mmol/L 07/16/2025 7:05 AM [facility] Chloride 103 98 - 107 mmol/L 07/16/2025 7:05 AM [facility] CO2 29 20 - 31 mmol/L 07/16/2025 7:05 AM [facility] Anion Gap 11 3 - 17 mmol/L 07/16/2025 7:05 AM [facility] BUN 16 6 - 23 mg/dL 07/16/2025 7:05 AM [facility] Creatinine 0.80 0.60 - 1.30 mg/dL 07/16/2025 7:05 AM [facility] eGFR 89 >59 mL/min/1.7 3m2 07/16/2025 7:05 AM [facility] Comment:Estimated glomerular filtration rate calculated using the CKD-EPI refit equation. Glucose 75 70 - 99 mg/dL 07/16/2025 7:05 AM [facility] Calcium 9.1 8.5 - 10.5 mg/dL 07/16/2025 7:05 AM [facility] AST 16 <40 U/L 07/16/2025 7:05 AM [facility] ALT 5 <50 U/L 07/16/2025 7:05 AM [facility] Alkaline Phosphatase 64 40 - 130 U/L 07/16/2025 7:05 AM [facility] Bilirubin, Total 0.3 0.0 - 1.2 mg/dL 07/16/2025 7:05 AM [facility] Total Protein 7.2 6.4 - 8.3 g/dL 07/16/2025 7:05 AM [facility] Albumin 4.2 3.5 - 5.2 g/dL 07/16/2025 7:05 AM [facility] Globulin 3.0 1.9 - 4.1 g/dL 07/16/2025 7:05 AM EST [facility] Blood (Blood) 07/16/2025 4:0 0 AM EST 07/16/2025 6:16 AM EST us Patty Ricks Delilah CHIEF [employer]OM[employer] LAB BLOOD BKR ORDERABLES F inal Result [address] [address] documented in this encounter Visit Diagnoses Diagnosis Unspecified atrial fibrillation documented in this encounter Additional Health Concerns Assessment Noted Time PHQ-2 Depression Total Score: 0 07/22/20 11:39 AM EST documented as of this encounter Care Teams Commissioning Specialist Relationship Specialty Start Date End Date Dat Vargas MD [address] [place] [address] PCP - General Internal Medicine 08/25/17 Dat Vargas MD [address] [place] [address] Insurance Assigned Provider 12/09/23 Dat Vargas MD [address] [place] [address] Historical LMR Provider 06/20/17 Delmar Berrios MD [address] [place] [address] Historical LMR Provider 06/20/17 documented as of this encounter Additional Source Comments The information contained in this document represents components of the legal health record. It is not the complete legal health record.[facility]
--- OUTSIDE RECORDS SUMMARY | 2025-08-22 07:25 | XMS_ITS | Encounter Summary ---
Author Organization Located Within [facility] Address [address] [place] [address] Phone Care Team Providers Care Operational Assistant Name Role Phone Dat Vargas MD Unavailable [phone] Dat Vargas MD Unavailable [phone] Delmar Berrios MD Unavailable [phone] Dat Vargas MD Primary Care Provider Encounter Details Date Type Department Care Team (Late st Contact Info) Description 08/13/2025 Procedure Pass [facility], Ct Scan - [address] [id number] Social History Tobacco Use Types Packs/Day Years [...] documented as of this encounter Care Teams Operational Assistant Relationship Specialty Start Date End Date Dat Vargas MD [address] [place] [address], [address] [place] [address] [email or web address] PCP - General Internal Medicine 08/25/17 Dat Vargas MD [address] [place] [address] Insurance Assigned Provider 12/09/23 Dat Vargas MD [address] [place] [address] Historical LMR Provider 06/20/17 Delmar Berrios MD [address] [place] [address] Historical LMR Provider 06/20/17 documented as of this encounter Additional Source Comments The information contained in this document represents components of the legal health record. It is not the complete legal health record.[facility]
--- OUTSIDE RECORDS SUMMARY | 2025-08-22 07:25 | XMS_ITS | Encounter Summary ---
Author Organization [facility] Address [address] [place] [address] Phone Care Team Providers Care Insecticide Maker Name Role Phone Dat Vargas MD Unavailable [phone] Dat Vargas MD Unavailable [phone] Delmar Berrios MD Unavailable [phone] Dat Vargas MD Primary Care Provider Sherry Bai OT Unavailable [phone] Encounter Details Date Type Department Care Team (Late st Contact Info) Description 07/12/2025 Procedure Pass [facility], Ct Scan - [address] [address] Social History Tobacco Use Types Packs/Day Years [...] documented as of this encounter Care Teams Insecticide Maker Relationship Specialty Start Date End Date Dat Vargas MD [address] [place] [address] PCP - General Internal Medicine 08/25/17 Dat Vargas MD [address] [place] [address] 00[address] Insurance Assigned Provider 12/09/23 Dat Vargas MD [address] [place] [address] 15835 Historical LMR Provider 06/20/17 Delmar Berrios MD [address] [place] [address] Historical LMR Provider 06/20/17 Sherry Bai, OT [address] [place] [address] Transitions Fish Hatchery InspectorHead Buyer Tobacco Therapy 07/14/25 07/15/25 documented as of this encounter Additional Source Comments The information contained in this document represents components of the legal health record. It is not the complete legal health record.[facility]
--- OUTSIDE RECORDS SUMMARY | 2025-08-22 07:25 | XMS_ITS | Encounter Summary ---
Author Organization [facility] Address [address] [place] [address] Phone Care Team Providers Care Radio Station Audio Engineer Name Role Phone Dat Vargas MD Unavailable [phone] Dat Vargas MD Unavailable [phone] Delmar Berrios MD Unavailable [phone] Dat Vargas MD Primary Care Provider Sherry Bai OT Unavailable [phone] Encounter Details Date Type Department Care Team (Late st Contact Info) Description 07/12/2025 Procedure Pass [facility], Ct Scan - [address] [address] Social History Tobacco Use Types Packs/Day Years [...] documented as of this encounter Care Teams Radio Station Audio Engineer Relationship Specialty Start Date End Date Dat Vargas MD [address] [place] [address] PCP - General Internal Medicine 08/25/17 Dat Vargas MD [address] [place] [address] 47682 Insurance Assigned Provider 12/09/23 Dat Vargas MD [address] [place] [address] 1985[address] Historical LMR Provider 06/20/17 Delmar Berrios MD [address] [place] [address] Historical LMR Provider 06/20/17 Sherry Bai, OT [address] [place] [address] Transitions Security RepLicensed Prosthetist Therapy 07/14/25 07/15/25 documented as of this encounter Additional Source Comments The information contained in this document represents components of the legal health record. It is not the complete legal health record.[facility]
--- OUTSIDE RECORDS SUMMARY | 2025-08-22 07:25 | XMS_ITS ---
Author Name [facility] Organization Unknown Results Test Name/Text Value Interpretation Date Range Source MCV RBC Auto 99.0 fL 08/19/2025 80 - 100 HHCCT PMV Bld Auto 11.9 fL 08/19/2025 7.5 - 12.5 H[facility]CT RBC num Bld Auto 2.66 Mil/uL Below low normal 08/19/2025 4.5 - 6.2 HHCCT Hgb Bld-mCnc 8.2 g/dL Below low normal 08/19/2025 13 - 17.7 HHCCT RDW RBC Auto-Rto 12.4 % 08/19/2025 11.5 - 14.5 HHCCT WBC num Bld Auto 7.5 Thou/uL 08/19/2025 4 - 11 HHCCT Hct VFr Bld Auto 26.3 % Below low normal 08/19/2025 39 - 54 HHCCT MCH RBC Qn Auto 30.8 pg 08/19/2025 27 - [address] MCHC RBC Auto-mCnc 31.2 g/dL 08/19/2025 30 - 36 HHCCT Platelet num Bld Auto 210.0 Thou/uL 08/19/2025 150 - 450 HHCCT BUN/Creat SerPl 26.0 Ratio Above high normal 08/18/2025 10 - 25 HHCCT Calcium SerPl-mCnc 8.1 mg/dL Below low normal 08/18/2025 8.7 - 10.5 HHCCT Chloride SerPl-sCnc 102.0 mmol/L 08/18/2025 98 - 1 07 HHCCT Potassium SerPl-sCnc 4.3 mmol/L 08/18/2025 3.4 - 5 .3 HHCCT Sodium SerPl-sCnc 135.0 mmol/L Below low normal 08/18/2025 1 36 - 145 HHCCT Glucose SerPl-mCnc 103.0 mg/dL Above high normal 08/18/2025 65 - 99 HHCCT Anion Gap Bld-sCnc 7.0 08/18/2025 7 - 17 HHCCT Creat SerPl-mCnc 0.89 mg/dL 08/18/2025 0.5 - 1.3 H HCCT BUN SerPl-mCnc 23.0 mg/dL Above high normal 08/18/2025 8 - 2 1 HHCCT CO2 SerPl-sCnc 26.0 mmol/L 08/18/2025 22 - 33 HH CCT GFR/BSA.pred SerPlBld HEF-PRO-VoLZrp 87.0 08/18/2025 59 - HHCCT MCH RBC Qn Auto 31.5 pg Above high normal 08/18/2025 27 - 31 HHCCT RBC num Bld Auto 2.6 Mil/uL Below low normal 08/18/2025 4.5 - 6.2 HHCCT WBC num Bld Auto 7.8 Thou/uL 08/18/2025 4 - 11 HHCCT MCHC RBC Auto-mCnc 32.3 g/dL 08/18/2025 30 - 36 HHCCT Hct VFr Bld Auto 25.4 % Below low normal 08/18/2025 39 - 54 HHCCT Platelet num Bld Auto 178.0 Thou/uL 08/18/2025 150 - 450 HHCCT RDW RBC Auto-Rto 12.3 % 08/18/2025 11.5 - 14.5 HHCCT Hgb Bld-mCnc 8.2 g/dL Below low normal 08/18/2025 13 - 17.7 HHCCT PMV Bld Auto 11.2 fL 08/18/2025 7.5 - 12.5 HHCCT MCV RBC Auto 98.0 fL 08/18/2025 80 - 100 HHCCT Calcium SerPl-mCnc 8.1 mg/dL Below low normal 08/17/2025 8.7 - 10.5 HHCCT BUN SerPl-mCnc 24.0 mg/dL Above high normal 08/17/2025 8 - 2 1 HHCCT Anion Gap Bld-sCnc 10.0 08/17/2025 7 - 17 HHCCT Sodium SerPl-sCnc 137.0 mmol/L 08/17/2025 136 - 14 5 HHCCT Glucose SerPl-mCnc 114.0 mg/dL Above high normal 08/17/2025 65 - 99 HHCCT Potassium SerPl-sCnc 3.8 mmol/L 08/17/2025 3.4 - 5 .3 HHCCT CO2 SerPl-sCnc 27.0 mmol/L 08/17/2025 22 - 33 HH CCT Creat SerPl-mCnc 0.86 mg/dL 08/17/2025 0.5 - 1.3 H HCCT GFR/BSA.pred SerPlBld YAK-DHG-AlGBna 88.0 08/17/2025 59 - HHCCT Chloride SerPl-sCnc 100.0 mmol/L 08/17/2025 98 - 1 07 HHCCT BUN/Creat SerPl 28.0 Ratio Above high normal 08/17/2025 10 - 25 HHCCT MCH RBC Qn Auto 31.4 pg Above high normal 08/17/2025 27 - 31 HHCCT MCV RBC Auto 97.0 fL 08/17/2025 80 - 100 HHCCT Hct VFr Bld Auto 27.1 % Below low normal 08/17/2025 39 - 54 HHCCT MCHC RBC Auto-mCnc 32.5 g/dL 08/17/2025 30 - 36 HHCCT Hgb Bld-mCnc 8.8 g/dL Below low normal 08/17/2025 13 - 17.7 HHCCT RDW RBC Auto-Rto 12.4 % 08/17/2025 11.5 - 14.5 HHCCT PMV Bld Auto 12.1 fL 08/17/2025 7.5 - 12.5 HHCCT RBC num Bld Auto 2.8 Mil/uL Below low normal 08/17/2025 4.5 - 6.2 HHCCT Platelet num Bld Auto 173.0 Thou/uL 08/17/2025 150 - 450 HHCCT WBC num Bld Auto 9.1 Thou/uL 08/17/2025 4 - 11 HHCCT Creat SerPl-mCnc 0.85 mg/dL 08/16/2025 0.5 - 1.3 H HCCT Sodium SerPl-sCnc 135.0 mmol/L Below low normal 08/16/2025 1 36 - 145 HHCCT Anion Gap Bld-sCnc 10.0 08/16/2025 7 - 17 HHCCT CO2 SerPl-sCnc 24.0 mmol/L 08/16/2025 22 - 33 HH CCT GFR/BSA.pred SerPlBld WJL-ERN-AtPBah 88.0 08/16/2025 59 - HHCCT BUN/Creat SerPl 27.0 Ratio Above high normal 08/16/2025 10 - 25 HHCCT Glucose SerPl-mCnc 168.0 mg/dL Above high normal 08/16/2025 65 - 99 HHCCT BUN SerPl-mCnc 23.0 mg/dL Above high normal 08/16/2025 8 - 2 1 HHCCT Potassium SerPl-sCnc 4.2 mmol/L 08/16/2025 3.4 - 5 .3 HHCCT Calcium SerPl-mCnc 8.2 mg/dL Below low normal 08/16/2025 8.7 - 10.5 HHCCT Chloride SerPl-sCnc 101.0 mmol/L 08/16/2025 98 - 1 07 HHCCT Magnesium SerPl-mCnc 2.0 mg/dL 08/16/2025 1.6 - 2. 7 HHCCT Hct VFr Bld Auto 27.2 % Below low normal 08/16/2025 39 - 54 HHCCT MCV RBC Auto 96.0 fL 08/16/2025 80 - 100 HHCCT RBC num Bld Auto 2.83 Mil/uL Below low normal 08/16/2025 4.5 - 6.2 HHCCT RDW RBC Auto-Rto 12.0 % 08/16/2025 11.5 - 14.5 HHCCT Hgb Bld-mCnc 8.7 g/dL Below low normal 08/16/2025 13 - 17.7 HHCCT Platelet num Bld Auto 167.0 Thou/uL 08/16/2025 150 - 450 HHCCT PMV Bld Auto 12.3 fL 08/16/2025 7.5 - 12.5 HHCCT MCH RBC Qn Auto 30.7 pg 08/16/2025 27 - [address] WBC num Bld Auto 8.3 Thou/uL 08/16/2025 4 - 11 HHCCT MCHC RBC Auto-mCnc 32.0 g/dL 08/16/2025 30 - 36 HHCCT Hgb Bld-mCnc 10.6 g/dL Below low normal 08/16/2025 13 - 17.7 HHCCT Hct VFr Bld Auto 33.2 % Below low normal 08/16/2025 39 - 54 HHCCT Glucose SerPl-mCnc 101.0 mg/dL Above high normal 08/15/2025 65 - 99 HHCCT Potassium SerPl-sCnc 3.7 mmol/L 08/15/2025 3.4 - 5 .3 HHCCT Chloride SerPl-sCnc 103.0 mmol/L 08/15/2025 98 - 1 07 HHCCT Calcium SerPl-mCnc 8.3 mg/dL Below low normal 08/15/2025 8.7 - 10.5 HHCCT Creat SerPl-mCnc 1.02 mg/dL 08/15/2025 0.5 - 1.3 H HCCT GFR/BSA.pred SerPlBld RGW-DQD-BgNUhm 74.0 08/15/2025 59 - HHCCT BUN SerPl-mCnc 25.0 mg/dL Above high normal 08/15/2025 8 - 2 1 HHCCT Sodium SerPl-sCnc 138.0 mmol/L 08/15/2025 136 - 14 5 HHCCT BUN/Creat SerPl 25.0 Ratio 08/15/2025 10 - 25 HH CCT CO2 SerPl-sCnc 25.0 mmol/L 08/15/2025 22 - 33 HH CCT Anion Gap Bld-sCnc 10.0 08/15/2025 7 - 17 HHCCT Prothrombin time 13.2 seconds 08/15/2025 10 - 13.5 HHCCT INR PPP 1.1 08/15/2025 HHCCT Anticoagulant NO ANTI COAGULANT MEDS 08/15/2025 HHCCT Platelet num Bld Auto 162.0 Thou/uL 08/15/2025 150 - 450 HHCCT MCH RBC Qn Auto 30.8 pg 08/15/2025 27 - [address] Hct VFr Bld Auto 31.2 % Below low normal 08/15/2025 39 - 54 HHCCT Hgb Bld-mCnc 10.1 g/dL Below low normal 08/15/2025 13 - 17.7 HHCCT RBC num Bld Auto 3.28 Mil/uL Below low normal 08/15/2025 4.5 - 6.2 HHCCT MCV RBC Auto 95.0 fL 08/15/2025 80 - 100 HHCCT WBC num Bld Auto 6.9 Thou/uL 08/15/2025 4 - 11 HHCCT RDW RBC Auto-Rto 12.1 % 08/15/2025 11.5 - 14.5 HHCCT MCHC RBC Auto-mCnc 32.4 g/dL 08/15/2025 30 - 36 HHCCT PMV Bld Auto 11.2 fL 08/15/2025 7.5 - 12.5 HHCCT POC Glucose 101.0 mg/dL Above high normal 08/14/2025 65 - 99 HHCCT 25(OH)D3 SerPl-mCnc 19.0 ng/mL Below low normal 08/14/2025 3 0 - 100 HHCCT PTH-Intact SerPl-mCnc 45.0 pg/mL 08/14/2025 15 - 6 5 HHCCT Albumin SerPl-mCnc 3.5 g/dL 08/14/2025 3.4 - 4.8 HHCCT Magnesium SerPl-mCnc 2.2 mg/dL 08/14/2025 1.6 - 2. 7 HHCCT Phosphate SerPl-mCnc 3.1 mg/dL 08/14/2025 2.7 - 4. 5 HHCCT CRP SerPl-mCnc 3.0 mg/dL Above high normal 08/14/2025 0 - 0. 49 HHCCT CO2 SerPl-sCnc 25.0 mmol/L 08/14/2025 22 - 33 HH CCT Anion Gap Bld-sCnc 9.0 08/14/2025 7 - 17 HHCCT Creat SerPl-mCnc 1.05 mg/dL 08/14/2025 0.5 - 1.3 H HCCT GFR/BSA.pred SerPlBld BDC-VJL-MuDFuu 72.0 08/14/2025 59 - HHCCT BUN SerPl-mCnc 27.0 mg/dL Above high normal 08/14/2025 8 - 2 1 HHCCT Glucose SerPl-mCnc 88.0 mg/dL 08/14/2025 65 - 99 HHCCT Potassium SerPl-sCnc 4.5 mmol/L 08/14/2025 3.4 - 5 .3 HHCCT Sodium SerPl-sCnc 140.0 mmol/L 08/14/2025 136 - 14 5 HHCCT BUN/Creat SerPl 26.0 Ratio Above high normal 08/14/2025 10 - 25 HHCCT Calcium SerPl-mCnc 8.7 mg/dL 08/14/2025 8.7 - 10.5 HHCCT Chloride SerPl-sCnc 106.0 mmol/L 08/14/2025 98 - 1 07 HHCCT Prealb SerPl-mCnc 13.0 mg/dL Below low normal 08/14/2025 20 - 40 HHCCT Transferrin SerPl-mCnc 173.0 mg/dL Below low normal 08/14/2025 200 - 360 HHCCT INR PPP 1.3 08/14/2025 HHCCT Prothrombin time 14.7 seconds Above high normal 08/14/2025 1 0 - 13.5 HHCCT Anticoagulant OTHER AGENT OR UNKNOWN 08/14/2025 HHCCT ESR Bld Qn 7.0 MM/HR 08/14/2025 - 20 HHCCT PMV Bld Auto 11.8 fL 08/14/2025 7.5 - 12.5 HHCCT Hgb Bld-mCnc 10.4 g/dL Below low normal 08/14/2025 13 - 17.7 HHCCT MCH RBC Qn Auto 31.0 pg 08/14/2025 27 - [address] RBC num Bld Auto 3.36 Mil/uL Below low normal 08/14/2025 4.5 - 6.2 HHCCT Hct VFr Bld Auto 32.2 % Below low normal 08/14/2025 39 - 54 HHCCT Platelet num Bld Auto 166.0 Thou/uL 08/14/2025 150 - 450 HHCCT RDW RBC Auto-Rto 12.1 % 08/14/2025 11.5 - 14.5 HHCCT MCV RBC Auto 96.0 fL 08/14/2025 80 - 100 HHCCT WBC num Bld Auto 8.2 Thou/uL 08/14/2025 4 - 11 HHCCT MCHC RBC Auto-mCnc 32.3 g/dL 08/14/2025 30 - 36 HHCCT Result Not Detected 08/14/2025 - HHCCT Hgb Bld-mCnc 10.8 g/dL Below low normal 08/14/2025 13 - 17.7 HHCCT Hct VFr Bld Auto 33.1 % Below low normal 08/14/2025 39 - 54 HHCCT Result Not Detected 08/14/2025 - HHCCT Vit B12 SerPl-mCnc 752.0 pg/mL 08/14/2025 243 - 89 4 HHCCT TSH SerPl DL<=0.005 mIU/L-aCnc 2.4 mIU/L 08/14/2025 0.27 - 4.2 HHCCT TIBC SerPl-mCnc 208.0 ug/dL 08/14/2025 100 - 400 H HCCT UIBC SerPl-mCnc 179.0 ug/dL 08/14/2025 112 - 346 H HCCT Iron SerPl-mCnc 29.0 ug/dL Below low normal 08/14/2025 53 - 167 HHCCT Iron Satn MFr SerPl 14.0 % Below low normal 08/14/2025 20 - 50 HHCCT Ferritin SerPl-mCnc 253.0 ug/L 08/14/2025 30 - 400 HHCCT GFR/BSA.pred SerPlBld RER-UPV-JgUEev 87.0 08/14/2025 59 - HHCCT Creat SerPl-mCnc 0.87 mg/dL 08/14/2025 0.5 - 1.3 H HCCT Chloride SerPl-sCnc 105.0 mmol/L 08/14/2025 98 - 1 07 HHCCT Sodium SerPl-sCnc 139.0 mmol/L 08/14/2025 136 - 14 5 HHCCT Anion Gap Bld-sCnc 11.0 08/14/2025 7 - 17 HHCCT Glucose SerPl-mCnc 113.0 mg/dL Above high normal 08/14/2025 65 - 99 HHCCT BUN/Creat SerPl 28.0 Ratio Above high normal 08/14/2025 10 - 25 HHCCT BUN SerPl-mCnc 24.0 mg/dL Above high normal 08/14/2025 8 - 2 1 HHCCT Potassium SerPl-sCnc 4.5 mmol/L 08/14/2025 3.4 - 5 .3 HHCCT CO2 SerPl-sCnc 23.0 mmol/L 08/14/2025 22 - 33 HH CCT Calcium SerPl-mCnc 8.7 mg/dL 08/14/2025 8.7 - 10.5 HHCCT INR PPP 1.2 08/14/2025 HHCCT Prothrombin time 13.4 seconds 08/14/2025 10 - 13.5 HHCCT Anticoagulant NO ANTI COAGULANT MEDS 08/13/2025 HHCCT Monocytes num Bld Auto 0.72 Thou/uL 08/14/2025 0.2 - 1.5 HHCCT PMV Bld Auto 11.5 fL 08/14/2025 7.5 - 12.5 HHCCT WBC num Bld Auto 9.0 Thou/uL 08/14/2025 4 - 11 HHCCT Platelet num Bld Auto 184.0 Thou/uL 08/14/2025 150 - 450 HHCCT Hgb Bld-mCnc 11.5 g/dL Below low normal 08/14/2025 13 - 17.7 HHCCT RDW RBC Auto-Rto 12.0 % 08/14/2025 11.5 - 14.5 HHCCT Imm Granulocytes num Bld Auto 0.02 Thou/uL 08/14/2025 0 - 0.1 HHCCT Imm Granulocytes/leuk NFr Bld Auto 0.2 % 08/14/2025 HHCCT Neutrophils num Bld Auto 7.13 Thou/uL 08/14/2025 2 - 7.5 HHCCT Monocytes/leuk NFr Bld Auto 8.0 % 08/14/2025 HHCCT Eosinophil num Bld Auto 0.01 Thou/uL 08/14/2025 0 - 0.7 HHCCT Eosinophil/leuk NFr Bld Auto 0.1 % 08/14/2025 HHCCT MCV RBC Auto 98.0 fL 08/14/2025 80 - 100 HHCCT MCHC RBC Auto-mCnc 31.9 g/dL 08/14/2025 30 - 36 HHCCT MCH RBC Qn Auto 31.3 pg Above high normal 08/14/2025 27 - 31 HHCCT Lymphocytes/leuk NFr Bld Auto 12.0 % 08/14/2025 HHCCT Hct VFr Bld Auto 36.0 % Below low normal 08/14/2025 39 - 54 HHCCT Basophils num Bld Auto 0.01 Thou/uL 08/14/2025 0 - 0.2 HHCCT Lymphocytes num Bld Auto 1.08 Thou/uL Below low normal 08/14/2025 1.5 - 4.5 HHCCT RBC num Bld Auto 3.68 Mil/uL Below low normal 08/14/2025 4.5 - 6.2 HHCCT Neutrophils/leuk NFr Bld Auto 79.6 % 08/14/2025 HHCCT Basophils/leuk NFr Bld Auto 0.1 % 08/14/2025 HHCCT Encounters Encounter Type Encounter Reason Primary Diagnosis Location Date Inpatient 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
--- OUTSIDE RECORDS SUMMARY | 2025-08-22 07:25 | XMS_ITS | Encounter Summary ---
Author Organization [facility] Address [address] [place] [address] Phone Care Team Providers Care Milk Bottling Machine Operator Name Role Phone Dat Vargas MD Unavailable [phone] Dat Vargas MD Unavailable [phone] Delmar Berrios MD Unavailable [phone] Dat Vargas MD Primary Care Provider Sherry Bai OT Unavailable [phone] Encounter Details Date Type Department Care Team (Late st Contact Info) Description 07/12/2025 Procedure Pass [facility], Ct Scan - [address] [address] Social History Tobacco Use Types Packs/Day Years [...] documented as of this encounter Care Teams Milk Bottling Machine Operator Relationship Specialty Start Date End Date Dat Vargas MD [address] [place] [address] PCP - General Internal Medicine 08/25/17 Dat Vargas MD [address] [place] [address] Insurance Assigned Provider 12/09/23 Dat Vargas MD [address] [place] [address] Historical LMR Provider 06/20/17 Delmar Berrios MD [address] [place] [address] Historical LMR Provider 06/20/17 Sherry Bai, OT [address] [place] [address] Transitions Tree Tapping LaborerEducational Programming Director Therapy 07/14/25 07/15/25 documented as of this encounter Additional Source Comments The information contained in this document represents components of the legal health record. It is not the complete legal health record.[facility]
--- OUTSIDE RECORDS SUMMARY | 2025-08-22 07:25 | XMS_ITS | Encounter Summary ---
Author Organization [facility] Address [address] [place] [address] Phone Care Team Providers Care Special Needs Child Caregiver Name Role Phone Dat Vargas MD Unavailable [phone] Dat Vargas MD Unavailable [phone] Delmar Berrios MD Unavailable Dat Vargas MD Primary Care Provider Encounter Details Date Type Department Care Team (Late st Contact Info) Description 07/18/2025 Lab Requisition [facility] Lab Main [address] [place] [address] Patty Mazariegos, SELENA [address] [place], [place] [id number] [email or web address] Illness, unspecified Social History Tobacco Use Types Packs/Day Years [...] Procedure Name Priority Date/Time Associated Diagnosis Comments CBC Today 07/18/2025 4:35 AM EST Illness, unspecified documented in this encounter Results * (ABNORMAL) CBC (07/18/2025 4:35 AM EST) WBC 5.28 4.00 - 11.00 K/uL 07/18/2025 6:41 AM [facility] RBC 3.95(L) 4.50 - 5.90 M/uL 07/18/2025 6:41 AM [facility] Hemoglobin 12.7(L) 13.5 - 17.5 g/dL 07/18/2025 6:41 AM [facility] Comment:Repeated and verifie d Hematocrit 37.7(L) 41.0 - 53.0 % 07/18/2025 6:41 AM [facility] MCV 95.4 80.0 - 100.0 fL 07/18/2025 6:41 AM [facility] MCH 32.2(H) 27.0 - 31.0 pg 07/18/2025 6:41 AM [facility] MCHC 33.7 32.0 - 36.0 g/dL 07/18/2025 6:41 AM [facility] PLT 173 150 - 450 K/uL 07/18/2025 6:41 AM [facility] MPV 12.3(H) 8.4 - 12.0 fL 07/18/2025 6:41 AM [facility] RDW-CV 11.8 11.5 - 14.5 % 07/18/2025 6:41 AM [facility] Absolute NRBC 0.00 <=0.00 K cells/uL 07/18/2025 6:41 AM [facility] NRBC 0.0 <=0.0 /100 WBCs 07/18/2025 6:41 AM [facility] Blood (Blood) 07/18/2025 4:3 5 AM EST 07/18/2025 6:08 AM EST us Patty Mazariegos LOGISTICS VICE PRESIDENT LAB BLOOD BKR ORDERABLES F inal Result [facility] [address] [place], [place] [id number] documented in this encounter Visit Diagnoses Diagnosis Illness, unspecified documented in this encounter Additional Health Concerns Assessment Noted Time PHQ-2 Depression Total Score: 0 07/22/20 22 11:39 AM EST documented as of this encounter Care Teams Special Needs Child Caregiver Relationship Specialty Start Date End Date Dat Vargas MD [address] [place] [id number] PCP - General Internal Medicine 08/25/17 Dat Vargas MD [address] [place] [address] Insurance Assigned Provider 12/09/23 Dat Vargas MD [address] [place] [address] Historical LMR Provider 06/20/17 Delmar Berrios MD [address] [place] [address] Historical LMR Provider 06/20/17 documented as of this encounter Additional Source Comments The information contained in this document represents components of the legal health record. It is not the complete legal health record.[facility]
--- OUTSIDE RECORDS SUMMARY | 2025-08-22 07:25 | XMS_ITS | Encounter Summary ---
Author Organization [facility] Address [address] [facility] [address] [place] [phone] Phone Care Team Providers Care Customer Advisor Specialist Name Role Phone Dat Vargas MD Unavailable Dat Vargas MD Unavailable Delmar Berrios MD Unavailable [phone] Delmar Patel MD Unavailable [phone] Dat Vargas MD Primary Care Provider Geovany Escobar OT Unavailable [phone] Geovany Escobar OT Unavailable Sherry Bai OT Unavailable Encounter Details Date Type Department Care Team (Late st Contact Info) Description 09/18/2018 Transcribe Orders [facility] Specimen Processing [address] [place] [address] Dat Vargas MD [address] [facility], 2nd [place] [address] [email or web address] Neuropathy (Primary Dx) Social History Tobacco Use Types Packs/Day Years Used Date Smoking Tobacco: Every Day Cigarettes Smokeless Tobacco: Never Comments:since HS Sex and Gender Information Value Date Recorded Sex Assigned at Male 11/14/2020 12:52 PM EST Legal Sex Male 7:18 PM EST Gender Identity Male 11/14/2020 12:52 PM EST Sexual Orientation Straight 11/27/2021 7: 37 PM EDT documented as of this encounter Plan of Treatment Not on file documented as of this encounter Results * Toxicology screen, urine (09/18/2018 7:19 PM EST) URINE CANNABINOIDS NONE DETECTED NONE DETECTED [facility] Comment:Cutoff: 50 ng/mL URINE COCAINE METAB NONE DETECTED NONE DETECTED [facility] Comment:Cutoff: 300 ng/mL URINE AMPHETAMINES NONE DETECTED NONE DETECTED [facility] Comment:Cutoff: 1000 ng/mL URINE METHADONE NONE DETECTED NONE DETECTED [facility] Comment:Cutoff: 300 ng/mL URINE OPIATES NONE DETECTED NONE DETECTED [facility] Comment:Cutoff: 300 ng/mL URINE PHENCYCLIDINE NONE DETECTED NONE DETECTED [facility] Comment:Cutoff: 25 ng/mL URINE OXYCODONE NONE DETECTED NONE DETECTED [facility] Comment:Cutoff: 300 ng/ml URINE BARBITURATES NONE DETECTED NONE DETECTED [facility] Comment:Cutoff: 200 ng/mL URINE BENZODIAZEPINE NONE DETECTED NONE DETECTED [facility] Comment: Cutoff: 200 ng/mL INTERPRETATION FOR TOXICOLOGY PANEL: These results are unconfirmed and should be used for Medical Treatment purposes only. Urine (Urine) 09/18/2018 7:1 9 PM EST 09/18/2018 7:22 PM EST Dat Vargas MD LAB URINE ORDERABLES Final Result Performing Organization Address City/State/[facility] Co de Phone Number [address] [phone] documented in this encounter Visit Diagnoses Diagnosis Neuropathy- Primary Mononeuritis of unspecified site documented in this encounter Additional Health Concerns Assessment Noted Time PHQ-2 Depression Total Score: 0 11/01/19 18 9:06 AM EST documented as of this encounter Care Teams Customer Advisor Specialist Relationship Specialty Start Date End Date Dat Vargas MD [address] [place] [address], [address] [place] [address] PCP - General Internal Medicine 08/25/17 Dat Vargas MD [address] [place] [phone] [email or web address] Insurance Assigned Provider 12/09/23 Dat Vargas MD [address] [place] [phone] Historical LMR Provider 06/20/17 Delmar Berrios MD [address] [place] [phone] Historical LMR Provider 06/20/17 Delmar Patel MD [address] [place] [phone] Historical LMR Provider 06/20/17 Geovany Escobar, OT [address] [place] [address] [email or web address] Transitions Radar TechnicianBeef Splitter Therapy 03/11/21 03/14/21 Geovany Escobar, OT [address] [place] [address] [email or web address] Transitions Radar TechnicianBeef Splitter Therapy 03/12/21 03/12/21 Sherry Bai, OT [address] [place] [phone] [email or web address] Transitions Radar TechnicianBeef Splitter Therapy 07/14/25 07/15/25 documented as of this encounter Additional Source Comments The information contained in this document represents components of the legal health record. It is not the complete legal health record.[facility]
[2025-08-22 07:26] LABS: MANUAL DIFF FLAG NO
--- OUTSIDE RECORDS SUMMARY | 2025-08-22 07:26 | XMS_ITS | Encounter Summary ---
Author Organization [facility] Address [address] [place] [phone] Phone Care Team Providers Care Casing Sewer Name Role Phone Dat Vargas MD Unavailable Dat Vargas MD Unavailable Delmar Berrios MD Unavailable Dat Vargas MD Primary Care Provider Encounter Details Date Type Department Care Team (Late st Contact Info) Description 07/23/2025 Lab Requisition [facility] Lab Main [address] [place] [address] Patty Mazariegos, SELENA [address] [place] [address] [email or web address] Peripheral vascular disease, unspecified Social History Tobacco Use Types Packs/Day [...] Priority Date/Time Associated Diagnosis Comments CBC Today 07/23/2025 6:12 AM EST Peripheral vascular disease, unspecified BASIC METABOLIC PANEL (BMP) Today 07/23/2025 6:12 AM EST Peripheral vascular disease, unspecified documented in this encounter Results * (ABNORMAL) Basic Metabolic Panel (BMP) (07/23/2025 6:12 AM EST) Sodium 140 136 - 145 mmol/L 07/23/2025 10:04 AM [facility] Potassium 4.6 3.4 - 5.1 mmol/L 07/23/2025 10:04 AM [facility] Chloride 103 98 - 107 mmol/L 07/23/2025 10:04 AM [facility] CO2 28 20 - 31 mmol/L 07/23/2025 10:04 AM [facility] Anion Gap 9 3 - 17 mmol/L 07/23/2025 10:04 AM [facility] BUN 23 6 - 23 mg/dL 07/23/2025 10:04 AM [facility] Creatinine 1.00 0.60 - 1.30 mg/dL 07/23/2025 10:04 AM [facility] eGFR 76 >59 mL/min/1.7 3m2 07/23/2025 10:04 AM [facility] Comment:Estimated glomerular filtration rate calculated using the CKD-EPI refit equation. Glucose 79 70 - 99 mg/dL 07/23/2025 10:04 AM [facility] Calcium 8.4(L) 8.5 - 10.5 mg/dL 07/23/2025 10:04 AM [facility] Blood (Blood) 07/23/2025 6:1 2 AM EST 07/23/2025 8:46 AM EST us Patty Mazariegos ELECTRIC VEHICLE ELECTRICIAN LAB BLOOD BKR ORDERABLES F inal Result [facility] [address] [place] [address] * (ABNORMAL) CBC (07/23/2025 6:12 AM EST) WBC 4.65 4.00 - 11.00 K/uL 07/23/2025 9:39 AM [facility] RBC 4.10(L) 4.50 - 5.90 M/uL 07/23/2025 9:39 AM [facility] Hemoglobin 12.8(L) 13.5 - 17.5 g/dL 07/23/2025 9:39 AM [facility] Hematocrit 39.9(L) 41.0 - 53.0 % 07/23/2025 9:39 AM [facility] MCV 97.3 80.0 - 100.0 fL 07/23/2025 9:39 AM [facility] MCH 31.2(H) 27.0 - 31.0 pg 07/23/2025 9:39 AM [facility] MCHC 32.1 32.0 - 36.0 g/dL 07/23/2025 9:39 AM [facility] PLT 129(L) 150 - 450 K/uL 07/23/2025 9:39 AM [facility] MPV 12.8(H) 8.4 - 12.0 fL 07/23/2025 9:39 AM [facility] RDW-CV 11.9 11.5 - 14.5 % 07/23/2025 9:39 AM [facility] Absolute NRBC 0.00 <=0.00 K cells/uL 07/23/2025 9:39 AM [facility] NRBC 0.0 <=0.0 /100 WBCs 07/23/2025 9:39 AM [facility] Blood (Blood) 07/23/2025 6:1 2 AM EST 07/23/2025 8:46 AM EST us Patty Mazariegos ELECTRIC VEHICLE ELECTRICIAN LAB BLOOD BKR ORDERABLES F inal Result Performing Organization Address City/State/[facility] Co de Phone Number [facility] [address] [place], [place] [phone] documented in this encounter Visit Diagnoses Diagnosis Peripheral vascular disease, unspecified documented in this encounter Additional Health Concerns Assessment Noted Time PHQ-2 Depression Total Score: 0 07/22/20 22 11:39 AM EST documented as of this encounter Care Teams Casing Sewer Relationship Specialty Start Date End Date Dat Vargas MD [address] [place] [phone] PCP - General Internal Medicine 08/25/17 Dat Vargas MD [address] [place] [phone] Insurance Assigned Provider 12/09/23 Dat Vargas MD [address] [place] [address] Historical LMR Provider 06/20/17 Delmar Berrios MD [address] [place] [phone] Historical LMR Provider 06/20/17 documented as of this encounter Additional Source Comments The information contained in this document represents components of the legal health record. It is not the complete legal health record.[facility]
[2025-08-22 07:41] LABS: Hematocrit 24.5 % (42.0-52.0); Hemoglobin 8.0 g/dl (14.0-18.0); Imm Gran Abs Auto 0.03 X10*3/uL (0.00-0.03); Imm Gran Pct Auto 0.4 % (0.0-0.4); Lymphocytes Absolute Auto 1.4 X10*3/uL (1.2-4.9); Mean Corpuscular HGB Conc 32.7 g/dl (31.0-36.0); Mean Corpuscular Hemoglobin 31.0 pg (27.0-33.0); Mean Corpuscular Volume 95.0 fL (80.0-98.0); NRBC Abs Auto 0.000 X10*3/uL (0.0-0.012); NRBC Pct Auto 0.0 /100WBC (0.0-0.2); Platelet Count 285 X10*3/uL (160-400); Red Blood Count 2.58 X10*6/uL (4.60-5.80); White Blood Count 6.7 X10*3/uL (4.8-10.8)
[2025-08-22 07:49] LABS: Alanine Aminotransferase 90 U/L (0-40); Albumin Level 2.8 g/dL (3.5-5.0); Alkaline Phosphatase 83 U/L (39-117); Anion Gap 8 (12-20); Aspartate Amino Transferase 82 U/L (5-37); Blood Urea Nitrogen 26 mg/dL (9-16); Calcium 8.1 mg/dL (8.4-10.2); Carbon Dioxide 28 mmol/L (22-29); Chloride 104 mmol/L (96-108); Estimated Glomerular Filt Rate > 60; Potassium 3.9 mmol/L (3.3-5.1); Sodium 136 mmol/L (135-145); Total Protein 5.3 g/dL (6.5-8.0)
== END 2025-08-22 07:23 | disposition home or self-care (01) ==
LOC: HO.MMNH1L 07:22
PROVIDERS: Visit Provider Physician Assistant Medical
DX: I48.91 Unspecified atrial fibrillation (principal); E78.00 Pure hypercholesterolemia, unspecified; Z13.1 Encounter for screening for diabetes mellitus
CPT/HCPCS: 36415; 80053; 83036; 85025